=== PATIENT | female | born 1980 | race Two or more races ===

== ENCOUNTER → 2020-06-04 13:24 | Outpatient (BNVA) | payer SELFPAY | PROVIDERS: PCP Internal Medicine; Visit Provider Dietitian, Registered | DX: Z76.89 Persons encountering health services in other specified circumstances (principal) ==

== ENCOUNTER → 2020-07-21 13:30 | Outpatient (BNVA) | payer SELFPAY | PROVIDERS: PCP Orthopaedic Surgery; Referring Provider Orthopaedic Surgery; Visit Provider Physician Assistant | DX: Z76.89 Persons encountering health services in other specified circumstances (principal) ==

== ENCOUNTER 2020-09-10 11:26 | Outpatient (REF) | payer OTHER, SELFPAY ==
--- NOTE | 2020-09-10 12:00 | XR_ITS ---
EXAMINATION: XR LUMBOSACRAL SPINE CLINICAL INFORMATION: Low back pain. COMPARISON: None TECHNIQUE: Three views of the lumbosacral spine. FINDINGS: There is normal lumbar lordosis. The vertebral heights, alignment and disc heights are normal. There is no visible acute fracture, dislocation or lytic process seen. The paravertebral soft tissues are normal. The SI joints are symmetrical and normal. XR/XR lumbar spine 2-3V IMPRESSION: Unremarkable lumbar spine exam
[2020-09-10 12:06] LABS: MANUAL DIFF FLAG NO
[2020-09-10 12:12] LABS: Basophils Percent Auto 0.4 % (0-2); Eosinophils Absolute Auto 0.2 X10*3/uL (0.0-0.4); Eosinophils Percent Auto 2.1 % (0-4); Hemoglobin 9.4 g/dl (12.0-16.0); Imm Gran Abs Auto 0.04 X10*3/uL (0.00-0.03); Imm Gran Pct Auto 0.5 % (0.0-0.4); Lymphocytes Percent Auto 23.6 % (20-40); Mean Corpuscular HGB Conc 29.4 g/dl (31.0-35.0); Mean Corpuscular Hemoglobin 22.2 pg (27.0-33.0); Mean Corpuscular Volume 75.7 fL (80-98); Mean Platelet Volume 12.4 fL (9.4-12.3); Monocytes Absolute Auto 0.7 X10*3/uL (0.1-1.2); Monocytes Percent Auto 8.1 % (2-11); Neutrophils Absolute Auto 5.5 X10*3/uL (2.0-8.3); Neutrophils Percent Auto 65.3 % (45-73); Platelet Count 278 X10*3/uL (160-400); Red Blood Count 4.23 X10*6/uL (4.20-5.50); Red Cell Distribution Width 15.1 % (11.0-16.0); White Blood Count 8.5 X10*3/uL (4.8-10.8)
[2020-09-10 12:43] LABS: Alanine Aminotransferase 15 U/L (0-31); Alkaline Phosphatase 95 U/L (39-117); Anion Gap 14 (12-20); Aspartate Amino Transferase 16 U/L (5-31); Bilirubin Total 0.3 mg/dL (0.0-1.0); Blood Urea Nitrogen 13 mg/dL (9-16); Calcium 9.1 mg/dL (8.4-10.2); Carbon Dioxide 25 mmol/L (22-29); Chloride 106 mmol/L (96-108); Cholesterol 214 mg/dL; Estimated Glomerular Filt Rate > 60; Glucose Fasting 88 mg/dL (60-99); HDL Cholesterol 61 mg/dL; LDL Cholesterol Calculated 124 mg/dl; Potassium 4.7 mmol/l (3.3-5.1); Sodium 140 mmol/L (135-145); Total Protein 7.5 g/dL (6.5-8.0); Triglycerides 147 mg/dL
== END 2020-09-10 11:27 | disposition home or self-care (01) ==
LOC: HO.LAB 11:26
PROVIDERS: Visit Provider Internal Medicine
DX: Z00.00 Encounter for general adult medical examination without abnormal findings (principal); M54.9 Dorsalgia, unspecified; E11.9 Type 2 diabetes mellitus without complications; M54.5 Low back pain
CPT/HCPCS: 36415; 72100; 80053; 80061; 85025

== ENCOUNTER 2020-09-29 09:17 | Outpatient (REF) | payer OTHER, SELFPAY ==
[2020-09-29 11:38] LABS: Iron 24 mcg/dL (30-160); Percent Iron Saturation 5 % (15-50); Total Iron Binding Capacity 442 mcg/dL (228-428); Unsaturated Iron Binding 418 ug/dL
[2020-09-29 11:58] LABS: Ferritin 2 ng/mL (10-250)
== END 2020-09-29 09:18 | disposition home or self-care (01) ==
LOC: HO.LAB 09:17
PROVIDERS: Visit Provider Internal Medicine
DX: D64.9 Anemia, unspecified (principal)
CPT/HCPCS: 36415; 82728; 83540

== ENCOUNTER 2020-10-09 09:26 | Outpatient (REF) | payer OTHER, SELFPAY ==
[2020-10-10 08:23] LABS: BV Int Neg Control Negative (Negative); BV Int Pos Control Positive (Positive)
[2020-10-10 14:56] LABS: C. trachomatis RNA TMA NOT DETECTED (NOT DETECTED); N. gonorrhoeae RNA TMA NOT DETECTED (NOT DETECTED)
[2020-10-14 13:31] LABS: HPV mRNA E6/E7 rflx Not Detected (Not Detected)
== END 2020-10-09 09:27 | disposition home or self-care (01) ==
LOC: HO.LAB 09:26
PROVIDERS: PCP Internal Medicine; Visit Provider Advanced Practice Midwife
DX: Z01.411 Encounter for gynecological examination (general) (routine) with abnormal findings (principal); Z11.51 Encounter for screening for human papillomavirus (HPV); N76.0 Acute vaginitis; N63.0 Unspecified lump in unspecified breast; Z20.2 Contact with and (suspected) exposure to infections with a predominantly sexual mode of transmission
CPT/HCPCS: 36415; 87480; 87491; 87510; 87591; 87624; 87660; 88142

== ENCOUNTER 2020-10-24 11:46 | Outpatient (REF) | payer OTHER, SELFPAY ==
--- NOTE | ~2020-10-24 | MM_ITS ---
Routine EXAMINATION: MM DIAGNOSTIC DIGITAL BREAST TOMOSYNTHESIS, BILATERAL US DIAGNOSTIC ULTRASOUND BREAST, LEFT CLINICAL INFORMATION: 40-year-old with palpable finding posterior medial left breast at clinical exam. Family history breast cancer in cousin. No prior breast imaging. The lifetime risk of breast cancer based on the Tyrer-Cuzick Model is 12%. COMPARISON: None (current study represents initial baseline exam). TECHNIQUE: Digital breast tomosynthesis is performed in both the craniocaudal and mediolateral oblique views along with computer-aided detection (CAD). Synthesized 2D images are generated from the tomosynthesis. Ultrasound left breast is targeted to the areas of clinical concern medial left breast 7:00 through 11:00 position. Grayscale imaging and color Doppler are performed without and with harmonics. FINDINGS: There are scattered areas of fibroglandular density (ACR BI-RADS breast composition Category b). There are no significant masses, abnormal calcifications, or other abnormalities. There are scattered round and rim dermal calcifications at the bilateral posterior inferior medial breasts. The axilla and skin contours are unremarkable. Ultrasound left breast demonstrates no cystic or solid mass or architectural abnormality. No skin thickening or duct ectasia or edema tracking in soft tissue planes. Results are discussed with the patient at time of visit, using an business unit controller. MM/MM tomosynthesis diagnostic BI IMPRESSION: 1. No mammographic evidence of malignancy. 2. Unremarkable targeted left breast ultrasound. ASSESSMENT: BI-RADS 2: Benign RECOMMENDATION: 1. Patient should be managed based on the clinical impression. If clinically indicated, further evaluation may be considered with surgical consult. Decision to proceed with biopsy should be based on clinical grounds and degree of clinical concern. 2. Otherwise, routine annual screening mammography. This patient's information was entered into a reminder system with a target due date for their next mammogram.
== END 2020-10-24 11:47 | disposition home or self-care (01) ==
LOC: HO.MAMMO 11:46
PROVIDERS: Visit Provider Advanced Practice Midwife
DX: N63.20 Unspecified lump in the left breast, unspecified quadrant (principal)
CPT/HCPCS: 76642; 77062; 77066

== ENCOUNTER → 2020-10-27 15:51 | Outpatient (BNVA) | payer OTHER, SELFPAY | PROVIDERS: PCP Internal Medicine; Visit Provider Advanced Practice Midwife ==

== ENCOUNTER 2020-11-07 10:42 | Outpatient (REF) | payer OTHER, SELFPAY ==
[2020-11-07 12:13] LABS: Syphilis Screen Nonreactive (Nonreactive)
[2020-11-07 12:15] LABS: HIV AB/AG Nonreactive (Nonreactive); HIV Num 1 0.05 S/CO (0.00-0.99)
[2020-11-07 12:20] LABS: HBc Num1 0.07 S/CO (0.00-0.79); Hepatitis B Core Antibody Nonreactive (Nonreactive)
[2020-11-08 09:21] LABS: CT PCR NOT DETECTED (Not Detect.); NG PCR NOT DETECTED (Not Detect.)
[2020-11-10 04:10] LABS: ~HepC Num1 0.08 S/CO (0.00-0.79); ~Hepatitis C Antibody Nonreactive (Nonreactive)
== END 2020-11-07 10:43 | disposition home or self-care (01) ==
LOC: HO.LAB 10:42
PROVIDERS: Visit Provider Advanced Practice Midwife
DX: N76.0 Acute vaginitis (principal); Z20.2 Contact with and (suspected) exposure to infections with a predominantly sexual mode of transmission
CPT/HCPCS: 86704; 86780; 86803; 87389; 87491; 87591

== ENCOUNTER 2020-11-12 14:00 | Outpatient (RCR) | payer OTHER, SELFPAY ==
--- NOTE | 2020-12-16 12:07 | MHC.PT.DC ---
[facility] [place] Office [place] [facility] [place] [facility] [address] Gilma Cheek [address] [phone] F: [phone] F: [phone] F: [phone] F: [phone] Physical Therapy Discharge Report Diagnosis: DORSALGIA Date of Surgery: NA Date of Evaluation: 11/07/20 Date of Discharge: 12/02/20 Treatments to Date: 2 Cancellations to Date: 0 No Shows to Date: 3 Discharge Status: Patient Elected to Stop Visit Non-compliance Discharge Summary: Pt ATTENDED EVAL AND ONE VISIT, NO SHOWED FOR REMAINING VISITS AND D/Daryl DUE TO NON-COMPLIANCE Electronically signed by: ROSE RUBALCAVA PT, DPT Please sign and return to therapist. Thank you for your referral.
== END 2020-12-16 12:10 | disposition other institution (70) ==
LOC: HO.PT 14:00
PROVIDERS: PCP Internal Medicine; Visit Provider Internal Medicine
DX: M54.9 Dorsalgia, unspecified (principal)
CPT/HCPCS: 97110; 97162

== ENCOUNTER 2021-03-26 12:29 | Outpatient (REF) | payer OTHER, SELFPAY ==
[2021-03-26 13:08] LABS: Hemoglobin 8.8 g/dl (12.0-16.0); Red Cell Distribution Width 16.5 % (11.0-16.0)
[2021-03-26 13:10] LABS: Basophils Percent Auto 0.1 % (0-2); Eosinophils Absolute Auto 0.2 X10*3/uL (0.0-0.4); Eosinophils Percent Auto 2.2 % (0-4); Hematocrit 30.8 % (37-47); Imm Gran Abs Auto 0.04 X10*3/uL (0.00-0.03); Imm Gran Pct Auto 0.5 % (0.0-0.4); Lymphocytes Absolute Auto 2.4 X10*3/uL (1.2-4.9); Lymphocytes Percent Auto 29.6 % (20-40); Mean Corpuscular HGB Conc 28.6 g/dl (31.0-35.0); Mean Corpuscular Volume 70.2 fL (80-98); Monocytes Absolute Auto 0.8 X10*3/uL (0.1-1.2); Neutrophils Absolute Auto 4.6 X10*3/uL (2.0-8.3); Neutrophils Percent Auto 57.6 % (45-73); Platelet Count 235 X10*3/uL (160-400); Red Blood Count 4.39 X10*6/uL (4.20-5.50)
[2021-03-26 13:13] LABS: MANUAL DIFF FLAG NO
[2021-03-26 13:32] LABS: Iron 19 mcg/dL (30-160)
[2021-03-26 13:43] LABS: Percent Iron Saturation 4 % (15-50); Total Iron Binding Capacity 483 mcg/dL (228-428); Unsaturated Iron Binding 464 ug/dL
[2021-03-26 14:16] LABS: Ferritin 1 ng/mL (10-250)
== END 2021-03-26 12:30 | disposition home or self-care (01) ==
LOC: HO.LAB 12:29
PROVIDERS: PCP Internal Medicine; Visit Provider Internal Medicine
DX: Z00.00 Encounter for general adult medical examination without abnormal findings (principal); D64.9 Anemia, unspecified; E61.1 Iron deficiency
CPT/HCPCS: 36415; 82728; 83540; 85025

== ENCOUNTER 2021-03-27 11:53 | Outpatient (REF) | payer OTHER, SELFPAY ==
--- NOTE | ~2021-03-27 | XR_ITS ---
EXAMINATION: XR ANKLE, RIGHT CLINICAL INFORMATION: Pain. COMPARISON: None TECHNIQUE: 3 views of the right ankle. FINDINGS: The bones and soft tissues are normal. No fracture. Alignment is anatomic. Joint spaces are maintained. No joint effusion. There are small exostosis/spurring at the posterior calcaneus at the insertion of the Achilles tendon. XR/XR ankle RT 2V IMPRESSION: Normal right ankle.
--- NOTE | ~2021-03-27 | XR_ITS ---
EXAMINATION: XR HAND, LEFT CLINICAL INFORMATION: Pain in the hand. COMPARISON: None TECHNIQUE: PA, lateral, and oblique views of the left hand. FINDINGS: The bones and soft tissues are normal. No fracture. Alignment is anatomic. Joint spaces are maintained. No erosions or soft tissue calcifications. XR/XR hand LT 2V IMPRESSION: Normal left hand.
--- NOTE | ~2021-03-27 | XR_ITS ---
EXAMINATION: XR KNEE, RIGHT CLINICAL INFORMATION: Knee pain COMPARISON: None TECHNIQUE: Two views of the right knee. FINDINGS: There is mild joint narrowing medial femoral tibial joint. The patellofemoral joint is normal. No bone spur. No bone erosion. No soft tissue calcification. There is no joint effusion. XR/XR knee RT 2V IMPRESSION: Mild joint narrowing of the medial femoral tibial joint. Knee is otherwise normal.
== END 2021-03-27 11:54 | disposition home or self-care (01) ==
LOC: HO.XRAY 11:53
PROVIDERS: PCP Internal Medicine; Visit Provider Internal Medicine
DX: M79.642 Pain in left hand (principal); M25.561 Pain in right knee; M25.571 Pain in right ankle and joints of right foot
CPT/HCPCS: 73120; 73560; 73600

== ENCOUNTER → 2021-04-15 14:17 | Outpatient (BNV) | payer OTHER, SELFPAY | PROVIDERS: PCP Internal Medicine; Referring Provider Internal Medicine; Visit Provider Internal Medicine | DX: D50.9 Iron deficiency anemia, unspecified (principal) | CPT/HCPCS: 99204; 99213; 99214 ==

== ENCOUNTER 2021-05-07 07:13 | Outpatient (REF) | payer OTHER, SELFPAY | END 2021-05-07 07:14 | disposition home or self-care (01) | LOC: HO.MDS 07:13 | PROVIDERS: PCP Internal Medicine; Visit Provider Internal Medicine | DX: D50.9 Iron deficiency anemia, unspecified (principal) | CPT/HCPCS: 96365; 96366; J1200; J1750; Q0163 ==

== ENCOUNTER 2021-05-18 15:05 | Outpatient (REF) | payer OTHER, SELFPAY ==
--- NOTE | ~2021-05-18 | XR_ITS ---
EXAMINATION: XR FOOT, RIGHT CLINICAL INFORMATION: Pain right foot. COMPARISON: None TECHNIQUE: AP, lateral, and oblique views of the right foot. FINDINGS: There is no visible acute fracture, dislocation or subluxation. The ankle mortise and subtalar joints are normal. There is a small retrocalcaneal enthesophyte. The soft tissues are normal. XR/XR foot RT min 3V IMPRESSION: Small retrocalcaneal enthesophyte. No visible acute fracture or dislocation seen.
== END 2021-05-18 15:06 | disposition home or self-care (01) ==
LOC: HO.HMGCX 15:05
PROVIDERS: PCP Internal Medicine; Visit Provider Physician Assistant
DX: Z13.89 Encounter for screening for other disorder (principal)
CPT/HCPCS: 73630

== ENCOUNTER 2021-08-21 09:17 | Outpatient (REF) | payer OTHER, SELFPAY ==
[2021-08-21 09:31] LABS: MANUAL DIFF FLAG NO
[2021-08-21 09:55] LABS: Basophils Percent Auto 0.4 % (0-2); Eosinophils Absolute Auto 0.2 X10*3/uL (0.0-0.4); Eosinophils Percent Auto 2.7 % (0-4); Hematocrit 37.6 % (37.0-47.0); Hemoglobin 11.9 g/dl (12.0-16.0); Imm Gran Abs Auto 0.02 X10*3/uL (0.00-0.03); Imm Gran Pct Auto 0.4 % (0.0-0.4); Lymphocytes Absolute Auto 1.7 X10*3/uL (1.2-4.9); Lymphocytes Percent Auto 30.2 % (20-40); Mean Corpuscular HGB Conc 31.6 g/dl (31.0-35.0); Mean Corpuscular Hemoglobin 27.5 pg (27.0-33.0); Mean Corpuscular Volume 86.8 fL (80.0-98.0); Mean Platelet Volume 11.7 fL (9.4-12.3); Monocytes Absolute Auto 0.7 X10*3/uL (0.1-1.2); Monocytes Percent Auto 12.3 % (2-11); Platelet Count 213 X10*3/uL (160-400); Red Blood Count 4.33 X10*6/uL (4.20-5.50); Red Cell Distribution Width 14.2 % (11.0-16.0); White Blood Count 5.6 X10*3/uL (4.8-10.8)
[2021-08-21 10:30] LABS: Alanine Aminotransferase 19 U/L (0-31); Albumin Level 3.9 g/dL (3.5-5.0); Alkaline Phosphatase 84 U/L (39-117); Anion Gap 9 (12-20); Aspartate Amino Transferase 24 U/L (5-31); Bilirubin Total 0.5 mg/dL (0.0-1.0); Blood Urea Nitrogen 10 mg/dL (9-16); C Reactive Protein 2.27 mg/dL (< or = 0.50); Calcium 9.3 mg/dL (8.4-10.2); Carbon Dioxide 26 mmol/L (22-29); Chloride 107 mmol/L (96-108); Cholesterol 210 mg/dL; Estimated Glomerular Filt Rate > 60; Glucose Fasting 91 mg/dL (60-99); HDL Cholesterol 65 mg/dL; LDL Cholesterol Calculated 124 mg/dl; Potassium 4.3 mmol/L (3.3-5.1); Sodium 138 mmol/L (135-145); Total Protein 7.4 g/dL (6.5-8.0); Triglycerides 108 mg/dL
[2021-08-21 10:54] LABS: Erythrocyte Sedimentation Rate 32 MM/HR (0-20)
[2021-08-21 10:56] LABS: Rheumatoid Factor < 15.0 IU/mL (<15.0)
[2021-08-23 13:05] LABS: Anti Nuclear Antibody Screen NEGATIVE (NEGATIVE)
[2021-08-24 14:25] LABS: Cyclic Citrullinated Peptide 34 UNITS
[2021-08-24 21:52] LABS: Lyme Abs Screen <0.90 index
[2021-08-25 13:41] LABS: Anti DNA DS Antibody <1 IU/mL
[2021-08-25 16:41] LABS: Vitamin D 25-OH, D2 <4 ng/mL; Vitamin D 25-OH, D3 15 ng/mL; Vitamin D 25-OH, Total 15 ng/mL (30-100)
== END 2021-08-21 09:18 | disposition home or self-care (01) ==
LOC: HO.LAB 09:17
PROVIDERS: PCP Internal Medicine; Visit Provider Internal Medicine
DX: Z01.84 Encounter for antibody response examination (principal); E78.5 Hyperlipidemia, unspecified; E55.9 Vitamin D deficiency, unspecified; M25.50 Pain in unspecified joint; D64.9 Anemia, unspecified
CPT/HCPCS: 36415; 80053; 80061; 82306; 85025; 85652; 86038; 86039; 86140; 86200; 86225; 86431; 86617; 86618

== ENCOUNTER 2021-08-21 16:52 | Emergency (ER) | payer OTHER, SELFPAY ==
[2021-08-21 17:33] LABS: COVID-19 Test Negative (Negative)
[2021-08-21 17:35] VITALS: BP 152/84; PULSE 76; RESP 18; TEMP 36.8; O2SAT 99; BMI 33.2
--- NOTE | 2021-08-21 18:45 | ED.URI ---
HPI - URI/Sore Throat General Chief Complaint: Upper Respiratory Symptoms Stated Complaint: fever headache Time Seen by Provider: 08/21/21 18:45 Source: patient Mode of arrival: ambulatory Limitations: no limitations History of Present Illness HPI Narrative: 41-year-old female with a history of anxiety, HLD, obesity, anemia who presents to the ER with some chest congestion, headaches and body aches for the last 2 days. She is vaccinated against COVID-19. She has had known exposure to her granddaughter and daughter who have COVID. She denies any chest pain or shortness of breath. No fevers at home. MD elicited complaint: nasal congestion and other (Chest congestion and headache) Onset (ago): day(s) (2) Consistency: constant Severity: moderate Able to tolerate fluids by mouth: Yes Exacerbating factors: nothing Relieving factors: NSAID Context: sick contacts Associated symptoms: chills, diaphoresis, headache and nasal congestion Treatments prior to arrival: none Related Data Previous Rx's Medication Instructions Recorded hydrocortisone 1 % topical cream 1 appl TOPICAL TID PRN 30 Days 08/12/21 (Anti-Itch (hydrocortisone)) #28.4 g sumatriptan succinate 25 mg tablet 25 mg PO Q2-4H PRN 30 Days #9 tab 08/12/21 Allergies Allergy/AdvReac Type Severity Reaction Status Date / Time PLASTIC TAPE Allergy Intermediate BLISTERS Uncoded 08/21/21 17:34 Review of Systems Review of Systems: Constitutional: No Fever, No Chills ENT/Mouth: No sore throat, No Rhinorrhea, No Swallowing Difficulty Cardiovascular: No Chest Pain, No SOB Respiratory: No Cough, No Sputum Gastrointestinal: No Nausea, No Vomiting, No Diarrhea, No abdominal Pain Musculoskeletal: No joint pain, + Myalgias Skin: No Skin Lesions, No rash Neuro: No Weakness, No Dizziness, + Headache Heme/Lymph: No Bruising, No Lymphadenopathy PMFSH Past Medical History Medical History (Updated 08/21/21 @ 18:46 by AIDE Monahan) Anemia Dyslipidemia AMAN (generalized anxiety disorder) Migraine with aura New daily persistent headache Polyarthralgia Surgical History History of sleeve gastrectomy Hx of section Hx of tubal ligation Family History Family History Father Diabetes mellitus ESRD on hemodialysis Mother Acute depression Anxiety Asthma Hypertension Osteoporosis Hypercholesteremia Hyperlipemia Mental health disorder Son No problems noted. Daughter No problems noted. Brother No problems noted. Sister Cervical cancer Maternal Grandmother Lung cancer Maternal Grandfather Throat cancer Social History Social History Housing: House Alcohol intake: never Patient Tobacco Use Status: Never used Tobacco e-Cigarette/Vaping Use: Never Used Second Hand Smoke Exposure: No Advance Directives: No Advance Directives Information Provided: No service: No Current occupational status: employed Gender identity: Female Physical Exam Vital Signs: Vital Signs: Last Vital Signs Temp 98.3 F 08/21/21 17:35 Pulse 76 08/21/21 17:35 Resp 18 08/21/21 17:35 BP 152/84 H 08/21/21 17:35 Pulse Ox 99 08/21/21 17:35 BMI result Body Mass Index 33.2 Appearance: Alert. Oriented X3. No acute distress. HEENT: normal external inspection Neck: Normal inspection. Neck supple. CVS: Normal heart rate and rhythm. Pulses normal. Respiratory: No respiratory distress. Breath sounds normal. Skin: Skin warm and dry. Normal skin color. Normal skin turgor. No rashes. Extremities: No lower extremity edema. Normal ROM Neuro: Oriented X 3. Grossly normal, nonfocal. Course Course Course Narrative: 41-year-old female presenting with COVID symptoms after she has known exposure. She is vaccinated in her symptoms are mild. Her vital signs are normal. Her rapid antigen test here is negative. She is here with her 6-year-old granddaughter whose PCR test is positive. Patient has been counseled on our test is less reliable and most likely a false negative. She was counseled to self isolate at home an active though she does have COVID-19 a given her known exposures and symptoms. Patient expressed understanding is stable for discharge home for self-monitoring and supportive care. MDM - URI/Sore Throat Lab Data Labs: Lab Results 08/21/21 Range/Units 17:06 COVID-19 (DARIAN) Negative (Negative) COVID-19 Clin Com See Note Discharge Plan Discharge Clinical Impression: COVID-19 Patient Disposition: Home, Self-Care Instructions: Covid-19 Viral Syndrome and Novel Coronavirus (ED) Hey/Ath Additional Instructions: Your rapid COVID was negative today. HOWEVER this is thought to be a FALSE NEGATIVE Because of your symptoms and your close contact to your granddaughter who has COVID you should treat and isolate at home as though you are COVID POSITIVE. Do not go to work for 5 days, if your symptoms are resolved in 5 days you can go back to work with a mask. If your symptoms persist after 5 days, do not go back to work until of your symptoms are gone Take Motrin and Tylenol for headaches and body aches. Prescriptions: No Action sumatriptan succinate 25 mg tablet 25 mg PO Q2-4H PRN (Reason: migraine headache) 30 Days Qty: 9 RF: 2 hydrocortisone [Anti-Itch (HC)] 1 % cream 1 appl topical TID PRN (Reason: skin irritation) 30 Days Qty: 28.4 RF: 2 Stand Alone Forms: Work/School Release
== END 2021-08-21 19:20 | disposition home or self-care (01) ==
PROVIDERS: Emergency Provider Internal Medicine; PCP Internal Medicine
DX: U07.1 COVID-19 (principal); R51.9 Headache, unspecified
CPT/HCPCS: 36415; 87635; 99282; 99283

== ENCOUNTER 2021-11-30 13:14 | Outpatient (REF) | payer OTHER, SELFPAY ==
[2021-11-30 15:58] LABS: Hematocrit 37.1 % (37.0-47.0); Hemoglobin 11.2 g/dl (12.0-16.0); Mean Corpuscular HGB Conc 30.2 g/dl (31.0-35.0); Mean Corpuscular Hemoglobin 26.4 pg (27.0-33.0); Mean Corpuscular Volume 87.5 fL (80.0-98.0); Mean Platelet Volume 11.8 fL (9.4-12.3); Platelet Count 261 X10*3/uL (160-400); Red Blood Count 4.24 X10*6/uL (4.20-5.50); Red Cell Distribution Width 13.2 % (11.0-16.0); White Blood Count 10.3 X10*3/uL (4.8-10.8)
[2021-12-01 05:55] LABS: CT PCR NOT DETECTED (Not Detect.); NG PCR NOT DETECTED (Not Detect.)
[2021-12-01 15:42] LABS: BV Int Neg Control Negative (Negative); BV Int Pos Control Positive (Positive)
== END 2021-11-30 13:15 | disposition home or self-care (01) ==
LOC: HO.LAB 13:14
PROVIDERS: PCP Internal Medicine; Visit Provider Advanced Practice Midwife
DX: Z01.419 Encounter for gynecological examination (general) (routine) without abnormal findings (principal); N63.0 Unspecified lump in unspecified breast; N76.0 Acute vaginitis; L30.9 Dermatitis, unspecified; N92.1 Excessive and frequent menstruation with irregular cycle; N94.6 Dysmenorrhea, unspecified; Z20.2 Contact with and (suspected) exposure to infections with a predominantly sexual mode of transmission
CPT/HCPCS: 36415; 84443; 85027; 87480; 87491; 87510; 87591; 87660

== ENCOUNTER 2021-12-10 16:17 | Outpatient (REF) | payer OTHER, SELFPAY ==
--- NOTE | ~2021-12-10 | MM_ITS ---
EXAMINATION: MM SCREENING DIGITAL BREAST TOMOSYNTHESIS, BILATERAL CLINICAL INFORMATION: Screening. Asymptomatic. The lifetime risk of breast cancer based on the Tyrer-Cuzick Model is 14.1%. COMPARISON: Mammography: 10/24/2020 TECHNIQUE: Digital breast tomosynthesis is performed in both the craniocaudal and mediolateral oblique views along with computer-aided detection (CAD). Synthesized 2-D images are generated from the tomosynthesis. FINDINGS: The breasts are heterogeneously dense, which may obscure small masses (ACR BI-RADS breast composition Category c). There is a stable parenchymal pattern of the right breast without new abnormal dominant mass or suspicious grouping of microcalcifications. About the upper outer aspect of the left breast, there is a question of an irregularly marginated density approximately 9 cm from nipple, for which spot compression views are recommended. MM/MM tomosynthesis screening BI IMPRESSION: Left breast findings for further evaluation, as described. ASSESSMENT: BI-RADS 0: Incomplete - Need Additional Imaging Evaluation. RECOMMENDATION: 1. Additional views of the left breast. 2. Targeted ultrasound if warranted after review of the additional views. 3. Radiology department staff will contact the patient for additional imaging. This patient's information was entered into a reminder system with a target due date for their next mammogram.
== END 2021-12-10 16:18 | disposition home or self-care (01) ==
LOC: HO.MAMMO 16:17
PROVIDERS: Visit Provider Advanced Practice Midwife
DX: Z12.31 Encounter for screening mammogram for malignant neoplasm of breast (principal)
CPT/HCPCS: 77063; 77067

== ENCOUNTER 2021-12-21 15:01 | Outpatient (REF) | payer OTHER, SELFPAY ==
--- NOTE | ~2021-12-21 | MM_ITS ---
EXAMINATION: MM DIAGNOSTIC DIGITAL BREAST TOMOSYNTHESIS, LEFT CLINICAL INFORMATION: Recall from screening for question of asymmetric density upper outer breast. Age 41. TC score 14%. COMPARISON: Mammography: 12/10/2021, 10/24/2020 (baseline) TECHNIQUE: Digital breast tomosynthesis is performed. 2D images are generated from the tomosynthesis. The following views are obtained: Spot CC, spot ML. FINDINGS: There are scattered areas of fibroglandular density (ACR BI-RADS breast composition Category b). Additional views show no mass or architectural abnormality or persistent asymmetric density. There is no significant change from prior baseline exam. Results are discussed with the patient at time of visit. MM/MM tomosynthesis added views L IMPRESSION: Additional views shows no mass, architectural abnormality, or persistent asymmetric density. ASSESSMENT: BI-RADS 1: Negative RECOMMENDATION: Routine annual mammography screening. This patient's information was entered into a reminder system with a target due date for their next mammogram.
== END 2021-12-21 15:02 | disposition home or self-care (01) ==
LOC: HO.MAMMO 15:01
PROVIDERS: Visit Provider Advanced Practice Midwife
DX: R92.2 Inconclusive mammogram (principal)
CPT/HCPCS: 77061; 77065

== ENCOUNTER 2021-12-22 15:02 | Outpatient (REF) | payer OTHER, SELFPAY ==
--- NOTE | ~2021-12-22 | US_ITS ---
EXAMINATION: US PELVIS CLINICAL INFORMATION: Excessive and frequent menstruation with regular cycles COMPARISON: None TECHNIQUE: Ultrasound of the pelvis is performed using both transabdominal and transvaginal transducers along with Doppler. Transvaginal imaging is performed due to inadequate visualization transabdominally. FINDINGS: The uterus is anteverted and retroflexed and measures 12.3 x 4.8 x 5.4 cm in dimension. Endometrial thickness measures 1.3 cm. No focal uterine lesion is seen. There is fluid in the endocervical canal. There are nabothian cysts in the cervix. The ovaries are normal. The right ovary measures 2.4 x 1.4 x 1.7 cm and the left ovary measures 2.8 x 1.6 x 1.9 cm. There is no fluid in the pelvis. US/US pelvic and transvaginal IMPRESSION: Normal thickness endometrium measuring 1.3 cm.
== END 2021-12-22 15:03 | disposition home or self-care (01) ==
LOC: HO.US 15:02
PROVIDERS: Visit Provider Advanced Practice Midwife
DX: N92.0 Excessive and frequent menstruation with regular cycle (principal)
CPT/HCPCS: 76830; 76856

== ENCOUNTER 2022-01-08 10:16 | Outpatient (REF) | payer OTHER, SELFPAY | END 2022-01-08 10:17 | disposition home or self-care (01) | LOC: HO.LAB 10:16 | PROVIDERS: Visit Provider Advanced Practice Midwife | DX: N93.9 Abnormal uterine and vaginal bleeding, unspecified (principal); N92.0 Excessive and frequent menstruation with regular cycle | CPT/HCPCS: 58100; 88305 ==

== ENCOUNTER → 2022-01-22 14:15 | Outpatient (BNVA) | payer OTHER, SELFPAY | PROVIDERS: PCP Internal Medicine; Visit Provider Advanced Practice Midwife | DX: N92.0 Excessive and frequent menstruation with regular cycle (principal) | CPT/HCPCS: 99212 ==

== ENCOUNTER 2022-03-08 14:36 | Outpatient (REF) | payer OTHER, SELFPAY | END 2022-03-08 14:37 | disposition home or self-care (01) | LOC: HO.MDS 14:36 | PROVIDERS: Visit Provider Internal Medicine | DX: D50.9 Iron deficiency anemia, unspecified (principal) | CPT/HCPCS: 96365; J1756 ==

== ENCOUNTER 2022-03-13 07:30 | Outpatient (REF) | payer OTHER, SELFPAY ==
--- NOTE | ~2022-03-13 | XR_ITS ---
EXAMINATION: XR KNEE, LEFT CLINICAL INFORMATION: Pain COMPARISON: None TECHNIQUE: 2 views of the left knee. FINDINGS: Bones and soft tissues are normal. No fracture or joint effusion. Alignment is anatomic. Joint spaces are well maintained. No abnormal soft tissue calcification. XR/XR knee LT 2V IMPRESSION: Unremarkable left knee.
== END 2022-03-13 07:31 | disposition home or self-care (01) ==
LOC: HO.XRAY 07:30
PROVIDERS: PCP Internal Medicine; Visit Provider Internal Medicine
DX: M25.562 Pain in left knee (principal)
CPT/HCPCS: 73560

== ENCOUNTER 2022-03-15 16:15 | Outpatient (REF) | payer OTHER, SELFPAY | END 2022-03-15 16:16 | disposition home or self-care (01) | LOC: HO.MDS 16:15 | PROVIDERS: Visit Provider Internal Medicine | DX: D50.9 Iron deficiency anemia, unspecified (principal) | CPT/HCPCS: 96365; J1756 ==

== ENCOUNTER 2022-03-22 16:15 | Outpatient (REF) | payer OTHER, SELFPAY | END 2022-03-22 16:16 | disposition home or self-care (01) | LOC: HO.MDS 16:15 | PROVIDERS: Visit Provider Internal Medicine | DX: D50.9 Iron deficiency anemia, unspecified (principal) | CPT/HCPCS: 96365; J1756 ==

== ENCOUNTER 2022-03-29 16:27 | Outpatient (REF) | payer OTHER, SELFPAY | END 2022-03-29 16:28 | disposition home or self-care (01) | LOC: HO.MDS 16:27 | PROVIDERS: Visit Provider Internal Medicine | DX: D50.9 Iron deficiency anemia, unspecified (principal) | CPT/HCPCS: 96365; J1756 ==

== ENCOUNTER 2022-04-05 17:24 | Outpatient (REF) | payer OTHER, SELFPAY | END 2022-04-05 17:25 | disposition home or self-care (01) | LOC: HO.MDS 17:24 | PROVIDERS: Visit Provider Internal Medicine | DX: D50.9 Iron deficiency anemia, unspecified (principal); N90.89 Other specified noninflammatory disorders of vulva and perineum; Z30.430 Encounter for insertion of intrauterine contraceptive device | CPT/HCPCS: 58300; 96365; J1756 ==

== ENCOUNTER → 2022-04-07 13:10 | Outpatient (BNVA) | payer OTHER, SELFPAY | PROVIDERS: PCP Internal Medicine; Referring Provider Surgery; Visit Provider Physician Assistant Surgical | DX: E66.9 Obesity, unspecified (principal); Z68.34 Body mass index [BMI] 34.0-34.9, adult; Z98.84 Bariatric surgery status; Z90.3 Acquired absence of stomach [part of] | CPT/HCPCS: 99212 ==

== ENCOUNTER 2022-04-24 07:23 | Outpatient (REF) | payer OTHER, SELFPAY ==
[2022-04-24 08:08] LABS: MANUAL DIFF FLAG NO
[2022-04-24 08:45] LABS: Basophils Percent Auto 0.5 % (0-2); Eosinophils Absolute Auto 0.2 X10*3/uL (0.0-0.4); Hemoglobin 11.4 g/dl (12.0-16.0); Imm Gran Abs Auto 0.03 X10*3/uL (0.00-0.03); Imm Gran Pct Auto 0.5 % (0.0-0.4); Lymphocytes Absolute Auto 1.7 X10*3/uL (1.2-4.9); Lymphocytes Percent Auto 26.5 % (20-40); Mean Corpuscular HGB Conc 30.8 g/dl (31.0-35.0); Mean Corpuscular Hemoglobin 25.8 pg (27.0-33.0); Mean Corpuscular Volume 83.7 fL (80.0-98.0); Mean Platelet Volume 12.5 fL (9.4-12.3); Monocytes Absolute Auto 0.5 X10*3/uL (0.1-1.2); Monocytes Percent Auto 8.1 % (2-11); Neutrophils Percent Auto 61.4 % (45-73); Platelet Count 203 X10*3/uL (160-400); Red Blood Count 4.42 X10*6/uL (4.20-5.50); Red Cell Distribution Width 17.8 % (11.0-16.0); White Blood Count 6.6 X10*3/uL (4.8-10.8)
[2022-04-24 09:02] LABS: Estimated Average Glucose 91 mg/dL; Hemoglobin A1c % 4.8 %
[2022-04-24 09:10] LABS: Alanine Aminotransferase 14 U/L (0-31); Albumin Level 3.8 g/dL (3.5-5.0); Alkaline Phosphatase 69 U/L (39-117); Anion Gap 14 (12-20); Aspartate Amino Transferase 13 U/L (5-31); Bilirubin Total 0.6 mg/dL (0.0-1.0); Blood Urea Nitrogen 11 mg/dL (9-16); C Reactive Protein 0.65 mg/dL (< or = 0.50); Carbon Dioxide 23 mmol/L (22-29); Chloride 108 mmol/L (96-108); Cholesterol 187 mg/dL; Estimated Glomerular Filt Rate > 60; Glucose Random 86 mg/dL (60-115); HDL Cholesterol 59 mg/dL; Iron 59 mcg/dL (30-160); LDL Cholesterol Calculated 117 mg/dl; Percent Iron Saturation 18 % (15-50); Potassium 4.8 mmol/L (3.3-5.1); Sodium 140 mmol/L (135-145); Total Iron Binding Capacity 326 mcg/dL (228-428); Triglycerides 58 mg/dL; Unsaturated Iron Binding 267 ug/dL
[2022-04-24 09:32] LABS: Ferritin 71 ng/mL (10-250); Insulin 9 uU/mL (2-29); TSH reflex Free T4 1.21 uIU/mL (0.32-4.0); Vitamin D 25-OH Total 18.2 ng/mL (>30)
[2022-04-24 09:52] LABS: Folate > 20.0 ng/mL (> or = 4.0); Vitamin B12 785 pg/mL (200-900)
[2022-04-25 18:51] LABS: Calcium (PTHI) 9.2 mg/dL (8.6-10.2); PTHI 35 pg/mL (16-77)
[2022-04-28 05:47] LABS: Zinc 61 mcg/dL (60-130)
[2022-04-30 17:51] LABS: Vitamin A 35 mcg/dL (38-98)
[2022-05-01 11:37] LABS: Vitamin B1 13 nmol/L (8-30)
== END 2022-04-24 07:24 | disposition home or self-care (01) ==
LOC: HO.LAB 07:23
PROVIDERS: PCP Internal Medicine; Visit Provider Physician Assistant Surgical
DX: Z90.3 Acquired absence of stomach [part of] (principal)
CPT/HCPCS: 36415; 80053; 80061; 82306; 82607; 82728; 82746; 83036; 83525; 83540; 83970; 84425; 84443; 84590; 84630; 85025; 86140

== ENCOUNTER → 2022-06-14 15:41 | Outpatient (BNVA) | payer OTHER, SELFPAY | PROVIDERS: PCP Internal Medicine; Visit Provider Advanced Practice Midwife | DX: Z30.431 Encounter for routine checking of intrauterine contraceptive device (principal) | CPT/HCPCS: 99212 ==

== ENCOUNTER → 2022-07-12 16:29 | Outpatient (BNVA) | payer OTHER, SELFPAY | PROVIDERS: PCP Internal Medicine; Visit Provider Physician Assistant Surgical | DX: E66.9 Obesity, unspecified (principal); Z90.3 Acquired absence of stomach [part of] | CPT/HCPCS: 99212 ==

== ENCOUNTER 2022-08-03 17:39 | Emergency (ER) | payer OTHER, SELFPAY ==
--- NOTE | ~2022-08-03 | XR_ITS ---
EXAMINATION: XR CHEST CLINICAL INFORMATION: Chest pain, shortness of breath COMPARISON: 04/26/2019 TECHNIQUE: 2 views of the chest were obtained. FINDINGS: No focal consolidation, pulmonary edema, or pleural effusion. Stable cardiomediastinal silhouette. XR/XR chest 2V IMPRESSION: No acute cardiopulmonary findings. A 10 mm round density projecting over the left posterior 5th rib is most likely external to the patient, projecting anteriorly beneath the mid humerus on the lateral view. This could be confirmed with bilateral shallow oblique radiographs and/or repeat AP view after removal of overlying materials.
--- NOTE | 2022-08-03 17:53 | ECG_ITS ---
Test Reason : CP Blood Pressure : / mmHG Vent. Rate : 076 BPM Atrial Rate : 076 BPM P-R Int : 150 ms QRS Dur : 088 ms QT Int : 382 ms P-R-T Axes : 000 150 164 degrees QTc Int : 429 ms Normal sinus rhythm Left posterior fascicular block (not clear if leads reversed) Abnormal ECG When compared with ECG of 26-APR-2019 07:45, Left posterior fascicular block is now Present T wave inversion now evident in Lateral leads Referred By: Generic ED Physician Electronically Signed By:ALICE BARAHONA
[2022-08-03 18:58] VITALS: BP 137/95; PULSE 71; RESP 18; TEMP 36.7; O2SAT 100; BMI 33.5
--- NOTE | 2022-08-03 19:00 | ED.CHESTPAIN ---
HPI - Chest Pain General Chief Complaint: Chest Pain <AIED Schaeffer - Last Filed: 08/03/22 19:02> Stated Complaint: Chest pain/SOB <AIDE Schaeffer - Last Filed: 08/03/22 19:02> Time Seen by Provider: 08/03/22 21:43 <AIDE Schaeffer - Last Filed: 08/03/22 19:02> Source: patient <Tuan Walter MD - Last Filed: 08/03/22 22:24> Mode of arrival: ambulatory <Tuan Walter MD - Last Filed: 08/03/22 22:24> Limitations: no limitations <Tuan Walter MD - Last Filed: 08/03/22 22:24> History of Present Illness HPI narrative: Patient is 42 years old with history of borderline hypertension no known coronary artery disease include increased stress lately comes here for mid chest pain for last 2 days pain is localized on the right 2nd intercostal space increases on palpation and movements and taking deep breath no cough or shortness of breath patient has increased anxiety unable to sleep for last few nights patient had labs workup done prior to my evaluation which showed normal troponin normal cardiogram without any acute ST-T changes stable vitals <Tuan Walter MD - Last Filed: 08/03/22 22:24> Related Data Home Medications: Home Medications Medication Instructions Recorded Confirmed levonorgestrel 20 mcg/24 hours (8 intrauterine 06/14/22 07/12/22 yrs) 52 mg intrauterine device (Mirena) Previous Rx's Medication Instructions Recorded cholecalciferol (vitamin D3) 25 25 mcg PO DAILY 90 days #90 caps 03/10/22 mcg (1,000 unit) capsule vitamin A palmitate 10,000 unit 10,000 unit PO DAILY #90 caps 05/04/22 capsule pantoprazole 40 mg tablet,delayed 40 mg PO DAILY #90 tabs 07/12/22 release ibuprofen 600 mg tablet 600 mg PO Q6H PRN fever or pain 08/03/22 #30 tabs lorazepam 0.5 mg tablet (Ativan) 0.5 mg PO BEDTIME PRN anxiety #14 08/03/22 tabs <AIDE Schaeffer - Last Filed: 08/03/22 19:02> Allergies/Adverse Reactions: Allergies Allergy/AdvReac Type Severity Reaction Status Date / Time PLASTIC TAPE Allergy Intermediate BLISTERS Uncoded 06/14/22 15:49 <AIDE Schaeffer - Last Filed: 08/03/22 19:02> Review of Systems Review of Systems: Yes all other systems are reviewed and are negative <Tuan Walter MD - Last Filed: 08/03/22 22:24> [facility] Past Medical History Medical History: Medical History Anemia Dyslipidemia AMAN (generalized anxiety disorder) GERD (gastroesophageal reflux disease) Hypovitaminosis D Migraine with aura Migraines New daily persistent headache Physical exam Polyarthralgia <AIDE Schaeffer - Last Filed: 08/03/22 19:02> Surgical History: Surgical History History of sleeve gastrectomy Hx of section Hx of tubal ligation <AIDE Schaeffer - Last Filed: 08/03/22 19:02> Family History Family History: Family History Father Diabetes mellitus ESRD on hemodialysis Mother Acute depression Anxiety Asthma Hypertension Osteoporosis Hypercholesteremia Hyperlipemia Mental health disorder Son No problems noted. Daughter No problems noted. Brother No problems noted. Sister Cervical cancer Maternal Grandmother Lung cancer Maternal Grandfather Throat cancer <AIDE Schaeffer - Last Filed: 08/03/22 19:02> Social History Social History: Social History Household Members: Significant Other and Family Housing: House Alcohol intake: never Patient Tobacco Use Status: Never used Tobacco e-Cigarette/Vaping Use: Never Used Second Hand Smoke Exposure: No Advance Directives: No Advance Directives Information Provided: No service: No Current occupational status: employed Gender identity: Female Cognitive needs: No Hearing needs: No Vision needs: No <AIDE Schaeffer - Last Filed: 08/03/22 19:02> Physical Exam Vital Signs: Vital Signs: Last Vital Signs Temp 98.1 F 08/03/22 18:58 Pulse 71 08/03/22 18:58 Resp 18 08/03/22 18:58 BP 137/95 H 08/03/22 18:58 Pulse Ox 100 08/03/22 18:58 O2 Del Method 08/03/22 18:58 BMI result Body Mass Index 33.5 <AIDE Schaeffer - Last Filed: 08/03/22 19:02> Vital Signs: Last Vital Signs Temp 98.1 F 08/03/22 18:58 Pulse 71 08/03/22 18:58 Resp 18 08/03/22 18:58 BP 137/95 H 08/03/22 18:58 Pulse Ox 100 08/03/22 18:58 O2 Del Method 08/03/22 18:58 BMI result Body Mass Index 33.5 <Tuan Walter MD - Last Filed: 08/03/22 22:24> Appearance: Alert. Oriented X3. No acute distress. Eyes: PERRLA, No Nystagmus ENT: Pharynx normal. Oral Mucosa moist Neck: Normal inspection. Neck supple. CVS: Normal heart rate and rhythm. Pulses normal. Tenderness seconds ago so based on the right side Respiratory: No respiratory distress. Equal air entry bilateral, no wheezing/rales/rhonchi Abdomen: Soft and nontender. Bowel sounds are present, no mass palpable, no CVA tenderness Skin: Skin warm and dry. Normal skin color. Normal skin turgor. Extremities: No lower extremity edema. No calf tenderness Neuro: Oriented X 3. No motor deficit. No sensory deficit.No cerebellar signs , cranial nerves II-XII intact <Tuan Walter MD - Last Filed: 08/03/22 22:24> Course Course Course Narrative: 19pm - 42yoF c PMHx of HTN noncompliant with medications was presenting to the ER with complaints of 2 days of midsternal chest pain that wakes her up out of her sleep at 2 in the morning with associated shortness of breath. She denies any cough or any other symptoms complaints or concerns at this time. Plan: Labs, EKG, chest x-ray ordered at this time. Patient is stable she can be sent back to the waiting room for further evaluation treatment to the main ER. <AIDE Schaeffer - Last Filed: 08/03/22 19:02> Medical Decision Making Medical Decision Making MDM Narrative: Patient with clinically costochondritis EKG troponin negative discharge patient home on ibuprofen <Tuan Walter MD - Last Filed: 08/03/22 22:24> Lab Data MDM Lab Attestation statement: I reviewed the patient's lab results. <Tuan Walter MD - Last Filed: 08/03/22 22:24> Result Diagrams: : 08/03/22 19:14 08/03/22 19:14 <AIDE Schaeffer - Last Filed: 08/03/22 19:02> Labs: Lab Results 08/03/22 08/03/22 08/03/22 Range/Units 19:13 19:13 19:13 WBC (4.8-10.8) X10*3/uL RBC (4.20-5.50) X10*6/uL Hgb (12.0-16.0) g/dl Hct (37.0-47.0) % MCV (80.0-98.0) fL MCH (27.0-33.0) pg MCHC (31.0-35.0) g/dl RDW (11.0-16.0) % Plt Count (160-400) X10*3/uL MPV (9.4-12.3) fL Immature Gran % (Auto) (0.0-0.4) % Neut % (Auto) (45-73) % Lymph % (Auto) (20-40) % Bucks % (Auto) (2-11) % Eos % (Auto) (0-4) % Baso % (Auto) (0-2) % Lymph # (Auto) (1.2-4.9) X10*3/uL Bucks # (Auto) (0.1-1.2) X10*3/uL Eos # (Auto) (0.0-0.4) X10*3/uL Baso # (Auto) (0.0-0.2) X10*3/uL Abs Immat Gran (auto) (0.00-0.03) X10*3/uL Absolute Neuts (auto) (2.0-8.3) x10*3/uL Absolute Nucleated RBC (0.0-0.012) X10*3/uL Nucleated RBC % (auto) (0.0-0.2) /100WBC PT (10.0-13.1) SEC INR (0.9-1.1) Sodium (135-145) mmol/L Potassium (3.3-5.1) mmol/L Chloride (96-108) mmol/L Carbon Dioxide (22-29) mmol/L Anion Gap (12-20) BUN (9-16) mg/dL Creatinine (0.5-1.4) mg/dL Estim Creat Clear Calc Estimated GFR Random Glucose (60-115) mg/dL Calcium (8.4-10.2) mg/dL Magnesium (1.6-2.6) mg/dL Total Bilirubin (0.0-1.0) mg/dL AST (5-31) U/L ALT (0-31) U/L Alkaline Phosphatase (39-117) U/L Troponin I High Sens < 3.5 (<3.5-17.0) ng/L Total Protein (6.5-8.0) g/dL Albumin (3.5-5.0) g/dL COVID-19 (DARIAN) Negative (Negative) COVID-19 Clin Com See Note Influenza Type A (QING) Negative (Negative) Influenza Type B (QING) Negative (Negative) Influenza A & B Note See Note 08/03/22 08/03/22 08/03/22 Range/Units 19:14 19:14 19:14 WBC 10.5 (4.8-10.8) X10*3/uL RBC 4.49 (4.20-5.50) X10*6/uL Hgb 12.3 (12.0-16.0) g/dl Hct 38.8 (37.0-47.0) % MCV 86.4 (80.0-98.0) fL MCH 27.4 (27.0-33.0) pg MCHC 31.7 (31.0-35.0) g/dl RDW 12.9 (11.0-16.0) % Plt Count 255 D (160-400) X10*3/uL MPV 11.9 (9.4-12.3) fL Immature Gran % (Auto) 0.4 (0.0-0.4) % Neut % (Auto) 68.6 (45-73) % Lymph % (Auto) 21.9 (20-40) % Bucks % (Auto) 7.1 (2-11) % Eos % (Auto) 1.6 (0-4) % Baso % (Auto) 0.4 (0-2) % Lymph # (Auto) 2.3 (1.2-4.9) X10*3/uL Bucks # (Auto) 0.8 (0.1-1.2) X10*3/uL Eos # (Auto) 0.2 (0.0-0.4) X10*3/uL Baso # (Auto) 0.0 (0.0-0.2) X10*3/uL Abs Immat Gran (auto) 0.04 H (0.00-0.03) X10*3/uL Absolute Neuts (auto) 7.2 (2.0-8.3) x10*3/uL Absolute Nucleated RBC 0.000 (0.0-0.012) X10*3/uL Nucleated RBC % (auto) 0.0 (0.0-0.2) /100WBC PT 13.1 (10.0-13.1) SEC INR 1.1 (0.9-1.1) Sodium 139 (135-145) mmol/L Potassium 4.4 (3.3-5.1) mmol/L Chloride 106 (96-108) mmol/L Carbon Dioxide 26 (22-29) mmol/L Anion Gap 11 L (12-20) BUN 12 (9-16) mg/dL Creatinine 0.78 (0.5-1.4) mg/dL Estim Creat Clear Calc 112.4 Estimated GFR > 60 Random Glucose 83 (60-115) mg/dL Calcium 9.7 D (8.4-10.2) mg/dL Magnesium 1.8 (1.6-2.6) mg/dL Total Bilirubin 0.5 (0.0-1.0) mg/dL AST 15 (5-31) U/L ALT 16 (0-31) U/L Alkaline Phosphatase 89 (39-117) U/L Troponin I High Sens (<3.5-17.0) ng/L Total Protein 7.4 (6.5-8.0) g/dL Albumin 4.1 (3.5-5.0) g/dL COVID-19 (DARIAN) (Negative) COVID-19 Clin Com Influenza Type A (QING) (Negative) Influenza Type B (QING) (Negative) Influenza A & B Note <AIDE Schaeffer - Last Filed: 08/03/22 19:02> Lab Results 08/03/22 08/03/22 08/03/22 Range/Units 19:13 19:13 19:13 WBC (4.8-10.8) X10*3/uL RBC (4.20-5.50) X10*6/uL Hgb (12.0-16.0) g/dl Hct (37.0-47.0) % MCV (80.0-98.0) fL MCH (27.0-33.0) pg MCHC (31.0-35.0) g/dl RDW (11.0-16.0) % Plt Count (160-400) X10*3/uL MPV (9.4-12.3) fL Immature Gran % (Auto) (0.0-0.4) % Neut % (Auto) (45-73) % Lymph % (Auto) (20-40) % Bucks % (Auto) (2-11) % Eos % (Auto) (0-4) % Baso % (Auto) (0-2) % Lymph # (Auto) (1.2-4.9) X10*3/uL Bucks # (Auto) (0.1-1.2) X10*3/uL Eos # (Auto) (0.0-0.4) X10*3/uL Baso # (Auto) (0.0-0.2) X10*3/uL Abs Immat Gran (auto) (0.00-0.03) X10*3/uL Absolute Neuts (auto) (2.0-8.3) x10*3/uL Absolute Nucleated RBC (0.0-0.012) X10*3/uL Nucleated RBC % (auto) (0.0-0.2) /100WBC PT (10.0-13.1) SEC INR (0.9-1.1) Sodium (135-145) mmol/L Potassium (3.3-5.1) mmol/L Chloride (96-108) mmol/L Carbon Dioxide (22-29) mmol/L Anion Gap (12-20) BUN (9-16) mg/dL Creatinine (0.5-1.4) mg/dL Estim Creat Clear Calc Estimated GFR Random Glucose (60-115) mg/dL Calcium (8.4-10.2) mg/dL Magnesium (1.6-2.6) mg/dL Total Bilirubin (0.0-1.0) mg/dL AST (5-31) U/L ALT (0-31) U/L Alkaline Phosphatase (39-117) U/L Troponin I High Sens < 3.5 (<3.5-17.0) ng/L Total Protein (6.5-8.0) g/dL Albumin (3.5-5.0) g/dL COVID-19 (DARIAN) Negative (Negative) COVID-19 Clin Com See Note Influenza Type A (QING) Negative (Negative) Influenza Type B (QING) Negative (Negative) Influenza A & B Note See Note 08/03/22 08/03/22 08/03/22 Range/Units 19:14 19:14 19:14 WBC 10.5 (4.8-10.8) X10*3/uL RBC 4.49 (4.20-5.50) X10*6/uL Hgb 12.3 (12.0-16.0) g/dl Hct 38.8 (37.0-47.0) % MCV 86.4 (80.0-98.0) fL MCH 27.4 (27.0-33.0) pg MCHC 31.7 (31.0-35.0) g/dl RDW 12.9 (11.0-16.0) % Plt Count 255 D (160-400) X10*3/uL MPV 11.9 (9.4-12.3) fL Immature Gran % (Auto) 0.4 (0.0-0.4) % Neut % (Auto) 68.6 (45-73) % Lymph % (Auto) 21.9 (20-40) % Bucks % (Auto) 7.1 (2-11) % Eos % (Auto) 1.6 (0-4) % Baso % (Auto) 0.4 (0-2) % Lymph # (Auto) 2.3 (1.2-4.9) X10*3/uL Bucks # (Auto) 0.8 (0.1-1.2) X10*3/uL Eos # (Auto) 0.2 (0.0-0.4) X10*3/uL Baso # (Auto) 0.0 (0.0-0.2) X10*3/uL Abs Immat Gran (auto) 0.04 H (0.00-0.03) X10*3/uL Absolute Neuts (auto) 7.2 (2.0-8.3) x10*3/uL Absolute Nucleated RBC 0.000 (0.0-0.012) X10*3/uL Nucleated RBC % (auto) 0.0 (0.0-0.2) /100WBC PT 13.1 (10.0-13.1) SEC INR 1.1 (0.9-1.1) Sodium 139 (135-145) mmol/L Potassium 4.4 (3.3-5.1) mmol/L Chloride 106 (96-108) mmol/L Carbon Dioxide 26 (22-29) mmol/L Anion Gap 11 L (12-20) BUN 12 (9-16) mg/dL Creatinine 0.78 (0.5-1.4) mg/dL Estim Creat Clear Calc 112.4 Estimated GFR > 60 Random Glucose 83 (60-115) mg/dL Calcium 9.7 D (8.4-10.2) mg/dL Magnesium 1.8 (1.6-2.6) mg/dL Total Bilirubin 0.5 (0.0-1.0) mg/dL AST 15 (5-31) U/L ALT 16 (0-31) U/L Alkaline Phosphatase 89 (39-117) U/L Troponin I High Sens (<3.5-17.0) ng/L Total Protein 7.4 (6.5-8.0) g/dL Albumin 4.1 (3.5-5.0) g/dL COVID-19 (DARIAN) (Negative) COVID-19 Clin Com Influenza Type A (QING) (Negative) Influenza Type B (QING) (Negative) Influenza A & B Note <Tuan Walter MD - Last Filed: 08/03/22 22:24> Independent Interpretation I performed an independent interpretation of an: EKG <Tuan Walter MD - Last Filed: 08/03/22 22:24> Interpretation: Normal sinus rhythm heart rate 76 beats per minute nonspecific T inversions in lateral leads no acute ischemia <Tuan Walter MD - Last Filed: 08/03/22 22:24> Discharge Plan Discharge Clinical Impression: Acute costochondritis <AIDE Schaeffer - Last Filed: 08/03/22 19:02> Patient Disposition: Home, Self-Care <AIDE Schaeffer - Last Filed: 08/03/22 19:02> Instructions: Costochondritis (ED) <AIDE Schaeffer - Last Filed: 08/03/22 19:02> Additional Instructions: Ibuprofen for pain Ativan to relax and for sleep Followup with PCP <AIDE Schaeffer - Last Filed: 08/03/22 19:02> Prescriptions: New ibuprofen 600 mg tablet 600 mg PO Q6H PRN (Reason: fever or pain) Qty: 30 0RF lorazepam [Ativan] 0.5 mg tablet 0.5 mg PO BEDTIME PRN (Reason: anxiety) Qty: 14 0RF No Action vitamin A palmitate 10,000 unit capsule 10,000 unit PO DAILY Qty: 90 3RF cholecalciferol (vitamin D3) 25 mcg (1,000 unit) capsule 25 mcg PO DAILY 90 Days Qty: 90 1RF pantoprazole 40 mg tablet,delayed release (DR/EC) 40 mg PO DAILY Qty: 90 3RF Mirena 20 mcg/24 hours (8 yrs) 52 mg intrauterine device intrauterine <AIDE Schaeffer - Last Filed: 08/03/22 19:02>
[2022-08-03 19:18] LABS: MANUAL DIFF FLAG NO
[2022-08-03 19:20] LABS: Basophils Percent Auto 0.4 % (0-2); Eosinophils Absolute Auto 0.2 X10*3/uL (0.0-0.4); Eosinophils Percent Auto 1.6 % (0-4); Hematocrit 38.8 % (37.0-47.0); Hemoglobin 12.3 g/dl (12.0-16.0); Imm Gran Abs Auto 0.04 X10*3/uL (0.00-0.03); Imm Gran Pct Auto 0.4 % (0.0-0.4); Lymphocytes Absolute Auto 2.3 X10*3/uL (1.2-4.9); Lymphocytes Percent Auto 21.9 % (20-40); Mean Corpuscular HGB Conc 31.7 g/dl (31.0-35.0); Mean Corpuscular Hemoglobin 27.4 pg (27.0-33.0); Mean Corpuscular Volume 86.4 fL (80.0-98.0); Mean Platelet Volume 11.9 fL (9.4-12.3); Monocytes Absolute Auto 0.8 X10*3/uL (0.1-1.2); Monocytes Percent Auto 7.1 % (2-11); Neutrophils Absolute Auto 7.2 x10*3/uL (2.0-8.3); Neutrophils Percent Auto 68.6 % (45-73); Platelet Count 255 X10*3/uL (160-400); Red Blood Count 4.49 X10*6/uL (4.20-5.50); Red Cell Distribution Width 12.9 % (11.0-16.0); White Blood Count 10.5 X10*3/uL (4.8-10.8)
[2022-08-03 19:26] LABS: INTERNATIONAL NORM RATIO 1.1 (0.9-1.1); Prothrombin Time 13.1 SEC (10.0-13.1)
[2022-08-03 19:35] LABS: COVID-19 Test Negative (Negative); IDNOW Serial# 16C4AD1C
[2022-08-03 19:36] LABS: Alanine Aminotransferase 16 U/L (0-31); Albumin Level 4.1 g/dL (3.5-5.0); Alkaline Phosphatase 89 U/L (39-117); Anion Gap 11 (12-20); Aspartate Amino Transferase 15 U/L (5-31); Bilirubin Total 0.5 mg/dL (0.0-1.0); Blood Urea Nitrogen 12 mg/dL (9-16); Calcium 9.7 mg/dL (8.4-10.2); Carbon Dioxide 26 mmol/L (22-29); Chloride 106 mmol/L (96-108); Creatinine Clr Calc Pharmacy 112.4; Estimated Glomerular Filt Rate > 60; Glucose Random 83 mg/dL (60-115); Magnesium 1.8 mg/dL (1.6-2.6); Potassium 4.4 mmol/L (3.3-5.1); Sodium 139 mmol/L (135-145); Total Protein 7.4 g/dL (6.5-8.0)
[2022-08-03 19:42] LABS: Troponin-I High Sensitivity < 3.5 ng/L (<3.5-17.0)
[2022-08-03 20:03] LABS: IDNOW Serial# BCCEAD1C; Influenza A Negative (Negative); Influenza B2 Negative (Negative)
[2022-08-03] MEDS: Ibuprofen 600 MG TABLET PO (22:22)
--- NOTE | 2022-08-03 22:26 | PC.NURSE ---
Discharge instructions reviewed with pt. pt verbalizes understanding.
== END 2022-08-03 22:27 | disposition home or self-care (01) ==
PROVIDERS: Physician Assistant Medical; Emergency Provider Internal Medicine; PCP Internal Medicine
DX: M94.0 Chondrocostal junction syndrome [Tietze] (principal); R07.89 Other chest pain; R06.02 Shortness of breath; Z20.822 Contact with and (suspected) exposure to COVID-19; Z79.899 Other long term (current) drug therapy
CPT/HCPCS: 71046; 80053; 83735; 84484; 85025; 85610; 87502; 87635; 93005; 99283; 99285

== ENCOUNTER 2022-12-09 10:59 | Outpatient (REF) | payer OTHER, SELFPAY ==
[2022-12-09 15:12] LABS: CT PCR NOT DETECTED (Not Detect.); NG PCR NOT DETECTED (Not Detect.)
[2022-12-10 08:58] LABS: BV Int Neg Control Negative (Negative); BV Int Pos Control Positive (Positive)
== END 2022-12-09 11:00 | disposition home or self-care (01) ==
LOC: HO.LAB 10:59
PROVIDERS: PCP Internal Medicine; Visit Provider Advanced Practice Midwife
DX: Z01.419 Encounter for gynecological examination (general) (routine) without abnormal findings (principal); N92.1 Excessive and frequent menstruation with irregular cycle; L30.9 Dermatitis, unspecified; Z20.2 Contact with and (suspected) exposure to infections with a predominantly sexual mode of transmission; Z97.5 Presence of (intrauterine) contraceptive device
CPT/HCPCS: 0353U; 87480; 87510; 87660

== ENCOUNTER 2022-12-09 11:26 | Outpatient (REF) | payer OTHER, SELFPAY | END 2022-12-09 11:27 | disposition home or self-care (01) | LOC: HO.LNP 11:26 | PROVIDERS: Visit Provider Advanced Practice Midwife | DX: Z13.89 Encounter for screening for other disorder (principal) ==

== ENCOUNTER 2022-12-11 08:12 | Outpatient (REF) | payer OTHER, SELFPAY ==
[2022-12-13 04:04] LABS: Syphilis Screen Nonreactive (Nonreactive)
[2022-12-13 04:10] LABS: HBc Num1 0.13 S/CO (0.00-0.79); HIV Num 1 6.34 S/CO (0.00-0.99); Hepatitis B Core Antibody Nonreactive (Nonreactive); ~HepC Num1 0.15 S/CO (0.00-0.79); ~Hepatitis C Antibody Nonreactive (Nonreactive)
[2022-12-13 05:13] LABS: HIV AB/AG Nonreactive (Nonreactive); HIV Num 2 0.08 S/CO; HIV Num 3 0.07 S/CO
== END 2022-12-11 08:13 | disposition home or self-care (01) ==
LOC: HO.LAB 08:12
PROVIDERS: PCP Internal Medicine; Visit Provider Advanced Practice Midwife
DX: Z20.2 Contact with and (suspected) exposure to infections with a predominantly sexual mode of transmission (principal)
CPT/HCPCS: 36415; 86704; 86780; 86803; 87389

== ENCOUNTER 2022-12-23 15:49 | Outpatient (REF) | payer OTHER, SELFPAY ==
--- NOTE | ~2022-12-23 | US_ITS ---
EXAMINATION: US PELVIS CLINICAL INFORMATION: Excessive and frequent menstruation. COMPARISON: Ultrasound pelvis 12/22/2021. TECHNIQUE: Ultrasound of the pelvis is performed using both transabdominal and transvaginal transducers along with Doppler. Transvaginal imaging is performed due to inadequate visualization transabdominally. FINDINGS: UTERUS: The uterus is anteverted and measures 11.9 cm in length, 3.8 cm in AP and 4.5 cm transverse dimension. The double wall endometrial thickness is 1.2 cm. There is an IUD in correct position. The uterus is smooth in contour and has normal myometrial echogenicity. There is a hypoechoic lesion in the fundus measuring 1.6 x 1.7 x 1.9 cm. Small nabothian cysts are seen in the cervix. ADNEXA: Both ovaries are visualized. There is normal color flow to the adnexa. There is no ovarian torsion. There is no pelvic ascites or fluid collection. Right ovary is visualized transabdominally and measures 3.4 x 1.2 x 1.7 cm and appears unremarkable. Previously right ovary measured 2.4 x 1.4 x 1.7 cm. Left ovary is better visualized on transabdominal ultrasound and measures 3.4 x 1.5 x 2.1 cm. There is an exophytic versus paraovarian cyst measuring 2.3 x 0.9 x 1.4 cm. Previously left ovary measured 2.8 x 1.6 x 1.9 cm. There is no free fluid in the cul-de-sac. US/US pelvic and transvaginal IMPRESSION: Small fundal uterine fibroid. It is new. IUD is in correct position within the endometrial canal. Small exophytic left ovarian cyst versus paraovarian cyst. It is new.
== END 2022-12-23 15:50 | disposition home or self-care (01) ==
LOC: HO.US 15:49
PROVIDERS: PCP Internal Medicine; Visit Provider Advanced Practice Midwife
DX: N92.1 Excessive and frequent menstruation with irregular cycle (principal); Z97.5 Presence of (intrauterine) contraceptive device
CPT/HCPCS: 76830; 76856

== ENCOUNTER 2022-12-25 08:02 | Outpatient (REF) | payer OTHER, SELFPAY ==
[2022-12-25 08:22] LABS: MANUAL DIFF FLAG NO
[2022-12-25 08:41] LABS: Basophils Percent Auto 0.3 % (0-2); Eosinophils Absolute Auto 0.2 X10*3/uL (0.0-0.4); Eosinophils Percent Auto 2.3 % (0-4); Hematocrit 38.9 % (37.0-47.0); Imm Gran Abs Auto 0.07 X10*3/uL (0.00-0.03); Imm Gran Pct Auto 0.7 % (0.0-0.4); Lymphocytes Absolute Auto 2.2 X10*3/uL (1.2-4.9); Lymphocytes Percent Auto 22.8 % (20-40); Mean Corpuscular HGB Conc 30.8 g/dl (31.0-35.0); Mean Corpuscular Hemoglobin 26.1 pg (27.0-33.0); Mean Corpuscular Volume 84.6 fL (80.0-98.0); Mean Platelet Volume 12.2 fL (9.4-12.3); Monocytes Absolute Auto 0.7 X10*3/uL (0.1-1.2); Monocytes Percent Auto 7.1 % (2-11); Neutrophils Absolute Auto 6.5 x10*3/uL (2.0-8.3); Neutrophils Percent Auto 66.8 % (45-73); Platelet Count 251 X10*3/uL (160-400); White Blood Count 9.7 X10*3/uL (4.8-10.8)
[2022-12-25 09:19] LABS: Anion Gap 11 (12-20); Calcium 9.5 mg/dL (8.4-10.2); Carbon Dioxide 24 mmol/L (22-29); Chloride 109 mmol/L (96-108); Potassium 4.4 mmol/L (3.3-5.1); Sodium 140 mmol/L (135-145); Total Protein 7.3 g/dL (6.5-8.0)
[2022-12-25 09:37] LABS: Alanine Aminotransferase 22 U/L (0-31); Albumin Level 3.9 g/dL (3.5-5.0); Alkaline Phosphatase 78 U/L (39-117); Aspartate Amino Transferase 17 U/L (5-31); Bilirubin Total 0.5 mg/dL (0.0-1.0); Blood Urea Nitrogen 12 mg/dL (9-16); Cholesterol 171 mg/dL; Estimated Glomerular Filt Rate > 60; Glucose Fasting 94 mg/dL (60-99); HDL Cholesterol 56 mg/dL; LDL Cholesterol Calculated 99 mg/dl; Triglycerides 82 mg/dL
[2022-12-25 09:45] LABS: Folate 10.8 ng/mL (> or = 4.0); TSH reflex Free T4 1.57 uIU/mL (0.32-4.0); Vitamin B12 898 pg/mL (200-900); Vitamin D 25-OH Total 20.3 ng/mL (>30)
== END 2022-12-25 08:03 | disposition home or self-care (01) ==
LOC: HO.LAB 08:02
PROVIDERS: Visit Provider Nurse Practitioner Family
DX: Z00.00 Encounter for general adult medical examination without abnormal findings (principal); E55.9 Vitamin D deficiency, unspecified
CPT/HCPCS: 36415; 80053; 80061; 82306; 82607; 82746; 84443; 85025

== ENCOUNTER → 2023-01-21 14:14 | Outpatient (BNVA) | payer OTHER, SELFPAY | PROVIDERS: PCP Internal Medicine; Visit Provider Advanced Practice Midwife | DX: Z71.2 Person consulting for explanation of examination or test findings (principal); D25.9 Leiomyoma of uterus, unspecified | CPT/HCPCS: 99212 ==

== ENCOUNTER 2023-01-24 15:47 | Outpatient (REF) | payer OTHER, SELFPAY ==
--- NOTE | ~2023-01-24 | MM_ITS ---
EXAMINATION: MM SCREENING DIGITAL BREAST TOMOSYNTHESIS, BILATERAL CLINICAL INFORMATION: Screening. Asymptomatic. The lifetime risk of breast cancer based on the Tyrer-Cuzick Model is 13%. COMPARISON: Mammography: 12/21/2021, 12/10/2021, 10/24/2020 (baseline) TECHNIQUE: Digital breast tomosynthesis is performed in both the craniocaudal and mediolateral oblique views along with computer-aided detection (CAD). Synthesized 2D images are generated from the tomosynthesis. FINDINGS: There are scattered areas of fibroglandular density (ACR BI-RADS breast composition Category b). There are no significant masses, abnormal calcifications, or other abnormalities. No developing density or architectural abnormality. There are bilateral round, rim, predominantly dermal calcifications again noted similar to prior studies. The axilla and skin contours are unremarkable. No significant changes. MM/MM tomosynthesis screening BI IMPRESSION: No mammographic evidence of malignancy. ASSESSMENT: BI-RADS 2: Benign RECOMMENDATION: Routine annual mammography screening. This patient's information was entered into a reminder system with a target due date for their next mammogram.
== END 2023-01-24 15:48 | disposition home or self-care (01) ==
LOC: HO.MAMMO 15:47
PROVIDERS: PCP Internal Medicine; Visit Provider Advanced Practice Midwife
DX: Z12.31 Encounter for screening mammogram for malignant neoplasm of breast (principal)
CPT/HCPCS: 77063; 77067

== ENCOUNTER 2023-03-15 13:44 | Outpatient (AMB) | payer OTHER, SELFPAY ==
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
[2023-03-15 13:48] VITALS: BP 120/80; BMI 34.3
== END 2023-03-15 14:13 | disposition home or self-care (01) ==
PROVIDERS: PCP Internal Medicine; Visit Provider Internal Medicine
DX: M25.512 Pain in left shoulder (principal); M79.672 Pain in left foot; K21.9 Gastro-esophageal reflux disease without esophagitis; L30.9 Dermatitis, unspecified
CPT/HCPCS: 99214

== ENCOUNTER 2023-03-29 11:04 | Outpatient (REF) | payer OTHER, SELFPAY ==
[2023-03-29 17:39] LABS: CT PCR NOT DETECTED (Not Detect.); NG PCR NOT DETECTED (Not Detect.)
[2023-03-30 12:48] LABS: BV Int Neg Control Negative (Negative); BV Int Pos Control Positive (Positive)
== END 2023-03-29 11:05 | disposition home or self-care (01) ==
LOC: HO.LNP 11:04
PROVIDERS: PCP Internal Medicine; Visit Provider Advanced Practice Midwife
DX: B37.31 Acute candidiasis of vulva and vagina (principal); Z97.5 Presence of (intrauterine) contraceptive device; Z20.2 Contact with and (suspected) exposure to infections with a predominantly sexual mode of transmission; N76.0 Acute vaginitis
CPT/HCPCS: 0353U; 87480; 87510; 87660; 99212

== ENCOUNTER 2023-03-29 11:04 | Outpatient (AMB) | payer OTHER, SELFPAY ==
[2023-03-29 11:06] VITALS: BP 114/68; BMI 34.5
--- NOTE | 2023-03-29 11:06 | A.OFFVIS_ITS ---
Intake Vital Signs 03/29/23 11:06 Height 5 ft 7 in Weight 220 lb BMI 34.5 BP 114/68 Intake Visit Reasons: Vaginal Discharge Intake Note: having white clumpy discharge. Science Liaison Required: No Information Interpreted: non-clinical & clinical Outdoor Education Teacher: Outdoor Education Teacher Present (Feliz) Allergies PLASTIC TAPE Allergy (Intermediate, Uncoded 03/29/23 11:10) BLISTERS Medication List - Last Reconciled 03/29/23 by Tamia Mooney CNM albuterol sulfate 90 mcg/actuation (Ventolin HFA) 2 puffs inhalation Q4-6H PRN betamethasone dipropionate 0.05% 1 appl topical DAILY PRN furosemide 20 mg PO Q OTHER DAY PRN 10 days ibuprofen 600 mg PO Q6H PRN levonorgestrel (Mirena) intrauterine omeprazole 20 mg PO DAILY PRN 90 days valacyclovir (Valtrex) 2,000 mg (2 x 1 gram) PO BID 1 day Is last menstrual period known: Yes Last menstrual period: 03/09/23 Post menopausal: No HPI Vaginal Discharge HPI Details patient is here because she had vaginal itching and burning it only started a few days ago she went to the pharmacy and she bought vagiSIL 1st and then she also started Monistat 7. 2 days ago she is feeling some improvement. she is not particularly worried about STIs but open to testing while I am screening for yeast. she is very happy with the Mirena IUD and it has improved her bleeding pattern and her hemoglobin has increased to 11-12 from 7-8. PFSH Medical History Acute eczema Anemia Dyslipidemia MAAN (generalized anxiety disorder) GERD (gastroesophageal reflux disease) Hypovitaminosis D Migraine with aura Migraines New daily persistent headache Physical exam Polyarthralgia Uterine fibroid Surgical History History of sleeve gastrectomy Hx of section Hx of tubal ligation Family History Father Diabetes mellitus ESRD on hemodialysis Mother Acute depression Anxiety Asthma Hypertension Osteoporosis Hypercholesteremia Hyperlipemia Mental health disorder Son No problems noted. Daughter No problems noted. Brother No problems noted. Sister Cervical cancer Maternal Grandmother Lung cancer Maternal Grandfather Throat cancer Social History Household Members: Significant Other and Family Housing: House Alcohol intake: never Patient Tobacco Use Status: Never used Tobacco e-Cigarette/Vaping Use: Never Used Second Hand Smoke Exposure: No service: No Current occupational status: employed Current occupational exposures/hazards: No Gender identity: Female Cognitive needs: No Hearing needs: No Vision needs: No Female Reproductive History Menstrual Age of Menarche: 9 Duration of menses: 3-5 days Date of last menstrual period: 03/09/23 control method: progestin IUCD Total pregnancies: 4 Full term: 2 Number of Living Children: 2 Ab spontaneous: 2 Date of last pap smear: 10/10/20 (negative) Date of Mammogram: 01/24/23 Physical Exam Vital Signs: Last Vital Signs BP 114/68 03/29/23 11:06 BMI result Body Mass Index 34.5 Other: external vulva no irritation vagina is slightly dry but covered in white cream which is presumably Monistat cervix visible with Mirena strings large amount of white Monistat cream. Assessment & Plan Assessment & Plan (1) Yeast infection of the vagina: Comment: being well treated by Monistat, refill sent to pharmacy. Code(s): B37.31 - Acute candidiasis of vulva and vagina (2) Presence of 52 mg levonorgestrel-releasing intrauterine device (IUD): Code(s): Z97.5 - Presence of (intrauterine) contraceptive device Plan she is already wearing white cotton underwear. She is doing excellent self- care reviewed her happiness with the Mirena and the improvement on her bleeding profile. Reviewed that she is doing the right thing with the Monistat and I ordered her more so she will have prescriptions for the future I do not think she needs Diflucan infected it is almost better already Orders: Orders Bacterial Vaginosis Panel Today N76.0 - Acute vaginitis, Z20.2 - Contact with and (suspected) exposure to infections with a predominantly sexual mode of transmission CT NG by PCR Today N76.0 - Acute vaginitis, Z20.2 - Contact with and (suspected) exposure to infections with a predominantly sexual mode of transmission Medications: New miconazole nitrate 2% (Miconazole-7) Use p.r.n. for yeast infection 1 appful vaginal BEDTIME 7 days 45 grams 2RF Coding Level of Care Code Est Pt Level 3 (55102) Diagnoses Yeast infection of the vagina B37.31 Presence of 52 mg levonorgestrel-releasing intrauterine device (IUD) Z97.5
== END 2023-03-29 11:57 | disposition home or self-care (01) ==
LOC: HO.HWS 11:04
PROVIDERS: PCP Internal Medicine; Visit Provider Advanced Practice Midwife
DX: B37.31 Acute candidiasis of vulva and vagina (principal); Z97.5 Presence of (intrauterine) contraceptive device
CPT/HCPCS: 99213

== ENCOUNTER 2023-03-31 16:50 | Outpatient (AMB) | payer OTHER, SELFPAY ==
[2023-03-31 16:56] VITALS: BP 122/86; PULSE 82; O2SAT 98; BMI 34.8
--- NOTE | 2023-03-31 16:56 | MHC.PC.OV ---
Vital Signs 03/31/23 16:56 Height 5 ft 7 in Weight 222 lb 4 oz BMI 34.8 BP 122/86 Blood Pressure Location Lt brachial Position Sitting Pulse 82 Pulse Source Pulse Oximeter Pulse Oximetry (%) 98 Oxygen Delivery Method Room Air Intake Visit Reasons: Eveline álvarezquierdo Intake Note: Pt is here for B/L ear pain since last Tuesday. 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 Surveyor Technologist Required: No Accompanied by: Self / Same As Patient Allergies PLASTIC TAPE Allergy (Intermediate, Uncoded 03/31/23 17:02) BLISTERS Medication List - Last Reconciled 03/31/23 by Jillian Kaminski MD albuterol sulfate 90 mcg/actuation (Ventolin HFA) 2 puffs inhalation Q4-6H PRN betamethasone dipropionate 0.05% 1 appl topical DAILY PRN furosemide 20 mg PO Q OTHER DAY PRN 10 days ibuprofen 600 mg PO Q6H PRN levonorgestrel (Mirena) intrauterine metronidazole 500 mg PO BID 7 days miconazole nitrate 2% (Miconazole-7) 1 appful vaginal BEDTIME 7 days omeprazole 20 mg PO DAILY PRN 90 days valacyclovir (Valtrex) 2,000 mg (2 x 1 gram) PO BID 1 day Tobacco use date assessed: 12/21/22 Dental Screening Dental Screen Date: 03/31/23 Did you have a dental visit in the last 12 months?: No Did you have a dental problem in the last 6 months where you did not have access to dental care?: No Was dental information given to patient?: Patient has dentist HPI HPI Comments History of Present Illness Details This is a 43 year old female with GERD that complaints of right ear pain that started few days ago. No hearing loss. No fever. No nasal congestion. No cough. GERD has been stable with PPIs [facility] Medical History (Updated 04/01/23 @ 10:18 by Jillian Kaminski MD) Acute eczema Anemia Dyslipidemia AMAN (generalized anxiety disorder) GERD (gastroesophageal reflux disease) Hypovitaminosis D Migraine with aura Migraines New daily persistent headache Physical exam Polyarthralgia Uterine fibroid Surgical History History of sleeve gastrectomy Hx of section Hx of tubal ligation Family History Father Diabetes mellitus ESRD on hemodialysis Mother Acute depression Anxiety Asthma Hypertension Osteoporosis Hypercholesteremia Hyperlipemia Mental health disorder Son No problems noted. Daughter No problems noted. Brother No problems noted. Sister Cervical cancer Maternal Grandmother Lung cancer Maternal Grandfather Throat cancer Social History Household Members: Significant Other and Family Housing: House Alcohol intake: never Patient Tobacco Use Status: Never used Tobacco e-Cigarette/Vaping Use: Never Used Second Hand Smoke Exposure: No service: No Current occupational status: employed Current occupational exposures/hazards: No Gender identity: Female Cognitive needs: No Hearing needs: No Vision needs: No Female Reproductive History Menstrual Age of Menarche: 9 Questionnaire Thrive Questionnaire Date Thrive assessed: 12/21/22 AMAN-7 AMB Questionnaire AMAN-7 Date AMAN - 7 assessed: 12/21/22 Source: Developed by Drs. Yonis Bradshaw, Lily Willett, Fransisco Godoy and colleagues, with an educational dylon from [employer]. Review of Systems Const All systems reviewed & are unremarkable except as noted in HPI and below Eyes Reports no additional complaints, Denies change in vision and Denies other visual disturbances Card Denies chest pain at rest, Denies chest pain with activity, Denies edema, Denies irregular heart rhythm, Denies claudication, Denies dyspnea, Denies dyspnea on exertion, Denies orthopnea, Denies paroxysmal nocturnal dyspnea and Denies slow heart rate Resp Denies cough, Denies dyspnea and Denies dyspnea on exertion GI Denies abdominal pain, Denies change in bowel habits, Denies excessive flatus, Denies nausea and Denies vomiting Denies urinary incontinence, Denies urinary hesitancy and Denies urinary urgency Musc Denies abnormal gait, Denies atrophy, Denies deformity and Denies limited range of motion Skin/Breast Denies bleeding lesions, Denies changing lesions and Denies rash Neuro Denies abnormal gait and Denies lack of coordination Physical exam (Primary Care) Vital Signs: Last Vital Signs Pulse 82 03/31/23 16:56 BP 122/86 03/31/23 16:56 Pulse Ox 98 03/31/23 16:56 Oxygen Delivery Method Room Air 03/31/23 16:56 BMI result Body Mass Index 34.8 Tobacco/Smoking Status: Tobacco use Status Tobacco use date assessed 12/21/22 03/31/23 17:01 Patient Tobacco Use Status Never used Tobacco 03/31/23 17:01 e-Cigarette/Vaping Use Never Used 03/31/23 17:01 Thrive Assessment: Date of Thrive Assessment Date Thrive assessed 12/21/22 03/31/23 17:01 Eyes General: appearance normal, both eyes and all related structures Eyelids: Yes eyelids normal Conjunctivae: conjunctivae normal Neck Neck: Yes normal visual inspection and Yes supple Resp Effort & Inspection: normal respiratory effort Auscultation: clear to auscultation bilaterally Cardio Jugular venous distension: no JVD Rate: regular rate Rhythm: regular rhythm Heart sounds: S1 normal heart sound present and S2 normal heart sound present Extrem General: Yes full ROM Assessment and Plan Assessment & Plan (1) Otitis media: Code(s): H66.90 - Otitis media, unspecified, unspecified ear Plan: Start amoxicillin (2) GERD (gastroesophageal reflux disease): Code(s): K21.9 - Gastro-esophageal reflux disease without esophagitis Plan: Continue PPIs as needed Orders: Referrals Counseling Referral F32.A - Depression, unspecified Medications: New amoxicillin 500 mg PO BID 14 tabs 0RF 7 days Coding Level of Care Code Est Pt Level 3 (04839) Diagnoses Otitis media H66.90 GERD (gastroesophageal reflux disease) K21.9 Time Spent (min) 17
== END 2023-03-31 17:10 | disposition home or self-care (01) ==
PROVIDERS: PCP Internal Medicine; Visit Provider Internal Medicine
DX: H66.90 Otitis media, unspecified, unspecified ear (principal); K21.9 Gastro-esophageal reflux disease without esophagitis
CPT/HCPCS: 99213

== ENCOUNTER 2023-07-15 16:35 | Emergency (ER) | payer OTHER, SELFPAY ==
[2023-07-15 17:01] VITALS: BP 142/98; PULSE 75; RESP 20; TEMP 36.8; O2SAT 98; BMI 33.8
--- NOTE | 2023-07-15 17:02 | ED_ITS ---
HPI - General Adult General Chief complaint: Wound/Laceration Stated complaint: L hand laceration Related Data Home Medications Medication Instructions Recorded Confirmed levonorgestrel 21 mcg/24 hours (8 intrauterine 06/14/22 06/20/23 yrs) 52 mg intrauterine device (Mirena) Previous Rx's Medication Instructions Recorded ibuprofen 600 mg tablet 600 mg PO Q6H PRN fever or pain 08/03/22 #30 tabs valacyclovir 1 gram tablet 2,000 mg (2 x 1 gram) PO BID 1 day 12/09/22 (Valtrex) #4 tabs furosemide 20 mg tablet 20 mg PO Q OTHER DAY PRN edema 10 03/15/23 days #10 tabs miconazole nitrate 2 % vaginal 1 appful vaginal BEDTIME 7 days 03/29/23 cream (Miconazole-7) #45 grams metronidazole 500 mg tablet 500 mg PO BID 7 days #14 tabs 04/19/23 betamethasone dipropionate 0.05 % 1 appl topical DAILY PRN skin 04/20/23 topical cream irritation #45 grams albuterol sulfate 90 mcg/actuation 2 puff inhalation Q4-6H PRN for 05/31/23 aerosol inhaler (Ventolin HFA) wheezing #18 ea omeprazole 20 mg capsule,delayed 20 mg PO DAILY PRN heartburn 90 06/13/23 release days #90 caps Allergies Allergy/AdvReac Type Severity Reaction Status Date / Time PLASTIC TAPE Allergy Intermediate BLISTERS Uncoded 07/15/23 17:04 [facility] Past Medical History Medical History Acute eczema Anemia Dyslipidemia AMAN (generalized anxiety disorder) GERD (gastroesophageal reflux disease) Hypovitaminosis D Migraine with aura Migraines New daily persistent headache Physical exam Polyarthralgia Uterine fibroid Surgical History History of sleeve gastrectomy Hx of tubal ligation Hx of section Family History Family History Father Diabetes mellitus ESRD on hemodialysis Mother Acute depression Anxiety Asthma Hypertension Osteoporosis Hypercholesteremia Hyperlipemia Mental health disorder Son No problems noted. Daughter No problems noted. Brother No problems noted. Sister Cervical cancer Maternal Grandmother Lung cancer Maternal Grandfather Throat cancer Social History Household Members: Significant Other and Family Housing: House Alcohol intake: never Patient Tobacco Use Status: Never used Tobacco e-Cigarette/Vaping Use: Never Used Second Hand Smoke Exposure: No service: No Current occupational status: employed Current occupational exposures/hazards: No Gender identity: Female Cognitive needs: No Hearing needs: No Vision needs: No Physical Exam ED Vital Signs: Vital Signs - 24 hr 07/15/23 17:01 Temperature 98.2 F Pulse Rate 75 Respiratory Rate 20 Blood Pressure 142/98 H Pulse Oximetry 98 Oxygen Delivery Method Room Air BMI result Body Mass Index 33.8 Course Course Course Narrative: This is a rapid medical exam: Additional HPI, ROS, PE not included below will be deferred to primary provider. Patient is a 43-year-old [id number] Maltese-speaking female presenting to the emergency department with complaint of laceration to left hand. States that she was using a saw to cut the [place] tree when she accidentally cut herself. Tetanus is not up-to-date. Full range of motion to index finger. Approximately 3 cm laceration over 2nd mcp joint. Complains of some numbness to radial side left proximal index finger. Plan: tdap, will require repair Discharge Plan Discharge Clinical Impression: Laceration of hand, left Patient Disposition: Left W/O Completing Treatment Prescriptions: No Action metronidazole 500 mg tablet 500 mg PO BID 7 Days Qty: 14 0RF betamethasone dipropionate 0.05 % cream 1 appl topical DAILY PRN (Reason: skin irritation) Qty: 45 0RF albuterol sulfate [Ventolin HFA] 90 mcg/actuation HFA aerosol inhaler 2 puff inhalation Q4-6H PRN (Reason: for wheezing) Qty: 18 0RF omeprazole 20 mg capsule,delayed release(DR/EC) 20 mg PO DAILY PRN (Reason: heartburn) 90 Days Qty: 90 0RF ibuprofen 600 mg tablet 600 mg PO Q6H PRN (Reason: fever or pain) Qty: 30 0RF furosemide 20 mg tablet 20 mg PO Q OTHER DAY PRN (Reason: edema) 10 Days Qty: 10 0RF valacyclovir [Valtrex] 1 gram tablet 2,000 mg PO BID 1 Days Qty: 4 4RF Rx Instructions: take two tabs twice a day for one day only Mirena 20 mcg/24 hours (8 yrs) 52 mg intrauterine device intrauterine miconazole nitrate [Miconazole-7] 2 % cream 1 appful vaginal BEDTIME 7 Days Qty: 45 2RF Rx Instructions: Use p.r.n. for yeast infection
== END 2023-07-15 20:07 | disposition left against medical advice (07) ==
LOC: HO.ED 19:27
PROVIDERS: Emergency Provider Emergency Medicine Emergency Medical Services; PCP Internal Medicine
DX: S61.211A Laceration without foreign body of left index finger without damage to nail, initial encounter (principal); W27.0XXA Contact with workbench tool, initial encounter; Y93.89 Activity, other specified; Y92.89 Other specified places as the place of occurrence of the external cause; Y99.9 Unspecified external cause status; Z79.899 Other long term (current) drug therapy
CPT/HCPCS: 99281; 99283

== ENCOUNTER 2023-09-15 16:32 | Outpatient (AMB) | payer OTHER, SELFPAY ==
[2023-09-15 16:38] VITALS: BP 120/80; BMI 34.1
--- NOTE | 2023-09-15 16:38 | A.OFFPC_ITS ---
Vital Signs 09/15/23 16:38 Height 5 ft 7 in Weight 218 lb BMI 34.1 BP 120/80 Blood Pressure Location Lt brachial Position Sitting Intake Visit Reasons: 6mth f/u Intake Note: Patient here for a 6 month follow up, c/o left side back pain x 1 week, asthma, cough, chest pains Grant Specialist Required: No Accompanied by: Self / Same As Patient Allergies PLASTIC TAPE Allergy (Intermediate, Uncoded 09/15/23 17:06) BLISTERS Medication List - Last Reconciled 09/15/23 by Jillian Kaminski MD albuterol sulfate 90 mcg/actuation (Ventolin HFA) 2 puffs inhalation Q4-6H PRN betamethasone dipropionate 0.05% 1 appl topical DAILY PRN ibuprofen 600 mg PO Q6H PRN levonorgestrel (Mirena) intrauterine omeprazole 20 mg PO DAILY PRN 90 days Tobacco use date assessed: 09/15/23 Dental Screening Dental Screen Date: 09/15/23 Did you have a dental visit in the last 12 months?: Yes Did you have a dental problem in the last 6 months where you did not have access to dental care?: No Was dental information given to patient?: Patient has dentist HPI HPI Comments History of Present Illness Details This is a 43 year old female with asthma, gerd, and history of nephrolithiasis that comes today complaining of left costovertebral angle tenderness that started few days ago and dry cough with no fever or nasal congestion that also started few days ago. Has require rescue inhaler once a day for this past few days. GERD stable with PPIs as needed. She also complaints of easy bruising that she notice for the past month. FORMERLY [facility], [facility] Medical History (Updated 09/16/23 @ 13:23 by Jillian Kaminski MD) Uterine fibroid Acute eczema GERD (gastroesophageal reflux disease) Migraines Hypovitaminosis D Physical exam AMAN (generalized anxiety disorder) Polyarthralgia New daily persistent headache Dyslipidemia Migraine with aura Anemia Surgical History History of sleeve gastrectomy Hx of tubal ligation Hx of section Family History Father Diabetes mellitus ESRD on hemodialysis Mother Acute depression Anxiety Asthma Hypertension Osteoporosis Hypercholesteremia Hyperlipemia Mental health disorder Son No problems noted. Daughter No problems noted. Brother No problems noted. Sister Cervical cancer Maternal Grandmother Lung cancer Maternal Grandfather Throat cancer Social History Household Members: Significant Other and Family Housing: House Alcohol intake: never Patient Tobacco Use Status: Never used Tobacco e-Cigarette/Vaping Use: Never Used Second Hand Smoke Exposure: No service: No Current occupational status: employed Current occupational exposures/hazards: No Gender identity: Female Cognitive needs: No Hearing needs: No Vision needs: No Female Reproductive History Menstrual Age of Menarche: 9 Questionnaire PHQ-9 Over the last 2 weeks, how often have you been bothered by any of the following problems? 1. Little interest or pleasure in doing things: not at all 2. Feeling down, depressed, or hopeless: more than half the days 3. Trouble falling or staying asleep, or sleeping too much: several days 4. Feeling tired or having little energy: nearly every day 5. Poor appetite or overeating: several days 6. Feeling bad about yourself - or that you are a failure or have let yourself or your family down: not at all 7. Trouble concentrating on things, such as reading the newspaper or watching television: not at all 8. Moving or speaking so slowly that other people could have noticed. Or the opposite - being so fidgety or restless that you have been moving around a lot more than usual: not at all 9. Thoughts that you would be better off or of hurting yourself in some way: not at all Total score: 7 Depression Screening Interpretation: Positive Depression Screening Follow-up: Existing condition Depression Screening Done: Yes 68336 - PHQ-9 Billing: Yes Source: Developed by Drs. Yonis Bradshaw, Lily Willett, Fransisco Godoy and colleagues, with an educational dylon from [employer]. Thrive Questionnaire Date Thrive assessed: 09/15/23 I am a: Patient What is your living situation today?: I have a steady place to live Within the past 12 months, did the food you bought not last and you didn't have the money to get more?: Never true Within the past 12 months, did you worry whether your food would run out before you got money to buy more?: Never true Do you have trouble paying for medicines?: No Do you have trouble getting transportation to medical appointments?: No Do you have trouble paying your heating and electricity bill?: No Do you have trouble taking care of your child, family member or friend?: No Do you have trouble with day-to-day activities such as bathing, preparing meals, shopping, managing finances, etc.?: No Are you currently unemployed and looking for a job?: No Are you interested in more education?: No Please select the resources that you would like help with: None Currently or been in a relationship where the following occur: no concerns reported THRIVE Score: 0 AUDIT C Alcohol Use Questionnaire (AUDIT-C) 1. How often do you have a drink containing alcohol?: Never Total Score: 0 AMAN-7 AMB Questionnaire AMAN-7 Date AMAN - 7 assessed: 09/15/23 Feeling nervous, anxious, or on edge: 1 = Several days Not being able to stop or control worryin = Not at all Worrying too much about different things: 1 = Several days Trouble relaxin = Several days Being so restless that it is hard to sit still: 0 = Not at all Becoming easily annoyed or irritable: 1 = Several days Feeling afraid as if something awful might happen: 1 = Several days Total AMAN-7 score (0-4 normal; 5-9 mild; 10-14 moderate; 15-21 severe): 5 Source: Developed by Drs. Yonis Bradshaw, Lily Willett, Fransisco Godoy and colleagues, with an educational dylon from [employer]. AMAN-7 Assessment Billing AMAN-7 Assessment Tool: AMAN-7 Assessment 29014 Review of Systems Const All systems reviewed & are unremarkable except as noted in HPI and below Eyes Reports no additional complaints, Denies change in vision and Denies other visual disturbances Card Denies chest pain at rest, Denies chest pain with activity, Denies edema, Denies irregular heart rhythm, Denies claudication, Denies dyspnea, Denies dyspnea on exertion, Denies orthopnea, Denies paroxysmal nocturnal dyspnea and Denies slow heart rate Resp Denies cough, Denies dyspnea and Denies dyspnea on exertion GI Denies abdominal pain, Denies change in bowel habits, Denies excessive flatus, Denies nausea and Denies vomiting Denies urinary incontinence, Denies urinary hesitancy and Denies urinary urgency Musc Denies abnormal gait, Denies atrophy, Denies deformity and Denies limited range of motion Skin/Breast Denies bleeding lesions, Denies changing lesions and Denies rash Neuro Denies abnormal gait, Denies behavioral changes and Denies lack of coordination Psych Denies behavioral changes Physical exam (Primary Care) Vital Signs: Last Vital Signs BP 120/80 09/15/23 16:38 BMI result Body Mass Index 34.1 Tobacco/Smoking Status: Tobacco use Status Tobacco use date assessed 09/15/23 09/15/23 16:47 Patient Tobacco Use Status Never used Tobacco 09/15/23 16:47 e-Cigarette/Vaping Use Never Used 09/15/23 16:47 PHQ-9: PHQ-9 Score PHQ-9: Total score 7 09/15/23 17:10 Depression Screening Interpretation: Positive Depression Screening Follow-up: Existing condition Thrive Assessment: Date of Thrive Assessment Date Thrive assessed 09/15/23 09/15/23 16:47 Currently or been in a relationship where the following occur: no concerns reported Eyes General: appearance normal, both eyes and all related structures Eyelids: Yes eyelids normal Conjunctivae: conjunctivae normal Neck Neck: Yes normal visual inspection and Yes supple Resp Effort & Inspection: normal respiratory effort Auscultation: clear to auscultation bilaterally Cardio Jugular venous distension: no JVD Rate: regular rate Rhythm: regular rhythm Heart sounds: S1 normal heart sound present and S2 normal heart sound present Extrem General: Yes full ROM Assessment and Plan Assessment & Plan (1) GERD (gastroesophageal reflux disease): Code(s): K21.9 - Gastro-esophageal reflux disease without esophagitis Plan: Continue PPIs. (2) Asthma: Code(s): J45.909 - Unspecified asthma, uncomplicated Plan: Continue resue inhaler prn. (3) Easy bruising: Code(s): R23.3 - Spontaneous ecchymoses Plan: CBC ordered. (4) Nephrolithiasis: Code(s): N20.0 - Calculus of kidney Plan: XR KUB and US renal ordered. Orders: Orders XR KUB 09/15/23 N20.0 - Calculus of kidney US renal BI 09/15/23 N20.0 - Calculus of kidney Complete Blood Count Auto Diff 09/15/23 R23.3 - Spontaneous ecchymoses Medications: New guaifenesin ER (Mucinex) 600 mg PO BID 5 days 10 tabs 0RF Coding Level of Care Code Est Pt Level 4 (54438) Diagnoses GERD (gastroesophageal reflux disease) K21.9 Asthma J45.909 Easy bruising R23.3 Nephrolithiasis N20.0 Additional Codes AMAN-7 Assessment Billing - AMAN-7 Assessment Tool: AMAN-7 Assessment 47127 ([id number]) Time Spent (min) 23
== END 2023-09-15 17:16 | disposition home or self-care (01) ==
PROVIDERS: PCP Internal Medicine; Visit Provider Internal Medicine
DX: K21.9 Gastro-esophageal reflux disease without esophagitis (principal); J45.909 Unspecified asthma, uncomplicated; R23.3 Spontaneous ecchymoses; N20.0 Calculus of kidney
CPT/HCPCS: 99214

== ENCOUNTER 2023-09-24 09:40 | Outpatient (REF) | payer OTHER, SELFPAY ==
--- NOTE | ~2023-09-24 | XR_ITS ---
EXAMINATION: XR FOOT, LEFT CLINICAL INFORMATION: Pain in left foot COMPARISON: None available. TECHNIQUE: AP, lateral, and oblique views of the left foot. FINDINGS: Well-corticated ossific density adjacent to the head of the fifth proximal phalanx may reflect avulsion injury. Correlate with point tenderness. Insertional enthesopathy. Soft tissues are unremarkable. XR/XR foot LT 2V IMPRESSION: Well-corticated ossific density adjacent to the head of the fifth proximal phalanx may reflect avulsion injury. Correlate with point tenderness.
--- NOTE | ~2023-09-24 | XR_ITS ---
EXAMINATION: XR SHOULDER, LEFT CLINICAL INFORMATION: Pain COMPARISON: None available. TECHNIQUE: AP external rotation, Grashey, scapular Y, and axillary views of the left shoulder. FINDINGS: The bones and soft tissues are normal. No fracture. Glenohumeral and acromioclavicular alignment is anatomic with normal joint space. No abnormal soft tissue calcifications. XR/XR shoulder LT min 2V IMPRESSION: Normal left shoulder.
--- NOTE | ~2023-09-24 | XR_ITS ---
EXAMINATION: XR KUB CLINICAL INDICATION: Renal stones COMPARISON: None TECHNIQUE: AP view of the abdomen. XR/XR KUB FINDINGS/IMPRESSION: Lines or devices: Intrauterine device is noted. Left mid abdomen surgical clips No abnormal calcifications. Nonobstructive bowel gas pattern. Visualized portions of the lung bases appear clear.
[2023-09-24 09:51] LABS: MANUAL DIFF FLAG NO
[2023-09-24 10:13] LABS: Basophils Percent Auto 0.4 % (0-2); Eosinophils Absolute Auto 0.2 X10*3/uL (0.0-0.4); Eosinophils Percent Auto 2.8 % (0-4); Hematocrit 39.9 % (37.0-47.0); Hemoglobin 12.6 g/dl (12.0-16.0); Imm Gran Abs Auto 0.03 X10*3/uL (0.00-0.03); Imm Gran Pct Auto 0.4 % (0.0-0.4); Lymphocytes Absolute Auto 2.2 X10*3/uL (1.2-4.9); Lymphocytes Percent Auto 29.4 % (20-40); Mean Corpuscular HGB Conc 31.6 g/dl (31.0-35.0); Mean Corpuscular Hemoglobin 27.2 pg (27.0-33.0); Mean Corpuscular Volume 86.2 fL (80.0-98.0); Monocytes Absolute Auto 0.7 X10*3/uL (0.1-1.2); Monocytes Percent Auto 8.6 % (2-11); Neutrophils Absolute Auto 4.4 x10*3/uL (2.0-8.3); Neutrophils Percent Auto 58.4 % (45-73); Platelet Count 240 X10*3/uL (160-400); Red Blood Count 4.63 X10*6/uL (4.20-5.50); Red Cell Distribution Width 13.3 % (11.0-16.0); White Blood Count 7.6 X10*3/uL (4.8-10.8)
== END 2023-09-24 09:41 | disposition home or self-care (01) ==
LOC: HO.LAB 09:40
PROVIDERS: PCP Internal Medicine; Visit Provider Internal Medicine
DX: R23.3 Spontaneous ecchymoses (principal); N20.0 Calculus of kidney; M25.512 Pain in left shoulder; M79.672 Pain in left foot
CPT/HCPCS: 36415; 73030; 73620; 74018; 85025

== ENCOUNTER 2023-12-21 14:35 | Outpatient (AMB) | payer OTHER, SELFPAY ==
[2023-12-21 14:37] VITALS: BP 120/70; BMI 33.5
--- NOTE | 2023-12-21 14:37 | MHC.OFFVIS ---
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 Vocational Rehabilitation Consultant Required: Yes Vocational Rehabilitation Consultant Language: Faroese Information Interpreted: non-clinical & clinical Corporate Communications Specialist: Corporate Communications Specialist Present (Aidyn) Allergies PLASTIC TAPE Allergy (Intermediate, Uncoded 12/21/23 14:56) BLISTERS Medication List - Last Reconciled 12/21/23 by Tamia Mooney CNM albuterol sulfate 90 mcg/actuation (Ventolin HFA) 2 puffs inhalation Q4-6H PRN betamethasone dipropionate 0.05% 1 appl topical DAILY PRN ibuprofen 600 mg PO Q6H PRN levonorgestrel (Mirena) intrauterine omeprazole 20 mg PO DAILY PRN 90 days Is last menstrual period known: Yes Last menstrual period: 12/12/23 Post menopausal: No HPI HPI 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 The patient says her periods were better when she saw me last year but now they are getting more irregular in that 1 month she might bleed normally for 5 days and then be done with it except for little bit of discharge (ted) but for instance last month she bled for 2 weeks and then she is using pads too long and gets irritated. She says her hemoglobin was checked the last time in September and it was 12.2 she sees her primary care provider Dr. Jesus and will be probably talking getting other lab work then as well. [facility] Medical History Uterine fibroid Acute eczema GERD (gastroesophageal reflux disease) Migraines Hypovitaminosis D Physical exam AMAN (generalized anxiety disorder) Polyarthralgia New daily persistent headache Dyslipidemia Migraine with aura Anemia Surgical History History of sleeve gastrectomy Hx of tubal ligation Hx of section Family History Father Diabetes mellitus ESRD on hemodialysis Mother Acute depression Anxiety Asthma Hypertension Osteoporosis Hypercholesteremia Hyperlipemia Mental health disorder Son No problems noted. Daughter No problems noted. Brother No problems noted. Sister Cervical cancer Maternal Grandmother Lung cancer Maternal Grandfather Throat cancer Social History Household Members: Significant Other and Family Housing: House Alcohol intake: never Patient Tobacco Use Status: Never used Tobacco e-Cigarette/Vaping Use: Never Used Second Hand Smoke Exposure: No service: No Current occupational status: employed Current occupational exposures/hazards: No Gender identity: Female Cognitive needs: No Hearing needs: No Vision needs: No Female Reproductive History Menstrual Age of Menarche: 9 Duration of menses: other Date of last menstrual period: 12/12/23 control method: progestin IUCD Total pregnancies: 4 Full term: 2 Number of Living Children: 2 Ab spontaneous: 2 Date of last pap smear: 10/10/20 (negative) Physical Exam Vital Signs: BMI result Body Mass Index 33.5 Const General: healthy appearing, comfortable, no acute distress, well developed and alert Nutritional Appearance: average body habitus Orientation/consciousness: patient oriented x3 Limitations: no limitations HEENT Head: Yes normocephalic Neck Neck: Yes normal visual inspection Chest Chest palpation & inspection: normal inspection of the chest Breast/axilla inspection: normal inspection of the breasts and normal inspection of the axillae Breast/axilla palpation: normal palpation of the breasts and normal palpation of the axillae Resp Effort & Inspection: normal respiratory effort GI Inspection: Yes normal to inspection, No Abdominal wall edema and No distended Palpation (GI): Soft to palpation and nontender Other: Speculum exam within normal limits cervix multiparous pink smooth with normal healthy appearing mucus Mirena string visible in os cervix mobile nontender uterus small anteverted mobile nontender adnexa nontender good tone with Kegel General: Yes bladder normal to palpation External Female Exam: normal external appearance and normal appearance of the urethra Speculum Exam - Vagina: normal appearance of the vagina, normal palpation and normal vaginal discharge Speculum Exam - Cervix: normal appearance of the cervix, normal palpation and nontender Bimanual exam- vagina & uterus: normal bimanual exam, normal palpation, uterine size normal, bladder normal to palpation, consistency normal, normal palpation, uterine mobility normal, uterine shape normal, No Cervical tenderness present, non-tender and no cervical motion tenderness Bimanual Exam- Adnexa, other: normal adnexae, no masses, normal and No adnexal tenderness Neuro General: patient oriented x3 Results Reviewed Results Reviewed: meliza: Jenna Ortiz Age/Sex: 42/F Attending: Veronika South CNM : 1980 Submitted by: Veronika South CNM Copies to: MR #: [id number] Status: DEP REF Collected: 01/08/22 Location: .LAB Received: 01/08/22 Diagnosis Endometrium, biopsy: Superficial fragments of benign endometrium with extensive breakdown and blood; no atypia or hyperplasia identified. Clinical History Abnormal uterine bleeding Microscopic Description Microscopic sections reviewed. Material Received EMB Gross Description The specimen is received in formalin in a single part labeled with the patient's name, date of and additionally labeled EMB. It consists of an aggregate of hemorrhagic soft tissue measuring 3.0 x 2.1 x 0.9 cm. The entire specimen is submitted in 2 cassettes. This case was reviewed intradepartmentally. NOTE: Some or all of the immunohistochemical tests reported herein may have been developed and their performance characteristics determined by [facility]. They have not been cleared or approved by the U.S. Food and Drug Administration (FDA). However, the FDA has determined that such clearance or approval is not necessary. This laboratory is certified under the Clinical Laboratory Improvement Amendments of 1988 (CLIA) as qualified to perform high complexity clinical laboratory testing. Electronically Signed By: Pradeep Hickey MD 01/12/22 5512 Patient: Jenna Ortiz Age/Sex: 42/F MR#: [id number] Page 1 of 1 Name: Jenna Ortiz Age/Sex: 40/F Attending: Veronika South CNM : 1980 Submitted by: Veronika South CNM Copies to: Darion Mohan MD MR #: [id number] Status: DEP REF Collected: 10/09/20 Location: .LAB Received: 10/10/20 Interpretation Satisfactory for evaluation. Negative for intraepithelial lesion or malignancy. Coccobacilli consistent with shift in vaginal jordan. HPV mRNA E6/E7: NOT DETECTED This assay detects E6/E7 viral messenger RNA (mRNA) from 14 high-risk HPV types (16, 18, 31, 33, 35, 39, 45, 51, 52, 56, 58, 59, 66, 68) HPV testing performed by [facility], [place], [place]. See reference laboratory portion of the EMR for entire report. Clinical Information LMP: 10/01/20 Previous PAP test: Unknown Date, WNL Material Received ThinPrep Cervical Copies To Darion Mohan MD [address] [place] [address] Drive [address] [place] [address] Veronika South CNM [address] [place] [address] Dr. [address] [place] [address] Electronically Signed By: Jacqueline Wynne 10/18/20 1329 The Pap Test is a screening procedure with the inherent possibility of both false negative and false positive results. Results should be interpreted in the context of historic and current clinical findings. Reliability of the Pap Test is enhanced by performing the test on a regular repetitive basis. Patient: Larissa Page 1 of 1 Assessment & Plan Assessment & Plan (1) Anemia: Comment: follow up with hematology/oncology. (12/21/23, hx of anemia, improved w mirena use, bleeding increasing again.... Code(s): D64.9 - Anemia, unspecified Category: Medical (2) Well woman exam with routine gynecological exam: Code(s): Z01.419 - Encounter for gynecological examination (general) (routine) without abnormal findings Category: Medical (3) Potential exposure to STD: Code(s): Z20.2 - Contact with and (suspected) exposure to infections with a predominantly sexual mode of transmission Category: Medical (4) Presence of 52 mg levonorgestrel-releasing intrauterine device (IUD): Code(s): Z97.5 - Presence of (intrauterine) contraceptive device Category: Social Hx Plan -----Discussed in this visit the following: healthy balanced diet, regular and consistent exercise, getting recommended health screens, doing the best she can for her particular health concerns, kegel exercises, pap smear screening and followup recommendations, mammography screening and SBE, normal changes in cycles in her life stage--- . She is up-to-date on her mammogram she will be seeing primary care provider on Tuesday. I offered to check her hemoglobin and hematocrit to see if her anemia is returning in any way. Discussed that is in some ways there no promises with the Mirena that all periods will be high tension tester. However it is kind of up to her and if it becomes problematic that her periods are not as short as she would like or if she becomes anemic than that really would be problem time to speak to Dr. Doan about whether or not to consider any other intervention. Orders: Orders Complete Blood Count no Diff Today D64.9 - Anemia, unspecified, Z01.419 - Encounter for gynecological examination (general) (routine) without abnormal findings, Z20.2 - Contact with and (suspected) exposure to infections with a predominantly sexual mode of transmission, Z97.5 - Presence of (intrauterine) contraceptive device Coding Level of Care Code Est Pt Prev Care 40-64y(25690) Diagnoses Anemia D64.9 Well woman exam with routine gynecological exam Z01.419 Potential exposure to STD Z20.2 Presence of 52 mg levonorgestrel-releasing intrauterine device (IUD) Z97.5
== END 2023-12-21 15:59 | disposition home or self-care (01) ==
PROVIDERS: PCP Internal Medicine; Visit Provider Advanced Practice Midwife
DX: Z01.419 Encounter for gynecological examination (general) (routine) without abnormal findings (principal); D64.9 Anemia, unspecified; Z20.2 Contact with and (suspected) exposure to infections with a predominantly sexual mode of transmission; Z97.5 Presence of (intrauterine) contraceptive device
CPT/HCPCS: 99396

== ENCOUNTER 2023-12-21 14:35 | Outpatient (REF) | payer OTHER, SELFPAY ==
[2023-12-22 03:39] LABS: CT PCR NOT DETECTED (Not Detect.); NG PCR NOT DETECTED (Not Detect.)
[2023-12-22 13:16] LABS: BV Int Neg Control Negative (Negative); BV Int Pos Control Positive (Positive)
== END 2023-12-21 14:36 | disposition home or self-care (01) ==
LOC: HO.LNP 14:35
PROVIDERS: PCP Internal Medicine; Visit Provider Advanced Practice Midwife
DX: Z01.419 Encounter for gynecological examination (general) (routine) without abnormal findings (principal); Z20.2 Contact with and (suspected) exposure to infections with a predominantly sexual mode of transmission; Z97.5 Presence of (intrauterine) contraceptive device
CPT/HCPCS: 0353U; 87480; 87510; 87660; 99396

== ENCOUNTER 2023-12-26 16:38 | Outpatient (AMB) | payer OTHER, SELFPAY ==
--- NOTE | 2023-12-26 16:44 | A.OFFPC_ITS ---
Vital Signs 12/26/23 16:45 Height 5 ft 7 in Weight 213 lb BMI 33.4 BP 118/80 Blood Pressure Location Lt brachial Position Sitting Intake Visit Reasons: Annual Exam Intake Note: Patient here for an annual physical exam Administrative Support Coordinator Required: No Accompanied by: Self / Same As Patient Allergies PLASTIC TAPE Allergy (Intermediate, Uncoded 12/26/23 17:00) BLISTERS Medication List - Last Reconciled 12/26/23 by Jillian Kaminski MD albuterol sulfate 90 mcg/actuation (Ventolin HFA) 2 puffs inhalation Q4-6H PRN betamethasone dipropionate 0.05% 1 appl topical DAILY PRN levonorgestrel (Mirena) intrauterine omeprazole 20 mg PO DAILY PRN 90 days Tobacco use date assessed: 09/15/23 Dental Screening Dental Screen Date: 09/15/23 HPI HPI Comments History of Present Illness Details This is a 43-year-old female that comes for her physical exam. Last Pap smear was 2020, last mammogram January 2023. No chest pain or shortness of breath. [facility] Medical History Uterine fibroid Acute eczema GERD (gastroesophageal reflux disease) Migraines Hypovitaminosis D Physical exam AMAN (generalized anxiety disorder) Polyarthralgia New daily persistent headache Dyslipidemia Migraine with aura Anemia Surgical History History of sleeve gastrectomy Hx of tubal ligation Hx of section Family History Father Diabetes mellitus ESRD on hemodialysis Mother Acute depression Anxiety Asthma Hypertension Osteoporosis Hypercholesteremia Hyperlipemia Mental health disorder Son No problems noted. Daughter No problems noted. Brother No problems noted. Sister Cervical cancer Maternal Grandmother Lung cancer Maternal Grandfather Throat cancer Social History Household Members: Significant Other and Family Housing: House Alcohol intake: never Patient Tobacco Use Status: Never used Tobacco e-Cigarette/Vaping Use: Never Used Second Hand Smoke Exposure: No service: No Current occupational status: employed Current occupational exposures/hazards: No Gender identity: Female Cognitive needs: No Hearing needs: No Vision needs: No Female Reproductive History Menstrual Age of Menarche: 9 Questionnaire Thrive Questionnaire Date Thrive assessed: 09/15/23 AMAN-7 AMB Questionnaire AMAN-7 Date AMAN - 7 assessed: 09/15/23 Source: Developed by Drs. Yonis Bradshaw, Lily Willett, Fransisco Godoy and colleagues, with an educational dylon from [employer]. Review of Systems Const All systems reviewed & are unremarkable except as noted in HPI and below Eyes Reports no additional complaints, Denies change in vision and Denies other visual disturbances Card Denies chest pain at rest, Denies chest pain with activity, Denies edema, Denies irregular heart rhythm, Denies claudication, Denies dyspnea, Denies dyspnea on exertion, Denies orthopnea, Denies paroxysmal nocturnal dyspnea and Denies slow heart rate Resp Denies cough, Denies dyspnea and Denies dyspnea on exertion Physical exam (Primary Care) Vital Signs: Last Vital Signs BP 118/80 12/26/23 16:45 BMI result Body Mass Index 33.4 Tobacco/Smoking Status: Tobacco use Status Tobacco use date assessed 09/15/23 12/26/23 16:50 Patient Tobacco Use Status Never used Tobacco 12/26/23 16:50 e-Cigarette/Vaping Use Never Used 12/26/23 16:50 Thrive Assessment: Date of Thrive Assessment Date Thrive assessed 09/15/23 12/26/23 16:50 Const Orientation/consciousness: patient oriented x3 HENMT Head: Yes normal to inspection, Yes normocephalic and Yes atraumatic Ears: external ears normal Eyes General: appearance normal, both eyes and all related structures Eyelids: Yes eyelids normal Conjunctivae: conjunctivae normal Neck Neck: Yes normal visual inspection and Yes supple Resp Effort & Inspection: normal respiratory effort Auscultation: clear to auscultation bilaterally Cardio Jugular venous distension: no JVD Rate: regular rate Rhythm: regular rhythm Heart sounds: S1 normal heart sound present and S2 normal heart sound present GI Inspection: Yes normal to inspection Palpation (GI): Soft to palpation and nontender Auscultation: normal bowel sounds Skin General skin exam: no rashes or lesions noted Neuro General: patient oriented x3 and no focal motor deficits Extrem General: Yes full ROM Psych Appearance: grossly normal Results AMB Urinalysis, Automated UA Leukoctes 70 Travis/uL Last Edit by Evelyn Dumont, [facility] on 12/26/23 17:2 3 UA Nitrite Positive Last Edit by Evelyn Dumont, [facility] on 12/26/23 17:23 UA Urobilinogen 0.2 mg/dL Last Edit by Evelyn Dumont, [facility] on 12/26/23 17:23 UA Protein 0 mg/dL Last Edit by Evelyn Dumont, [facility] on 12/26/23 17:23 UA pH 6.0 Last Edit by Evelyn Dumont, [facility] on 12/26/23 17:23 UA Blood 0 Rufino/uL Last Edit by Evelyn Dumont, [facility] on 12/26/23 17:23 UA Specific Hopkins 1.030 Last Edit by Evelyn Dumont, [facility] on 12/26/23 17:23 UA Ketone Negative Last Edit by Evelyn Dumont, [facility] on 12/26/23 17:23 UA Bilirubin 0 mg/dL Last Edit by Evelyn Dumont, [facility] on 12/26/23 17:23 UA Glucose 0 mg/dL Last Edit by Evelyn Dumont, [facility] on 12/26/23 17:23 Results Reviewed Results Reviewed: Laboratory Last Values Urine pH (Auto) 6.0 12/26/23 17:22 Specific Hopkins (Auto) 1.030 12/26/23 17:22 Urine Protein (Auto) 0 mg/dL 12/26/23 17:22 Glucose (UA)(Auto) 0 mg/dL 12/26/23 17:22 Urine Ketones (Auto) Negative 12/26/23 17:22 Urine Blood (Auto) 0 Rufino/uL 12/26/23 17:22 Urine Nitrite (Auto) Positive 12/26/23 17:22 Urine Bilirubin (Auto) 0 mg/dL 12/26/23 17:22 Urine Urobilinogen (Auto) 0.2 mg/dL 12/26/23 17:22 Leukocyte Esterase (Auto) 70 Travis/uL 12/26/23 17:22 Assessment and Plan Assessment & Plan (1) Physical exam: Code(s): Z00.00 - Encounter for general adult medical examination without abnormal find ings Plan: Repeat in a year. Orders: Orders Lipid Panel Today Z00.00 - Encounter for general adult medical examination without abnormal findings US renal BI Today N20.0 - Calculus of kidney Comprehensive [place]. Panel Fast Today Z00.00 - Encounter for general adult medical examination without abnormal findings AMB Urinalysis Automated Today N39.0 - Urinary tract infection, site not specified Coding Level of Care Code Est Pt Prev Care 40-64y(20245) Diagnoses Physical exam Z00.00 Time Spent (min) 30
[2023-12-26 16:45] VITALS: BP 118/80; BMI 33.4
== END 2023-12-26 17:16 | disposition home or self-care (01) ==
PROVIDERS: PCP Internal Medicine; Visit Provider Internal Medicine
DX: Z00.00 Encounter for general adult medical examination without abnormal findings (principal); N39.0 Urinary tract infection, site not specified
CPT/HCPCS: 81003; 99396

== ENCOUNTER 2024-01-02 15:58 | Outpatient (REF) | payer OTHER, SELFPAY ==
--- NOTE | ~2024-01-02 | US_ITS ---
EXAMINATION: US RETROPERITONEAL LIMITED (RENAL ONLY) CLINICAL INFORMATION: Calculus of kidney. COMPARISON: X-ray KUB 09/24/2023. Ultrasound abdomen complete 04/26/2019. TECHNIQUE: Real-time imaging of the left kidney. FINDINGS: RIGHT KIDNEY: Absent (renal agenesis). LEFT KIDNEY: 14.4 x 7.6 x 6.6 cm (SAG x AP x TRV). The kidney is normal in size, contour, and echogenicity. Renal cortical thickness is normal. No hydronephrosis. Benign-appearing cysts measuring up to 2.6 cm. Nonobstructing upper pole 6 mm stone. US/US renal BI IMPRESSION: * Benign-appearing left renal cysts. * Nonobstructing left nephrolithiasis.
== END 2024-01-02 15:59 | disposition home or self-care (01) ==
LOC: HO.US 15:58
PROVIDERS: PCP Internal Medicine; Visit Provider Internal Medicine
DX: N20.0 Calculus of kidney (principal)
CPT/HCPCS: 76775

== ENCOUNTER 2024-01-17 12:34 | Outpatient (AMB) | payer OTHER, SELFPAY ==
[2024-01-17 13:29] VITALS: BP 110/80; PULSE 68; TEMP 36.4; O2SAT 98; BMI 33.5
--- NOTE | 2024-01-17 13:29 | MHC.OFFWIV ---
Intake Vital Signs 01/17/24 13:29 Height 5 ft 7 in Weight 214 lb BMI 33.5 BP 110/80 Blood Pressure Location Lt brachial Position Sitting Pulse 68 Pulse Source Pulse Oximeter Temp 97.6 F Temp Source Temporal Artery Scan Pulse Oximetry (%) 98 Oxygen Delivery Method Room Air Intake Visit Reasons: EP fell yesterday rt should/arm injury due to fall Intake Note: pt is here today for fell yesterday rt shoulder and arm injury Patient Tobacco Use Status: Never used Tobacco Allergies PLASTIC TAPE Allergy (Intermediate, Uncoded 01/17/24 14:07) BLISTERS Medication List - Last Reconciled 01/17/24 by TAYLOR Abraham acetaminophen 1,000 mg (2 x 500 mg) PO Q6H PRN 30 days albuterol sulfate 90 mcg/actuation (Ventolin HFA) 2 puffs inhalation Q4-6H PRN betamethasone dipropionate 0.05% 1 appl topical DAILY PRN levonorgestrel (Mirena) intrauterine omeprazole 20 mg PO DAILY PRN 90 days Do you need a note to return to daycare/school/sports/work: Yes HPI HPI Comments History of Present Illness Details Patient is a 44-year-old female in today for sick visit. Patient reports mechanical fall and landing on her right side. Patient is reporting pain on the right shoulder and right trapezius area. Also reporting some swelling. Patient has limited range of motion to flexion extension of right shoulder. Has full range of motion of neck. Patient denies any tingling or numbness. Denies chest pain or shortness of breath. Patient has utilized [id number] Tylenol and ibuprofen with mild effect. On physical exam patient has no obvious deformity. Does have limited range of motion to abduction and forward flexion. Patient has difficulty with over the head shoulder movements of the right arm. Patient has no limitations on the left side. Scant edema. Tenderness to palpation of right shoulder. Patient also has some tenderness to palpation of the right trapezius area. Does have full range of motion of her neck. Denies any tingling or numbness. No C-spine tenderness, no lumbar tenderness or thoracic tenderness. [facility] Medical History Uterine fibroid Acute eczema GERD (gastroesophageal reflux disease) Migraines Hypovitaminosis D Physical exam AMAN (generalized anxiety disorder) Polyarthralgia New daily persistent headache Dyslipidemia Migraine with aura Anemia Surgical History History of sleeve gastrectomy Hx of tubal ligation Hx of section Family History Father Diabetes mellitus ESRD on hemodialysis Mother Acute depression Anxiety Asthma Hypertension Osteoporosis Hypercholesteremia Hyperlipemia Mental health disorder Son No problems noted. Daughter No problems noted. Brother No problems noted. Sister Cervical cancer Maternal Grandmother Lung cancer Maternal Grandfather Throat cancer Social History Household Members: Significant Other and Family Housing: House Alcohol intake: never Patient Tobacco Use Status: Never used Tobacco e-Cigarette/Vaping Use: Never Used Second Hand Smoke Exposure: No service: No Current occupational status: employed Current occupational exposures/hazards: No Gender identity: Female Cognitive needs: No Hearing needs: No Vision needs: No Female Reproductive History Menstrual Age of Menarche: 9 Review of Systems Const All systems reviewed & are unremarkable except as noted in HPI and below Physical Exam Vital Signs: Last Vital Signs Temp 97.6 F 01/17/24 13:29 Pulse 68 01/17/24 13:29 BP 110/80 01/17/24 13:29 Pulse Ox 98 01/17/24 13:29 Oxygen Delivery Method Room Air 01/17/24 13:29 BMI result Body Mass Index 33.5 Vital signs reviewed stable. Const Other: Appearance: Alert.? Oriented X3.? No acute distress.? Head: Normocephalic. Eyes: Pupils equal, round and reactive to light.? Neck: Normal inspection.? Neck supple.?Full ROM CVS: Normal heart rate and rhythm.? Pulses normal.? Respiratory: No respiratory distress.? Breath sounds normal.? Abdomen: Soft and nontender.? Skin: Skin warm and dry.? Normal skin color.? Normal skin turgor.? Extremities:+ tenderness to right shoulder. Scant edema. Limited range of motion to abduction and forward flexion. Back: No midline tenderness, no C-spine tenderness, full range of motion, no CVA tenderness bilaterally, +right trapezius tenderness. Neuro: Oriented X 3.? No motor deficit.? No sensory deficit. CN 2-12 intact Assessment & Plan Assessment & Plan (1) Right shoulder pain: Comment: Will obtain right shoulder x-ray. Will also obtain cervical spine x-ray. Patient will be given meloxicam. Patient has been educated on signs of worsening symptoms and when to report back to the walk-in or when to present to the ED. Code(s): M25.511 - Pain in right shoulder Qualifiers: Chronicity: acute Qualified Code(s): M25.511 - Pain in right shoulder Plan: Will refer to physical therapy if indicated (2) Pneumothorax, right: Comment: Imaging revealed right pneumothorax. Patient has been sent to the emergency room via private vehicle. Expect called. Code(s): J93.9 - Pneumothorax, unspecified Plan: Patient sent to the ER. Orders: Orders XR cervical spine 3V Today W19.XXXA - Unspecified fall, initial encounter XR chest 2V Today R07.9 - Chest pain, unspecified XR shoulder RT min 2V Today M25.519 - Pain in unspecified shoulder Medications: New meloxicam 15 mg PO DAILY 10 tabs 0RF Coding Level of Care Code Est Pt Level 5 (65635) Diagnoses Acute pain of right shoulder M25.511 Chronicity: acute Pneumothorax, right J93.9 Time Spent (min) 50
== END 2024-01-17 14:59 | disposition home or self-care (01) ==
PROVIDERS: PCP Internal Medicine; Visit Provider Nurse Practitioner Primary Care
DX: M25.511 Pain in right shoulder (principal); J93.9 Pneumothorax, unspecified
CPT/HCPCS: 99215

== ENCOUNTER 2024-01-17 13:58 | Outpatient (REF) | payer OTHER, SELFPAY ==
--- NOTE | ~2024-01-17 | XR_ITS ---
EXAMINATION: XR SHOULDER, RIGHT CLINICAL INFORMATION: Right shoulder pain COMPARISON: 09/24/2023 TECHNIQUE: AP external rotation, Grashey, scapular Y, and axillary views of the right shoulder. FINDINGS: There is a small pneumothorax. The emergency room will be notified immediately. Subcutaneous air overlies the chest and axilla and neck. With regards to the right shoulder, no fracture, dislocation or destructive process. XR/XR shoulder RT min 2V IMPRESSION: Right pneumothorax with associated subcutaneous emphysema in the right neck, and overlying the right shoulder and axilla. ER to be notified. Recommendation is for a formal well centered PA and lateral view of the chest with inspiration and expiration.
--- NOTE | ~2024-01-17 | XR_ITS ---
EXAMINATION: XR CERVICAL SPINE CLINICAL INFORMATION: Pain after falling. Pneumothorax. COMPARISON: Shoulder radiograph same date TECHNIQUE: 3 views of the cervical spine were obtained. FINDINGS: Subcutaneous emphysema overlies the neck and upper chest likely due to a pneumothorax is noted on the accompanying shoulder radiograph. Recommend formal evaluation with inspiration expiration chest radiograph. Emergency room has been notified of this finding, from the previous shoulder radiograph. With regards to the C-spine, no fracture or destructive process or alignment abnormality. Lateral masses of C1 and odontoid intact. XR/XR cervical spine 3V IMPRESSION: Subcutaneous emphysema noted, consistent with the previously described pneumothorax on the right.
--- NOTE | ~2024-01-17 | XR_ITS ---
EXAMINATION: XR CHEST CLINICAL INFORMATION: Previously documented pneumothorax. COMPARISON: Right shoulder radiograph same date TECHNIQUE: 2 views of the chest were obtained. FINDINGS: Extensive subcutaneous emphysema overlies the chest and neck. The previously noted small right apical pneumothorax is again observed. No shift of midline structures at this time. No pleural effusion. No consolidation. Heart and pulmonary vessels normal. Surgical sutures are seen in the left upper quadrant. XR/XR chest 2V IMPRESSION: Small right apical pneumothorax again observed, with subcutaneous air. There is no significant shift of mediastinal structures at this time.
== END 2024-01-17 13:59 | disposition home or self-care (01) ==
LOC: HO.HMGCX 13:58
PROVIDERS: PCP Internal Medicine; Visit Provider Nurse Practitioner Primary Care
DX: R07.9 Chest pain, unspecified (principal); Z91.81 History of falling; M25.511 Pain in right shoulder
CPT/HCPCS: 71046; 72040; 73030

== ENCOUNTER 2024-01-17 15:16 | Emergency (ER) | payer OTHER, SELFPAY ==
--- NOTE | ~2024-01-17 | CT_ITS ---
EXAMINATION: CT CERVICAL SPINE WITHOUT CONTRAST CLINICAL INFORMATION: Fall, neck trauma COMPARISON: None available. TECHNIQUE: Noncontrast CT of the cervical spine was performed. Multiplanar reformations were generated and reviewed This CT examination was performed using dose optimization techniques as appropriate, variously including the following: *Automated exposure control *Adjustment of mA and/or kV according to patient size (this includes techniques or standardized protocols for targeted exams where dose is matched to indication/reason for exam; i.e. extremities or head) *Use of iterative reconstruction technique DLP: 965 mGy-cm FINDINGS: Normal vertebral body heights and alignment. Alignment at the craniocervical junction is maintained. No evidence of acute fracture in the cervical spine. No suspicious lytic or sclerotic osseous lesion. 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 Multilevel degenerative disc and facet disease. No prevertebral edema or soft tissue swelling. Comminuted fracture of the left anterolateral first rib. There are small biapical pneumothoraces. There is also a mildly comminuted fracture of the tip of the spinous process of T1. The visualized intracranial compartment is unremarkable There is extensive soft tissue emphysema throughout the neck and visualized superior mediastinum. CT/CT cervical spine wo IV con IMPRESSION: 1. No acute fracture or traumatic malalignment of the cervical spine. 2. Please refer to report from same-day CT of the chest for full description of findings in the thorax. There is a comminuted fracture of the left anterolateral first rib as well as small biapical pneumothoraces.
--- NOTE | ~2024-01-17 | CT_ITS ---
EXAMINATION: CT chest wo IV con. CLINICAL INFORMATION: Reason for Exam ? PNEUMOTHORAX CHEST WALL, RIB FX COMPARISON: No prior CT available for comparison. TECHNIQUE: Multidetector volumetric CT imaging of the chest was done. Axial MIP volume rendering provided. Sagittal and coronal reformatted images were obtained. This CT examination was performed using dose optimization techniques as appropriate, variously including the following: *Automated exposure control *Adjustment of mA and/or kV according to patient size (this includes techniques or standardized protocols for targeted exams where dose is matched to indication/reason for exam; i.e. extremities or head) *Use of iterative reconstruction technique CONTRAST: Noncontrasted study. DLP: 439 mGy-cm FINDINGS: TEASEL GIG OPERATOR: LINES/TUBES: Vocational Rehabilitation Consultant reviewed, no lines. LUNGS: Lung parenchyma: No evidence of significant interstitial disease. Lung nodules/masses: There are no significant lung nodules. AIRWAYS: Trachea and bronchi are normal. PLEURA: There are bilateral apical small pneumothoraces. MEDIASTINUM AND LAST: There is pneumomediastinum. There is a sliding hiatal hernia. VESSELS: HEART AND PERICARDIUM: Thoracic aorta is normal in size. Heart is normal in size. No pericardial effusion. No coronary calcifications. Pulmonary arteries are normal in size. LOWER NECK, AXILLA: There is subcutaneous emphysema dissecting in the anterior chest wall and the neck base both axilla and around the left back VISUALIZED ABDOMEN: Surgical suture line of gastric resection. CHEST WALL AND BONES: There is a fracture of the left anterior first rib. There is mildly displaced fracture of the posterior right fifth rib. Small adjacent right pleural effusion. CT/CT chest wo IV con IMPRESSION: 1. Bilateral small apical PNEUMOTHORACES. 2. Large PNEUMOMEDIASTINUM. 3. Extensive SUBCUTANEOUS EMPHYSEMA dissecting in the anterior chest wall, neck base and around the left back. 4. Mildly displaced RIB FRACTURES of the posterior right fifth rib and anterior left first rib.. 5. Small right pleural effusion. 6. No CT evidence of pulmonary contusion. 7. Sliding hiatal hernia. Evaluation for possible underlying vascular injury is limited due to lack of contrast, if this is high speed injury would recommend follow-up CT with contrast. CT angiogram. (Referring physician staff is being called, by physician staff assistance, to be alerted of the above critical findings and recommendations.) 01/17/2024 8:51 PM EM
[2024-01-17 15:22] VITALS: BP 116/70; PULSE 71; RESP 18; TEMP 36.3; O2SAT 100; BMI 33.4
--- NOTE | 2024-01-17 15:24 | ED_ITS ---
HPI - General Adult General Chief complaint: Fall Stated complaint: [facility] sent pt in for abnormal lung xray? Time Seen by Provider: 01/17/24 15:26 History of Present Illness HPI narrative: 44 y/o F patient; without significant PMH; presents from urgent care with report of a right sided pneumothorax. The patient states yesterday at noon she was standing near stairs when she pivoted and fell down approx 5 - 6 steps landing on her right sided. She needed assistance to get up at the time. She denies head trauma or LOC. She went to urgent care today due to the discomfort. She had last taken tylenol prior to noon today. She notes the pain is in her right upper back, right-sided anterior chest wall. It is worse with deep breaths. She denies: extremity pain, lower back pain, abdominal pain, nausea/vomiting, headache. She denies active nicotine use. Related Data Home Medications ?Medication ?Instructions ?Recorded ?Confirmed levonorgestrel 21 mcg/24 hours (8 intrauterine 06/14/22 01/17/24 yrs) 52 mg intrauterine device (Mirena) Previous Rx's ?Medication ?Instructions ?Recorded betamethasone dipropionate 0.05 % 1 appl topical DAILY PRN skin 04/20/23 topical cream irritation #45 grams albuterol sulfate 90 mcg/actuation 2 puff inhalation Q4-6H PRN for 09/16/23 aerosol inhaler (Ventolin HFA) wheezing #18 ea omeprazole 20 mg capsule,delayed 20 mg PO DAILY PRN heartburn 90 09/16/23 release days #90 caps acetaminophen 500 mg tablet 1,000 mg (2 x 500 mg) PO Q6H PRN 01/09/24 pain 30 days #180 tabs meloxicam 15 mg tablet 15 mg PO DAILY #10 tabs 01/17/24 Allergies Allergy/AdvReac Type Severity Reaction Status Date / Time No Known Allergies Allergy Verified 01/17/24 15:27 Review of Systems 2 Review of Systems: Yes all other systems are reviewed and are negative Neurologic: Denies Sensory deficit (Neuro) PMFSH Past Medical History Attestation statement: The following information was validated with the patient. Source: old records reviewed Medical History Uterine fibroid Acute eczema GERD (gastroesophageal reflux disease) Migraines Hypovitaminosis D Physical exam AMAN (generalized anxiety disorder) Polyarthralgia New daily persistent headache Dyslipidemia Migraine with aura Anemia Surgical History History of sleeve gastrectomy Hx of tubal ligation Hx of section Family History Family History Father Diabetes mellitus ESRD on hemodialysis Mother Acute depression Anxiety Asthma Hypertension Osteoporosis Hypercholesteremia Hyperlipemia Mental health disorder Son No problems noted. Daughter No problems noted. Brother No problems noted. Sister Cervical cancer Maternal Grandmother Lung cancer Maternal Grandfather Throat cancer Social History Social History Household Members: Significant Other and Family Housing: House Alcohol intake: never Patient Tobacco Use Status: Never used Tobacco Smoked in Last 30 Days: No e-Cigarette/Vaping Use: Never Used Second Hand Smoke Exposure: No Use of substances other than those prescribed or required for medical reasons: No Advance Directives: No Advance Directives Information Provided: Yes Do you have a plan to hurt others: No Plan service: No Current occupational status: employed Current occupational exposures/hazards: No Gender identity: Female Cognitive needs: No Hearing needs: No Vision needs: No Physical Exam ED Vital Signs: Vital Signs - 24 hr 01/17/24 15:22 01/17/24 15:45 01/17/24 16:50 Temperature 97.4 F 97.6 F Pulse Rate 71 83 69 Respiratory Rate 18 18 13 Blood Pressure 116/70 121/70 122/66 Pulse Oximetry 100 98 100 Oxygen Delivery Method Room Air Room Air Non-Rebreather Mask Oxygen Flow Rate 15 01/17/24 20:55 Temperature Pulse Rate 56 Respiratory Rate 15 Blood Pressure 113/64 Pulse Oximetry 100 Oxygen Delivery Method Non-Rebreather Mask Oxygen Flow Rate 15 BMI result Body Mass Index 33.4 Patient is afebrile and hemodynamically stable. Saturating 98 - 100% on RA. Const General: cooperative Orientation/consciousness: patient oriented x3 HENMT Head: Yes normal to inspection and Yes atraumatic Ears: TM's normal bilaterally Eyes General: appearance normal, both eyes and all related structures Pupils: Equal, round and reactive pupils present Neck Other: crepitus to right-sided anterior neck and right anterior upper chest wall Neck: Yes full ROM, Yes supple and No tender Chest Chest palpation & inspection: normal inspection of the chest Resp Effort & Inspection: normal respiratory effort, able to speak in complete sentences, no cough, no respiratory distress and no use of accessory muscles Auscultation: clear to auscultation bilaterally Cardio Rate: regular rate Rhythm: regular rhythm Peripheral pulses: Peripheral pulses 2+ throughout GI Inspection: Yes normal to inspection Palpation (GI): Soft to palpation, not firm, nontender, no guarding and not rigid Auscultation: normal bowel sounds General: Yes no CVA tenderness Back/Spine/Pelvis Other: No thoracic or lumbar tenderness or overlying skin changes Back: no CVA tenderness Neuro General: patient oriented x3, gait normal and moves all extremities Cranial nerves: Yes Equal, round and reactive pupils present Motor exam (neuro): 5/5 motor strength present throughout Sensory Exam: No Sensory deficit (Neuro) Course Course Course Narrative: RME performed by Dixie Bowling PA-C. Patient is a 44 year old assigned female at presenting to the emergency department with right sided pain after a fall down stairs. Patient was seen at the walk in clinic who informed her she has a right pneumothorax. Detailed physical exam and review of systems are deferred to the medical coordinator pesticide use. Labs ordered. dietary services director aware, patient taken to room 4. Reevaluation(s) Reevaluation #1: Patient is afebrile and hemodynamically stable. Able to review imaging from out-side urgent care - appear consistent with small right sided apical pneumothorax. Patient is 98- 100% on RA - placed on NRB for observation of pneumothorax and ordered for CT Thorax with CT Cervical Spine w/o Contrast. Provided Versed 2mg IV for analgesic prior to CT imaging. Provided pain control with tylenol and dilaudid. Zofran for nausea. Reevaluation #2: CT with bilateral small apical pneumothoraces, large pneumomediastinum, extensive subcutanous emphysema dissecting in the anterior chest wall, neck base, and around the left back, mildly displaced rib fractures of the posterior right 5th rib and anterior left 1st rib, small right pleural effusion. No CT evidence of pulmonary contusion. Discussed with thoracic surgery and agreeable for admission to this hospital. Discussed with hospitalist - declined admission. Requested trauma evaluation. Re-discussed with thoracic surgery - they are agreeable to transfer to trauma hospital if hospitalist is uncomfortable with admission. [facility]iscussed with [facility] - patient accepted for transfer. Plan: Transfer to [facility] Condition: Stable Medications Administered Discontinued Medications Generic Name Dose Route Start Last Admin Trade Name Leatha PRN Reason Stop Dose Admin Acetaminophen 975 mg 01/17/24 15:51 01/17/24 16:15 Acetaminophen 325 Mg Tablet PO 01/17/24 15:52 975 mg ONCE ONE Administration Hydromorphone HCl 0.5 mg 01/17/24 15:51 01/17/24 16:15 Hydromorphone Hcl 0.5 Mg/0.5 Ml Syringe IVPUSH 01/17/24 15:52 0.5 mg ONCE ONE Administration Protocol Midazolam HCl 2 mg 01/17/24 15:50 01/17/24 17:12 Midazolam Hcl/Pf 2 Mg/2 Ml Vial IVPUSH 01/17/24 15:51 1 mg ONCE ONE Increment Incremental Dosing Total Given: 1 mg Ondansetron HCl 4 mg 01/17/24 15:51 01/17/24 16:15 Ondansetron Hcl 4 Mg/2 Ml Vial IVPUSH 01/17/24 15:52 4 mg ONCE ONE Administration Medical Decision Making Lab Data 01/17/24 15:43 01/17/24 15:43 Labs: Lab Results 01/17/24 01/17/24 Range/Units 15:43 15:53 WBC 11.5 H (4.8-10.8) X10*3/uL RBC 4.39 (4.20-5.50) X10*6/uL Hgb 11.8 L (12.0-16.0) g/dl Hct 37.7 (37.0-47.0) % MCV 85.9 (80.0-98.0) fL MCH 26.9 L (27.0-33.0) pg MCHC 31.3 (31.0-35.0) g/dl RDW 13.9 (11.0-16.0) % Plt Count 224 (160-400) X10*3/uL MPV 12.1 (9.4-12.3) fL Immature Gran % (Auto) 0.5 H (0.0-0.4) % Neut % (Auto) 73.1 H (45-73) % Lymph % (Auto) 18.5 L (20-40) % Metcalfe % (Auto) 6.6 (2-11) % Eos % (Auto) 1.1 (0-4) % Baso % (Auto) 0.2 (0-2) % Lymph # (Auto) 2.1 (1.2-4.9) X10*3/uL Metcalfe # (Auto) 0.8 (0.1-1.2) X10*3/uL Eos # (Auto) 0.1 (0.0-0.4) X10*3/uL Baso # (Auto) 0.0 (0.0-0.2) X10*3/uL Abs Immat Gran (auto) 0.06 H (0.00-0.03) X10*3/uL Absolute Neuts (auto) 8.4 H (2.0-8.3) x10*3/uL Absolute Nucleated RBC 0.000 (0.0-0.012) X10*3/uL Nucleated RBC % (auto) 0.0 (0.0-0.2) /100WBC PT 14.2 H (11.1-13.3) SEC INR 1.2 H (0.9-1.1) APTT 30.0 (26.0-36.8) SEC Sodium 141 (135-145) mmol/L Potassium 4.4 (3.3-5.1) mmol/L Chloride 108 (96-108) mmol/L Carbon Dioxide 25 (22-29) mmol/L Anion Gap 12 (12-20) BUN 13 (9-16) mg/dL Creatinine 0.78 (0.5-1.4) mg/dL Estim Creat Clear Calc 109.8 Estimated GFR > 60 Random Glucose 88 (60-115) mg/dL Calcium 9.5 (8.4-10.2) mg/dL Magnesium 2.1 (1.6-2.6) mg/dL Total Bilirubin 0.8 (0.0-1.0) mg/dL AST 24 (5-31) U/L ALT 22 (0-31) U/L Alkaline Phosphatase 80 (39-117) U/L Troponin I High Sens < 2.7 (<3.5-17.0) ng/L Total Protein 7.7 (6.5-8.0) g/dL Albumin 3.9 (3.5-5.0) g/dL Lipase 18 (8-78) U/L Beta HCG, Quant < 2 mIU/mL Radiology Impression Discussion of test interpretation with radiology: I have reviewed the radiologist's reading. Radiologist Impression: EXAMINATION: CT chest wo IV con. CLINICAL INFORMATION: Reason for Exam ? PNEUMOTHORAX CHEST WALL, RIB FX COMPARISON: No prior CT available for comparison. TECHNIQUE: Multidetector volumetric CT imaging of the chest was done. Axial MIP volume rendering provided. Sagittal and coronal reformatted images were obtained. This CT examination was performed using dose optimization techniques as appropriate, variously including the following: *Automated exposure control *Adjustment of mA and/or kV according to patient size (this includes techniques or standardized protocols for targeted exams where dose is matched to indication/reason for exam; i.e. extremities or head) *Use of iterative reconstruction technique CONTRAST: Noncontrasted study. DLP: 439 mGy-cm FINDINGS: ROLL FORMER: LINES/TUBES: Pool Hall Inspector reviewed, no lines. LUNGS: Lung parenchyma: No evidence of significant interstitial disease. Lung nodules/masses: There are no significant lung nodules. AIRWAYS: Trachea and bronchi are normal. PLEURA: There are bilateral apical small pneumothoraces. MEDIASTINUM AND LAST: There is pneumomediastinum. There is a sliding hiatal hernia. VESSELS: HEART AND PERICARDIUM: Thoracic aorta is normal in size. Heart is normal in size. No pericardial effusion. No coronary calcifications. Pulmonary arteries are normal in size. LOWER NECK, AXILLA: There is subcutaneous emphysema dissecting in the anterior chest wall and the neck base both axilla and around the left back VISUALIZED ABDOMEN: Surgical suture line of gastric resection. CHEST WALL AND BONES: There is a fracture of the left anterior first rib. There is mildly displaced fracture of the posterior right fifth rib. Small adjacent right pleural effusion. CT/CT chest wo IV con IMPRESSION: 1. Bilateral small apical PNEUMOTHORACES. 2. Large PNEUMOMEDIASTINUM. 3. Extensive SUBCUTANEOUS EMPHYSEMA dissecting in the anterior chest wall, neck base and around the left back. 4. Mildly displaced RIB FRACTURES of the posterior right fifth rib and anterior left first rib.. 5. Small right pleural effusion. 6. No CT evidence of pulmonary contusion. 7. Sliding hiatal hernia. Evaluation for possible underlying vascular injury is limited due to lack of contrast, if this is high speed injury would recommend follow-up CT with contrast. CT angiogram. (Referring physician staff is being called, by physician staff assistance, to be alerted of the above critical findings and recommendations.) Discharge Plan Discharge Clinical Impression: Trauma, Subcutaneous emphysema, Pneumothorax, acute, Pneumomediastinum, Closed fracture of one rib of left side, Right rib fracture Patient Disposition: [facility] Transfer Details: [facility] Dr. Valdivia Prescriptions: No Action betamethasone dipropionate 0.05 % cream 1 appl topical DAILY PRN (Reason: skin irritation) Qty: 45 0RF omeprazole 20 mg capsule,delayed release(DR/EC) 20 mg PO DAILY PRN (Reason: heartburn) 90 Days Qty: 90 3RF albuterol sulfate [Ventolin HFA] 90 mcg/actuation HFA aerosol inhaler 2 puff inhalation Q4-6H PRN (Reason: for wheezing) Qty: 18 3RF acetaminophen 500 mg tablet 1,000 mg PO Q6H PRN (Reason: pain) 30 Days Qty: 180 0RF meloxicam 15 mg tablet 15 mg PO DAILY Qty: 10 0RF Mirena 20 mcg/24 hours (8 yrs) 52 mg intrauterine device intrauterine Print Language: Belarusian
[2024-01-17 15:45] VITALS: BP 121/70; PULSE 83; RESP 18; O2SAT 98
--- NOTE | 2024-01-17 15:45 | PC.NURSE ---
pt is alert and oriented, skin pwd, respirations even but shallow, ls diminished on the right lobes, pt does have palpable subcutaneous air on the right side of her neck and down to her right chest area, right breast is also larger in appearance then the left and pt states that is not her baseline that has occurred since her fall down the 5 stairs yesterday, did not hit her head and no loc, pt reports pain at 10/10
[2024-01-17 15:47] LABS: MANUAL DIFF FLAG NO
[2024-01-17 15:50] LABS: Basophils Percent Auto 0.2 % (0-2); Eosinophils Absolute Auto 0.1 X10*3/uL (0.0-0.4); Eosinophils Percent Auto 1.1 % (0-4); Hematocrit 37.7 % (37.0-47.0); Hemoglobin 11.8 g/dl (12.0-16.0); Imm Gran Abs Auto 0.06 X10*3/uL (0.00-0.03); Imm Gran Pct Auto 0.5 % (0.0-0.4); Lymphocytes Absolute Auto 2.1 X10*3/uL (1.2-4.9); Lymphocytes Percent Auto 18.5 % (20-40); Mean Corpuscular HGB Conc 31.3 g/dl (31.0-35.0); Mean Corpuscular Hemoglobin 26.9 pg (27.0-33.0); Mean Corpuscular Volume 85.9 fL (80.0-98.0); Mean Platelet Volume 12.1 fL (9.4-12.3); Monocytes Absolute Auto 0.8 X10*3/uL (0.1-1.2); Monocytes Percent Auto 6.6 % (2-11); Neutrophils Absolute Auto 8.4 x10*3/uL (2.0-8.3); Neutrophils Percent Auto 73.1 % (45-73); Platelet Count 224 X10*3/uL (160-400); Red Blood Count 4.39 X10*6/uL (4.20-5.50); Red Cell Distribution Width 13.9 % (11.0-16.0); White Blood Count 11.5 X10*3/uL (4.8-10.8)
[2024-01-17 16:00] LABS: INTERNATIONAL NORM RATIO 1.2 (0.9-1.1); Prothrombin Time 14.2 SEC (11.1-13.3)
[2024-01-17 16:06] LABS: Alanine Aminotransferase 22 U/L (0-31); Albumin Level 3.9 g/dL (3.5-5.0); Alkaline Phosphatase 80 U/L (39-117); Anion Gap 12 (12-20); Aspartate Amino Transferase 24 U/L (5-31); Bilirubin Total 0.8 mg/dL (0.0-1.0); Blood Urea Nitrogen 13 mg/dL (9-16); Calcium 9.5 mg/dL (8.4-10.2); Carbon Dioxide 25 mmol/L (22-29); Chloride 108 mmol/L (96-108); Creatinine Clr Calc Pharmacy 109.8; Estimated Glomerular Filt Rate > 60; Glucose Random 88 mg/dL (60-115); Magnesium 2.1 mg/dL (1.6-2.6); Potassium 4.4 mmol/L (3.3-5.1); Sodium 141 mmol/L (135-145); Total Protein 7.7 g/dL (6.5-8.0)
[2024-01-17] MEDS: HYDROmorphone HCl 0.5 MG/0.5 ML SYRINGE IVPUSH (16:15)
[2024-01-17] MEDS: Acetaminophen 325 MG TABLET 975 MG PO (16:15)
[2024-01-17] MEDS: ondansetron HCL 4 MG/2 ML VIAL IVPUSH (16:15)
[2024-01-17 16:21] LABS: Troponin-I High Sensitivity < 2.7 ng/L (<3.5-17.0)
[2024-01-17 16:28] LABS: Lipase 18 U/L (8-78)
[2024-01-17 16:37] LABS: HCG Quantitative < 2 mIU/mL
[2024-01-17 16:50] VITALS: BP 122/66; PULSE 69; RESP 13; TEMP 36.4; O2SAT 100
[2024-01-17] MEDS: Midazolam HCl/PF 2 MG/2 ML VIAL IVPUSH ×2 (17:12→22:15)
[2024-01-17 20:55] VITALS: BP 113/64; PULSE 56; RESP 15; O2SAT 100
[2024-01-17 22:15] VITALS: BP 118/62; PULSE 70; RESP 16; TEMP 36.7; O2SAT 97
[2024-01-17 22:31] VITALS: BP 118/62; PULSE 70; RESP 16; TEMP 36.7; O2SAT 97
== END 2024-01-17 22:32 | disposition short-term general hospital (02) ==
PROVIDERS: Physician Assistant Medical; Emergency Provider Emergency Medicine; PCP Internal Medicine
DX: T79.7XXA Traumatic subcutaneous emphysema, initial encounter (principal); S22.31XA Fracture of one rib, right side, initial encounter for closed fracture; W10.9XXA Fall (on) (from) unspecified stairs and steps, initial encounter; Y93.9 Activity, unspecified; Y92.9 Unspecified place or not applicable; Y99.9 Unspecified external cause status; J98.2 Interstitial emphysema; R07.89 Other chest pain
CPT/HCPCS: 36415; 71250; 72125; 80053; 83690; 83735; 84484; 84702; 85025; 85610; 85730; 96374; 96375; 96376; 99285; J1170; J2250; J2405

== ENCOUNTER 2024-02-16 07:53 | Outpatient (AMB) | payer OTHER, SELFPAY ==
--- NOTE | 2024-02-16 07:57 | MHC.OFFVIS ---
Vital Signs 02/16/24 08:02 Height 5 ft 7 in Weight 212 lb 6 oz BMI 33.3 BP 102/64 Blood Pressure Location Lt radial Position Sitting Intake Visit Reasons: Control consult/30min Allergies No Known Allergies Allergy (Verified 01/17/24 15:27) HPI Comments Details: Patient is here today to discuss her control she had currently has a Mirena IUD in place. She reports her last cycle was heavy 4 to 5/9 days. Last month hemoglobin was 11.8. TSH 12/25/2022 was 1.57. She had a recent fall down injury with shoulder impact in rib fracture. She did not treat for bacterial vaginosis diagnosed in December as she was not able to connect with the office as far as a follow up. Mirena IUD (inserted 04/10/2022), utilized for AUB purposes, history of tubal ligation. Last Pap 2020 was negative. [facility] Medical History Uterine fibroid Acute eczema GERD (gastroesophageal reflux disease) Migraines Hypovitaminosis D Physical exam AMAN (generalized anxiety disorder) Polyarthralgia New daily persistent headache Dyslipidemia Migraine with aura Anemia Surgical History History of sleeve gastrectomy Hx of tubal ligation Hx of section Family History Father Diabetes mellitus ESRD on hemodialysis Mother Acute depression Anxiety Asthma Hypertension Osteoporosis Hypercholesteremia Hyperlipemia Mental health disorder Son No problems noted. Daughter No problems noted. Brother No problems noted. Sister Cervical cancer Maternal Grandmother Lung cancer Maternal Grandfather Throat cancer Social History Household Members: Significant Other and Family Housing: House Alcohol intake: never Patient Tobacco Use Status: Never used Tobacco e-Cigarette/Vaping Use: Never Used Second Hand Smoke Exposure: No service: No Current occupational status: employed Current occupational exposures/hazards: No Gender identity: Female Cognitive needs: No Hearing needs: No Vision needs: No Female Reproductive History Menstrual Age of Menarche: 9 Review of Systems Const All systems reviewed & are unremarkable except as noted in HPI and below Physical Exam Vital Signs: Last Vital Signs BP 102/64 02/16/24 08:02 BMI result Body Mass Index 33.3 Const General: cooperative, healthy appearing and no acute distress Orientation/consciousness: patient oriented x3 GI Inspection: Yes normal to inspection Palpation (GI): Soft to palpation and Other GI palpation findings present (Nontender) Rectal Exam - Female: visual inspection normal General: Yes bladder normal to palpation External Female Exam: normal appearance of the urethra Speculum Exam - Vagina: normal appearance of the vagina, normal palpation and abnormal vaginal discharge (Thin milky and frothy) Speculum Exam - Cervix: normal appearance of the cervix, normal palpation and Other cervical findings present (IUD strings present) Bimanual exam- vagina & uterus: normal bimanual exam, normal palpation, uterine size normal, bladder normal to palpation, normal palpation, uterine shape normal and non-tender Bimanual Exam- Adnexa, other: normal adnexae Neuro General: patient oriented x3 Assessment & Plan Assessment & Plan (1) Heavy menstrual bleeding: Code(s): N92.0 - Excessive and frequent menstruation with regular cycle Qualifiers: Menorrhagia type: premenopausal Qualified Code(s): N92.4 - Excessive bleeding in the premenopausal period (2) IUD surveillance: Code(s): Z30.431 - Encounter for routine checking of intrauterine contraceptive device (3) Vaginal discharge: Code(s): N89.8 - Other specified noninflammatory disorders of vagina Plan Discussed: Workup to include Pap, cervical cultures, pelvic ultrasound. Return to the office to discuss plan of care after confirming IUD positioning. Advised to reach out to primary care so she can have a repeat vitamin-D level, she has not taking any supplementation was unaware her vitamin-D level was low. Reviewed warnings when to be seen for immediate care for heavy vaginal bleeding or abdominal pain. Symptoms today consistent with bacterial vaginosis plan treatment with Flagyl. Counseled: Advised to complete all medication. Possible GI upset-take medication with food. Avoid vinegar products-salad dressing, and pickles. Side effects: metallic taste-temporary, will resolve after treatment, may try a mint, lemon drops or gum. NO ALCOHOL use during treatment and including up to 48 hours after medication is completed. All of her questions and concerns were addressed to the best of my ability and shared decision making. She is agreeable to the plan of care. This note is constructed using voice recognition software. While every effort has been made to ensure accuracy, diet clerk errors may have been included. Orders: Orders US pelvic and transvaginal Today N93.9 - Abnormal uterine and vaginal bleeding, unspecified, Z30.431 - Encounter for routine checking of intrauterine contraceptive device Thyroid Stimulating Hormone Today N92.1 - Excessive and frequent menstruation with irregular cycle Medications: New metronidazole 500 mg PO Q12H 7 days 14 tabs 0RF Coding Level of Care Code Est Pt Level 4 (61517) Diagnoses Excessive bleeding in premenopausal period N92.4 Menorrhagia type: premenopausal IUD surveillance Z30.431 Vaginal discharge N89.8
[2024-02-16 08:02] VITALS: BP 102/64; BMI 33.3
== END 2024-02-16 08:39 | disposition home or self-care (01) ==
LOC: HO.HWSW 07:53
PROVIDERS: PCP Internal Medicine; Visit Provider Advanced Practice Midwife
DX: N92.4 Excessive bleeding in the premenopausal period (principal); Z30.431 Encounter for routine checking of intrauterine contraceptive device; N89.8 Other specified noninflammatory disorders of vagina
CPT/HCPCS: 99214

== ENCOUNTER 2024-02-16 07:53 | Outpatient (REF) | payer OTHER, SELFPAY ==
[2024-02-16 15:44] LABS: Bacterial Vaginosis PCR POSITIVE (Negative); Candida Group PCR NOT DETECTED (Not Detect); Candida glab krusei PCR NOT DETECTED (Not Detect); Trichomonas vaginalis PCR NOT DETECTED (Not Detect)
[2024-02-17 12:01] LABS: CT PCR NOT DETECTED (Not Detect.); NG PCR NOT DETECTED (Not Detect.)
[2024-02-20 18:09] LABS: HPV mRNA E6/E7 Not Detected (Not Detected)
== END 2024-02-16 07:54 | disposition home or self-care (01) ==
LOC: HO.LNP 07:53
PROVIDERS: PCP Internal Medicine; Visit Provider Advanced Practice Midwife
DX: Z01.419 Encounter for gynecological examination (general) (routine) without abnormal findings (principal); N92.0 Excessive and frequent menstruation with regular cycle; N92.4 Excessive bleeding in the premenopausal period; N89.8 Other specified noninflammatory disorders of vagina; Z97.5 Presence of (intrauterine) contraceptive device; Z98.51 Tubal ligation status
CPT/HCPCS: 0352U; 87491; 87591; 87624; 88175; 99212

== ENCOUNTER 2024-02-16 09:15 | Outpatient (REF) | payer OTHER, SELFPAY | END 2024-02-16 09:16 | disposition home or self-care (01) | LOC: HO.LAB 09:15 | PROVIDERS: Visit Provider Advanced Practice Midwife | DX: Z13.89 Encounter for screening for other disorder (principal) ==

== ENCOUNTER 2024-05-08 15:25 | Outpatient (AMB) | payer OTHER, SELFPAY ==
--- NOTE | 2024-05-08 15:25 | MHC.OFFVIS ---
Intake Visit Reasons: nephrolithiasis Intake Note: New Patient presents for initial visit for nephrolithiasis Urology Medications: none Blood Thinner: none Human Resource Professional Required: Yes Human Resource Professional Name: [id number] Accompanied by: Self / Same As Patient Allergies No Known Allergies Allergy (Verified 05/08/24 16:07) Medication List - Last Reconciled 05/08/24 by TAYLOR Farr- albuterol sulfate 90 mcg/actuation (Ventolin HFA) 2 puffs inhalation Q4-6H PRN betamethasone dipropionate 0.05% 1 appl topical DAILY PRN levonorgestrel (Mirena) intrauterine omeprazole 20 mg PO DAILY PRN 90 days HPI Comments Details: Jenna is a very pleasant 44-year-old /British-speaking female patient of Dr. Jesus. She has a past medical history of uterine fibroid, eczema, GERD, migraines, anxiety, polyarthralgia, dyslipidemia, and anemia. She presents to the office today as a new patient for her history of nephrolithiasis. In discussion with the patient today she reports having had nephrolithiasis since 1997. 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 She reports previous surgical intervention for nephrolithiasis to include ureteroscopy as well as ESWL. She reports having followed up with her PCP at which time a renal ultrasound was ordered and recommendations were made for urology referral for further assessment evaluation. These results reviewed with the patient today. 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 Left kidney with benign-appearing cysts measuring up to 2.6 cm. Nonobstructing upper pole 6 mm stone noted. We discussed at length further treatment options of nephrolithiasis. When asked she does report to be drinking plenty of water daily. She currently denies any bothersome urinary issues or concerns. However in office urinalysis results reviewed with the patient today 2+ leukocytes, positive nitrates, and microscopic hematuria noted. Will send for urine culture. When asked she denies urinary urgency, urinary frequency, incontinence, nocturia, hematuria, dysuria, foul smelling urine, changes to urinary stream, flank pain, fever, and or chills. She is happy with her current voiding parameters. She discusses her upcoming appointment with ultrasound today for pelvic ultrasound as she is undergoing further workup for?metrorrhagia despite IUD. She otherwise offers no other issues or concerns at this time. PFSH Medical History Uterine fibroid Acute eczema GERD (gastroesophageal reflux disease) Migraines Hypovitaminosis D Physical exam AMAN (generalized anxiety disorder) Polyarthralgia New daily persistent headache Dyslipidemia Migraine with aura Anemia Surgical History History of sleeve gastrectomy Hx of tubal ligation Hx of section Family History Father Diabetes mellitus ESRD on hemodialysis Mother Acute depression Anxiety Asthma Hypertension Osteoporosis Hypercholesteremia Hyperlipemia Mental health disorder Son No problems noted. Daughter No problems noted. Brother No problems noted. Sister Cervical cancer Maternal Grandmother Lung cancer Maternal Grandfather Throat cancer Social History Household Members: Significant Other and Family Housing: House Alcohol intake: never Patient Tobacco Use Status: Never used Tobacco e-Cigarette/Vaping Use: Never Used Second Hand Smoke Exposure: No service: No Current occupational status: employed Current occupational exposures/hazards: No Gender identity: Female Cognitive needs: No Hearing needs: No Vision needs: No Female Reproductive History Menstrual Age of Menarche: 9 Review of Systems Const All systems reviewed & are unremarkable except as noted in HPI and below Physical Exam Const General: cooperative, comfortable, no acute distress, well developed, alert and awake Orientation/consciousness: patient oriented x3 Limitations: no limitations HEENT Head: Yes normal to inspection, Yes normocephalic and Yes atraumatic Ears: hearing grossly normal bilaterally Eyes General: appearance normal, both eyes and all related structures Neck Neck: Yes normal visual inspection and Yes trachea midline Chest Chest palpation & inspection: normal inspection of the chest Resp Effort & Inspection: normal respiratory effort and able to speak in complete sentences Cardio Rate: regular rate GI Inspection: Yes normal to inspection General: Yes no CVA tenderness Back/Spine/Pelvis Back: no CVA tenderness Skin General skin exam: no rashes or lesions noted Neuro General: patient oriented x3 Extrem General: Yes normal to inspection Psych Appearance: grossly normal and well kempt Mental Status: mental status grossly normal Speech and movement: Normal speech and movement present and Clear speech present Affect: normal affect Attitude: cooperative Thought process: Normal thought process present Thought content: Normal thought content present Insight: Fair insight present (Psych) Judgement: Fair judgement present (Psych) Results AMB Urinalysis, Automated UA Leukoctes 125 Travis/uL Last Edit by Oppexjulianne Mckeon on 05/08/24 16:27 UA Nitrite Last Edit by Oppexjulianne Avisenazakiya on 05/08/24 16:27 UA Urobilinogen 0.2 mg/dL Last Edit by [employer]™ Audio[employer] on 05/08/24 16:27 UA Protein 15 mg/dL Last Edit by [employer] on 05/08/24 16:27 UA pH 6.0 Last Edit by [employer] on 05/08/24 16:27 UA Blood 25 Rufino/uL Last Edit by [employer] on 05/08/24 16:27 UA Specific [place] 1.025 Last Edit by [employer] on 05/08/24 16:27 UA Ketone Negative Last Edit by [employer] on 05/08/24 16:27 UA Bilirubin 0 mg/dL Last Edit by [employer] on 05/08/24 16:27 UA Glucose 0 mg/dL Last Edit by [employer] on 05/08/24 16:27 Results Reviewed Results Reviewed: Laboratory Last Values Urine pH (Auto) 6.0 05/08/24 15:52 Specific [place] (Auto) 1.025 05/08/24 15:52 Urine Protein (Auto) 15 mg/dL 05/08/24 15:52 Glucose (UA)(Auto) 0 mg/dL 05/08/24 15:52 Urine Ketones (Auto) Negative 05/08/24 15:52 Urine Blood (Auto) 25 Rufino/uL 05/08/24 15:52 Urine Bilirubin (Auto) 0 mg/dL 05/08/24 15:52 Urine Urobilinogen (Auto) 0.2 mg/dL 05/08/24 15:52 Leukocyte Esterase (Auto) 125 Travis/uL 05/08/24 15:52 Date of Service: 01/02/24 EXAMINATION: US RETROPERITONEAL LIMITED (RENAL ONLY) FINDINGS: RIGHT KIDNEY: Absent (renal agenesis). LEFT KIDNEY: 14.4 x 7.6 x 6.6 cm (SAG x AP x TRV). The kidney is normal in size, contour, and echogenicity. Renal cortical thickness is normal. No hydronephrosis. Benign-appearing cysts measuring up to 2.6 cm. Nonobstructing upper pole 6 mm stone. IMPRESSION: * Benign-appearing left renal cysts. * Nonobstructing left nephrolithiasis. 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 Discussed further workup of nephrolithiasis to include CT KUB. She currently denies any bothersome urinary issues or concerns. She reports be happy with current voiding parameters. Discussed further intervention for nephrolithiasis with ESWL given patient with solitary kidney. Discussed, educated, and stressed the importance of adequate hydration relation to nephrolithiasis as well as overall health and well-being. Will obtain KUB Follow-up in 1 month with imaging to be completed prior; or sooner with any issues, concerns, and or questions. Orders: Orders Urine Culture Today N39.0 - Urinary tract infection, site not specified AMB Urinalysis Automated Today Z13.9 - Encounter for screening, unspecified XR KUB Today N20.0 - Calculus of kidney Patient Instructions: The patient had an opportunity to ask questions regarding the treatment plan. All questions were answered. Physical exam, labs, and imaging were discussed and reviewed in detail. As well as risks, benefits, and discussion of treatment choices. No major barriers to understanding were identified. The patient expressed understanding and agreement with the above treatment plan. The patient was made aware they should contact our office by phone for worsening of their current condition, the appearance of new symptoms, or with any questions or concerns. Compliance is encouraged with any medications and follow up testing that is ordered. It is a privilege to be allowed the opportunity to participate in? your urological care.? Again, if you have any questions or concerns If you have any questions or concerns please do not hesitate to contact me. The office is [phone]. This note is constructed using voice recognition software. While every effort has been made to ensure accuracy high school professional errors may have been included. Yours sincerely, TAYLOR Farr-INDU Coding Level of Care Code New Pt Level 4 (40120) Diagnoses Nephrolithiasis N20.0 UTI (urinary tract infection) N39.0 Renal cyst N28.1 Renal agenesis Q60.2 Time Spent (min) 35
== END 2024-05-08 15:58 | disposition home or self-care (01) ==
PROVIDERS: PCP Internal Medicine; Visit Provider Nurse Practitioner Family
DX: N20.0 Calculus of kidney (principal); N39.0 Urinary tract infection, site not specified; N28.1 Cyst of kidney, acquired; Q60.2 Renal agenesis, unspecified; Z13.9 Encounter for screening, unspecified
CPT/HCPCS: 99204

== ENCOUNTER 2024-05-08 15:52 | Outpatient (REF) | payer OTHER, SELFPAY | END 2024-05-08 15:53 | disposition home or self-care (01) | LOC: HO.LNP 15:52 | PROVIDERS: Visit Provider Nurse Practitioner Family | DX: N39.0 Urinary tract infection, site not specified (principal); N20.0 Calculus of kidney | CPT/HCPCS: 87086; 87088; 87186 ==

== ENCOUNTER 2024-05-08 16:02 | Outpatient (REF) | payer OTHER, SELFPAY ==
--- NOTE | ~2024-05-08 | US_ITS ---
EXAMINATION: US PELVIS. TRANSABDOMINAL AND TRANSVAGINAL CLINICAL INFORMATION: Abnormal uterine and vaginal bleeding. COMPARISON: None available. TECHNIQUE: Ultrasound of the pelvis is performed using both transabdominal and transvaginal transducers along with Doppler. Transvaginal imaging is performed due to inadequate visualization transabdominally. FINDINGS: UTERUS: The uterus is anteverted and measures 10.0 x 4.5 x 4.5 cm. The double wall endometrial thickness could not be evaluated as an IUD is present in good position. The uterus is smooth in contour and has normal myometrial echogenicity. A fundal fibroid is unchanged measuring 1.6 x 1.6 x 2.0 cm. Nabothian cysts are present in the cervix along with a small amount of fluid in the endocervical canal. ADNEXA: Both ovaries are visualized. There is normal color flow to the adnexa. There is no ovarian torsion. There is no pelvic ascites or fluid collection. Right ovary measures 2.1 x 2.0 x 1.8 cm for a volume of 4.0 mL. Left ovary measures 2.4 x 1.4 x 1.7 cm for a volume of 3.0 mL. US/US pelvic and transvaginal IMPRESSION: 1. IUD is present in good position. 2. Unchanged fundal fibroid. Electronically signed by: Pradeep Abbasi MD 05/09/2024 05:03 PM EDT
== END 2024-05-08 16:03 | disposition home or self-care (01) ==
LOC: HO.US 16:02
PROVIDERS: PCP Internal Medicine; Visit Provider Advanced Practice Midwife
DX: Z30.431 Encounter for routine checking of intrauterine contraceptive device (principal); N93.9 Abnormal uterine and vaginal bleeding, unspecified
CPT/HCPCS: 76830; 76856; 81003; 99202

== ENCOUNTER 2024-05-22 15:20 | Outpatient (REF) | payer OTHER, SELFPAY ==
--- NOTE | ~2024-05-22 | MM_ITS ---
EXAMINATION: MM SCREENING DIGITAL BREAST TOMOSYNTHESIS, BILATERAL CLINICAL INFORMATION: Screening. Asymptomatic. COMPARISON: Mammography: Comparison is made with available priors TECHNIQUE: Digital breast mammography with tomosynthesis is performed in both the craniocaudal and mediolateral oblique views along with computer-aided detection (CAD). FINDINGS: The breasts are heterogeneously dense, which may obscure small masses (ACR BI-RADS breast composition Category c). There are no significant masses, abnormal calcifications, or other abnormalities. MM/MM tomosynthesis screening BI IMPRESSION: No mammographic evidence of malignancy. ASSESSMENT: BI-RADS BI-RADS 1 - Negative RECOMMENDATION: Routine annual mammography screening. 1 year F/U This examination should not preclude the clinical evaluation of a suspicious palpable abnormality. This patient's information was entered into a reminder system with a target due date for their next mammogram. Electronically signed by: Angy Merritt DO 06/01/2024 09:04 AM JAJA
== END 2024-05-22 15:21 | disposition home or self-care (01) ==
LOC: HO.MAMMO 15:20
PROVIDERS: PCP Internal Medicine; Visit Provider Internal Medicine
DX: Z12.31 Encounter for screening mammogram for malignant neoplasm of breast (principal)
CPT/HCPCS: 77063; 77067

== ENCOUNTER → 2024-05-22 15:45 | Outpatient (BNV) | payer OTHER, SELFPAY | PROVIDERS: PCP Internal Medicine; Visit Provider Internal Medicine | DX: Z12.31 Encounter for screening mammogram for malignant neoplasm of breast (principal) | CPT/HCPCS: 77063; 77067 ==

== ENCOUNTER 2024-06-11 13:12 | Outpatient (AMB) | payer OTHER, SELFPAY ==
[2024-06-11 13:14] VITALS: BP 120/80; BMI 32.4
--- NOTE | 2024-06-11 13:14 | A.OFFPC_ITS ---
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 Required: No Accompanied by: Self / Same As Patient Allergies No Known Allergies Allergy (Verified 06/11/24 13:26) Medication List - Last Reconciled 06/11/24 by Jillian Kaminski MD albuterol sulfate 90 mcg/actuation (Ventolin HFA) 2 puffs inhalation Q4-6H PRN betamethasone dipropionate 0.05% 1 appl topical DAILY PRN levonorgestrel (Mirena) intrauterine omeprazole 20 mg PO DAILY PRN 90 days Tobacco use date assessed: 09/15/23 Dental Screening Dental Screen Date: 06/11/24 Did you have a dental visit in the last 12 months?: No Did you have a dental problem in the last 6 months where you did not have access to dental care?: No Was dental information given to patient?: Patient has dentist HPI HPI Comments History of Present Illness Details This is a 44-year-old female with asthma that comes today complaining of heartburn despite using omeprazole every day. I will change it to pantoprazole and order an upper GI series. She also complains of left hip pain when putting pressure in the hip but has full active range of motion. Also complains of bilateral hand pain more prominent in the fingers. No swelling or deformity noted. [facility] Medical History (Updated 06/11/24 @ 13:41 by Jillian Kaminski MD) Uterine fibroid Acute eczema GERD (gastroesophageal reflux disease) Migraines Hypovitaminosis D Physical exam AMAN (generalized anxiety disorder) Polyarthralgia New daily persistent headache Dyslipidemia Migraine with aura Anemia Surgical History History of sleeve gastrectomy Hx of tubal ligation Hx of section Family History Father Diabetes mellitus ESRD on hemodialysis Mother Acute depression Anxiety Asthma Hypertension Osteoporosis Hypercholesteremia Hyperlipemia Mental health disorder Son No problems noted. Daughter No problems noted. Brother No problems noted. Sister Cervical cancer Maternal Grandmother Lung cancer Maternal Grandfather Throat cancer Social History Household Members: Significant Other and Family Housing: House Alcohol intake: never Patient Tobacco Use Status: Never used Tobacco e-Cigarette/Vaping Use: Never Used Second Hand Smoke Exposure: No service: No Current occupational status: employed Current occupational exposures/hazards: No Gender identity: Female Cognitive needs: No Hearing needs: No Vision needs: No Female Reproductive History Menstrual Age of Menarche: 9 Questionnaire Thrive Questionnaire Date Thrive assessed: 09/15/23 AMAN-7 AMB Questionnaire AMAN-7 Date AMAN - 7 assessed: 09/15/23 Source: Developed by Drs. Yonis Bradshaw, Lily Willett, Fransisco Godoy and colleagues, with an educational dylon from [employer]. Review of Systems Const All systems reviewed & are unremarkable except as noted in HPI and below Card Denies chest pain at rest, Denies chest pain with activity, Denies edema, Denies irregular heart rhythm, Denies claudication, Denies dyspnea, Denies dyspnea on exertion, Denies orthopnea, Denies paroxysmal nocturnal dyspnea and Denies slow heart rate Resp Denies cough, Denies dyspnea and Denies dyspnea on exertion GI Denies abdominal pain, Denies change in bowel habits, Denies excessive flatus, Denies nausea and Denies vomiting Denies urinary incontinence, Denies urinary hesitancy and Denies urinary urgency Musc Denies atrophy, Denies deformity and Denies limited range of motion Physical exam (Primary Care) Vital Signs: Last Vital Signs BP 120/80 06/11/24 13:14 BMI result Body Mass Index 32.4 BMI Assessment/Plan discussion: High BMI High, discussed plan: lifestyle, weight reduction, dietary and physical activity Tobacco/Smoking Status: Tobacco use Status Tobacco use date assessed 09/15/23 06/11/24 13:20 Patient Tobacco Use Status Never used Tobacco 06/11/24 13:20 e-Cigarette/Vaping Use Never Used 06/11/24 13:20 Thrive Assessment: Date of Thrive Assessment Date Thrive assessed 09/15/23 06/11/24 13:20 Resp Effort & Inspection: normal respiratory effort Auscultation: clear to auscultation bilaterally Cardio Jugular venous distension: no JVD Rate: regular rate Rhythm: regular rhythm Heart sounds: S1 normal heart sound present and S2 normal heart sound present Extrem General: Yes full ROM Office Procedures Flu Questionnaire Does the patient have a severe egg allergy?: No Immunizations Fluarix Triv [id number] (PF) 45 mcg (15 mcg x 3)/0.5 mL IM syringe Performing Provider: Jillian Kaminski MD [facility] [place] [facility] Documented (not given) by: JACLYN Munoz on 06/11/24 13:22 Reason Not Given: Patient Refused Coding Level of Care Code Est Pt Level 4 (41492) Complex EM visit Add On G2211 Diagnoses Left hip pain M25.552 Right hand pain M79.641 Left hand pain M79.642 Gastroesophageal reflux disease, unspecified whether esophagitis present K21.9 Esophagitis presence: esophagitis presence not specified Mild persistent asthma without complication J45.30 Asthma severity: mild Asthma persistence: persistent Asthma complication type: uncomplicated Time Spent (min) 20 Assessment & Plan Assessment & Plan (1) Left hip pain: Code(s): M25.552 - Pain in left hip Category: Medical Plan: X-ray of hip ordered. (2) Right hand pain: Code(s): M79.641 - Pain in right hand Category: Medical Plan: X-ray ordered. (3) Left hand pain: Code(s): M79.642 - Pain in left hand Category: Medical Plan: X-ray ordered (4) GERD (gastroesophageal reflux disease): Code(s): K21.9 - Gastro-esophageal reflux disease without esophagitis Category: Medical Qualifiers: Esophagitis presence: esophagitis presence not specified Qualified Code(s): K21.9 - Gastro-esophageal reflux disease without esophagitis Plan: Discontinue omeprazole. Start pantoprazole. (5) Asthma: Code(s): J45.909 - Unspecified asthma, uncomplicated Category: Medical Qualifiers: Asthma severity: mild Asthma persistence: persistent Asthma complication type: uncomplicated Qualified Code(s): J45.30 - Mild persistent asthma, uncomplicated Plan: Use rescue inhaler as needed. Orders: Orders Influenza [id number] Immunization Today Z23 - Encounter for immunization [place] upper GI series Today K21.9 - Gastro-esophageal reflux disease without esophagitis XR hip LT min 2V Today M25.552 - Pain in left hip XR hand RT 2V Today M79.641 - Pain in right hand Complete Blood Count Auto Diff Today D64.9 - Anemia, unspecified, M25.552 - Pain in left hip Comprehensive [place]. Panel Fast Today M25.552 - Pain in left hip Cyclic Citrullinated Peptide Today M25.552 - Pain in left hip Vitamin D 25-OH Total Today E55.9 - Vitamin D deficiency, unspecified XR hand LT 2V Today M79.642 - Pain in left hand JILLIAN Reflex Titer and Pattern Today M25.552 - Pain in left hip Erythrocyte Sedimentation Rate Today M25.552 - Pain in left hip Rheumatoid Factor Today M25.552 - Pain in left hip Anti DNA DS Antibody Today M25.552 - Pain in left hip Lipid Panel Today E78.5 - Hyperlipidemia, unspecified, Z00.00 - Encounter for general adult medical examination without abnormal findings Medications: New pantoprazole 40 mg PO DAILY 90 days 90 tabs 1RF Discontinued omeprazole Discontinued Reason: Patient Completed Course 20 mg PO DAILY 90 days PRN 90 caps 3RF heartburn
== END 2024-06-11 13:36 | disposition home or self-care (01) ==
PROVIDERS: PCP Internal Medicine; Visit Provider Internal Medicine
DX: M25.552 Pain in left hip (principal); M79.641 Pain in right hand; M79.642 Pain in left hand; K21.9 Gastro-esophageal reflux disease without esophagitis; J45.30 Mild persistent asthma, uncomplicated; Z23 Encounter for immunization

== ENCOUNTER → 2024-06-11 13:12 | Outpatient (BNVA) | payer OTHER, SELFPAY | PROVIDERS: PCP Internal Medicine; Visit Provider Internal Medicine | DX: M25.552 Pain in left hip (principal); M79.641 Pain in right hand; M79.642 Pain in left hand; K21.9 Gastro-esophageal reflux disease without esophagitis; J45.30 Mild persistent asthma, uncomplicated; Z28.21 Immunization not carried out because of patient refusal | CPT/HCPCS: 90471; 99212 ==

== ENCOUNTER 2024-06-14 13:03 | Outpatient (REF) | payer OTHER, SELFPAY ==
--- NOTE | ~2024-06-14 | XR_ITS ---
EXAMINATION: XR HAND LEFT 4 VIEWS CLINICAL INFORMATION: Pain in left hand M79.642. Pain in left side. COMPARISON: March 27, 2021 TECHNIQUE: PA, lateral, and oblique views of the left hand. FINDINGS: The bones and soft tissues appear unremarkable. No fracture identified. Alignment is anatomic. Joint spaces are maintained. No erosions or soft tissue calcifications. XR/XR hand LT 2V IMPRESSION: Normal plain film examination of the left hand. Electronically signed by: David Castro MD 08/01/2024 01:39 PM EST
--- NOTE | ~2024-06-14 | XR_ITS ---
EXAMINATION: XR HAND RIGHT 4 VIEWS CLINICAL INFORMATION: Pain in right hand M79.641. Pain in left side. COMPARISON: None TECHNIQUE: PA, lateral, and oblique views of the right hand. FINDINGS: The bones and soft tissues are normal. No fracture. Alignment is anatomic. Joint spaces are maintained. No erosions or soft tissue calcifications. XR/XR hand RT 2V IMPRESSION: Normal right hand. Electronically signed by: Yonis Espino MD 08/01/2024 09:02 AM [facility]
--- NOTE | ~2024-06-14 | XR_ITS ---
EXAMINATION: XR HIP LEFT 2 VIEWS CLINICAL INFORMATION: Pain in left hip M25.552. Px in left side. COMPARISON: XR Lumbar spine 09/10/2020 TECHNIQUE: Two views of the left hip. FINDINGS: No fracture. Alignment is anatomic. Hip joint space is maintained. Soft tissues are unremarkable. XR/XR hip LT min 2V IMPRESSION: Normal left hip. Electronically signed by: Yonis Espino MD 08/01/2024 09:01 AM [facility]
--- NOTE | ~2024-06-14 | XR_ITS ---
EXAMINATION: XR ABDOMEN KUB CLINICAL INDICATION: Calculus. COMPARISON: Dated September 24, 2023 TECHNIQUE: AP view of the abdomen. FINDINGS: No calcifications overlapping the kidney shadows. The shaped contraceptive device overlaps the sacrum. No intestinal obstruction pattern. Liver shadow projects below the rib cage. Vascular clips in the gastroesophageal junction left upper quadrant of the abdomen. XR/XR KUB IMPRESSION: No nephrolithiasis based upon x-ray. Probable hepatomegaly versus hepatic Ptosis. Electronically signed by: Reji Morgan MD 06/28/2024 01:50 PM [facility]
== END 2024-06-14 13:04 | disposition home or self-care (01) ==
LOC: HO.XRAY 13:03
PROVIDERS: PCP Student in an Organized Health Care Education/Training Program; Visit Provider Internal Medicine
DX: M25.552 Pain in left hip (principal); M79.641 Pain in right hand; M79.642 Pain in left hand; N20.0 Calculus of kidney; N93.9 Abnormal uterine and vaginal bleeding, unspecified; N92.1 Excessive and frequent menstruation with irregular cycle
CPT/HCPCS: 58100; 73120; 73502; 74018; 81025

== ENCOUNTER 2024-06-14 13:10 | Outpatient (AMB) | payer OTHER, SELFPAY ==
--- NOTE | 2024-06-14 13:40 | MHC.OFFVIS ---
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 She denies any exposures to COVID, or any other medical changes or medication additionally. [facility] Medical History Uterine fibroid Acute eczema GERD (gastroesophageal reflux disease) Migraines Hypovitaminosis D Physical exam AMAN (generalized anxiety disorder) Polyarthralgia New daily persistent headache Dyslipidemia Migraine with aura Anemia Surgical History History of sleeve gastrectomy Hx of tubal ligation Hx of section Family History Father Diabetes mellitus ESRD on hemodialysis Mother Acute depression Anxiety Asthma Hypertension Osteoporosis Hypercholesteremia Hyperlipemia Mental health disorder Son No problems noted. Daughter No problems noted. Brother No problems noted. Sister Cervical cancer Maternal Grandmother Lung cancer Maternal Grandfather Throat cancer Social History Household Members: Significant Other and Family Housing: House Alcohol intake: never Patient Tobacco Use Status: Never used Tobacco e-Cigarette/Vaping Use: Never Used Second Hand Smoke Exposure: No service: No Current occupational status: employed Current occupational exposures/hazards: No Gender identity: Female Cognitive needs: No Hearing needs: No Vision needs: No Female Reproductive History Menstrual Age of Menarche: 9 Review of Systems Const All systems reviewed & are unremarkable except as noted in HPI and below Physical Exam Const General: cooperative, healthy appearing and no acute distress Orientation/consciousness: patient oriented x3 GI Inspection: Yes normal to inspection Palpation (GI): Soft to palpation and Other GI palpation findings present (Nontender) Rectal Exam - Female: visual inspection normal General: Yes bladder normal to palpation External Female Exam: normal appearance of the urethra Speculum Exam - Vagina: normal appearance of the vagina, normal palpation, normal vaginal discharge and vaginal bleeding Speculum Exam - Cervix: normal appearance of the cervix, normal palpation and Other cervical findings present (IUD strings at the os) Bimanual exam- vagina & uterus: normal bimanual exam, normal palpation, uterine size normal, bladder normal to palpation, normal palpation, uterine shape normal and non-tender Bimanual Exam- Adnexa, other: normal adnexae OB/external & speculum: vaginal bleeding Neuro General: patient oriented x3 Office Procedures Endometrial Biopsy Details: The patient is here today for an endometrial biopsy due to AUB to rule out any pathology including atypical, hyperplasia or cancer cells of the uterus. She was counseled regarding anticipatory guidance for the procedure including the risks for pain, infection, bleeding, perforation, potential injury to the tissues may include the cervix, uterus, tubes, bladder and bowels. These injuries may include further treatment and evaluation including surgery, blood transfusions, antibiotics, hospitalizations and anesthesia. Permanent injury and scarring can occur. She was consented for the procedure, and the consent forms were signed. She is agreeable to have the procedure today. All questions were answered. Endometrial Biopsy Procedure: The patient was placed in the dorsal lithotomy position and a sterile speculum inserted. Using aseptic technique for the procedure. The cervix was cleansed with Betadine x 3 swabs. A single toothed tenaculum was placed on the cervix for stabilization and the uterus was sounded to 9 cm with a 4mm pipelle, and tissue sample obtained. Minimal bleeding was observed. The tissue sample was placed in formalin in a patient labeled container by staff assisting and sent to the pathology department for processing and interpretation. The patient tolerate the procedure well and was in good condition when leaving the department. Endometrial Biopsy Post Procedure Care: Nothing in the vagina including: tampons, douching or intimacy until all the bleeding has subsided. There may be some post procedure bleeding for several days, this bleeding is usually light and may turn to a light brown or pink color. Mild cramps may occurs. Nothing in the vaginal including: tampons, douching, or intimacy until all the bleeding has subsided. You may take an over the counter mild analgesic such as Tylenol or Advil (if no allergies) per the manufactures recommendation on dosing, frequency, and follow the directions completely. Call the office if any: fever (over 100.4), flu like symptoms, abdominal pain (worse than cramping), foul smelling, infected appearing vaginal discharge, or heavy bleeding. If indicated: Use condoms to prevent and STI's, and only after the bleeding has stopped completely. Return to the office in 2 weeks for results and plan of care. This note is constructed using voice recognition software. While every effort has been made to ensure accuracy, slab lifting engineer errors may have been included. [id number] Biopsy Results AMB Test Urine AMB Test Urine Negative Last Edit by JACLYN Abernathy on 06/14/24 14:32 Results Reviewed Results Reviewed: Laboratory Last Values [facility] Clinic Negative 06/14/24 14:31 [place] [id number] Ultrasound Report Signed Patient: Jenna Ortiz MR#: [id number] : 1980 Acct:[id number] Age/Sex: 44 / F ADM Date: 05/08/24 Loc: .[place] Attending Dr: Veronika South CNM Ordering Physician: Veronika South CNM Date of Service: 05/08/24 Procedure(s): US pelvic and transvaginal Accession Number(s): [id number] cc: Veronika South CNM; Jillian Lira MD~ EXAMINATION: US PELVIS. TRANSABDOMINAL AND TRANSVAGINAL CLINICAL INFORMATION: Abnormal uterine and vaginal bleeding. COMPARISON: None available. TECHNIQUE: Ultrasound of the pelvis is performed using both transabdominal and transvaginal transducers along with Doppler. Transvaginal imaging is performed due to inadequate visualization transabdominally. FINDINGS: UTERUS: The uterus is anteverted and measures 10.0 x 4.5 x 4.5 cm. The double wall endometrial thickness could not be evaluated as an IUD is present in good position. The uterus is smooth in contour and has normal myometrial echogenicity. A fundal fibroid is unchanged measuring 1.6 x 1.6 x 2.0 cm. Nabothian cysts are present in the cervix along with a small amount of fluid in the endocervical canal. ADNEXA: Both ovaries are visualized. There is normal color flow to the adnexa. There is no ovarian torsion. There is no pelvic ascites or fluid collection. Right ovary measures 2.1 x 2.0 x 1.8 cm for a volume of 4.0 mL. Left ovary measures 2.4 x 1.4 x 1.7 cm for a volume of 3.0 mL. US/US pelvic and transvaginal IMPRESSION: 1. IUD is present in good position. 2. Unchanged fundal fibroid. Electronically signed by: Pradeep Abbasi MD 05/09/2024 05:03 PM EDT RP Dictated By: Pradeep Abbasi MD Signed By: <Electronically signed by Pradeep Abbasi MD in OV> 05/09/24 1703 DD/ 1610 TD/TT: 05/08/24 1619 Elastic Attacher Zigzag: DOMINIQUE Assessment & Plan Assessment & Plan (1) Abnormal uterine bleeding (AUB): Code(s): N93.9 - Abnormal uterine and vaginal bleeding, unspecified Category: Medical Plan: see procedure notes. (2) Encounter to discuss test results: Code(s): Z71.2 - Person consulting for explanation of examination or test findings Plan Discussed: Ultrasound findings. IUD in proper position and fundal fibroid stable size. Counseled re: Leiomyoma: common pelvic neoplasm. Differential diagnosis-may include but not limited to- leiomyosarcoma which is a rare uterine sarcoma 3-7/100,000, difficult to distinguish from fibroids on ultrasound from uterine sarcoma's. Unlikely any single test will have a highly positive predictive value. Hysterectomy is not recommended for sole purpose of excluding malignant neoplasm. Consult for surgical exploration, medical treatment, other treatments, verses expectant management, pros and cons, risks and benefits. Expectant management follow up. Report any AUB-increase in bleeding or frequency. Pelvic pressure, bloating, or pain. Referral to MD if indicated for level of care if indicated. See procedure notes. Orders: Orders Bacterial Vaginosis Panel Today N93.9 - Abnormal uterine and vaginal bleeding, unspecified AMB HCG Urine Test Today N93.9 - Abnormal uterine and vaginal bleeding, unspecified PAP + HPV E6/E7 rfx 18/45 Today N93.9 - Abnormal uterine and vaginal bleeding, unspecified CT NG by PCR Today N93.9 - Abnormal uterine and vaginal bleeding, unspecified Surgical Today N93.9 - Abnormal uterine and vaginal bleeding, unspecified Thyroid Stimulating Hormone Today N92.1 - Excessive and frequent menstruation with irregular cycle, N93.9 - Abnormal uterine and vaginal bleeding, unspecified Complete Blood Count no Diff Today N93.9 - Abnormal uterine and vaginal bleeding, unspecified Coding Level of Care Code Procedure Only Diagnoses Abnormal uterine bleeding (AUB) N93.9 Encounter to discuss test results Z71.2 CPT Codes Endometrial Biopsy - CPT: 32792-[id number] Biopsy ([id number])
== END 2024-06-14 15:01 | disposition home or self-care (01) ==
PROVIDERS: PCP Internal Medicine; Visit Provider Advanced Practice Midwife
DX: N93.9 Abnormal uterine and vaginal bleeding, unspecified (principal); Z71.2 Person consulting for explanation of examination or test findings
CPT/HCPCS: 58100

== ENCOUNTER 2024-06-14 14:31 | Outpatient (REF) | payer OTHER, SELFPAY ==
[2024-06-14 16:35] LABS: Hematocrit 38.7 % (37.0-47.0); Hemoglobin 12.1 g/dl (12.0-16.0); Mean Corpuscular HGB Conc 31.3 g/dl (31.0-35.0); Mean Corpuscular Hemoglobin 26.6 pg (27.0-33.0); Mean Corpuscular Volume 85.1 fL (80.0-98.0); Mean Platelet Volume 12.7 fL (9.4-12.3); Platelet Count 249 X10*3/uL (160-400); Red Blood Count 4.55 X10*6/uL (4.20-5.50); Red Cell Distribution Width 13.5 % (11.0-16.0); White Blood Count 9.6 X10*3/uL (4.8-10.8)
[2024-06-14 17:20] LABS: Thyroid Stimulating Hormone 1.39 uIU/mL (0.32-4.0)
[2024-06-15 11:14] LABS: Bacterial Vaginosis PCR POSITIVE (Negative); Candida Group PCR NOT DETECTED (Not Detect); Candida glab krusei PCR NOT DETECTED (Not Detect); Trichomonas vaginalis PCR NOT DETECTED (Not Detect)
[2024-06-15 11:37] LABS: CT PCR NOT DETECTED (Not Detect.); NG PCR NOT DETECTED (Not Detect.)
[2024-06-19 13:09] LABS: HPV mRNA E6/E7 Not Detected (Not Detected)
== END 2024-06-14 14:32 | disposition home or self-care (01) ==
LOC: HO.LAB 14:31
PROVIDERS: PCP Internal Medicine; Visit Provider Advanced Practice Midwife
DX: N93.9 Abnormal uterine and vaginal bleeding, unspecified (principal); N92.1 Excessive and frequent menstruation with irregular cycle
CPT/HCPCS: 0352U; 36415; 84443; 85027; 87491; 87591; 87624; 88175; 88305

== ENCOUNTER 2024-06-14 14:31 | Outpatient (REF) | payer OTHER, SELFPAY | END 2024-06-14 14:32 | disposition home or self-care (01) | LOC: HO.LNP 14:31 | PROVIDERS: Visit Provider Advanced Practice Midwife | DX: Z13.89 Encounter for screening for other disorder (principal) ==

== ENCOUNTER → 2024-06-14 15:27 | Outpatient (BNV) | payer OTHER, SELFPAY | PROVIDERS: PCP Student in an Organized Health Care Education/Training Program; Visit Provider Radiology Diagnostic Radiology | DX: N20.0 Calculus of kidney (principal) | CPT/HCPCS: 74018 ==

== ENCOUNTER 2024-06-21 14:56 | Outpatient (AMB) | payer OTHER, SELFPAY ==
--- NOTE | 2024-06-21 15:05 | A.OFFVIS_ITS ---
Intake Visit Reasons: 1m/KUB Intake Note: Patient presents today for follow up on:nephrolithiasis and x-ray results Imaging Completed: 06/14/24 Urology Medications: none Blood Thinner: none Yeast Pumper Required: No Accompanied by: Self / Same As Patient Allergies No Known Allergies Allergy (Verified 06/21/24 15:28) Medication List - Last Reconciled 06/21/24 by BONITA Farr albuterol sulfate 90 mcg/actuation (Ventolin HFA) 2 puffs inhalation Q4-6H PRN betamethasone dipropionate 0.05% 1 appl topical DAILY PRN levonorgestrel (Mirena) intrauterine pantoprazole 40 mg PO DAILY 90 days HPI Comments Details: Jenna is a very pleasant 44-year-old /Tunisian-speaking female patient of Dr. Jesus. She has a past medical history of uterine fibroid, eczema, GERD, migraines, anxiety, polyarthralgia, dyslipidemia, and anemia. She presents to the office today for follow-up. Of note, patient was seen approximately 6 weeks ago as a new patient for her history of nephrolithiasis at which time a KUB was ordered for further assessment evaluation. These results were reviewed with the patient today. No nephrolithiasis based upon imaging. In office urinalysis results reviewed with the patient today. 1+ leukocytes positive nitrates. When asked she denies any UTI like symptoms. However, upon urine dipstick for urinalysis it does appear patient with foul-smelling urine. She has a previous history of nephrolithiasis to include ureteroscopy as well as ESWL. She reports a longstanding history of nephrolithiasis since 1997. She reports being bored with solitary kidney. She reports to be drinking plenty of water daily and adding 1 oz of lemon juice to water daily. When asked she denies urinary urgency, urinary frequency, incontinence, nocturia, hematuria, dysuria, changes to urinary stream, flank pain, fever, and or chills. She is happy with her current voiding parameters. She discusses following up with table filler for menorrhagia. She otherwise offers no other issues or concerns at this time. [facility] Medical History (Updated 06/26/24 @ 15:51 by Veronika South CNM) Uterine fibroid Acute eczema GERD (gastroesophageal reflux disease) Migraines Hypovitaminosis D Physical exam AMAN (generalized anxiety disorder) Polyarthralgia New daily persistent headache Dyslipidemia Migraine with aura Anemia Surgical History History of sleeve gastrectomy Hx of tubal ligation Hx of section Family History Father Diabetes mellitus ESRD on hemodialysis Mother Acute depression Anxiety Asthma Hypertension Osteoporosis Hypercholesteremia Hyperlipemia Mental health disorder Son No problems noted. Daughter No problems noted. Brother No problems noted. Sister Cervical cancer Maternal Grandmother Lung cancer Maternal Grandfather Throat cancer Social History Household Members: Significant Other and Family Housing: House Alcohol intake: never Patient Tobacco Use Status: Never used Tobacco e-Cigarette/Vaping Use: Never Used Second Hand Smoke Exposure: No service: No Current occupational status: employed Current occupational exposures/hazards: No Gender identity: Female Cognitive needs: No Hearing needs: No Vision needs: No Female Reproductive History Menstrual Age of Menarche: 9 Review of Systems Const All systems reviewed & are unremarkable except as noted in HPI and below Physical Exam Const General: cooperative, comfortable, no acute distress, well developed, alert and awake Orientation/consciousness: patient oriented x3 Limitations: no limitations HEENT Head: Yes normal to inspection, Yes normocephalic and Yes atraumatic Ears: hearing grossly normal bilaterally Eyes General: appearance normal, both eyes and all related structures Neck Neck: Yes normal visual inspection and Yes trachea midline Chest Chest palpation & inspection: normal inspection of the chest Resp Effort & Inspection: normal respiratory effort and able to speak in complete sentences Cardio Rate: regular rate GI Inspection: Yes normal to inspection General: Yes no CVA tenderness Back/Spine/Pelvis Back: no CVA tenderness Skin General skin exam: no rashes or lesions noted Neuro General: patient oriented x3 Extrem General: Yes normal to inspection Psych Appearance: grossly normal and well kempt Mental Status: mental status grossly normal Speech and movement: Normal speech and movement present and Clear speech present Affect: normal affect Attitude: cooperative Thought process: Normal thought process present Thought content: Normal thought content present Insight: Fair insight present (Psych) Judgement: Fair judgement present (Psych) Office Procedures Post Void Residual Post Residual Void Post Void Residual (PVR): 0 88849-Mgxq Void Residual by ultrasound Results AMB Urinalysis, Automated UA Leukoctes 125 Travis/uL Last Edit by Lucia Mckeon on 06/21/24 15:42 UA Nitrite Positive Last Edit by Lucia Mckeon on 06/21/24 15:42 UA Urobilinogen 0.2 mg/dL Last Edit by Lucia Mckeon on 06/21/24 15:42 UA Protein 0 mg/dL Last Edit by [employer] Mckeon on 06/21/24 15:42 UA pH 6.0 Last Edit by Cellrox[employer] Mckeon on 06/21/24 15:42 UA Blood 200 Rufino/uL Last Edit by [employer] on 06/21/24 15:42 UA Specific [place] 1.025 Last Edit by Cellroxal[employer] Mckeon on 06/21/24 15:42 UA Ketone Negative Last Edit by Cellroxal[employer] Mckeon on 06/21/24 15:42 UA Bilirubin 0 mg/dL Last Edit by Cellroxal[employer] Mckeon on 06/21/24 15:42 UA Glucose 0 mg/dL Last Edit by [employer]roxal[employer] Mckeon on 06/21/24 15:42 Results Reviewed Results Reviewed: Laboratory Last Values Urine pH (Auto) 6.0 06/21/24 15:23 Specific [place] (Auto) 1.025 06/21/24 15:23 Urine Protein (Auto) 0 mg/dL 06/21/24 15:23 Glucose (UA)(Auto) 0 mg/dL 06/21/24 15:23 Urine Ketones (Auto) Negative 06/21/24 15:23 Urine Blood (Auto) 200 Rufino/uL 06/21/24 15:23 Urine Nitrite (Auto) Positive 06/21/24 15:23 Urine Bilirubin (Auto) 0 mg/dL 06/21/24 15:23 Urine Urobilinogen (Auto) 0.2 mg/dL 06/21/24 15:23 Leukocyte Esterase (Auto) 125 Travis/uL 06/21/24 15:23 Date of Service: 06/14/24 FINDINGS: No calcifications overlapping the kidney shadows. The shaped contraceptive device overlaps the sacrum. No intestinal obstruction pattern. Liver shadow projects below the rib cage. Vascular clips in the gastroesophageal junction left upper quadrant of the abdomen. IMPRESSION: No nephrolithiasis based upon x-ray. Probable hepatomegaly versus hepatic Ptosis. Assessment & Plan Assessment & Plan (1) Nephrolithiasis: Code(s): N20.0 - Calculus of kidney Category: Medical (2) Foul smelling urine: Code(s): R82.90 - Unspecified abnormal findings in urine Category: Medical (3) UTI (urinary tract infection): Code(s): N39.0 - Urinary tract infection, site not specified Category: Medical (4) Solitary kidney, congenital: Code(s): Q60.0 - Renal agenesis, unilateral Category: Medical Plan In office urinalysis results reviewed with patient today; as noted above; will send for urine culture. Start Bactrim as discussed and prescribed. Recent KUB results reviewed with the patient today; as noted above. We discussed at length importance of adequate hydration relation to recurrent nephrolithiasis as well as urinary tract infections. Continue adding 1 oz of lemon juice to water daily. She currently denies any bothersome urinary issues. She reports be happy with current voiding parameters. Follow-up in 3 months with imaging to be completed prior; or sooner with any issues, concerns, and or questions. Orders: Orders US retroperitoneal comp 3 Months N20.0 - Calculus of kidney AMB Urinalysis Automated 06/21/24 Z13.9 - Encounter for screening, unspecified AMB Post Void Residual by ultrasound 06/21/24 N39.0 - Urinary tract infection, site not specified Urine Culture 06/21/24 N39.0 - Urinary tract infection, site not specified Patient Instructions: The patient had an opportunity to ask questions regarding the treatment plan. All questions were answered. Physical exam, labs, and imaging were discussed and reviewed in detail. As well as risks, benefits, and discussion of treatment choices. No major barriers to understanding were identified. The patient expressed understanding and agreement with the above treatment plan. The patient was made aware they should contact our office by phone for worsening of their current condition, the appearance of new symptoms, or with any questions or concerns. Compliance is encouraged with any medications and follow up testing that is ordered. It is a privilege to be allowed the opportunity to participate in? your urological care.? Again, if you have any questions or concerns If you have any questions or concerns please do not hesitate to contact me. The office is [phone]. This note is constructed using voice recognition software. While every effort has been made to ensure accuracy fiberglass boat parts finisher errors may have been included. Yours sincerely, TAYLOR Farr-INDU Coding Level of Care Code Est Pt Level 4 (13679) Diagnoses Nephrolithiasis N20.0 Foul smelling urine R82.90 UTI (urinary tract infection) N39.0 Solitary kidney, congenital Q60.0 CPT Codes Post Residual Void - PVR CPT Code: 52331-Ajge Void Residual by ultrasound ([id number])
== END 2024-06-21 15:28 | disposition home or self-care (01) ==
LOC: HO.HUSH 14:57
PROVIDERS: PCP Internal Medicine; Visit Provider Nurse Practitioner Family
DX: N20.0 Calculus of kidney (principal); R82.90 Unspecified abnormal findings in urine; N39.0 Urinary tract infection, site not specified; Q60.0 Renal agenesis, unilateral
CPT/HCPCS: 99214

== ENCOUNTER 2024-06-21 14:56 | Outpatient (REF) | payer OTHER, SELFPAY | END 2024-06-21 14:57 | disposition home or self-care (01) | LOC: HO.LNP 14:56 | PROVIDERS: PCP Internal Medicine; Visit Provider Nurse Practitioner Family | DX: N39.0 Urinary tract infection, site not specified (principal); B96.20 Unspecified Escherichia coli [E. coli] as the cause of diseases classified elsewhere; N20.0 Calculus of kidney; R82.90 Unspecified abnormal findings in urine; Q60.0 Renal agenesis, unilateral | CPT/HCPCS: 51798; 81003; 87086; 87088; 87186; 99212 ==

== ENCOUNTER 2024-06-26 14:27 | Outpatient (AMB) | payer OTHER, SELFPAY ==
--- NOTE | 2024-06-26 14:26 | A.OFFVIS_ITS ---
Intake Visit Reasons: TV EMB Result/30 mins Intake Note: cell #[phone] Shop Supervisor: Shop Supervisor Present Allergies No Known Allergies Allergy (Verified 06/21/24 15:28) Is last menstrual period known: Yes HPI Comments Details: [facility] visit 2:50-3:04. I spent 14 minutes speaking with the patient on the phone plus an additional 5 minutes reviewing the chart and 5 minutes updating the medical record for a total of 24 minutes. Patient presents via phone to discuss: ultrasound and EMB results. History of Mirena IUD user placed 03/2022 for AUB. Recent H and H is 12.1/38.7, TSH -1.29. History of a 2 cm fundal fibroid. Cycles were monthly lasting 3-4 days up until April where she began to have heavy menstrual bleeding which was intermittently on and off, and then restarted bleeding heavy last Tuesday. [facility] Medical History (Updated 06/26/24 @ 15:51 by Veronika South CNM) Uterine fibroid Acute eczema GERD (gastroesophageal reflux disease) Migraines Hypovitaminosis D Physical exam AMAN (generalized anxiety disorder) Polyarthralgia New daily persistent headache Dyslipidemia Migraine with aura Anemia Surgical History History of sleeve gastrectomy Hx of tubal ligation Hx of section Family History Father Diabetes mellitus ESRD on hemodialysis Mother Acute depression Anxiety Asthma Hypertension Osteoporosis Hypercholesteremia Hyperlipemia Mental health disorder Son No problems noted. Daughter No problems noted. Brother No problems noted. Sister Cervical cancer Maternal Grandmother Lung cancer Maternal Grandfather Throat cancer Social History Household Members: Significant Other and Family Housing: House Alcohol intake: never Patient Tobacco Use Status: Never used Tobacco e-Cigarette/Vaping Use: Never Used Second Hand Smoke Exposure: No service: No Current occupational status: employed Current occupational exposures/hazards: No Gender identity: Female Cognitive needs: No Hearing needs: No Vision needs: No Female Reproductive History Menstrual Age of Menarche: 9 Review of Systems Const All systems reviewed & are unremarkable except as noted in HPI and below Endo Reports no additional complaints Physical Exam Const General: cooperative, healthy appearing and no acute distress Psych Appearance: well kempt Attitude: cooperative Thought process: Normal thought process present Telehealth Telehealth Telehealth Platform: [employer] Location of provider rendering services: practice address Location of patient: address on file Telehealth method: video Patient verbally consented to treatment: Yes Patient verbally consented to billing insurance company: Yes Patient informed of any privacy concerns related to visit: Yes Results Reviewed Results Reviewed: [address] [address] Ultrasound Report Signed Patient: Jenna Ortiz MR#: [id number] : 1980 Acct:[id number] Age/Sex: 44 / F ADM Date: 05/08/24 Loc: .[place] Attending Dr: Veronika South CNM Ordering Physician: Veronika South CNM Date of Service: 05/08/24 Procedure(s): US pelvic and transvaginal Accession Number(s): [id number] cc: Veronika South CNM; Jillian Lira MD~ EXAMINATION: US PELVIS. TRANSABDOMINAL AND TRANSVAGINAL CLINICAL INFORMATION: Abnormal uterine and vaginal bleeding. COMPARISON: None available. TECHNIQUE: Ultrasound of the pelvis is performed using both transabdominal and transvaginal transducers along with Doppler. Transvaginal imaging is performed due to inadequate visualization transabdominally. FINDINGS: UTERUS: The uterus is anteverted and measures 10.0 x 4.5 x 4.5 cm. The double wall endometrial thickness could not be evaluated as an IUD is present in good position. The uterus is smooth in contour and has normal myometrial echogenicity. A fundal fibroid is unchanged measuring 1.6 x 1.6 x 2.0 cm. Nabothian cysts are present in the cervix along with a small amount of fluid in the endocervical canal. ADNEXA: Both ovaries are visualized. There is normal color flow to the adnexa. There is no ovarian torsion. There is no pelvic ascites or fluid collection. Right ovary measures 2.1 x 2.0 x 1.8 cm for a volume of 4.0 mL. Left ovary measures 2.4 x 1.4 x 1.7 cm for a volume of 3.0 mL. US/US pelvic and transvaginal IMPRESSION: 1. IUD is present in good position. 2. Unchanged fundal fibroid. Electronically signed by: Pradeep Abbasi MD 05/09/2024 05:03 PM EDT Dictated By: Pradeep Abbasi MD Signed By: <Electronically signed by Pradeep Abbasi MD in OV> 05/09/24 1703 DD/ 1610 TD/TT: 05/08/24 1619 Retail Seasonal Specialist: DOMINIQUE Name: Jenna Ortiz Age/Sex: 44/F Attending: Veronika South CNM : 1980 Submitted by: Veronika South CNM Copies to: Jillian Lira MD MR #: [id number] Status: DEP REF Collected: 06/14/24 Location: .LAB Received: 06/15/24 Diagnosis Endometrium, biopsy: - Fragments of inactive endometrium with extensive breakdown, pseudodecidual change and organizing clot. - Few strips of endocervical epithelium within normal limits. - No atypia seen. Clinical History AUB Microscopic Description Microscopic sections reviewed. Material Received EMB Gross Description Received in formalin labeled ?EMB? is a 2.0 x 1.5 x 0.5 cm aggregate of multiple irregular and tubular cast fragments of congested and hemorrhagic red-maroon tissue, mucus and blood, submitted in toto in a cassette labeled A. CEDS Copies To Veronika South CNM [facility] [address] [place] [address] Jillian Lira MD [facility] [address] [place] [address] NOTE: Unless otherwise stated, all tissue is formalin-fixed and paraffin- embedded. Some or all of the immunohistochemical tests Patient: Jenna Ortiz Age/Sex: 44/F [id number] MR#: [id number] Page 1 of 2 Assessment & Plan Assessment & Plan (1) Encounter to discuss test results: Code(s): Z71.2 - Person consulting for explanation of examination or test findings (2) Abnormal uterine bleeding (AUB): Code(s): N93.9 - Abnormal uterine and vaginal bleeding, unspecified Category: Medical (3) Uterine fibroid: Code(s): D25.9 - Leiomyoma of uterus, unspecified Category: Medical Qualifiers: Uterine leiomyoma location: unspecified location Qualified Code(s): D25.9 - Leiomyoma of uterus, unspecified Plan Discussed: Ultrasound finding: IMPRESSION: 1. IUD is present in good position. 2. Unchanged fundal fibroid. Endometrial biopsy: Diagnosis Endometrium, biopsy: - Fragments of inactive endometrium with extensive breakdown, pseudodecidual change and organizing clot. - Few strips of endocervical epithelium within normal limits. - No atypia seen. Reviewed labs. Discussed possibly taking NSAIDs for a week to improve bleeding. Patient request to consider having surgery and wants everything removed. Advised surgical treatment is not the usual 1st option, medical management, procedure such as uterine ablation would be considered 1st. Consult w/Dr. Doan for uterine ablation appointment to be made. Advised to call sooner if there is any heavier bleeding. She would like to consider taking NSAIDs for a week and see if that will help Rx to be sent in for a 7 day, advised to take with food, she reports she has tolerated it in the past well. All of her questions and concerns were addressed to the best of my ability and shared decision making. She is agreeable to the plan of care. This note is constructed using voice recognition software. While every effort has been made to ensure accuracy, adjunct physics instructor errors may have been included. Medications: New ibuprofen Take with food as directed for one week 600 mg PO Q6H 28 tabs 0RF pain 7 days Coding Level of Care Code Tele Est Pt Level 3 (21936) Diagnoses Encounter to discuss test results Z71.2 Abnormal uterine bleeding (AUB) N93.9 Uterine leiomyoma, unspecified location D25.9 Uterine leiomyoma location: unspecified location
== END 2024-06-26 15:55 | disposition home or self-care (01) ==
LOC: HO.HWS 14:27
PROVIDERS: PCP Internal Medicine; Visit Provider Advanced Practice Midwife
DX: Z71.2 Person consulting for explanation of examination or test findings (principal); N93.9 Abnormal uterine and vaginal bleeding, unspecified; D25.9 Leiomyoma of uterus, unspecified
CPT/HCPCS: 99213

== ENCOUNTER → 2024-06-26 14:27 | Outpatient (BNVA) | payer OTHER, SELFPAY | PROVIDERS: PCP Internal Medicine; Visit Provider Advanced Practice Midwife ==

== ENCOUNTER 2024-09-10 15:59 | Outpatient (REF) | payer OTHER, SELFPAY ==
--- NOTE | ~2024-09-10 | US_ITS ---
EXAMINATION: US RETROPERITONEUM LIMITED HISTORY: N20.0 - Calculus of kidney TECHNIQUE: Real-time grayscale ultrasound imaging of the kidneys was performed and images were reviewed. COMPARISON: Comparison is made with the prior examination dated 01/02/2024. FINDINGS: Right kidney: The right kidney is congenitally absent . Left Kidney: The left kidney measures 14.7 x 7.3 x 6.6 cm. Renal parenchymal echotexture and thickness are normal. There are multiple parapelvic cysts measuring up to 2.7 x 3.5 x 2.6 cm. No solid mass is identified. There is no hydronephrosis or renal calculi. US/US retroperitoneal limited IMPRESSION: Solitary left kidney demonstrating multiple parapelvic cysts. No calculi are identified. Electronically signed by: Yonis Heath MD 09/11/2024 07:07 AM OVI RP
== END 2024-09-10 16:00 | disposition home or self-care (01) ==
LOC: HO.US 15:59
PROVIDERS: PCP Internal Medicine; Visit Provider Nurse Practitioner Family
DX: N20.0 Calculus of kidney (principal)
CPT/HCPCS: 76775

== ENCOUNTER 2024-09-19 15:07 | Outpatient (REF) | payer OTHER, SELFPAY ==
--- NOTE | ~2024-09-19 | US_ITS ---
EXAMINATION: US BLADDER HISTORY: nephrolithiasis COMPARISON: There are no prior studies for comparison. FINDINGS: Sonographic examination of the urinary bladder was performed before and after voiding. Before voiding, the urinary bladder measured 12.6 x 10.0 x 12.3, for an estimated volume of809 mL. After voiding, the urinary bladder measured5.4 x 5.3 x 7.8, for an estimated volume of 117 mL. No intrinsic bladder abnormality is identified. A left ureteral jet is identified. US/US bladder IMPRESSION: Post void bladder residual of 117 mL. No intrinsic bladder abnormality is identified. Electronically signed by: Yonis Heath MD 09/20/2024 07:40 AM [facility]
--- NOTE | ~2024-09-19 | XR_ITS ---
CLINICAL HISTORY: Z01.818 - Encounter for other preprocedural examination 2 view chest x-ray Comparison: None Findings: The lungs are clear. Normal size heart. No acute fracture. IMPRESSION: 1. No acute findings. This document has been electronically signed by: Dana Hull MD on 09/20/2024 15:28:11
--- OUTSIDE RECORDS SUMMARY | 2024-09-19 17:10 | XMS_ITS | Continuity of Care Document ---
Author Organization [facility] vices Address [address] [place] [address] Phone Care Team Providers Care Delphi Programmer Name Role Phone Unavailable Unavailable Unavailable Procedures Procedure Date EXPANDED OUT/PT EXPANDED OUT/PT Advance Directives Directive Yes / No Effective Date File Name No Information Encounters Encounter Description Practice Location Reason(s) For Visit Diagnoses Date Provider Providers Copied on Encounter [facility], [address] [place] [address], [id number], tel:[phone] Conversion No Information 2 No Information [facility], [address] [place] [address], tel:[phone] Conversion ENCOUNTERS FOR UNSPECIFIED ADMINISTRATIVE PURPOSE 7 No Information EXPANDED OUT/PT [facility], [address] [place] [address], [address], [place] tel:[phone] [facility] Adult Medicine No Information No Information [facility], [address] [place] [address], [address], tel:[phone] Conversion ROUTINE GYNECOLOGICAL EXAMINATION No Information EXPANDED OUT/PT [facility], [address] [place] [address], [place] tel:[phone] [facility] Womens Health No Information 7 [...]
--- OUTSIDE RECORDS SUMMARY | 2024-09-19 17:10 | XMS_ITS | Clinical Summary ---
Author Organization [facility] ity Address [address] [place] [address] Care Team Providers Care Lending Manager Name Role Phone Darion Mohan MD Primary Care Provider [phone] Social History Tobacco Use Types Packs/Day Years Used Date Smoking Tobacco: Never Assessed Sex and Gender Information Value Date Recorded Sex Assigned at Not on file Gender Identity Not on file Sexual Orientation Not on file Plan of Treatment Health Maintenance Due Date Last Done Comments Breast Cancer Screening 1980 DTaP,Tdap,and Td Vaccines (1 - Tdap) 12/31/1998 Hepatitis B Vaccines (1 of 3 - 19+ 3-dose series) 12/31/1998 Cervical Cancer Screening: P ap Smear 12/31/2000 COVID-19 Vaccine (2023-2 5 season) 2024 Influenza Vaccine (#1) 2024 HIB Vaccines Aged Out No longer eligi ble based on patient's age to complete this topic HPV Vaccines Aged Out No longer eligi ble based on patient's age to complete this topic Hepatitis A Vaccines Aged Out No long er eligible based on patient's age to complete this topic IPV Vaccines Aged Out No longer eligi ble based on patient's age to complete this topic MMR Vaccines Aged Out No longer eligi ble based on patient's age to complete this topic Meningococcal ACWY Vaccine Aged Out N o longer eligible based on patient's age to complete this topic Pneumococcal Vaccine: Pediat rics (0 to 5 Years) and At-Risk Patients (6 to 64 Years) Aged Out No longer eligible b ased on patient's age to complete this topic RSV Immunization Patients Un graciela 20 months Aged Out No longer eligible b ased on patient's age to complete this topic Varicella Vaccines Aged Out No longer eligible based on patient's age to complete this topic Care Teams Lending Manager Relationship Specialty Start Date End Date Darion Mohan MD [address] [place] [address] PCP - General Internal Medicine 06/12/21
--- OUTSIDE RECORDS SUMMARY | 2024-09-19 17:10 | XMS_ITS | Clinical Summary ---
Author Organization [facility] Address [address] [place] [address] Care Team Providers Care Airport Tower Controller Name Role Phone Shelly Cadet MAKE UP OPERATOR Primary Care Provider [phone] Source Comments PLEASE NOTE, if this patient is a minor, it may be UNLAWFUL to discuss sensitive information that is contained in these records (such as FAMILY PLANNING, MENTAL HEALTH or SUBSTANCE ABUSE) with the minor patient's parent or other person without the patient's specific authorization.[facility] Allergies No known active allergies Medications compression stockingIndicati ons:Peripheral edema Dx: R60.9 Compression level 20-30 mmHg. Pt wt:225 lb, Ht 5'6 . indefinite need 2 Each 2 6 Active diclofenac (VOLTAREN) 1 % gelIndications:B ack strain, initial encounter Apply topically 2 (two) times daily Apply to most painful area. 100 g 7 Active raNITIdine HCl (ZANTAC) 300 mg capsuleIndicatio ns:Gastroesophag eal reflux disease without esophagitis Take 1 Cap by mouth every evening 30 Cap 3 9 Active butalbital-aceta minophen-caff (FIORICET, ESGIC) 50-325-40 mg per tabletIndication s:Chronic migraine without aura without status migrainosus, not intractable Take 1 Tab by mouth every 4 (four) hours as needed for headaches for pain 30 Tab 1 9 Active hydrOXYzine HCl (ATARAX) 25 mg tabletIndication s:Anxiety Take 1 Tab by mouth 3 (three) times daily as needed for anxiety 60 Tab 9 Active Active Problems Problem Noted Date Diagnosed Date Sleeping difficulties 06/24/2016 Dyshidrotic eczema 03/01/2016 Migraine 09/04/2015 Mild intermittent asthma without complication Solitary kidney, congenital 05/10/2015 Overview (05/10/2015): L side Left nephrolithiasis 05/10/2015 Overview (05/10/2015): S/p ESWL in 06/2010 Immunizations Name Administration Dates Next Due Flu, Preservative Free 07/27/2017 Hep B, Adult/Adol (ENERGIX/RECOMBIVAX) 0,01/16/2010,12/18/2009 INFLUENZA, SEASONAL, INJECTABLE 06/24/2016 MMR (MMR II/Priorix) 10/23/2015,05/22/2015 PNEUMOCOCCAL CONJUGATE PCV 13 07/27/2017 PNEUMOCOCCAL POLYSACCHARIDE PPV23 10/11/2018 PPD 05/10/2015 TDAP 05/22/2015 Family History Medical History Relation Name Comments Diabetes Father Cancer Maternal Grandfather throat cancer Asthma Mother Hypertension Mother Breast cancer Other cousin Diabetes Paternal Grandfather Cancer Sister uterine cancer Relation Name Status Comments Father Maternal Grandfather Mother Alive Other cousin Alive Paternal Grandfather Sister Alive Social History Tobacco Use Types Packs/Day Years Used Date Smoking Tobacco: Never Smokeless Tobacco: Never Alcohol Use Standard Drinks/Week Comments No 0 (1 standard drink = 0.6 oz pur e alcohol) Social Connections Answer Date Recorded Connectedness 0 04/28/2024 Financial Resource Strain Answer Date R ecorded Financial Resource Strain 0 2018 Stress Answer Date Recorded Stress 0 04/15/2019 Physical Activity Answer Date Recorded Physical Activity 0 04/15/2019 Food Insecurity Answer Date Recorded Food 0 05/17/2024 Transportation Needs Answer Date Record ed Transportation 0 04/15/2019 Housing Stability Answer Date Recorded Housing 0 04/15/2019 Safety and Environment Answer Date Lloyd rded Safety 0 10/11/2018 Utilities Answer Date Recorded Utilities 0 04/15/2019 Employment Answer Date Recorded Employment 0 04/15/2019 Comments No Sex and Gender Information Value Date Recorded Sex Assigned at Female 07/11/2017 5:35 AM PST Legal Sex Female 11:24 AM PDT Gender Identity Female 07/11/2017 5:35 AM PST Sexual Orientation Straight 07/11/2017 5: 35 AM PST 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 Not on 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 Not on file Not on file Last Filed Vital Signs Vital Sign Reading Time Taken Comments Blood Pressure 122/84 01/08/2019 1:15 PM EDT Pulse 70 01/08/2019 1:15 PM EDT Temperature 37 ??C (98.6 ??F) 01/08/2019 1:15 PM EDT Respiratory Rate 17 01/08/2019 1:15 PM EDT Oxygen Saturation 99% 09/21/2018 3:55 PM EST Inhaled Oxygen Concentration - - Weight 107.5 kg (237 lb) 01/08/2019 1:15 PM EDT Height 172.7 cm (5' 8 ) 10/24/2018 4:25 PM EST Body Mass Index 36.04 10/24/2018 4:25 PM EST Plan of Treatment Health Maintenance Due Date Last Done Comments HPV Screening 1980 Hepatitis C Screening 1980 Tobacco Screening 07/27/2018 07/27/2017 Relationship Safety Screening/Counseling 10/11/2019 10/11/2018, 07/27/2017, 07/27/2017 Breast Cancer Screening (Mammogram) 2020 Hypertension Screening (#1) 01/08/2020 Annual Preventive Care Visit 01/09/2020, 10/11/2018, 07/27/2017, Additional history exists Diabetes Screening 10/11/2021 10/11/2018, 1 09/27/2016, 05/12/2015, Additional history exists Cervical Cancer Screening 01/08/2022 Pap + HPV 01/08/2022 Pap Smear 01/08/2022 01/08/2019, 03/01/2016 Lipid Screening 10/11/2023 10/11/2018, 01/2017, 07/11/2015 [id number] ( season) 2024 022, 01/29/2021 Alcohol and Drug Screen 08/22/2024 10/11/19 19, 07/27/2017, 07/27/2017, Additional history exists Depression Annual Screen 08/22/2024 019, 06/24/2016, 05/22/2015 Imm-DTaP/Tdap/Td (2 - Td or Tdap) 05/22/2025 015 Imm-Pneumococcal (3 of 3 - P CV20 or PCV21) 12/31/2029 10/11/2018, 07/27/2017 Imm-Hepatitis B Completed 05/27/2015, 01/2015, 06/24/2010, Additional history exists HIV Screening Completed 07/27/2017 Imm-Influenza Discontinued 10/31/2019, 01/2017, 06/24/2016, Additional history exists Cervical Ablation/Cold-Knife Conization Discontinued Cervical Cryotherapy Discontinued Colposcopy Discontinued Endometrial Biopsy Discontinued Excision/Leep Discontinued HPV Genotyping Discontinued Vaginal Pap Discontinued Vulvoscopy Discontinued Procedures Procedure Name Priority Date/Time Associated Diagnosis Comments PAP, LIQUID BASED Routine 01/08/2019 1:1 8 PM EDT Visit for gynecologic examination COMPREHENSIVE METABOLIC PANEL Routine 10/11/2018 4:05 PM EST Routine general medical examination at a health care facility LIPID PANEL Routine 10/11/2018 4:05 PM EST Routine general medical examination at a health care facility ANTIBODY HIV-1&HIV-2 SINGLE RESULT Routine 07/27/2017 4:25 PM EST Encounter for screening for HIV from Last 3 Months or Most Recently Relevant to Health Maintenance Results * PAP, LIQUID BASED (01/08/2019 1:18 PM EDT) Specimen from uterine cervix (specimen) Cervix uteri structure / Unknown 01/08/2019 1:18 PM EDT Impressions [facility] - 01/08/2019 1:18 PM EDT Thinprep pap: Negative for squamous intraepithelial lesion and malignancy HPV: negative us [facility] - NO BLOOD DRAW Final Result [facility] [address] [place] [address], [place] [phone] * (ABNORMAL) LIPID PANEL (10/11/2018 4:05 PM EST) CHOLESTEROL 182 0 - 200 mg/dL [facility] TRIGLYCERIDES 149 0 - 150 mg/dL [facility] HDL CHOLESTEROL 48 >40 mg/dL [facility] LDL CALCULATED 105(H) 0 - 100 mg/dL [facility] TC-HDLC RATIO 3.8 0 - 4.4 mg/dL [facility] Blood specimen (specimen) Blood / Unknown 10/11/2018 4:05 PM EST 10/11/2018 4:15 PM EST Narrative [facility] - 10/11/2018 8:14 PM EST [facility], [place] [address] Radio Sales Account Executive - Tory Acosta MD PT ID [id number] ORD# [id number] [facility] - BLOOD DRAW Edited Result - Final Performing Organization Address City/State/[facility] [place] [address], * COMPRE METAB PANEL (10/11/2018 4:05 PM EST) GLUCOSE 83 70 - 100 mg/dL [facility] Comment:Reference range appl icable to fasting specimens only BUN 13 5 - 25 mg/dL [facility] CREAT 0.78 0.5 - 1.1 mg/dL [facility] GLOMERULAR FILTRATION RATE > 60 [facility] Comment: If patient is -Lebanese, multiply result by 1.21 Chronic Kidney Disease: < 60 ml/min/1.73 square meters Kidney Failure: < 15 ml/min/1.73 square meters SODIUM 140 133 - 145 mmol/L [facility] POTASSIUM 3.8 3.5 - 5.5 mmol/L [facility] CHLORIDE 106 96 - 110 mmol/L [facility] CO2 27 21 - 32 mmol/L [facility] ANION GAP 7 3 - 11 [facility] CALCIUM 9.0 8.5 - 10.5 mg/dL [facility] ALBUMIN 3.5 3.2 - 5.0 G/dL [facility] SGPT 41 10 - 60 U/L [facility] TOTAL PROTEIN 7.3 6.0 - 8.0 G/dL [facility] BILI, TOTAL 0.3 0.0 - 1.4 mg/dL [facility] SGOT 26 10 - 42 U/L [facility] ALK PHOS 87 42 - 121 U/L [facility] Blood specimen (specimen) Blood / Unknown 10/11/2018 4:05 PM EST 10/11/2018 4:15 PM EST [facility] - 10/11/2018 8:14 PM EST [facility] [employer], [place] [address] Radio Sales Account Executive - Tory Acosta MD PT ID [id number] ORD# [id number] [facility] - BLOOD DRAW Edited Result - Final [address] [address], * HIV-1 & HIV-2 ANTIBODIES (07/27/2017 4:25 PM EST) [facility] HIV 1 AND 2 ANTIBODY SCREEN NEGATIVE NEGATIVE [facility] Comment: This assay is a 4th generation assay allowing for earlier detection of HIV infection by detecting the presence of the HIV-1 p24 antigen as well as the traditional antibodies to HIV type 1 (including group O) and type 2. ??Use of a 4th generation assay is the current CDC recommendation for HIV screening. Blood specimen (specimen) Blood / Unknown 07/27/2017 4:25 PM EST 07/27/2017 6:21 PM EST Jennifer [facility] - 07/27/2017 7:58 PM EST [facility] [employer] [address] [place] [address] PT ID [id number] ORD# [id number] [facility] - BLOOD DRAW Final Result [facility] [address] [place] [address], from Last 3 Months or Most Recently Relevant to Health Maintenance Insurance [facility] [employer] Member Subscriber Plan / Payer (Ef fective 2021-Present) Name:Jenna Ortiz Relation to Subscriber:Self Name:Jenna Ortiz Payer ID:[id number] Group ID:[id number] Type:Medicaid Address: [facility] [address] [place] [address] Care Teams Airport Tower Controller Relationship Specialty Start Date End Date Shelly Cadet FNP [facility] [place] [address] PCP - General 03/05/19
--- OUTSIDE RECORDS SUMMARY | 2024-09-19 17:10 | XMS_ITS | Continuity of Care Document ---
Author Organization [facility] vices Address [address] [place] [address] Phone Care Team Providers Care Enterprise Systems Architect Name Role Phone Jhonathan Barraza DPM Unavailable Unavailable Medications Medication Instructions Dosage Effective [...] Diagnoses Date Provider Providers Copied on Encounter [facility], [address] [place] [address], [facility], tel:[phone] [facility] Podiatry No Information [address] [place] [address], [id number] [address] [place] [address], [id number], [place]. tel:[phone] [facility], [address] [place] [address], [address], tel:[phone] Conversion No Information 2 No Information [facility], [address] [place] [address], [address], tel:[phone] Conversion TENDONITIS ACHILLESPAIN IN LIMB [address] [place] [address], [id number] [address] [place] [address], [id number], [place]. tel:[phone] [facility], [address] [place] [address], [address], tel:[phone] Conversion No Information 2 No Information [facility], [address] [place] [address], [address], tel:[phone] Conversion UNSPECIFIED DISORDERS OF MENSTRUATION AND OTHER ABNORMAL BLEEDING FROM FEMALE GENITAL TRACTBV 2 No Information [facility], [address] [place], [address], [place] tel:[phone] Conversion DYSURIA 1 No Information [facility], [address] [place], [address], [place] tel:[phone] Conversion No Information 1 No Information [facility], [address] [place] [address], [address], [place] tel:[phone] Conversion PELVIC PAINNEPHROLIT HIASIS 1 No Information [facility], [address] [place] [address], [address], [place] tel:[phone] Conversion No Information 1 No Information [facility], [address] [place] [address], [address], [place] tel:[phone] Conversion HEMATURIA, UNSPECIFIEDPR EGNANCY TEST - NEGATIVE RESULT 1 No Information [facility], [address] [place] [address], [address], [place] tel:[phone] Historic Immunization Location No Information 0 No Information [facility], [address] [place] [address], [address], [place] tel:[phone] Conversion OTHER GENERAL COUNSELING AND ADVICE ON CONTRACEPTIVE 0 No Information FOCUSED OUT/PT [facility], [address] [place] [address], [address], [place] tel:[phone] [facility] Womens Health No Information 0 No Information [facility], [address] [place] [address], [address], [place] tel:[phone] Conversion HEPATIITIS A- VACCINE NEEDED 0 No Information [facility], [address] [place] [address], [address], [place] tel:[phone] Conversion NEED FOR PROPHYLACTIC VACCINATION AND INOCULATION AGAINST UNSPECIFIED SINGLE BACTERIAL DISEASE 0 No Information MINIMAL OUT/PT [facility], [address] [place] [address], [address], [place] tel:[phone] [facility] No Information Nov-2 9-201 0 No Information OFFICE/OUTPATI ENT VISIT, EST [facility], [address] [place] [address], [address], [place] tel:[phone] [facility] Adult Medicine No Information Nov-1 4-201 0 No Information [facility], [address] [place] [address], [address], [place] tel:[phone] Conversion CONTACT DERMATITIS Nov-1 4-201 0 No Information [facility], [address] [place] [address], [address], [place] tel:[phone] Conversion SCREENING EXAMINATION FOR VENEREAL DISEASEANEMIA Nov-0 8-201 0 No Information [facility], [address] [place] [address], [address], [place] tel:[phone] Conversion ANEMIA, IRON DEFICIENCYHEA DACHE, UNSPECIFIED Mar-3 0-200 9 No Information EXPANDED OUT/PT [facility], [address] [place] [address], [address], [place] tel:[phone] [facility] Adult Medicine No Information Mar-3 0-200 9 No Information DETAILED OUT/PT [facility], [address] [place] [address], [address], [place] tel:[phone] [facility] Adult Medicine No Information Mar-1 6-200 9 No Information [facility], [address] [place] [address], [address], [place] tel:[phone] Conversion ACUTE UPPER RESPIRATORY INFECTIONS OF UNSPECIFIED SITEOTHER SPECIFIED COUNSELING Oct-1 6-200 9 No Information [facility], [address] [place] [address], [address], [place] tel:[phone] Conversion ROUTINE GYNECOLOGICAL EXAMINATION May-0 9-200 8 No Information EXPANDED OUT/PT [facility], [address] [place] [address], [address], [place] tel:[phone] [facility] No Information Oct-0 9-200 8 No Information [facility], [address] [place] [address], [address], [place] tel:[phone] Conversion ACUTE FRONTAL SINUSITIS Elliott-2 6-200 8 No Information [facility]PANDED OUT/PT [facility], [address] [place], [address], [place] tel:[phone] [facility] Adult Medicine No Information 8 No Information EXPANDED OUT/PT [facility], [address] [place], [address], [place] tel:[phone] [facility] Adult Medicine No Information 8 No Information [facility], [address] [place] [address], [address], [place] tel:[phone] Conversion ENCOUNTERS FOR UNSPECIFIED ADMINISTRATIV E PURPOSE 8 No Information [facility], [address] [place] [address], [address], [place] tel:[phone] Conversion FATIGUE/MALAI SEROUTINE GENERAL MEDICAL EXAMINATION 7 No Information COMPREHENSIVE OUT/PT [facility], [address] [place] [address], [address], [place] tel:[phone] [facility] Adult Medicine No Information 7 No Information EXPANDED OUT/PT [facility], [address] [place] [address], [address], [place] tel:[phone] [facility] Adult [facility] No Information 7 No Information [facility], [address] [place] [address], [address], [place] tel:[phone] Conversion CYSTITIS, ACUTE 7 No Information EXPANDED OUT/PT [facility], [address] [place] [address], [address], [place] tel:[phone] [facility] Adult Medicine No Information 7 No Information [facility], [address] [place] [address], [address], [place] tel:[phone] Conversion LUMBAGOURINAR Y TRACT INFECTION SITE NOT SPECIFIED 7 No Information NEW EXPANDED CONSULT [facility], [address] [place], [address], [place] tel:[phone] [facility] Adult Medicine No Information 7 No Information [facility], [address] [place] [address], [address], [place] tel:[phone] Conversion BACK PAIN W/ RADIATION, UNSPECIFIED 0 1-200 7 No Information Family History Family Member [...]
== END 2024-09-19 15:08 | disposition home or self-care (01) ==
LOC: HO.US 15:07
PROVIDERS: PCP Internal Medicine; Visit Provider Nurse Practitioner Family
DX: Z01.818 Encounter for other preprocedural examination (principal); N20.0 Calculus of kidney
CPT/HCPCS: 71046; 76857; 96127; 99212

== ENCOUNTER → 2024-09-19 15:25 | Outpatient (BNV) | payer OTHER, SELFPAY | PROVIDERS: PCP Internal Medicine; Visit Provider Radiology Diagnostic Radiology | DX: N20.0 Calculus of kidney (principal) | CPT/HCPCS: 71046; 76857 ==

== ENCOUNTER 2024-09-19 15:54 | Outpatient (AMB) | payer OTHER, SELFPAY ==
--- NOTE | 2024-09-19 16:16 | MHC.PC.OV ---
Vital Signs 09/19/24 16:17 Height 5 ft 7 in Weight 217 lb 4 oz BMI 34.0 BP 130/82 Blood Pressure Location Lt brachial Position Sitting Pulse 98 Pulse Source Pulse Oximeter Temp 97.1 F Temp Source Temporal Artery Scan Pulse Oximetry (%) 100 Oxygen Delivery Method Room Air Intake Visit Reasons: Pre Op Surgery Sep 2024 Intake Note: Patient is here for a pre-op evaluation for a tummy tuck, BBL, and breast lift scheduled with Dr. Joe Sagastume on 09/29/24 in [place], [place]. . The patient will need a chest X-ray (PA & lateral). Environmental Restoration Planner Required: Yes Environmental Restoration Planner Language: Salesperson Women'S Dresses Name: Jillian Kaminski MD Information Interpreted: non-clinical & clinical Accompanied by: Self / Same As Patient Allergies No Known Allergies Allergy (Verified 09/19/24 16:25) Medication List - Last Reconciled 09/19/24 by Jillian Kaminski MD albuterol sulfate 90 mcg/actuation (Ventolin HFA) 2 puffs inhalation Q4-6H PRN betamethasone dipropionate 0.05% 1 appl topical DAILY PRN cholecalciferol (vitamin D3) 25 mcg PO DAILY 90 days ibuprofen 600 mg PO Q6H 7 days levonorgestrel (Mirena) intrauterine pantoprazole 40 mg PO DAILY 90 days sulfamethoxazole-trimethoprim 800-160 mg (Bactrim DS) 1 tab PO BID 7 days Tobacco use date assessed: 09/19/24 Dental Screening Dental Screen Date: 09/19/24 Did you have a dental visit in the last 12 months?: Yes Did you have a dental problem in the last 6 months where you did not have access to dental care?: No Was dental information given to patient?: Patient has dentist HPI HPI Comments History of Present Illness Details The patient is a 44-year-old female presenting for a pre-operative clearance assessment for surgeries scheduled on September 29, including a tummy tuck, Fijian butt lift (BBL), and breast lift. The patient has a past medical history significant for a gastrectomy in 2019 and has undergone tubal ligation and two previous sections. Current concerns include slightly low hemoglobin levels, for which the patient is taking iron, folic acid, and vitamin C supplements to maintain adequate hemoglobin levels. The patient has undergone recent laboratory testing and is scheduled to complete additional pre-operative tests, including a chest X-ray and electrocardiogram, to ensure fitness for surgery. The patient's blood pressure is reportedly well-managed, and there is no history of medication allergies. [facility] Medical History (Updated 09/19/24 @ 16:32 by Jillian Kaminski MD) Uterine fibroid Acute eczema GERD (gastroesophageal reflux disease) Migraines Hypovitaminosis D Physical exam AMAN (generalized anxiety disorder) Polyarthralgia New daily persistent headache Dyslipidemia Migraine with aura Anemia Surgical History History of sleeve gastrectomy Hx of tubal ligation Hx of section Family History Father Diabetes mellitus ESRD on hemodialysis Mother Acute depression Anxiety Asthma Hypertension Osteoporosis Hypercholesteremia Hyperlipemia Mental health disorder Son No problems noted. Daughter No problems noted. Brother No problems noted. Sister Cervical cancer Maternal Grandmother Lung cancer Maternal Grandfather Throat cancer Social History Household Members: Significant Other and Family Housing: House Alcohol intake: never Patient Tobacco Use Status: Never used Tobacco e-Cigarette/Vaping Use: Never Used Second Hand Smoke Exposure: No service: No Current occupational status: employed Current occupational exposures/hazards: No Gender identity: Female Cognitive needs: No Hearing needs: No Vision needs: No Female Reproductive History Menstrual Age of Menarche: 9 Questionnaire PHQ-9 Over the last 2 weeks, how often have you been bothered by any of the following problems? 1. Little interest or pleasure in doing things: not at all 2. Feeling down, depressed, or hopeless: not at all 3. Trouble falling or staying asleep, or sleeping too much: not at all 4. Feeling tired or having little energy: not at all 5. Poor appetite or overeating: not at all 6. Feeling bad about yourself - or that you are a failure or have let yourself or your family down: not at all 7. Trouble concentrating on things, such as reading the newspaper or watching television: not at all 8. Moving or speaking so slowly that other people could have noticed. Or the opposite - being so fidgety or restless that you have been moving around a lot more than usual: not at all 9. Thoughts that you would be better off or of hurting yourself in some way: not at all Total score: 0 Depression Screening Interpretation: Negative Depression Screening Done: Yes 14880 - PHQ-9 Billing: Yes Source: Developed by Drs. Yonis Bradshaw, Lily Willett, Fransisco Godoy and colleagues, with an educational dylon from [employer]. Thrive Questionnaire Date Thrive assessed: 09/19/24 I am a: Patient What is your living situation today?: I have a steady place to live Within the past 12 months, did the food you bought not last and you didn't have the money to get more?: Never true Within the past 12 months, did you worry whether your food would run out before you got money to buy more?: Never true Do you have trouble paying for medicines?: No Do you have trouble getting transportation to medical appointments?: No Do you have trouble paying your heating and electricity bill?: No Do you have trouble taking care of your child, family member or friend?: No Do you have trouble with day-to-day activities such as bathing, preparing meals, shopping, managing finances, etc.?: No Are you currently unemployed and looking for a job?: No Are you interested in more education?: No Please select the resources that you would like help with: None Currently or been in a relationship where the following occur: No concerns reported THRIVE Score: 0 AUDIT C Alcohol Use Questionnaire (AUDIT-C) 1. How often do you have a drink containing alcohol?: Never 3. How often do you have six or more drinks on one occasion?: Never Total Score: 0 AMAN-7 AMB Questionnaire AMAN-7 Date AMAN - 7 assessed: 09/19/24 Feeling nervous, anxious, or on edge: 0 = Not at all Not being able to stop or control worryin = Not at all Worrying too much about different things: 0 = Not at all Trouble relaxin = Not at all Being so restless that it is hard to sit still: 0 = Not at all Becoming easily annoyed or irritable: 0 = Not at all Feeling afraid as if something awful might happen: 0 = Not at all Total AMAN-7 score (0-4 normal; 5-9 mild; 10-14 moderate; 15-21 severe): 0 Source: Developed by Drs. Yonis Bradshaw, Lily Willett, Fransisco Godoy and colleagues, with an educational dylon from [employer]. AMAN-7 Assessment Billing AMAN-7 Assessment Tool: AMAN-7 Assessment 14415 Review of Systems Const All systems reviewed & are unremarkable except as noted in HPI and below Card Denies chest pain at rest, Denies chest pain with activity, Denies edema, Denies irregular heart rhythm, Denies claudication, Denies dyspnea, Denies dyspnea on exertion, Denies orthopnea, Denies paroxysmal nocturnal dyspnea and Denies slow heart rate Resp Denies cough, Denies dyspnea and Denies dyspnea on exertion Physical exam (Primary Care) Vital Signs: Last Vital Signs Temp 97.1 F 09/19/24 16:17 Pulse 98 09/19/24 16:17 BP 130/82 09/19/24 16:17 Pulse Ox 100 09/19/24 16:17 Oxygen Delivery Method Room Air 09/19/24 16:17 BMI result Body Mass Index 34.0 BMI Assessment/Plan discussion: High BMI High, discussed plan: lifestyle, weight reduction, dietary and physical activity Tobacco/Smoking Status: Tobacco use Status Tobacco use date assessed 09/19/24 09/19/24 16:23 Patient Tobacco Use Status Never used Tobacco 09/19/24 16:18 e-Cigarette/Vaping Use Never Used 09/19/24 16:18 PHQ-9: PHQ-9 Score PHQ-9: Total score 0 09/19/24 16:26 Depression Screening Interpretation: Negative Thrive Assessment: Date of Thrive Assessment Date Thrive assessed 09/19/24 09/19/24 16:26 Currently or been in a relationship where the following occur: No concerns reported Resp Effort & Inspection: normal respiratory effort Auscultation: clear to auscultation bilaterally Cardio Jugular venous distension: no JVD Rate: regular rate Rhythm: regular rhythm Heart sounds: S1 normal heart sound present and S2 normal heart sound present Extrem General: Yes full ROM Coding Level of Care Code Est Pt Level 3 (84127) Complex EM visit Add On G2211 Diagnoses Pre-op evaluation Z01.818 Additional Codes AMAN-7 Assessment Billing - AMAN-7 Assessment Tool: AMAN-7 Assessment 84402 ([id number]) PHQ-9 - 10690 - PHQ-9 Billing: Yes ([id number]) Time Spent (min) 22 Assessment & Plan Assessment & Plan (1) Pre-op evaluation: Code(s): Z01.818 - Encounter for other preprocedural examination Category: Medical Plan - Ensure completion of pending chest X-ray and electrocardiogram. - Continue current supplementation with iron, folic acid, and vitamin C to address low hemoglobin levels. - Collect and review all pending laboratory results for pre-operative clearance. - Proceed with planned surgeries as scheduled upon satisfactory evaluation of pre-operative tests. Patient was informed and verbally consented to the use of an ambient scribe for clinic note documentation during this visit. I discussed with the patient the importance of completing the remaining pre-operative tests, including the chest X-ray and electrocardiogram, to ensure safe surgical outcomes. The patient is currently taking iron supplements and other vitamins to boost hemoglobin levels before surgery, aiming for a target hemoglobin level of 12.3 g/dL. I advised the patient to follow up with the facility where the laboratory results were sent to ensure all required information is available for review. We also clarified that the surgical team requires a full set of labs, including those already completed, for comprehensive pre-operative clearance. Orders: Orders ECG 12 lead EKG Today Z01.818 - Encounter for other preprocedural examination XR chest 2V Today Z01.818 - Encounter for other preprocedural examination Patient Instructions: - Complete the chest X-ray and electrocardiogram as scheduled. - Continue taking iron, folic acid, and vitamin C supplements as instructed. - Follow up with the clinic to confirm the receipt of all laboratory results. - Report any new symptoms, such as chest pain or difficulty breathing, immediately. - Confirm the pre-operative appointment and bring any requested documentation. - Await clearance confirmation before proceeding with scheduled surgeries.
[2024-09-19 16:17] VITALS: BP 130/82; PULSE 98; TEMP 36.2; O2SAT 100; BMI 34.0
--- OUTSIDE RECORDS SUMMARY | 2024-09-19 17:39 | XMS_ITS | Clinical Summary ---
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 Not on file Not [...] 03/01/2016 Lipid Screening 10/11/2023 10/11/2018, 01/2017, 07/11/2015 [id number] ( season) 2024 022, 01/29/2021 Alcohol and [...] / Unknown 01/08/2019 1:18 PM EDT Impressions [facility] - 01/08/2019 1:18 PM EDT Thinprep pap: Negative for squamous intraepithelial lesion and malignancy HPV: negative us [facility] - NO BLOOD DRAW Final Result [facility] [address] [place] [address], [place] [phone] * (ABNORMAL) LIPID PANEL (10/11/2018 4:05 PM EST) CHOLESTEROL 182 0 - 200 mg/dL [facility] TRIGLYCERIDES 149 0 - 150 mg/dL [facility] HDL CHOLESTEROL 48 >40 mg/dL [facility] LDL CALCULATED 105(H) 0 - 100 mg/dL [facility] TC-HDLC RATIO 3.8 0 - 4.4 mg/dL [facility] Blood specimen (specimen) Blood / Unknown 10/11/2018 4:05 PM EST 10/11/2018 4:15 PM EST Narrative [facility] - 10/11/2018 8:14 PM EST [facility], [place] [address] Pulpwood Contractor - Tory Acosta MD PT ID [id number] ORD# [id number] [facility] - BLOOD DRAW Edited Result - Final Performing Organization Address City/State/[facility] [place] [address], * COMPRE METAB PANEL (10/11/2018 4:05 PM EST) GLUCOSE 83 70 - 100 mg/dL [facility] Comment:Reference range appl icable to fasting specimens only BUN 13 5 - 25 mg/dL [facility] CREAT 0.78 0.5 - 1.1 mg/dL [facility] GLOMERULAR FILTRATION RATE > [address] [facility] Comment: If patient is -Nauruan, multiply result by 1.21 Chronic Kidney Disease: < 60 ml/min/1.73 square meters Kidney Failure: < 15 ml/min/1.73 square meters SODIUM 140 133 - 145 mmol/L [facility] POTASSIUM 3.8 3.5 - 5.5 mmol/L [facility] CHLORIDE 106 96 - 110 mmol/L [facility] CO2 27 21 - 32 mmol/L [facility] ANION GAP 7 3 - [address] [facility] CALCIUM 9.0 8.5 - 10.5 mg/dL [facility] ALBUMIN 3.5 3.2 - 5.0 G/dL [facility] SGPT 41 10 - 60 U/L [facility] TOTAL PROTEIN 7.3 6.0 - 8.0 G/dL [facility] BILI, TOTAL 0.3 0.0 - 1.4 mg/dL [facility] SGOT 26 10 - 42 U/L [facility] ALK PHOS 87 42 - 121 U/L [facility] Blood specimen (specimen) Blood / Unknown 10/11/2018 4:05 PM EST 10/11/2018 4:15 PM EST [facility] - 10/11/2018 8:14 PM EST [facility] [employer], [place] [address] [employer] Contractor - Tory Acosta MD PT ID [id number] ORD# [id number] [facility] - BLOOD DRAW Edited Result - Final [address] [address], * HIV-1 & HIV-2 ANTIBODIES (07/27/2017 4:25 PM EST) [facility] HIV 1 AND 2 ANTIBODY SCREEN NEGATIVE NEGATIVE [facility] Comment: This assay is a 4th generation [...] PM EST 07/27/2017 6:21 PM EST Jennifer [facility] - 07/27/2017 7:58 PM EST [facility] [employer] [address] [place] [address] PT ID [id number] ORD# [id number] [facility] - BLOOD DRAW Final Result [facility] [address] [place] [address], from Last 3 Months or Most Recently Relevant to Health Maintenance Insurance [facility] Member Subscriber Plan / Payer (Ef fective 2021-Present) Name:Jenna Ortiz Relation to Subscriber:Self Name:Jenna Ortiz Payer ID:[id number] Group ID:[id number] Type:Medicaid Address: [facility] [address] [place] [address] Care Teams Janitorial Maintenance Worker Relationship Specialty Start Date End Date Shelly Cadet FNP [facility] [place] [address] PCP - General 03/05/19
--- OUTSIDE RECORDS SUMMARY | 2024-09-19 17:39 | XMS_ITS | Clinical Summary ---
Author Organization [facility] ity Address [address] [place] [address] Care Team Providers Care Supervisor Pipe Finishing Name Role Phone Darion Mohan MD Primary Care Provider [phone] Social History Tobacco Use Types Packs/Day Years [...] age to complete this topic Care Teams Supervisor Pipe Finishing Relationship Specialty Start Date End Date Darion Mohan MD [address] [place] [address] PCP - General Internal Medicine 06/12/21
--- OUTSIDE RECORDS SUMMARY | 2024-09-19 17:39 | XMS_ITS | Continuity of Care Document ---
Author Organization [facility] vices Address [address] [place] [address] Phone Care Team Providers Care Marking Machine Operator Name Role Phone Unavailable Unavailable Unavailable Procedures Procedure Date EXPANDED OUT/PT EXPANDED OUT/PT Advance Directives Directive Yes / No Effective Date File Name No Information Encounters Encounter Description Practice Location Reason(s) For Visit Diagnoses Date Provider Providers Copied on Encounter [facility], [address] [place] [address], [id number], tel:[phone] Conversion No Information 2 No Information [facility], [address] [place] [address], tel:[phone] Conversion ENCOUNTERS FOR UNSPECIFIED ADMINISTRATIVE PURPOSE 7 No Information EXPANDED OUT/PT [facility], [address] [place] [address], [address], [place] tel:[phone] [facility] Adult Medicine No Information No Information [facility], [address] [place] [address], [address], tel:[phone] Conversion ROUTINE GYNECOLOGICAL EXAMINATION No Information EXPANDED OUT/PT [facility], [address] [place] [address], [place] tel:[phone] [facility] Womens Health No Information 7 [...]
--- OUTSIDE RECORDS SUMMARY | 2024-09-19 17:39 | XMS_ITS | Continuity of Care Document ---
Author Organization [facility] I[facility] vices Address [address] [place] [address] Phone Care Team Providers Care Cold Roll Catcher Name Role Phone Jhonathan Barraza DPM Unavailable [...] Date Provider Providers Copied on Encounter [facility], [address] [place] [address], [facility], tel:[phone] [facility] Podiatry No Information [address] [place] [address], [id number] [place] [address], [id number], [place]. tel:[phone] [facility], [address] [place] [address], [address], tel:[phone] Conversion No Information 2 No Information [facility], [address] [place] [address], [address], tel:[phone] Conversion TENDONITIS ACHILLESPAIN IN LIMB [address] [place] [address], [id number] [address] [place] [address], [id number], [place]. tel:[phone] [facility], [address] [place] [address], [address], tel:[phone] Conversion No Information 2 No Information [facility], [address] [place] [address], [address], tel:[phone] Conversion UNSPECIFIED DISORDERS OF MENSTRUATION AND OTHER ABNORMAL BLEEDING FROM FEMALE GENITAL TRACTBV 2 No Information [facility], [address] [place], [address], [place] tel:[phone] Conversion DYSURIA 1 No Information [facility], [address] [place], [address], [place] tel:[phone] Conversion No Information 1 No Information [facility], [address] [place] [address], [address], [place] tel:[phone] Conversion PELVIC PAINNEPHROLIT HIASIS 1 No Information [facility], [address] [place] [address], [address], [place] tel:[phone] Conversion No Information 1 No Information [facility], [address] [place] [address], [address], [place] tel:[phone] Conversion HEMATURIA, UNSPECIFIEDPR EGNANCY TEST - NEGATIVE RESULT 1 No Information [facility], [address] [place] [address], [address], [place] tel:[phone] Historic Immunization Location No Information 0 No Information [facility], [address] [place] [address], [address], [place] tel:[phone] Conversion OTHER GENERAL COUNSELING AND ADVICE ON CONTRACEPTIVE 0 No Information FOCUSED OUT/PT [facility], [address] [place] [address], [address], [place] tel:[phone] [facility] Womens Health No Information 0 No Information [facility], [address] [place] [address], [address], [place] tel:[phone] Conversion HEPATIITIS A- VACCINE NEEDED 0 No Information [facility], [address] [place] [address], [address], [place] tel:[phone] Conversion NEED FOR PROPHYLACTIC VACCINATION AND INOCULATION AGAINST UNSPECIFIED SINGLE BACTERIAL DISEASE 0 No Information MINIMAL OUT/PT [facility], [address] [place] [address], [address], [place] tel:[phone] [facility] No Information Nov-2 9-201 0 No Information OFFICE/OUTPATI ENT VISIT, EST [facility], [address] [place] [address], [address], [place] tel:[phone] [facility] Adult Medicine No Information Nov-1 4-201 0 No Information [facility], [address] [place] [address], [address], [place] tel:[phone] Conversion CONTACT DERMATITIS Nov-1 4-201 0 No Information [facility], [address] [place] [address], [address], [place] tel:[phone] Conversion SCREENING EXAMINATION FOR VENEREAL DISEASEANEMIA Nov-0 8-201 0 No Information [facility], [address] [place] [address], [address], [place] tel:[phone] Conversion ANEMIA, IRON DEFICIENCYHEA DACHE, UNSPECIFIED Mar-3 0-200 9 No Information EXPANDED OUT/PT [facility], [address] [place] [address], [address], [place] tel:[phone] [facility] Adult Medicine No Information Mar-3 0-200 9 No Information DETAILED OUT/PT [facility], [address] [place] [address], [address], [place] tel:[phone] [facility] Adult Medicine No Information Mar-1 6-200 9 No Information [facility], [address] [place] [address], [address], [place] tel:[phone] Conversion ACUTE UPPER RESPIRATORY INFECTIONS OF UNSPECIFIED SITEOTHER SPECIFIED COUNSELING Oct-1 6-200 9 No Information [facility], [address] [place] [address], [address], [place] tel:[phone] Conversion ROUTINE GYNECOLOGICAL EXAMINATION May-0 9-200 8 No Information EXPANDED OUT/PT [facility], [address] [place] [address], [address], [place] tel:[phone] [facility] No Information Oct-0 9-200 8 No Information [facility], [address] [place] [address], [address], [place] tel:[phone] Conversion ACUTE FRONTAL SINUSITIS Elliott-2 6-200 8 No Information EXPANDED OUT/PT [facility], [address] [place], [address], [place] tel:[phone] [facility] Adult Medicine No Information 8 No Information EXPANDED OUT/PT [facility], [address] [place], [address], [place] tel:[phone] [facility] Adult Medicine No Information 8 No Information [facility], [address] [place] [address], [address], [place] tel:[phone] Conversion ENCOUNTERS FOR UNSPECIFIED ADMINISTRATIV E PURPOSE 8 No Information [facility], [address] [place] [address], [address], [place] tel:[phone] Conversion FATIGUE/MALAI SEROUTINE GENERAL MEDICAL EXAMINATION 7 No Information COMPREHENSIVE OUT/PT [facility], [address] [place] [address], [address], [place] tel:[phone] [facility] Adult Medicine No Information 7 No Information EXPANDED OUT/PT [facility], [address] [place] [address], [address], [place] tel:[phone] [facility] Adult Medicine No Information 7 No Information [facility], [address] [place] [address], [address], [place] tel:[phone] Conversion CYSTITIS, ACUTE 7 No Information EXPANDED OUT/PT [facility], [address] [place] [address], [address], [place] tel:[phone] [facility] Adult [facility] No Information 7 No Information [facility], [address] [place] [address], [address], [place] tel:[phone] Conversion LUMBAGOURINAR Y TRACT INFECTION SITE NOT SPECIFIED 7 No Information NEW EXPANDED CONSULT [facility], [address] [place], [address], [place] tel:[phone] [facility] Adult Medicine No Information 7 No Information [facility], [address] [place] [address], [address], [place] tel:[phone] Conversion BACK PAIN W/ RADIATION, UNSPECIFIED 0 [...]
== END 2024-09-19 16:36 | disposition home or self-care (01) ==
PROVIDERS: PCP Internal Medicine; Visit Provider Internal Medicine
DX: Z01.818 Encounter for other preprocedural examination (principal)

== ENCOUNTER 2024-09-20 15:28 | Outpatient (AMB) | payer OTHER, SELFPAY ==
--- NOTE | 2024-09-20 15:35 | A.OFFVIS_ITS ---
Intake Visit Reasons: 3M US follow up Intake Note: Patient presents today for follow up on:nephrolithiasis, uti, and ultrasound results Imaging Completed: 09/10/24 and 09/19/24 Urology Medications: none Blood Thinner: none PVR: 0ml's Wool Handler Required: No Accompanied by: Self / Same As Patient Allergies No Known Allergies Allergy (Verified 09/20/24 16:08) Medication List - Last Reconciled 09/20/24 by BONITA Farr albuterol sulfate 90 mcg/actuation (Ventolin HFA) 2 puffs inhalation Q4-6H PRN betamethasone dipropionate 0.05% 1 appl topical DAILY PRN cholecalciferol (vitamin D3) 25 mcg PO DAILY 90 days ibuprofen 600 mg PO Q6H 7 days levonorgestrel (Mirena) intrauterine pantoprazole 40 mg PO DAILY 90 days HPI Comments Details: Jenna is a very pleasant 44-year-old /Czech-speaking female patient of Dr. Jesus. She has a past medical history of uterine fibroid, eczema, GERD, migraines, anxiety, polyarthralgia, dyslipidemia, and anemia. She presents to the office today for follow-up of her solitary kidney, nephrolithiasis, renal cysts, and lower urinary tract symptoms. In discussion with the patient today she reports to be doing and feeling well. Of note, patient was seen approximately 3 months ago at which time in office urinalysis noted positive nitrates and patient had been reporting foul-smelling urine. Urine culture 06/14 noted ecoli susceptible to Bactrim. She reports having completed antibiotic therapy as prescribed however continues with foul-smelling urine. In office urinalysis results reviewed with the patient today positive nitrates again noted. We discussed obtaining microgen for further assessment evaluation. Recent retroperitoneal ultrasound results reviewed with the patient today. Right kidney is congenitally absent. Left kidney with multiple peripelvic cysts measuring 3.5 cm. No solid masses are identified. There is no hydronephrosis or renal calculi noted. Pre void bladder volume is approximately 100 mL. Postvoid bladder volume is approximately 115 mL. She has a previous history of nephrolithiasis to include ureteroscopy as well as ESWL. She reports a longstanding history of nephrolithiasis since 1997. 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 She reports to be drinking plenty of water daily and adding 1 oz of lemon juice to water daily. When asked she denies urinary urgency, urinary frequency, incontinence, nocturia, hematuria, dysuria, changes to urinary stream, flank pain, fever, and or chills. She is happy with her current voiding parameters. She discusses her upcoming trip to [facility] for reconstructive breast surgery as well as [facility]. She otherwise offers no other issues or concerns at this time. [facility] Medical History Uterine fibroid Acute eczema GERD (gastroesophageal reflux disease) Migraines Hypovitaminosis D Physical exam AMAN (generalized anxiety disorder) Polyarthralgia New daily persistent headache Dyslipidemia Migraine with aura Anemia Surgical History History of sleeve gastrectomy Hx of tubal ligation Hx of section Family History Father Diabetes mellitus ESRD on hemodialysis Mother Acute depression Anxiety Asthma Hypertension Osteoporosis Hypercholesteremia Hyperlipemia Mental health disorder Son No problems noted. Daughter No problems noted. Brother No problems noted. Sister Cervical cancer Maternal Grandmother Lung cancer Maternal Grandfather Throat cancer Social History Household Members: Significant Other and Family Housing: House Alcohol intake: never Patient Tobacco Use Status: Never used Tobacco e-Cigarette/Vaping Use: Never Used Second Hand Smoke Exposure: No service: No Current occupational status: employed Current occupational exposures/hazards: No Gender identity: Female Cognitive needs: No Hearing needs: No Vision needs: No Female Reproductive History Menstrual Age of Menarche: 9 Review of Systems Const All systems reviewed & are unremarkable except as noted in HPI and below Physical Exam Const General: cooperative, healthy appearing, comfortable, no acute distress, well developed, alert and awake Orientation/consciousness: patient oriented x3 Limitations: no limitations HEENT Head: Yes normal to inspection, Yes normocephalic and Yes atraumatic Ears: hearing grossly normal bilaterally Eyes General: appearance normal, both eyes and all related structures Neck Neck: Yes normal visual inspection and Yes trachea midline Chest Chest palpation & inspection: normal inspection of the chest Resp Effort & Inspection: normal respiratory effort and able to speak in complete sentences Cardio Rate: regular rate GI Inspection: Yes normal to inspection General: Yes no CVA tenderness Back/Spine/Pelvis Back: no CVA tenderness Skin General skin exam: no rashes or lesions noted Neuro General: patient oriented x3 Extrem General: Yes normal to inspection Psych Appearance: grossly normal and well kempt Mental Status: mental status grossly normal Speech and movement: Normal speech and movement present and Clear speech present Affect: normal affect Attitude: cooperative Thought process: Normal thought process present Thought content: Normal thought content present Insight: Fair insight present (Psych) Judgement: Fair judgement present (Psych) Office Procedures Post Void Residual Post Residual Void Post Void Residual (PVR): 0 99312-Eqyl Void Residual by ultrasound Results AMB Urinalysis, Automated UA Leukoctes 15 Travis/uL Last Edit by [facility] on 09/20/24 16:46 UA Nitrite Positive Last Edit by [facility] on 09/20/24 16:46 UA Urobilinogen 0.2 mg/dL Last Edit by [facility] on 09/20/24 16:46 UA Protein 15 mg/dL Last Edit by [facility] on 09/20/24 16:46 UA pH 6.0 Last Edit by [facility] on 09/20/24 16:46 UA Blood 25 Rufino/uL Last Edit by [facility] on 09/20/24 16:46 UA Specific [place] 1.030 Last Edit by [facility] on 09/20/24 16:46 UA Ketone Negative Last Edit by [facility] on 09/20/24 16:46 UA Bilirubin 0 mg/dL Last Edit by [facility] on 09/20/24 16:46 UA Glucose 0 mg/dL Last Edit by [facility] on 09/20/24 16:46 Results Reviewed Results Reviewed: Laboratory Last Values Urine pH (Auto) 6.0 09/20/24 16:45 Specific [place] (Auto) 1.030 09/20/24 16:45 Urine Protein (Auto) 15 mg/dL 09/20/24 16:45 Glucose (UA)(Auto) 0 mg/dL 09/20/24 16:45 Urine Ketones (Auto) Negative 09/20/24 16:45 Urine Blood (Auto) 25 Rufino/uL 09/20/24 16:45 Urine Nitrite (Auto) Positive 09/20/24 16:45 Urine Bilirubin (Auto) 0 mg/dL 09/20/24 16:45 Urine Urobilinogen (Auto) 0.2 mg/dL 09/20/24 16:45 Leukocyte Esterase (Auto) 15 Travis/uL 09/20/24 16:45 Date of Service: 09/10/24 Procedure(s): US retroperitoneal limited FINDINGS: Right kidney: The right kidney is congenitally absent . Left Kidney: The left kidney measures 14.7 x 7.3 x 6.6 cm. Renal parenchymal echotexture and thickness are normal. There are multiple parapelvic cysts measuring up to 2.7 x 3.5 x 2.6 cm. No solid mass is identified. There is no hydronephrosis or renal calculi. IMPRESSION: Solitary left kidney demonstrating multiple parapelvic cysts. No calculi are identified. Date of Service: 09/19/24 Procedure(s): US bladder FINDINGS: Sonographic examination of the urinary bladder was performed before and after voiding. Before voiding, the urinary bladder measured 12.6 x 10.0 x 12.3, for an estimated volume of809 mL. After voiding, the urinary bladder measured5.4 x 5.3 x 7.8, for an estimated volume of 117 mL. No intrinsic bladder abnormality is identified. A left ureteral jet is identified. IMPRESSION: Post void bladder residual of 117 mL. No intrinsic bladder abnormality is identified. Assessment & Plan Assessment & Plan (1) Solitary kidney, congenital: Code(s): Q60.0 - Renal agenesis, unilateral Category: Medical (2) Foul smelling urine: Code(s): R82.90 - Unspecified abnormal findings in urine Category: Medical (3) Renal cyst: Code(s): N28.1 - Cyst of kidney, acquired Category: Medical (4) Nephrolithiasis: Code(s): N20.0 - Calculus of kidney Category: Medical Plan In office urinalysis results reviewed with the patient today; as noted above; will send for microgen; will await results for potential treatment. Recent retroperitoneal ultrasound results reviewed with the patient today; as noted above. We discussed at length importance of adequate hydration relation to nephrolithiasis, recurrent urinary tract infections, and overall health and well-being. She reports be happy with current voiding parameters. Discussed UTI prevention with D mannose supplement, vitamin-C, increasing fluid intake, behavioral therapy with timed voiding, perineal hygiene and postcoital voiding, and management of constipation with stool softeners and increased fiber intake. Follow-up in 3 months with PVR; or sooner with any issues, concerns, and or questions. Orders: Orders AMB Post Void Residual by ultrasound Today N39.0 - Urinary tract infection, site not specified AMB Urinalysis Automated Today Z13.9 - Encounter for screening, unspecified Medications: Discontinued sulfamethoxazole-trimethoprim 800-160 mg (Bactrim DS) Discontinued Reason: Patient Completed Course 1 tab PO BID 7 days 14 tabs 0RF N39.0 - Urinary tract infection, site not specified Patient Instructions: The patient had an opportunity to ask questions regarding the treatment plan. All questions were answered. Physical exam, labs, and imaging were discussed and reviewed in detail. As well as risks, benefits, and discussion of treatment choices. No major barriers to understanding were identified. The patient expressed understanding and agreement with the above treatment plan. The patient was made aware they should contact our office by phone for worsening of their current condition, the appearance of new symptoms, or with any questions or concerns. Compliance is encouraged with any medications and follow up testing that is ordered. It is a privilege to be allowed the opportunity to participate in? your urological care.? Again, if you have any questions or concerns If you have any questions or concerns please do not hesitate to contact me. The office is [phone]. This note is constructed using voice recognition software. While every effort has been made to ensure accuracy assistant warehouse manager errors may have been included. Yours sincerely, TAYLOR Farr-BC Coding Level of Care Code Est Pt Level 4 (20060) Complex EM visit Add On G2211 Diagnoses Solitary kidney, congenital Q60.0 Foul smelling urine R82.90 Renal cyst N28.1 Nephrolithiasis N20.0 CPT Codes Post Residual Void - PVR CPT Code: 52770-Beci Void Residual by ultrasound ([id number])
--- OUTSIDE RECORDS SUMMARY | 2024-09-20 19:14 | XMS_ITS | Continuity of Care Document ---
Author Organization [facility] vices Address [address] [place] [address] Phone Care Team Providers Care Mix House Tender Name Role Phone Jhonathan Barraza DPM Unavailable [...] Diagnoses Date Provider Providers Copied on Encounter [facility], [address] [place] [address], [facility], tel:[phone] [facility] Podiatry No Information [address] [place] [address], [id number] [address] [place] [address], [id number], [place]. tel:[phone] [facility], [address] [place] [address], [address], tel:[phone] Conversion No Information 2 No Information [facility], [address] [place] [address], [address], tel:[phone] Conversion TENDONITIS ACHILLESPAIN IN LIMB [address] [place] [address], [id number] [address] [place] [address], [id number], [place]. tel:[phone] [facility], [address] [place] [address], [address], tel:[phone] Conversion No Information 2 No Information [facility], [address] [place] [address], [address], tel:[phone] Conversion UNSPECIFIED DISORDERS OF MENSTRUATION AND OTHER ABNORMAL BLEEDING FROM FEMALE GENITAL TRACTBV 2 No Information [facility], [address] [place], [address], [place] tel:[phone] Conversion DYSURIA 1 No Information [facility], [address] [place], [address], [place] tel:[phone] Conversion No Information 1 No Information [facility], [address] [place] [address], [address], [place] tel:[phone] Conversion PELVIC PAINNEPHROLIT HIASIS 1 No Information [facility], [address] [place] [address], [address], [place] tel:[phone] Conversion No Information 1 No Information [facility], [address] [place] [address], [address], [place] tel:[phone] Conversion HEMATURIA, UNSPECIFIEDPR EGNANCY TEST - NEGATIVE RESULT 1 No Information [facility], [address] [place] [address], [address], [place] tel:[phone] Historic Immunization Location No Information 0 No Information [facility], [address] [place] [address], [address], [place] tel:[phone] Conversion OTHER GENERAL COUNSELING AND ADVICE ON CONTRACEPTIVE 0 No Information FOCUSED OUT/PT [facility], [address] [place] [address], [address], [place] tel:[phone] [facility] Womens Health No Information 0 No Information [facility], [address] [place] [address], [address], [place] tel:[phone] Conversion HEPATIITIS A- VACCINE NEEDED 0 No Information [facility], [address] [place] [address], [address], [place] tel:[phone] Conversion NEED FOR PROPHYLACTIC VACCINATION AND INOCULATION AGAINST UNSPECIFIED SINGLE BACTERIAL DISEASE 0 No Information MINIMAL OUT/PT [facility], [address] [place] [address], [address], [place] tel:[phone] [facility] Health No Information Nov-2 9-201 0 No Information OFFICE/OUTPATI ENT VISIT, EST [facility], [address] [place] [address], [address], [place] tel:[phone] [facility] Adult Medicine No Information Nov-1 4-201 0 No Information [facility], [address] [place] [address], [address], [place] tel:[phone] Conversion CONTACT DERMATITIS Nov-1 4-201 0 No Information [facility], [address] [place] [address], [address], [place] tel:[phone] Conversion SCREENING EXAMINATION FOR VENEREAL DISEASEANEMIA Nov-0 8-201 0 No Information [facility], [address] [place] [address], [address], [place] tel:[phone] Conversion ANEMIA, IRON DEFICIENCYHEA DACHE, UNSPECIFIED Mar-3 0-200 9 No Information EXPANDED OUT/PT [facility], [address] [place] [address], [address], [place] tel:[phone] [facility] Adult Medicine No Information Mar-3 0-200 9 No Information DETAILED OUT/PT [facility], [address] [place] [address], [address], [place] tel:[phone] [facility] Adult Medicine No Information Mar-1 6-200 9 No Information [facility], [address] [place] [address], [address], [place] tel:[phone] Conversion ACUTE UPPER RESPIRATORY INFECTIONS OF UNSPECIFIED SITEOTHER SPECIFIED COUNSELING Oct-1 6-200 9 No Information [facility], [address] [place] [address], [address], [place] tel:[phone] Conversion ROUTINE GYNECOLOGICAL EXAMINATION May-0 9-200 8 No Information EXPANDED OUT/PT [facility], [address] [place] [address], [address], [place] tel:[phone] [facility] No Information Oct-0 9-200 8 No Information [facility], [address] [place] [address], [address], [place] tel:[phone] Conversion ACUTE FRONTAL SINUSITIS Elliott-2 6-200 8 No Information [facility], [address] [place], [address], [place] tel:[phone] [facility] Adult Medicine No Information 8 No Information EXPANDED OUT/PT [facility], [address] [place], [address], [place] tel:[phone] [facility] Adult Medicine No Information 8 No Information [facility], [address] [place] [address], [address], [place] tel:[phone] Conversion ENCOUNTERS FOR UNSPECIFIED ADMINISTRATIV E PURPOSE 8 No Information [facility], [address] [place] [address], [address], [place] tel:[phone] Conversion FATIGUE/MALAI SEROUTINE GENERAL MEDICAL EXAMINATION 7 No Information COMPREHENSIVE OUT/PT [facility], [address] [place] [address], [address], [place] tel:[phone] [facility] Adult Medicine No Information 7 No Information EXPANDED OUT/PT [facility], [address] [place] [address], [address], [place] tel:[phone] [facility] Adult Medicine No Information 7 No Information [facility], [address] [place] [address], [address], [place] tel:[phone] Conversion CYSTITIS, ACUTE 7 No Information EXPANDED OUT/PT [facility], [address] [place] [address], [address], [place] tel:[phone] [facility] Adult Medicine No Information 7 No Information [facility], [address] [place] [address], [address], [place] tel:[phone] Conversion LUMBAGOURINAR Y TRACT INFECTION SITE NOT SPECIFIED 7 No Information NEW EXPANDED CONSULT [facility], [address] [place], [address], [place] tel:[phone] [facility] Adult Medicine No Information 7 No Information [facility], [address] [place] [address], [address], [place] tel:[phone] Conversion BACK PAIN W/ RADIATION, UNSPECIFIED 0 [...]
--- OUTSIDE RECORDS SUMMARY | 2024-09-20 19:14 | XMS_ITS | Clinical Summary ---
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 Not on file Not [...] 03/01/2016 Lipid Screening 10/11/2023 10/11/2018, 01/2017, 07/11/2015 [id number] ( season) 2024 022, 01/29/2021 Alcohol and [...] / Unknown 01/08/2019 1:18 PM EDT Impressions [facility] - 01/08/2019 1:18 PM EDT Thinprep pap: Negative for squamous intraepithelial lesion and malignancy HPV: negative us [facility] - NO BLOOD DRAW Final Result [facility] [address] [place] [address], [place] [phone] * (ABNORMAL) LIPID PANEL (10/11/2018 4:05 PM EST) CHOLESTEROL 182 0 - 200 mg/dL [facility] TRIGLYCERIDES 149 0 - 150 mg/dL [facility] HDL CHOLESTEROL 48 >40 mg/dL [facility] LDL CALCULATED 105(H) 0 - 100 mg/dL [facility] TC-HDLC RATIO 3.8 0 - 4.4 mg/dL [facility] Blood specimen (specimen) Blood / Unknown 10/11/2018 4:05 PM EST 10/11/2018 4:15 PM EST Narrative [facility] - 10/11/2018 8:14 PM EST [facility], [place] [address] Picking Tech - Tory Acosta MD PT ID [id number] ORD# [id number] [facility] - BLOOD DRAW Edited Result - Final Performing Organization Address City/State/[facility] [place] [address], * COMPRE METAB PANEL (10/11/2018 4:05 PM EST) GLUCOSE 83 70 - 100 mg/dL [facility] Comment:Reference range appl icable to fasting specimens only BUN 13 5 - 25 mg/dL [facility] CREAT 0.78 0.5 - 1.1 mg/dL [facility] GLOMERULAR FILTRATION RATE > 60 [facility] Comment: If patient is -[place], multiply result by 1.21 Chronic Kidney Disease: < 60 ml/min/1.73 square meters Kidney Failure: < 15 ml/min/1.73 square meters SODIUM 140 133 - 145 mmol/L [facility] POTASSIUM 3.8 3.5 - 5.5 mmol/L [facility] CHLORIDE 106 96 - 110 mmol/L [facility] CO2 27 21 - 32 mmol/L [facility] ANION GAP 7 3 - 11 [facility] CALCIUM 9.0 8.5 - 10.5 mg/dL [facility] ALBUMIN 3.5 3.2 - 5.0 G/dL [facility] SGPT 41 10 - 60 U/L [facility] TOTAL PROTEIN 7.3 6.0 - 8.0 G/dL [facility] BILI, TOTAL 0.3 0.0 - 1.4 mg/dL [facility] SGOT 26 10 - 42 U/L [facility] ALK PHOS 87 42 - 121 U/L [facility] Blood specimen (specimen) Blood / Unknown 10/11/2018 4:05 PM EST 10/11/2018 4:15 PM EST [facility] - 10/11/2018 8:14 PM EST [facility], [place] [address] Picking Tech - Tory Acosta MD PT ID [id number] ORD# [id number] [facility] - BLOOD DRAW Edited Result - Final [address] [address], * HIV-1 & HIV-2 ANTIBODIES (07/27/2017 4:25 PM EST) [facility] HIV 1 AND 2 ANTIBODY SCREEN NEGATIVE NEGATIVE [facility] Comment: This assay is [...] PM EST 07/27/2017 6:21 PM EST Jennifer [facility] - 07/27/2017 7:58 PM EST [facility] [address] [place] [address] PT ID [id number] ORD# [id number] [facility] - BLOOD DRAW Final Result [facility] [address] [place] [address], from Last 3 Months or Most Recently Relevant to Health Maintenance Insurance [facility] [employer] Member Subscriber Plan / Payer (Ef fective 2021-Present) Name:Jenna Ortiz Relation to Subscriber:Self Name:Jenna Ortiz Payer ID:[id number] Group ID:[id number] Type:Medicaid Address: [facility] [address] [place] [address] Care Teams Farm Boss Relationship Specialty Start Date End Date Shelly Cadet FNP [facility] [place] [address] PCP - General 03/05/19
--- OUTSIDE RECORDS SUMMARY | 2024-09-20 19:14 | XMS_ITS | Continuity of Care Document ---
Author Organization [facility] vices Address [address] [place] [address] Phone Care Team Providers Care Salesperson [employer] Name Role Phone Unavailable Unavailable Unavailable Procedures Procedure Date EXPANDED OUT/PT EXPANDED OUT/PT Advance Directives Directive Yes / No Effective Date File Name No Information Encounters Encounter Description Practice Location Reason(s) For Visit Diagnoses Date Provider Providers Copied on Encounter [facility], [address] [place] [address], [address], tel:[phone] Conversion No Information 2 No Information [facility], [address] [place] [address], tel:[phone] Conversion ENCOUNTERS FOR UNSPECIFIED ADMINISTRATIVE PURPOSE 7 No Information EXPANDED OUT/PT [facility], [address] [place] [address], [address], [place] tel:[phone] [facility] Adult Medicine No Information No Information [facility], [address] [place] [address], [address], tel:[phone] Conversion ROUTINE GYNECOLOGICAL EXAMINATION No Information EXPANDED OUT/PT [facility], [address] [place] [address], [place] tel:[phone] [facility] Womens Health No Information 7 [...]
--- OUTSIDE RECORDS SUMMARY | 2024-09-20 19:14 | XMS_ITS | Clinical Summary ---
Author Organization [facility] ity Address [address] [place] [address] Care Team Providers Care Lining Ironer Name Role Phone Darion Mohan MD Primary Care Provider [phone] Social History Tobacco Use Types Packs/Day Years [...] age to complete this topic Care Teams Lining Ironer Relationship Specialty Start Date End Date Darion Mohan MD [address] [facility] [address] [place] [address] PCP - General Internal Medicine 06/12/21
== END 2024-09-20 15:59 | disposition home or self-care (01) ==
PROVIDERS: PCP Internal Medicine; Visit Provider Nurse Practitioner Family
DX: Q60.0 Renal agenesis, unilateral (principal); R82.90 Unspecified abnormal findings in urine; N28.1 Cyst of kidney, acquired; N20.0 Calculus of kidney; Z13.9 Encounter for screening, unspecified
CPT/HCPCS: 99214; G2211

== ENCOUNTER → 2024-09-20 15:28 | Outpatient (BNVA) | payer OTHER, SELFPAY | PROVIDERS: PCP Internal Medicine; Visit Provider Nurse Practitioner Family | DX: R82.90 Unspecified abnormal findings in urine (principal); Q60.0 Renal agenesis, unilateral; N28.1 Cyst of kidney, acquired; N20.0 Calculus of kidney; N39.0 Urinary tract infection, site not specified | CPT/HCPCS: 51798; 81003; 99212 ==

== ENCOUNTER → 2024-09-26 10:59 | Outpatient (BNVA) | payer OTHER, SELFPAY | PROVIDERS: PCP Internal Medicine; Visit Provider Obstetrics & Gynecology | DX: D25.9 Leiomyoma of uterus, unspecified (principal); N93.9 Abnormal uterine and vaginal bleeding, unspecified | CPT/HCPCS: 99212 ==

== ENCOUNTER 2024-10-18 12:38 | Outpatient (AMB) | payer OTHER, SELFPAY ==
[2024-10-18 12:52] VITALS: BP 124/82; PULSE 104; TEMP 36.3; O2SAT 98; BMI 33.4
--- NOTE | 2024-10-18 12:52 | MHC.PC.OV ---
Vital Signs 10/18/24 12:52 Height 5 ft 7 in Weight 213 lb BMI 33.4 BP 124/82 Blood Pressure Location Lt brachial Position Sitting Pulse 104 H Pulse Source Pulse Oximeter Temp 97.3 F Temp Source Temporal Artery Scan Pulse Oximetry (%) 98 Oxygen Delivery Method Room Air Intake Visit Reasons: Surgery follow up Intake Note: Patient is here to follow up on Surgery. Helpdesk Administrator Required: No Accompanied by: Self / Same As Patient Allergies No Known Allergies Allergy (Verified 10/18/24 13:13) Medication List - Last Reconciled 10/18/24 by Jillian Kaminski MD albuterol sulfate 90 mcg/actuation (Ventolin HFA) 2 puffs inhalation Q4-6H PRN betamethasone dipropionate 0.05% 1 appl topical DAILY PRN cholecalciferol (vitamin D3) 25 mcg PO DAILY 90 days ibuprofen 600 mg PO Q6H 7 days levonorgestrel (Mirena) intrauterine metronidazole (Flagyl) 375 mg PO BID 5 days pantoprazole 40 mg PO DAILY 90 days sulfamethoxazole-trimethoprim 800-160 mg (Bactrim DS) 1 tab PO BID 14 days Tobacco use date assessed: 10/18/24 Dental Screening Dental Screen Date: 09/19/24 HPI HPI Comments History of Present Illness Details The patient is a 44-year-old female presenting with concerns related to post-surgical depression, anxiety, insomnia, and fluid retention causing leg edema. Following cosmetic surgery on Sep 29 that included a breast lift, butt lift and tummy tuck, the patient reports experiencing increased anxiety and panic attacks, consistent with a pre-existing condition. This has been accompanied by notable sleep disturbances, characterized by an inability to sleep well or remain asleep through the night, despite attempts to self-manage these symptoms with chamomile tea. The onset of sleep difficulties aligns with the post-surgical period. The patient also describes recurrent fluid retention and edema in her lower extremities, associated with travel to warm climates like [place] and [place]. These episodes typically resolve after returning to a cooler environment. However, the edema, which resolved briefly after her recent return from [place] post-surgery, has re-emerged and persisted since then. [facility] Medical History (Updated 10/18/24 @ 13:31 by Jillian Kaminski MD) Uterine fibroid Acute eczema GERD (gastroesophageal reflux disease) Migraines Hypovitaminosis D Physical exam AMAN (generalized anxiety disorder) Polyarthralgia New daily persistent headache Dyslipidemia Migraine with aura Anemia Surgical History (Updated 10/18/24 @ 13:18 by Jillian Kaminski MD) H/O cosmetic surgery History of sleeve gastrectomy Hx of tubal ligation Hx of section Family History Father Diabetes mellitus ESRD on hemodialysis Mother Acute depression Anxiety Asthma Hypertension Osteoporosis Hypercholesteremia Hyperlipemia Mental health disorder Son No problems noted. Daughter No problems noted. Brother No problems noted. Sister Cervical cancer Maternal Grandmother Lung cancer Maternal Grandfather Throat cancer Social History Household Members: Significant Other and Family Housing: House Alcohol intake: never Patient Tobacco Use Status: Never used Tobacco e-Cigarette/Vaping Use: Never Used Second Hand Smoke Exposure: No service: No Current occupational status: employed Current occupational exposures/hazards: No Gender identity: Female Cognitive needs: No Hearing needs: No Vision needs: No Female Reproductive History Menstrual Age of Menarche: 9 Questionnaire PHQ-9 Over the last 2 weeks, how often have you been bothered by any of the following problems? 1. Little interest or pleasure in doing things: several days 2. Feeling down, depressed, or hopeless: not at all 3. Trouble falling or staying asleep, or sleeping too much: nearly every day 4. Feeling tired or having little energy: nearly every day 5. Poor appetite or overeating: several days 6. Feeling bad about yourself - or that you are a failure or have let yourself or your family down: not at all 7. Trouble concentrating on things, such as reading the newspaper or watching television: more than half the days 8. Moving or speaking so slowly that other people could have noticed. Or the opposite - being so fidgety or restless that you have been moving around a lot more than usual: more than half the days 9. Thoughts that you would be better off or of hurting yourself in some way: not at all Total score: 12 Depression Screening Interpretation: Positive Depression Screening Follow-up: Existing condition, New Medication prescribed and Follow-up Visit Requested Depression Screening Done: Yes 97466 - PHQ-9 Billing: Yes Source: Developed by Drs. Yonis Bradshaw, Lily Willett, Fransisco Godoy and colleagues, with an educational dylon from [employer] Thrive Questionnaire Date Thrive assessed: 09/19/24 AMAN-7 AMB Questionnaire AMAN-7 Date AMAN - 7 assessed: 09/19/24 Source: Developed by Drs. Yonis Bradshaw, Lily Willett, Fransisco Godoy and colleagues, with an educational dylon from [employer] Review of Systems Const All systems reviewed & are unremarkable except as noted in HPI and below Card Denies chest pain at rest, Denies chest pain with activity, Denies edema, Denies irregular heart rhythm, Denies claudication, Denies dyspnea, Denies dyspnea on exertion, Denies orthopnea, Denies paroxysmal nocturnal dyspnea and Denies slow heart rate Resp Denies cough, Denies dyspnea and Denies dyspnea on exertion GI Denies abdominal pain, Denies change in bowel habits, Denies excessive flatus, Denies nausea and Denies vomiting Physical exam (Primary Care) Vital Signs: Last Vital Signs Temp 97.3 F 10/18/24 12:52 Pulse 104 H 10/18/24 12:52 BP 124/82 10/18/24 12:52 Pulse Ox 98 10/18/24 12:52 Oxygen Delivery Method Room Air 10/18/24 12:52 BMI result Body Mass Index 33.4 BMI Assessment/Plan discussion: High BMI High, discussed plan: lifestyle, weight reduction, dietary and physical activity Tobacco/Smoking Status: Tobacco use Status Tobacco use date assessed 10/18/24 10/18/24 12:53 Patient Tobacco Use Status Never used Tobacco 10/18/24 12:53 e-Cigarette/Vaping Use Never Used 10/18/24 12:53 PHQ-9: PHQ-9 Score PHQ-9: Total score 12 10/18/24 13:35 Depression Screening Interpretation: Positive Depression Screening Follow-up: Existing condition, New Medication prescribed and Follow-up Visit Requested Thrive Assessment: Date of Thrive Assessment Date Thrive assessed 09/19/24 10/18/24 12:53 Resp Effort & Inspection: normal respiratory effort Auscultation: clear to auscultation bilaterally Cardio Jugular venous distension: no JVD Rate: regular rate Rhythm: regular rhythm Heart sounds: S1 normal heart sound present and S2 normal heart sound present Neuro General: no focal motor deficits Extrem General: Yes full ROM Right lower extremity: lower leg Details: pitting edema Left lower extremity: lower leg Details: pitting edema Coding Level of Care Code Est Pt Level 4 (92420) Complex EM visit Add On G2211 Diagnoses Leg edema R60.0 Mild major depression F32.0 Anxiety F41.9 Insomnia G47.00 Additional Codes PHQ-9 - 59025 - PHQ-9 Billing: Yes ([id number]) Time Spent (min) 23 Assessment & Plan Assessment & Plan (1) Leg edema: Code(s): R60.0 - Localized edema Category: Medical (2) Mild major depression: Code(s): F32.0 - Major depressive disorder, single episode, mild Category: Medical (3) Anxiety: Code(s): F41.9 - Anxiety disorder, unspecified Category: Medical (4) Insomnia: Code(s): G47.00 - Insomnia, unspecified Category: Medical Plan Management of the patient's post-surgical anxiety and panic attacks includes a prescription for short-term anxiolytics to help with sleep disturbances. Fluid retention and edema in the lower extremities will be treated with a diuretic for seven days, with a plan to reassess if symptoms persist. Laboratory evaluation may be considered if fluid retention recurs. The patient is advised to monitor her weight regularly to assess fluid retention severity. Patient was informed and verbally consented to the use of an ambient scribe for clinic note documentation during this visit. During the consultation, I discussed the patient's symptoms of anxiety, insomnia, and fluid retention, which have been exacerbated or initiated post-surgery. We reviewed the potential benefits and risks of using a short-term prescription medication to help manage her anxiety and sleep difficulties. In terms of fluid retention, we agreed on initiating a diuretic for a trial period of seven days, fully understanding the need to revisit the treatment strategy should symptoms persist. I encouraged regular self-monitoring of weight as an indicator of fluid retention levels and highlighted the importance of staying alert for signs that might necessitate further evaluation. Medications: New trazodone 50 mg PO BEDTIME PRN 90 tabs 0RF sleep 90 days furosemide 20 mg PO DAILY 7 tabs 0RF 7 days Patient Instructions: - Take prescribed medication for anxiety and sleep as directed. - Use diuretic as prescribed for the next seven days. - Monitor weight daily and report any significant changes or increases. - Seek medical attention if symptoms of swelling worsen or do not improve after the current treatment course. - Continue non-pharmacologic approaches like relaxation techniques for anxiety management and sleep hygiene practices. - Return for follow-up as scheduled or sooner if symptoms worsen or new symptoms develop.
--- OUTSIDE RECORDS SUMMARY | 2024-10-18 15:00 | XMS_ITS | Continuity of Care Document ---
Author Organization [facility] vices Address [address] [place] [address] Phone Care Team Providers Care Smash Fixer Name Role Phone Jhonathan Barraza DPM Unavailable [...] Providers Copied on Encounter [facility], [address] [place] [address], [facility], tel:[phone] [facility] Podiatry No Information [address] [place] [address], [id number] [address] [place] [address], [id number], [place]. tel:[phone] [facility], [address] [place] [address], [address], tel:[phone] Conversion No Information [address] [facility], [address] [place] [address], [address], tel:[phone] Conversion TENDONITIS ACHILLESPAIN IN LIMB 2 [address] [place] [address], [id number] [address] [place] [address], [id number], [place]. tel:[phone] [facility], [address] [place] [address], [address], tel:[phone] Conversion No Information [address] [facility], [address] [place] [address], [address], tel:[phone] Conversion UNSPECIFIED DISORDERS OF MENSTRUATION AND OTHER ABNORMAL BLEEDING FROM FEMALE GENITAL TRACTBV 2 No Information [facility], [address] [place], [address], [place] tel:[phone] Conversion DYSURIA 1 No Information [facility], [address] [place], [address], [place] tel:[phone] Conversion No Information 1 No Information [facility], [address] [place] [address], [address], [place] tel:[phone] Conversion PELVIC PAINNEPHROLIT HIASIS 1 No Information [facility], [address] [place] [address], [address], [place] tel:[phone] Conversion No Information 1 No Information [facility], [address] [place] [address], [address], [place] tel:[phone] Conversion HEMATURIA, UNSPECIFIEDPR EGNANCY TEST - NEGATIVE RESULT 1 No Information [facility], [address] [place] [address], [address], [place] tel:[phone] Historic Immunization Location No Information 0 No Information [facility], [address] [place] [address], [address], [place] tel:[phone] Conversion OTHER GENERAL COUNSELING AND ADVICE ON CONTRACEPTIVE 0 No Information FOCUSED OUT/PT [facility], [address] [place] [address], [address], [place] tel:[phone] [facility] Womens Health No Information 0 No Information [facility], [address] [place] [address], [address], [place] tel:[phone] Conversion HEPATIITIS A- VACCINE NEEDED 0 No Information [facility], [address] [place] [address], [address], [place] tel:[phone] Conversion NEED FOR PROPHYLACTIC VACCINATION AND INOCULATION AGAINST UNSPECIFIED SINGLE BACTERIAL DISEASE 0 No Information MINIMAL OUT/PT [facility], [address] [place] [address], [address], [place] tel:[phone] [facility] No Information Nov-2 9-201 0 No Information OFFICE/OUTPATI ENT VISIT, EST [facility], [address] [place] [address], [address], [place] tel:[phone] [facility] Adult Medicine No Information Nov-1 4-201 0 No Information [facility], [address] [place] [address], [address], [place] tel:[phone] Conversion CONTACT DERMATITIS Nov-1 4-201 0 No Information [facility], [address] [place] [address], [address], [place] tel:[phone] Conversion SCREENING EXAMINATION FOR VENEREAL DISEASEANEMIA Nov-0 8-201 0 No Information [facility], [address] [place] [address], [address], [place] tel:[phone] Conversion ANEMIA, IRON DEFICIENCYHEA DACHE, UNSPECIFIED Mar-3 0-200 9 No Information EXPANDED OUT/PT [facility], [address] [place] [address], [address], [place] tel:[phone] [facility] Adult Medicine No Information Mar-3 0-200 9 No Information DETAILED OUT/PT [facility], [address] [place] [address], [address], [place] tel:[phone] [facility] Adult Medicine No Information Mar-1 6-200 9 No Information [facility], [address] [place] [address], [address], [place] tel:[phone] Conversion ACUTE UPPER RESPIRATORY INFECTIONS OF UNSPECIFIED SITEOTHER SPECIFIED COUNSELING Oct-1 6-200 9 No Information [facility], [address] [place] [address], [address], [place] tel:[phone] Conversion ROUTINE GYNECOLOGICAL EXAMINATION May-0 9-200 8 No Information EXPANDED OUT/PT [facility], [address] [place] [address], [address], [place] tel:[phone] [facility] No Information Oct-0 9-200 8 No Information [facility], [address] [place] [address], [address], [place] tel:[phone] Conversion ACUTE FRONTAL SINUSITIS Elliott-2 6-200 8 No Information EXPANDED OUT/PT [facility], [address] [place], [address], [place] tel:[phone] [facility] Adult Medicine No Information 8 No Information EXPANDED OUT/PT [facility], [address] [place], [address], [place] tel:[phone] [facility] Adult Medicine No Information 8 No Information [facility], [address] [place] [address], [address], [place] tel:[phone] Conversion ENCOUNTERS FOR UNSPECIFIED ADMINISTRATIV E PURPOSE 8 No Information [facility], [address] [place] [address], [address], [place] tel:[phone] Conversion FATIGUE/MALAI SEROUTINE GENERAL MEDICAL EXAMINATION 7 No Information COMPREHENSIVE OUT/PT [facility], [address] [place] [address], [address], [place] tel:[phone] [facility] Adult Medicine No Information 7 No Information EXPANDED OUT/PT [facility], [address] [place] [address], [address], [place] tel:[phone] [facility] Adult Medicine No Information 7 No Information [facility], [address] [place] [address], [address], [place] tel:[phone] Conversion CYSTITIS, ACUTE 7 No Information EXPANDED OUT/PT [facility], [address] [place] [address], [address], [place] tel:[phone] [facility] Adult Medicine No Information 7 No Information [facility], [address] [place] [address], [address], [place] tel:[phone] Conversion LUMBAGOURINAR Y TRACT INFECTION SITE NOT SPECIFIED 7 No Information NEW EXPANDED CONSULT [facility], [address] [place], [address], [place] tel:[phone] [facility] Adult Medicine No Information 7 No Information [facility], [address] [place] [address], [address], [place] tel:[phone] Conversion BACK PAIN W/ RADIATION, UNSPECIFIED 0 [...]
--- OUTSIDE RECORDS SUMMARY | 2024-10-18 15:00 | XMS_ITS | Clinical Summary ---
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 file Not [...] 03/01/2016 Lipid Screening 10/11/2023 10/11/2018, 01/2017, 07/11/2015 [id number] ( season) 2024 022, 01/29/2021 Alcohol and Drug Screen 08/22/2024 10/11/19 19, 07/27/2017, 07/27/2017, Additional history exists Depression Annual Screen 08/22/2024 06/24/2016, 08/2014 Imm-DTaP/Tdap/Td (2 - Td or Tdap) 05/22/2025 [...] / Unknown 01/08/2019 1:18 PM EDT Impressions [facility] - 01/08/2019 1:18 PM EDT Thinprep pap: Negative for squamous intraepithelial lesion and malignancy HPV: negative us [facility] - NO BLOOD DRAW Final Result [facility] [address] [place] [address], * (ABNORMAL) LIPID PANEL (10/11/2018 4:05 PM EST) CHOLESTEROL 182 0 - 200 mg/dL [facility] TRIGLYCERIDES 149 0 - 150 mg/dL [facility] HDL CHOLESTEROL 48 >40 mg/dL [facility] LDL CALCULATED 105(H) 0 - 100 mg/dL [facility] TC-HDLC RATIO 3.8 0 - 4.4 mg/dL [facility] Blood specimen (specimen) Blood / Unknown 10/11/2018 4:05 PM EST 10/11/2018 4:[address] [facility] - 10/11/2018 8:14 PM EST [facility], [place] [address] Spud Sorter - Tory Acosta MD [place] ID [id number] ORD# [id number] [facility] - BLOOD DRAW Edited Result - Final Performing Organization Address City/State/[facility] [place] [address], * COMPRE METAB PANEL (10/11/2018 4:05 PM EST) GLUCOSE 83 70 - 100 mg/dL [facility] Comment:Reference range appl icable to fasting specimens only BUN 13 5 - 25 mg/dL [facility] CREAT 0.78 0.5 - 1.1 mg/dL [facility] GLOMERULAR FILTRATION RATE > 60 [facility] Comment: If patient is -Citizen Of [place], multiply result by 1.21 Chronic Kidney Disease: < 60 ml/min/1.73 square meters Kidney Failure: < 15 ml/min/1.73 square meters SODIUM 140 133 - 145 mmol/L [facility] POTASSIUM 3.8 3.5 - 5.5 mmol/L [facility] CHLORIDE 106 96 - 110 mmol/L [facility] CO2 27 21 - 32 mmol/L [facility] ANION GAP 7 3 - 11 [facility] CALCIUM 9.0 8.5 - 10.5 mg/dL [facility] ALBUMIN 3.5 3.2 - 5.0 G/dL [facility] SGPT 41 10 - 60 U/L [facility] TOTAL PROTEIN 7.3 6.0 - 8.0 G/dL [facility] BILI, TOTAL 0.3 0.0 - 1.4 mg/dL [facility] SGOT 26 10 - 42 U/L [facility] ALK PHOS 87 42 - 121 U/L [facility] Blood specimen (specimen) Blood / Unknown 10/11/2018 4:05 PM EST 10/11/2018 4:[address] [facility] - 10/11/2018 8:14 PM EST [facility] [employer], [place] [address] Spud Sorter - Tory Acosta MD PT ID [id number] ORD# [id number] [facility] - BLOOD DRAW Edited Result - Final [address] [address], * HIV-1 & HIV-2 ANTIBODIES (07/27/2017 4:25 PM EST) [facility] HIV 1 AND 2 ANTIBODY SCREEN NEGATIVE [...] PM EST 07/27/2017 6:[address] [facility] - 07/27/2017 7:58 PM EST [facility] [employer] [address] [place] [address] PT ID [id number] ORD# [id number] us [facility] - BLOOD DRAW Final Result [facility] [address] [place] [address], from Last 3 Months or Most Recently Relevant to Health Maintenance Insurance [facility] [facility] Member Subscriber Plan / Payer (Ef fective 2021-Present) Name:Jenna Ortiz Relation to Subscriber:Self Name:Jenna Ortiz Payer ID:[id number] Group ID:[id number] Type:Medicaid Address: [facility] [address] [place] [address] Care Teams Rn Procedure Relationship Specialty Start Date End Date Shelly Cadet FNP [address] [place] [address] PCP - General 03/05/19
--- OUTSIDE RECORDS SUMMARY | 2024-10-18 15:00 | XMS_ITS | Clinical Summary ---
Author Organization [facility] ity Address [address] [place] [address] Care Team Providers Care Electronic Organ Mechanic Name Role Phone Darion Mohan MD Primary Care Provider [phone] Social History Tobacco Use Types Packs/Day Years Used Date Smoking Tobacco: Never Assessed Comments Unknown Sex and Gender Information Value Date Recorded Sex Assigned at Not on file Legal Sex Female 9:52 AM EST Gender Identity Not on file Sexual Orientation [...] patient's age to complete this topic Meningococcal B Vacine Aged Out No lo nger eligible based on patient's age to complete [...] age to complete this topic Care Teams Electronic Organ Mechanic Relationship Specialty Start Date End Date Darion Mohan MD [address] [place] [address] Drive [address] [place] [address] PCP - General Internal Medicine 06/12/21
--- OUTSIDE RECORDS SUMMARY | 2024-10-18 15:00 | XMS_ITS | Continuity of Care Document ---
Author Organization [facility] vices Address [address] [place] [address] Phone Care Team Providers Care Auto Service Mechanic Name Role Phone Unavailable Unavailable Unavailable Procedures Procedure Date EXPANDED OUT/PT EXPANDED OUT/PT Advance Directives Directive Yes / No Effective Date File Name No Information Encounters Encounter Description Practice Location Reason(s) For Visit Diagnoses Date Provider Providers Copied on Encounter [facility], [address] [place] [address], [address], tel:[phone] Conversion No Information 2 No Information [facility], [address] [place] [address], tel:[phone] Conversion ENCOUNTERS FOR UNSPECIFIED ADMINISTRATIVE PURPOSE 7 No Information EXPANDED OUT/PT [facility], [address] [place] [address], [address], [place] tel:[phone] [facility] Adult Medicine No Information No Information [facility], [address] [place] [address], [address], tel:[phone] Conversion ROUTINE GYNECOLOGICAL EXAMINATION No Information EXPANDED OUT/PT [facility], [address] [place] [address], [place] tel:[phone] [facility] Womens Health No Information 7 No [...]
== END 2024-10-18 13:23 | disposition home or self-care (01) ==
PROVIDERS: PCP Internal Medicine; Visit Provider Internal Medicine
DX: R60.0 Localized edema (principal); F32.0 Major depressive disorder, single episode, mild; F41.9 Anxiety disorder, unspecified; G47.00 Insomnia, unspecified

== ENCOUNTER → 2024-10-18 12:38 | Outpatient (BNVA) | payer OTHER, SELFPAY | PROVIDERS: PCP Internal Medicine; Visit Provider Internal Medicine | DX: R60.0 Localized edema (principal); F32.0 Major depressive disorder, single episode, mild; F41.9 Anxiety disorder, unspecified; G47.00 Insomnia, unspecified | CPT/HCPCS: 96127; 99212 ==

== ENCOUNTER 2024-11-26 15:29 | Outpatient (REF) | payer OTHER, SELFPAY ==
--- NOTE | ~2024-11-26 | US_ITS ---
EXAMINATION: US PELVIS TRANSABDOMINAL AND TRANSVAGINAL HISTORY: D25.9 - Leiomyoma of uterus, unspecified COMPARISON: Comparison is made with a prior examination dated 05/08/2024. TECHNIQUE: Transabdominal and endovaginal real-time 2D machado-scale ultrasound was performed. FINDINGS: Uterus: The uterus is normal in size, measuring 11.4 x 4.2 x 5.7 cm. Myometrium has a normal echotexture. Again seen is a fundal fibroid measuring 1.8 x 1.7 x 1.7 cm (previously 1.6 x 1.6 x 2.0 cm). Endometrium: The endometrial stripe measures 3 mm in thickness. An IUD is seen in the appropriate position in the endometrial cavity. There are nabothian cysts in the cervix. Right ovary: The right ovary measures 1.9 x 1.1 x 1.4 cm. The right ovary is normal in size and echotexture. Left ovary: The left ovary measures 1.9 x 1.8 x 1.6 cm. The left ovary is normal in size and echotexture. Pelvic fluid: none. US/US pelvic and transvaginal IMPRESSION: 1. Stable 1.8 x 1.7 x 1.7 cm fundal fibroid. 2. IUD in the expected position in the endometrial cavity. Electronically signed by: Yonis Heath MD 11/27/2024 07:02 AM EDT
--- OUTSIDE RECORDS SUMMARY | 2024-11-26 18:14 | XMS_ITS | Continuity of Care Document ---
Author Organization [facility] vices Address [address] [place] [address] Phone Care Team Providers Care Loop Sewer Name Role Phone Unavailable Unavailable Unavailable Procedures Procedure Date EXPANDED OUT/PT EXPANDED OUT/PT Advance Directives Directive Yes / No Effective Date File Name No Information Encounters Encounter Description Practice Location Reason(s) For Visit Diagnoses Date Provider Providers Copied on Encounter [facility], [address] [place] [address], [address], tel:[phone] Conversion No Information No Information [facility], [address] [place] [address], tel:[phone] Conversion ENCOUNTERS FOR UNSPECIFIED ADMINISTRATIVE PURPOSE 7 No Information EXPANDED OUT/PT [facility], [address] [place] [address], [address], [place] tel:[phone] [facility] Adult Medicine No Information No Information [facility], [address] [place] [address], [address], tel:[phone] Conversion ROUTINE GYNECOLOGICAL EXAMINATION No Information EXPANDED OUT/PT [facility], [address] [place] [address], [place] tel:[phone] [facility] Womens Health No Information 7 No Information [...]
--- OUTSIDE RECORDS SUMMARY | 2024-11-26 18:14 | XMS_ITS | Clinical Summary ---
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 Not on file Not [...] Health Maintenance Due Date Last Done Comments Anxiety Screening 1980 HPV Screening 1980 Hepatitis C Screening 1980 [...] 03/01/2016 Lipid Screening 10/11/2023 10/11/2018, 01/2017, 07/11/2015 [id number] ( season) 2024 022, 01/29/2021 Alcohol and Drug Screen 08/22/2024 10/11/19 19, 07/27/2017, 07/27/2017, Additional history exists Depression Annual Screen 08/22/2024 06/24/2016, 08/2014 Imm-DTaP/Tdap/Td (2 - Td or Tdap) 05/22/2025 015 Imm-Hepatitis B Completed 05/27/2015, 01/2015, 06/24/2010, Additional [...] EST Routine [facility] ANTIBODY HIV-1&HIV-2 SINGLE RESULT Routine 07/27/2017 4:25 PM EST Encounter for screening for HIV from Last 3 Months or Most Recently Relevant to Health Maintenance Results * PAP, LIQUID BASED (01/08/2019 1:18 PM EDT) Specimen from uterine cervix (specimen) Cervix uteri structure / Unknown 01/08/2019 1:18 PM EDT Impressions [facility] - 01/08/2019 1:18 PM EDT Thinprep pap: Negative for squamous intraepithelial lesion and malignancy HPV: negative us [facility] - NO BLOOD DRAW Final Result [facility] [address] [place] [address], * (ABNORMAL) LIPID PANEL (10/11/2018 4:05 PM [...] PM EST 10/11/2018 4:15 PM EST Narrative [facility] - 10/11/2018 8:14 PM EST [facility], [place] [address] Network Architect Manager - Tory Acosta MD PT ID [id number] ORD# [id number] [facility] - BLOOD DRAW [place] [address], * COMPRE METAB PANEL (10/11/2018 4:05 PM EST) GLUCOSE 83 70 - 100 mg/dL [facility] Comment:Reference range appl icable to fasting specimens only BUN 13 5 - 25 mg/dL [facility] CREAT 0.78 0.5 - 1.1 mg/dL [facility] GLOMERULAR FILTRATION RATE > 60 [facility] Comment: If patient is -[place], multiply result by 1.21 Chronic Kidney Disease: < 60 ml/min/1.73 square meters Kidney Failure: < 15 ml/min/1.73 square meters SODIUM 140 133 - 145 mmol/L [facility] POTASSIUM 3.8 3.5 - 5.5 mmol/L [facility] CHLORIDE 106 96 - 110 mmol/L [facility] CO2 27 21 - 32 mmol/L [facility] ANION GAP 7 3 - 11 [facility] CALCIUM 9.0 8.5 - 10.5 mg/dL [facility] ALBUMIN 3.5 3.2 - 5.0 G/dL [facility] SGPT 41 10 - 60 U/L [facility] TOTAL PROTEIN 7.3 6.0 - 8.0 G/dL [facility] BILI, TOTAL 0.3 0.0 - 1.4 mg/dL [facility] SGOT 26 10 - 42 U/L [facility] ALK PHOS 87 42 - 121 U/L [facility] Blood specimen (specimen) Blood / Unknown 10/11/2018 4:05 PM EST 10/11/2018 4:15 PM EST Jennifer [facility] - 10/11/2018 8:14 PM EST [employer], [place] [address] Network Architect Manager - Tory Acosta MD PT ID [id number] ORD# [id number] [facility] - BLOOD DRAW Edited Result - Final Performing Organization Address [facility] de Phone Number [address] [address], * HIV-1 & HIV-2 ANTIBODIES (07/27/2017 4:25 PM EST) [facility] HIV 1 AND 2 ANTIBODY SCREEN NEGATIVE NEGATIVE [facility] Comment: This assay is a 4th [...] PM EST 07/27/2017 6:21 PM EST Jennifer [facility] - 07/27/2017 7:58 PM EST [facility] [employer] [address] [place] [address] PT ID [id number] ORD# [id number] [facility] - BLOOD DRAW Final Result Performing Organization Address [facility] de Phone Number [facility] [address] [place] [address], from Last 3 Months or Most Recently Relevant to Health Maintenance Insurance [facility] [employer] [facility] Member Subscriber Plan / Payer (Ef fective 2021-Present) Name:Jenna Ortiz Relation to Subscriber:Self Name:Jenna Ortiz Payer ID:[id number] Group ID:[id number] Type:Medicaid Address: [facility] [address] [place] [address] Care Teams Barista Relationship Specialty Start Date End Date Shelly Cadet FNP [address] [place] [address] PCP - General 03/05/19
--- OUTSIDE RECORDS SUMMARY | 2024-11-26 18:14 | XMS_ITS | Continuity of Care Document ---
Author Organization [facility] [facility] vices Address [address] [place] [address] Phone Care Team Providers Care Hospice Music Therapist Name Role Phone Unavailable Unavailable Unavailable Medications [...] Diagnoses Date Provider Providers Copied on Encounter [facility], [address] [place] [address], [facility], tel:[phone] [facility] Podiatry No Information 2 No Information [facility], [address] [place] [address], [facility], tel:[phone] Conversion No Information 2 No Information [facility], [address] [place] [address], [facility], tel:[phone] Conversion TENDONITIS ACHILLESPAIN IN LIMB 2 No Information [facility], [address] [place] [address], [facility], tel:[phone] Conversion No Information 2 No Information [facility], [address] [place] [address], [facility], [place] tel:[phone] Conversion UNSPECIFIED DISORDERS OF MENSTRUATION AND OTHER ABNORMAL BLEEDING FROM FEMALE GENITAL TRACTBV 2 No Information [facility], [address] [place] [address], [facility], tel:[phone] Conversion DYSURIA 1 No Information [facility], [address] [place] [address], [facility], [place] tel:[phone] Conversion No Information 1 No Information [facility], [address] [place] [address], [address], [place] tel:[phone] Conversion PELVIC PAINNEPHROLIT HIASIS 1 No Information [facility], [address] [place] [address], [address], [place] tel:[phone] Conversion No Information 1 No Information [facility], [address] [place] [address], [address], [place] tel:[phone] Conversion HEMATURIA, UNSPECIFIEDPR EGNANCY TEST - NEGATIVE RESULT 1 No Information [facility], [address] [place] [address], [address], [place] tel:[phone] Historic Immunization Location No Information 0 No Information [facility], [address] [place] [address], [address], [place] tel:[phone] Conversion OTHER GENERAL COUNSELING AND ADVICE ON CONTRACEPTIVE 0 No Information FOCUSED OUT/PT [facility], [address] [place] [address], [address], [place] tel:[phone] [facility] No Information 0 No Information [facility], [address] [place] [address], [address], [place] tel:[phone] Conversion HEPATIITIS A- VACCINE NEEDED 0 No Information [facility], [address] [place] [address], [address], [place] tel:[phone] Conversion NEED FOR PROPHYLACTIC VACCINATION AND INOCULATION AGAINST UNSPECIFIED SINGLE BACTERIAL DISEASE 0 No Information MINIMAL OUT/PT [facility], [address] [place] [address], [address], [place] tel:[phone] [facility] No Information 0 No Information OFFICE/OUTPATI ENT VISIT, EST [facility], [address] [place] [address], [address], [place] tel:[phone] [facility] Adult Medicine No Information 0 No Information [facility], [address] [place] [address], [address], [place] tel:[phone] Conversion CONTACT DERMATITIS Apr-1 4-201 0 No Information [facility], [address] [place] [address], [address], [place] tel:[phone] Conversion SCREENING EXAMINATION FOR VENEREAL DISEASEANEMIA Apr-0 8-201 0 No Information [facility], [address] [place] [address], [address], [place] tel:[phone] Conversion ANEMIA, IRON DEFICIENCYHEA DACHE, UNSPECIFIED Mar-3 0-200 9 No Information EXPANDED OUT/PT [facility], [address] [place] [address], [address], [place] tel:[phone] [facility] Adult Medicine No Information Oct-3 0-200 9 No Information DETAILED OUT/PT [facility], [address] [place] [address], [address], [place] tel:[phone] [facility] Adult Medicine No Information Oct-1 6-200 9 No Information [facility], [address] [place] [address], [address], [place] tel:[phone] Conversion ACUTE UPPER RESPIRATORY INFECTIONS OF UNSPECIFIED SITEOTHER SPECIFIED COUNSELING Oct-1 6-200 9 No Information [facility], [address] [place] [address], [address], [place] tel:[phone] Conversion ROUTINE GYNECOLOGICAL EXAMINATION Oct-0 9-200 8 No Information EXPANDED OUT/PT [facility], [address] [place] [address], [address], [place] tel:[phone] [facility] No Information May-0 9-200 8 No Information [facility], [address] [place] [address], [address], [place] tel:[phone] Conversion ACUTE FRONTAL SINUSITIS Elliott-2 6-200 8 No Information EXPANDED OUT/PT [facility], [address] [place] [address], [address], [place] tel:[phone] [facility] Adult Medicine No Information Elliott-2 6-200 8 No Information EXPANDED OUT/PT [facility], [address] [place] [address], [address], [place] tel:[phone] [facility] Adult Medicine No Information Oct-1 2-200 8 No Information [facility], [facility] [place], [address], [place] tel:[phone] Conversion ENCOUNTERS FOR UNSPECIFIED ADMINISTRATIV E PURPOSE 8 No Information [facility], [address] [place], [address], [place] tel:[phone] Conversion FATIGUE/MALAI SEROUTINE GENERAL MEDICAL EXAMINATION 7 No Information COMPREHENSIVE OUT/PT [facility], [address] [place], [address], [place] tel:[phone] [facility] Adult Medicine No Information 7 No Information EXPANDED OUT/PT [facility], [address] [place], [address], [place] tel:[phone] [facility] Adult Medicine No Information 7 No Information [facility], [address] [place] [address], [address], [place] tel:[phone] Conversion CYSTITIS, ACUTE 7 No Information EXPANDED OUT/PT [facility], [address] [place] [address], [address], [place] tel:[phone] [facility] Adult Medicine No Information 7 No Information [facility], [address] [place] [address], [address], [place] tel:[phone] Conversion LUMBAGOURINAR Y TRACT INFECTION SITE NOT SPECIFIED 7 No Information NEW EXPANDED CONSULT [facility], [address] [place] [address], [address], [place] tel:[phone] [facility] Adult Medicine No Information 7 No Information [facility], [address] [place] [address], [address], [place] tel:[phone] Conversion BACK PAIN W/ RADIATION, UNSPECIFIED 7 [...]
--- OUTSIDE RECORDS SUMMARY | 2024-11-26 18:14 | XMS_ITS | Clinical Summary ---
Author Organization [facility] ity Address [address] [place] [address] Care Team Providers Care Name Plate Stamping Machine Operator Name Role Phone Darion Mohan MD Primary Care Provider [phone] Social History Tobacco Use Types Packs/Day Years [...] age to complete this topic Meningococcal B Vaccine Aged Out No l onger eligible based on patient's age to complete [...] age to complete this topic Care Teams Name Plate Stamping Machine Operator Relationship Specialty Start Date End Date Darion Mohan MD [address] [place] [address] PCP - General Internal Medicine 06/12/21
== END 2024-11-26 15:30 | disposition home or self-care (01) ==
LOC: HO.US 15:29
PROVIDERS: PCP Internal Medicine; Visit Provider Obstetrics & Gynecology
DX: D25.9 Leiomyoma of uterus, unspecified (principal)
CPT/HCPCS: 76830; 76856

== ENCOUNTER → 2024-11-26 15:35 | Outpatient (BNV) | payer OTHER, SELFPAY | PROVIDERS: PCP Internal Medicine; Visit Provider Radiology Diagnostic Radiology | DX: D25.9 Leiomyoma of uterus, unspecified (principal) | CPT/HCPCS: 76830; 76856 ==

== ENCOUNTER 2024-12-12 15:25 | Outpatient (AMB) | payer OTHER, SELFPAY ==
--- NOTE | 2024-12-12 15:28 | A.OFFVIS_ITS ---
Vital Signs 12/12/24 15:31 Height 5 ft 7 in Weight 213 lb BMI 33.4 Intake Visit Reasons: Ultrasound follow up Allergies No Known Allergies Allergy (Verified 10/18/24 13:13) HPI Comments Details: Presenting for ultrasound follow-up regarding uterine myoma. The patient is doing well with no complaints, no pelvic cramping, pain or abnormal uterine bleeding. Pelvic ultrasound showed the following: Uterus: The uterus is normal in size, measuring 11.4 x 4.2 x 5.7 cm. Myometrium has a normal echotexture. Again seen is a fundal fibroid measuring 1.8 x 1.7 x 1.7 cm (previously 1.6 x 1.6 x 2.0 cm). Endometrium: The endometrial stripe measures 3 mm in thickness. An IUD is seen in the appropriate position in the endometrial cavity. There are nabothian cysts in the cervix. Right ovary: The right ovary measures 1.9 x 1.1 x 1.4 cm. The right ovary is normal in size and echotexture. Left ovary: The left ovary measures 1.9 x 1.8 x 1.6 cm. The left ovary is normal in size and echotexture. Pelvic fluid: none. US/US pelvic and transvaginal IMPRESSION: 1. Stable 1.8 x 1.7 x 1.7 cm fundal fibroid. 2. IUD in the expected position in the endometrial cavity. [facility] Medical History Uterine fibroid Acute eczema GERD (gastroesophageal reflux disease) Migraines Hypovitaminosis D Physical exam AMAN (generalized anxiety disorder) Polyarthralgia New daily persistent headache Dyslipidemia Migraine with aura Anemia Surgical History H/O cosmetic surgery History of sleeve gastrectomy Hx of tubal ligation Hx of section Family History Father Diabetes mellitus ESRD on hemodialysis Mother Acute depression Anxiety Asthma Hypertension Osteoporosis Hypercholesteremia Hyperlipemia Mental health disorder Son No problems noted. Daughter No problems noted. Brother No problems noted. Sister Cervical cancer Maternal Grandmother Lung cancer Maternal Grandfather Throat cancer Social History Household Members: Significant Other and Family Housing: House Alcohol intake: never Patient Tobacco Use Status: Never used Tobacco e-Cigarette/Vaping Use: Never Used Second Hand Smoke Exposure: No service: No Current occupational status: employed Current occupational exposures/hazards: No Gender identity: Female Cognitive needs: No Hearing needs: No Vision needs: No Female Reproductive History Menstrual Age of Menarche: 9 Review of Systems Const All systems reviewed & are unremarkable except as noted in HPI and below Reports as per HPI and Reports no additional complaints GI Reports no additional complaints Reports no additional complaints Assessment & Plan Assessment & Plan (1) Uterine fibroid: Code(s): D25.9 - Leiomyoma of uterus, unspecified Category: Medical Qualifiers: Uterine leiomyoma location: unspecified location Qualified Code(s): D25.9 - Leiomyoma of uterus, unspecified Plan: Discussed with the patient the findings on pelvic ultrasound & the risk of myosarcoma; in addition reviewed with the patient that malignancy and pre malignancy cannot be ruled out without hysterectomy for pathological evaluation ; furthermore, explained to the patient the limitation of pelvic ultrasound and endometrial biopsy in the setting. Discussed with the patient the options of treatment including expectant management versus hysterectomy; the pros and cons, risks benefits of each approach were discussed with the patient including the fact that in cases of myosarcoma, surgical treatment can lead to early diagnosis and positively affe cts the prognosis; after further discussion, the patient decided to proceed with expectant management. Will repeat pelvic ultrasound periodically. Instructions given to patient to call in case any of the following occurs: pressure symptoms, abnormal uterine bleeding, pelvic pain; and to schedule a 12th months pelvic ultrasound (order placed) and a follow-up appointment . All questions answered, the patient verbalized understanding and agreed with the plan . Orders: Orders US pelvic and transvaginal 12 Months D25.9 - Leiomyoma of uterus, unspecified Coding Level of Care Code Est Pt Level 3 (47973) Diagnoses Uterine leiomyoma, unspecified location D25.9 Uterine leiomyoma location: unspecified location
[2024-12-12 15:31] VITALS: BMI 33.4
--- OUTSIDE RECORDS SUMMARY | 2024-12-12 18:06 | XMS_ITS | Clinical Summary ---
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 Not on file Not [...] 03/01/2016 Lipid Screening 10/11/2023 10/11/2018, 01/2017, 07/11/2015 [id number] ( season) 2024 022, 01/29/2021 Alcohol and [...] EST Routine general medical examination at a [facility] ANTIBODY HIV-1&HIV-2 SINGLE RESULT Routine 07/27/2017 4:25 PM EST Encounter for screening for HIV from Last 3 Months or Most Recently Relevant to Health Maintenance Results * PAP, LIQUID BASED (01/08/2019 1:18 PM EDT) Specimen from uterine cervix (specimen) Cervix uteri structure / Unknown 01/08/2019 1:18 PM EDT Impressions [facility] - 01/08/2019 1:18 PM EDT Thinprep pap: Negative for squamous intraepithelial lesion and malignancy HPV: negative us [facility] - NO BLOOD DRAW Final Result [facility] [address] [place] [address], * (ABNORMAL) LIPID PANEL (10/11/2018 4:05 PM EST) CHOLESTEROL 182 0 - 200 mg/dL [facility] TRIGLYCERIDES 149 0 - 150 mg/dL [facility] HDL CHOLESTEROL 48 >40 mg/dL [facility] LDL CALCULATED 105(H) 0 - 100 mg/dL [facility] TC-HDLC RATIO 3.8 0 - 4.4 mg/dL [facility] Blood specimen (specimen) Blood / Unknown 10/11/2018 4:05 PM EST 10/11/2018 4:15 PM EST Narrative [facility] - 10/11/2018 8:14 PM EST [facility], [place] [address] Staff Submarine Warfare Officer - Tory Acosta MD PT ID [id number] ORD# [id number] [facility] - BLOOD DRAW [place] [address], * COMPRE METAB PANEL (10/11/2018 4:05 PM EST) GLUCOSE 83 70 - 100 mg/dL [facility] Comment:Reference range appl icable to fasting specimens only BUN 13 5 - 25 mg/dL [facility] CREAT 0.78 0.5 - 1.1 mg/dL [facility] GLOMERULAR FILTRATION RATE > 60 [facility] Comment: If patient is -Armenian, multiply result by 1.21 Chronic Kidney Disease: < 60 ml/min/1.73 square meters Kidney Failure: < 15 ml/min/1.73 square meters SODIUM 140 133 - 145 mmol/L [facility] POTASSIUM 3.8 3.5 - 5.5 mmol/L [facility] CHLORIDE 106 96 - 110 mmol/L [facility] CO2 27 21 - 32 mmol/L [facility] ANION GAP 7 3 - 11 [facility] CALCIUM 9.0 8.5 - 10.5 mg/dL [facility] ALBUMIN 3.5 3.2 - 5.0 G/dL [facility] SGPT 41 10 - 60 U/L [facility] TOTAL PROTEIN 7.3 6.0 - 8.0 G/dL [facility] BILI, TOTAL 0.3 0.0 - 1.4 mg/dL [facility] SGOT 26 10 - 42 U/L [facility] ALK PHOS 87 42 - 121 U/L [facility] Blood specimen (specimen) Blood / Unknown 10/11/2018 4:05 PM EST 10/11/2018 4:15 PM EST Jennifer [facility] - 10/11/2018 8:14 PM EST [employer], [place] [address] Staff Submarine Warfare Officer - Tory Acosta MD PT ID [id number] ORD# [id number] [facility] - BLOOD DRAW Edited Result - Final Performing Organization Address [facility] de Phone Number [address] [address], * HIV-1 & HIV-2 ANTIBODIES (07/27/2017 4:25 PM EST) [facility] HIV 1 AND 2 ANTIBODY SCREEN NEGATIVE NEGATIVE [facility] Comment: This assay is a 4th generation [...] PM EST 07/27/2017 6:21 PM EST Jennifer [facility] - 07/27/2017 7:58 PM EST [facility] Prior Knowledge [address] [place] [address] PT ID [id number] ORD# [id number] [facility] - BLOOD DRAW Final Result Performing Organization Address [facility] de Phone Number [facility] [address] [place] [address], from Last 3 Months or Most Recently Relevant to Health Maintenance Insurance [facility] Member Subscriber Plan / Payer (Ef fective 2021-Present) Name:Jenna Ortiz Relation to Subscriber:Self Name:Jenna Ortiz Payer ID:[id number] Group ID:[id number] Type:Medicaid Address: [address] [address] [place] [address] Care Teams Project Control Manager Relationship Specialty Start Date End Date Shelly Cadet FNP [address] [place] [address] PCP - General 03/05/19
--- OUTSIDE RECORDS SUMMARY | 2024-12-12 18:06 | XMS_ITS | Continuity of Care Document ---
Author Organization [facility] vices Address [address] [place] [address] Phone Care Team Providers Care Automobile Drivers Name Role Phone Unavailable Unavailable Unavailable Medications [...] Diagnoses Date Provider Providers Copied on Encounter [facility], [address] [place] [address], [facility], tel:[phone] [facility] Podiatry No Information 2 No Information [facility], [address] [place] [address], [facility], tel:[phone] Conversion No Information 2 No Information [facility], [address] [place] [address], [facility], tel:[phone] Conversion TENDONITIS ACHILLESPAIN IN LIMB 2 No Information [facility], [address] [place] [address], [facility], tel:[phone] Conversion No Information 2 No Information [facility], [address] [place] [address], [facility], [place] tel:[phone] Conversion UNSPECIFIED DISORDERS OF MENSTRUATION AND OTHER ABNORMAL BLEEDING FROM FEMALE GENITAL TRACTBV 2 No Information [facility], [address] [place] [address], [facility], tel:[phone] Conversion DYSURIA 1 No Information [facility], [address] [place] [address], [facility], [place] tel:[phone] Conversion No Information 1 No Information [facility], [address] [place] [address], [address], [place] tel:[phone] Conversion PELVIC PAINNEPHROLIT HIASIS 1 No Information [facility], [address] [place] [address], [address], [place] tel:[phone] Conversion No Information 1 No Information [facility], [address] [place] [address], [address], [place] tel:[phone] Conversion HEMATURIA, UNSPECIFIEDPR EGNANCY TEST - NEGATIVE RESULT 1 No Information [facility], [address] [place] [address], [address], [place] tel:[phone] Historic Immunization Location No Information 0 No Information [facility], [address] [place] [address], [address], [place] tel:[phone] Conversion OTHER GENERAL COUNSELING AND ADVICE ON CONTRACEPTIVE 0 No Information FOCUSED OUT/PT [facility], [address] [place] [address], [address], [place] tel:[phone] [facility] No Information [facility], [address] [place] [address], [address], [place] tel:[phone] Conversion HEPATIITIS A- VACCINE NEEDED 0 No Information [facility], [address] [place] [address], [address], [place] tel:[phone] Conversion NEED FOR PROPHYLACTIC VACCINATION AND INOCULATION AGAINST UNSPECIFIED SINGLE BACTERIAL DISEASE 0 No Information MINIMAL OUT/PT [facility], [address] [place] [address], [address], [place] tel:[phone] [facility] No Information 0 No Information OFFICE/OUTPATI ENT VISIT, EST [facility], [address] [place] [address], [address], [place] tel:[phone] [facility] Adult Medicine No Information 0 No Information [facility], [address] [place] [address], [address], [place] tel:[phone] Conversion CONTACT DERMATITIS Apr-1 4-201 0 No Information [facility], [address] [place] [address], [address], [place] tel:[phone] Conversion SCREENING EXAMINATION FOR VENEREAL DISEASEANEMIA Apr-0 8-201 0 No Information [facility], [address] [place] [address], [address], [place] tel:[phone] Conversion ANEMIA, IRON DEFICIENCYHEA DACHE, UNSPECIFIED Mar-3 0-200 9 No Information EXPANDED OUT/PT [facility], [address] [place] [address], [address], [place] tel:[phone] [facility] Adult Medicine No Information Oct-3 0-200 9 No Information DETAILED OUT/PT [facility], [address] [place] [address], [address], [place] tel:[phone] [facility] Adult Medicine No Information Oct-1 6-200 9 No Information [facility], [address] [place] [address], [address], [place] tel:[phone] Conversion ACUTE UPPER RESPIRATORY INFECTIONS OF UNSPECIFIED SITEOTHER SPECIFIED COUNSELING Oct-1 6-200 9 No Information [facility], [address] [place] [address], [address], [place] tel:[phone] Conversion ROUTINE GYNECOLOGICAL EXAMINATION Oct-0 9-200 8 No Information EXPANDED OUT/PT [facility], [address] [place] [address], [address], [place] tel:[phone] [facility] No Information May-0 9-200 8 No Information [facility], [address] [place] [address], [address], [place] tel:[phone] Conversion ACUTE FRONTAL SINUSITIS Elliott-2 6-200 8 No Information EXPANDED OUT/PT [facility], [address] [place] [address], [address], [place] tel:[phone] [facility] Adult Medicine No Information Elliott-2 6-200 8 No Information EXPANDED OUT/PT [facility], [address] [place] [address], [address], [place] tel:[phone] [facility] Adult Medicine No Information Oct-1 2-200 8 No Information [facility], [facility] [place], [address], [place] tel:[phone] Conversion ENCOUNTERS FOR UNSPECIFIED ADMINISTRATIV E PURPOSE 8 No Information [facility], [address] [place], [address], [place] tel:[phone] Conversion FATIGUE/MALAI SEROUTINE GENERAL MEDICAL EXAMINATION 7 No Information COMPREHENSIVE OUT/PT [facility], [address] [place], [address], [place] tel:[phone] [facility] Adult Medicine No Information 7 No Information EXPANDED OUT/PT [facility], [address] [place], [address], [place] tel:[phone] [facility] Adult Medicine No Information 7 No Information [facility], [address] [place] [address], [address], [place] tel:[phone] Conversion CYSTITIS, ACUTE 7 No Information EXPANDED OUT/PT [facility], [address] [place] [address], [address], [place] tel:[phone] [facility] Adult Medicine No Information 7 No Information [facility], [address] [place] [address], [address], [place] tel:[phone] Conversion LUMBAGOURINAR Y TRACT INFECTION SITE NOT SPECIFIED 7 No Information NEW EXPANDED CONSULT [facility], [address] [place] [address], [address], [place] tel:[phone] [facility] Adult Medicine No Information 7 No Information [facility], [address] [place] [address], [address], [place] tel:[phone] Conversion BACK PAIN W/ RADIATION, UNSPECIFIED 7 [...]
--- OUTSIDE RECORDS SUMMARY | 2024-12-12 18:06 | XMS_ITS | Continuity of Care Document ---
Author Organization [facility] vices Address [address] [place] [address] Phone Care Team Providers Care Linen Worker Name Role Phone Unavailable Unavailable Unavailable Procedures Procedure Date EXPANDED OUT/PT EXPANDED OUT/PT Advance Directives Directive Yes / No Effective Date File Name No Information Encounters Encounter Description Practice Location Reason(s) For Visit Diagnoses Date Provider Providers Copied on Encounter [facility], [address] [place] [address], [address], tel:[phone] Conversion No Information 2 No Information [facility], [address] [place] [address], tel:[phone] Conversion ENCOUNTERS FOR UNSPECIFIED ADMINISTRATIVE PURPOSE 7 No Information EXPANDED OUT/PT [facility], [address] [place] [address], [address], [place] tel:[phone] [facility] Adult Medicine No Information No Information [facility], [address] [place] [address], [address], tel:[phone] Conversion ROUTINE GYNECOLOGICAL EXAMINATION No Information EXPANDED OUT/PT [facility], [address] [place] [address], [place] tel:[phone] [facility] No Information 7 No [...]
--- OUTSIDE RECORDS SUMMARY | 2024-12-12 18:06 | XMS_ITS | Clinical Summary ---
Author Organization [facility] ity Address [address] [place] [address] Care Team Providers Care Accessories Repairer Name Role Phone Darion Mohan MD Primary Care Provider [phone] Social History Tobacco Use Types Packs/Day Years [...] Vaccine (2023-2 5 season) 2024 Influenza Vaccine (Season Ended) 2025 HIB Vaccines Aged Out No longer eligi [...] age to complete this topic Care Teams Accessories Repairer Relationship Specialty Start Date End Date Darion Mohan MD [address] [place] [address] PCP - General Internal Medicine 06/12/21
== END 2024-12-12 15:38 | disposition home or self-care (01) ==
LOC: HO.HWS 15:25
PROVIDERS: PCP Internal Medicine; Visit Provider Obstetrics & Gynecology
DX: D25.9 Leiomyoma of uterus, unspecified (principal)
CPT/HCPCS: 99213

== ENCOUNTER → 2024-12-12 15:25 | Outpatient (BNVA) | payer OTHER, SELFPAY | PROVIDERS: PCP Internal Medicine; Visit Provider Obstetrics & Gynecology | DX: D25.9 Leiomyoma of uterus, unspecified (principal) | CPT/HCPCS: 99212 ==

== ENCOUNTER 2024-12-20 14:58 | Outpatient (AMB) | payer OTHER, SELFPAY ==
--- NOTE | 2024-12-20 15:00 | A.OFFVIS_ITS ---
Intake Visit Reasons: 3 month follow up Intake Note: Patient presents today for a 3 month follow up Urology Medications: none Blood Thinner: none Quality Assurance Coach Required: No Accompanied by: Self / Same As Patient Allergies No Known Allergies Allergy (Verified 12/20/24 15:51) Medication List - Last Reconciled 12/20/24 by BONITA Farr albuterol sulfate 90 mcg/actuation (Ventolin HFA) 2 puffs inhalation Q4-6H PRN betamethasone dipropionate 0.05% 1 appl topical DAILY PRN cholecalciferol (vitamin D3) 25 mcg PO DAILY 90 days levonorgestrel (Mirena) intrauterine omeprazole 20 mg PO DAILY pantoprazole 40 mg PO DAILY 90 days trazodone 50 mg PO BEDTIME PRN 90 days HPI Comments Details: Jenna is a very pleasant 44-year-old /Hungarian-speaking female patient of Dr. Jesus. She has a past medical history of uterine fibroid, eczema, GERD, migraines, anxiety, polyarthralgia, dyslipidemia, and anemia. She presents to the office today for follow-up of her solitary kidney, nephrolithiasis, renal cysts, and lower urinary tract symptoms. Of note, during last office visit approximately 3 months ago patients urine was sent for microgen testing. Microgen results were reviewed with the patient today. 10/16 E coli, Enterobacter asburiae, Enterobacter hormaechei, prevotella bivia, sneathia vaginalis, mobiluncus curtisii, and gardnerella vaginalis. She has since completed Bactrim and Flagyl as prescribed. She discusses significant improvement in foul- smelling urine she had been experiencing. In office urinalysis results reviewed with the patient today negative leukocytes and negative nitrates. Patient with previous retroperitoneal ultrasound 09/15 noting right kidney is congenitally absent. Left kidney with multiple peripelvic cysts measuring 3.5 cm. No solid masses are identified. There is no hydronephrosis or renal calculi noted. Pre void bladder volume is approximately 100 mL. Postvoid bladder volume is approximately 115 mL. She has a previous history of nephrolithiasis to include ureteroscopy as well as ESWL. She reports a longstanding history of nephrolithiasis since 1997. 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 She reports to be drinking plenty of water daily and adding 1 oz of lemon juice to water daily. When asked she denies urinary urgency, urinary frequency, incontinence, nocturia, hematuria, dysuria, changes to urinary stream, flank pain, fever, and or chills. She is happy with her current voiding parameters. She otherwise offers no other issues or concerns at this time. [facility] Medical History Uterine fibroid Acute eczema GERD (gastroesophageal reflux disease) Migraines Hypovitaminosis D Physical exam AMAN (generalized anxiety disorder) Polyarthralgia New daily persistent headache Dyslipidemia Migraine with aura Anemia Surgical History H/O cosmetic surgery History of sleeve gastrectomy Hx of tubal ligation Hx of section Family History Father Diabetes mellitus ESRD on hemodialysis Mother Acute depression Anxiety Asthma Hypertension Osteoporosis Hypercholesteremia Hyperlipemia Mental health disorder Son No problems noted. Daughter No problems noted. Brother No problems noted. Sister Cervical cancer Maternal Grandmother Lung cancer Maternal Grandfather Throat cancer Social History Household Members: Significant Other and Family Housing: House Alcohol intake: never Patient Tobacco Use Status: Never used Tobacco e-Cigarette/Vaping Use: Never Used Second Hand Smoke Exposure: No service: No Current occupational status: employed Current occupational exposures/hazards: No Gender identity: Female Cognitive needs: No Hearing needs: No Vision needs: No Female Reproductive History Menstrual Age of Menarche: 9 Review of Systems Const All systems reviewed & are unremarkable except as noted in HPI and below Physical Exam Const General: cooperative, healthy appearing, comfortable, no acute distress, well developed, alert and awake Orientation/consciousness: patient oriented x3 Limitations: no limitations HEENT Head: Yes normal to inspection, Yes normocephalic and Yes atraumatic Ears: hearing grossly normal bilaterally Eyes General: appearance normal, both eyes and all related structures Neck Neck: Yes normal visual inspection and Yes trachea midline Chest Chest palpation & inspection: normal inspection of the chest Resp Effort & Inspection: normal respiratory effort and able to speak in complete sentences Cardio Rate: regular rate GI Inspection: Yes normal to inspection General: Yes no CVA tenderness Back/Spine/Pelvis Back: no CVA tenderness Skin General skin exam: no rashes or lesions noted Neuro General: patient oriented x3 Extrem General: Yes normal to inspection Psych Appearance: grossly normal and well kempt Mental Status: mental status grossly normal Speech and movement: Normal speech and movement present and Clear speech present Affect: normal affect Attitude: cooperative Thought process: Normal thought process present Thought content: Normal thought content present Insight: Fair insight present (Psych) Judgement: Fair judgement present (Psych) Assessment & Plan Assessment & Plan (1) Solitary kidney, congenital: Code(s): Q60.0 - Renal agenesis, unilateral Category: Medical (2) Foul smelling urine: Code(s): R82.90 - Unspecified abnormal findings in urine Category: Medical (3) Renal cyst: Code(s): N28.1 - Cyst of kidney, acquired Category: Medical (4) Nephrolithiasis: Code(s): N20.0 - Calculus of kidney Category: Medical Plan In office urinalysis results with the patient today; as noted above. She currently denies any bothersome urinary issues or concerns. She reports be happy with current voiding parameters. Will continue with surveillance monitoring Will obtain renal ultrasound in 6 months. We discussed importance of adequate hydration in relation to recurrent urinary tract infections as well as nephrolithiasis. Continue adding 1 oz of lemon juice to water daily. Follow-up in 6 months with imaging and PVR; or sooner with any issues, concerns, and or questions. Orders: Orders AMB Urinalysis Automated 12/20/24 Z13.9 - Encounter for screening, unspecified US renal BI 6 Months N20.0 - Calculus of kidney Patient Instructions: The patient had an opportunity to ask questions regarding the treatment plan. All questions were answered. Physical exam, labs, and imaging were discussed and reviewed in detail. As well as risks, benefits, and discussion of treatment choices. No major barriers to understanding were identified. The patient expressed understanding and agreement with the above treatment plan. The patient was made aware they should contact our office by phone for worsening of their current condition, the appearance of new symptoms, or with any question s or concerns. Compliance is encouraged with any medications and follow up testing that is ordered. It is a privilege to be allowed the opportunity to participate in? your urological care.? Again, if you have any questions or concerns If you have any questions or concerns please do not hesitate to contact me. The office is [phone]. This note is constructed using voice recognition software. While every effort has been made to ensure accuracy spray gun operator errors may have been included. Yours sincerely, BONITA Farr Coding Level of Care Code Est Pt Level 3 (27335) Diagnoses Solitary kidney, congenital Q60.0 Foul smelling urine R82.90 Renal cyst N28.1 Nephrolithiasis N20.0
--- OUTSIDE RECORDS SUMMARY | 2024-12-20 16:55 | XMS_ITS | Continuity of Care Document ---
Author Organization [facility] vices Address [address] [place] [address] Phone Care Team Providers Care Aix Architect Name Role Phone Unavailable Unavailable Unavailable Procedures Procedure Date EXPANDED OUT/PT EXPANDED OUT/PT Advance Directives Directive Yes / No Effective Date File Name No Information Encounters Encounter Description Practice Location Reason(s) For Visit Diagnoses Date Provider Providers Copied on Encounter [facility], [address] [place] [address], [address], tel:[phone] Conversion No Information 2 No Information [facility], [address] [place] [address], tel:[phone] Conversion ENCOUNTERS FOR UNSPECIFIED ADMINISTRATIVE PURPOSE 7 No Information EXPANDED OUT/PT [facility], [address] [place] [address], [address], [place] tel:[phone] [facility] Adult Medicine No Information No Information [facility], [address] [place] [address], [address], tel:[phone] Conversion ROUTINE GYNECOLOGICAL EXAMINATION No Information EXPANDED OUT/PT [facility], [address] [place] [address], [place] tel:[phone] [facility] No Information 7 No Information Family History Family Member Type Diagnosis Age At Onset No Information Payers Payer name Insurance type Covered green [...]
--- OUTSIDE RECORDS SUMMARY | 2024-12-20 16:55 | XMS_ITS | Continuity of Care Document ---
Author Organization [email or web address] vices Address [address] [place] [address] Phone Care Team Providers Care Navigation Teacher Name Role Phone Unavailable Unavailable Unavailable Medications [...] Diagnoses Date Provider Providers Copied on Encounter [facility], [address] [place] [address], [facility], tel:[phone] [facility] Podiatry No Information 2 No Information [facility], [address] [place] [address], [facility], tel:[phone] Conversion No Information 2 No Information [facility], [address] [place] [address], [facility], tel:[phone] Conversion TENDONITIS ACHILLESPAIN IN LIMB 2 No Information [facility], [address] [place] [address], [facility], tel:[phone] Conversion No Information 2 No Information [facility], [address] [place] [address], [facility], [place] tel:[phone] Conversion UNSPECIFIED DISORDERS OF MENSTRUATION AND OTHER ABNORMAL BLEEDING FROM FEMALE GENITAL TRACTBV 2 No Information [facility], [address] [place] [address], [facility], tel:[phone] Conversion DYSURIA 1 No Information [facility], [address] [place] [address], [facility], [place] tel:[phone] Conversion No Information 1 No Information [facility], [address] [place] [address], [address], [place] tel:[phone] Conversion PELVIC PAINNEPHROLIT HIASIS 1 No Information [facility], [address] [place] [address], [address], [place] tel:[phone] Conversion No Information 1 No Information [facility], [address] [place] [address], [address], [place] tel:[phone] Conversion HEMATURIA, UNSPECIFIEDPR EGNANCY TEST - NEGATIVE RESULT 1 No Information [facility], [address] [place] [address], [address], [place] tel:[phone] Historic Immunization Location No Information 0 No Information [facility], [address] [place] [address], [address], [place] tel:[phone] Conversion OTHER GENERAL COUNSELING AND ADVICE ON CONTRACEPTIVE 0 No Information FOCUSED OUT/PT [facility], [address] [place] [address], [address], [place] tel:[phone] [facility] No Information 0 No Information [facility], [address] [place] [address], [address], [place] tel:[phone] Conversion HEPATIITIS A- VACCINE NEEDED 0 No Information [facility], [address] [place] [address], [address], [place] tel:[phone] Conversion NEED FOR PROPHYLACTIC VACCINATION AND INOCULATION AGAINST UNSPECIFIED SINGLE BACTERIAL DISEASE 0 No Information MINIMAL OUT/PT [facility], [address] [place] [address], [address], [place] tel:[phone] [facility] Womens Health No Information 0 No Information OFFICE/OUTPATI ENT VISIT, EST [facility], [address] [place] [address], [address], [place] tel:[phone] [facility] Adult Medicine No Information 0 No Information [facility], [address] [place] [address], [address], [place] tel:[phone] Conversion CONTACT DERMATITIS Apr-1 4-201 0 No Information [facility], [address] [place] [address], [address], [place] tel:[phone] Conversion SCREENING EXAMINATION FOR VENEREAL DISEASEANEMIA Apr-0 8-201 0 No Information [facility], [address] [place] [address], [address], [place] tel:[phone] Conversion ANEMIA, IRON DEFICIENCYHEA DACHE, UNSPECIFIED Mar-3 0-200 9 No Information EXPANDED OUT/PT [facility], [address] [place] [address], [address], [place] tel:[phone] [facility] Adult Medicine No Information Oct-3 0-200 9 No Information DETAILED OUT/PT [facility], [address] [place] [address], [address], [place] tel:[phone] [facility] Adult Medicine No Information Oct-1 6-200 9 No Information [facility], [address] [place] [address], [address], [place] tel:[phone] Conversion ACUTE UPPER RESPIRATORY INFECTIONS OF UNSPECIFIED SITEOTHER SPECIFIED COUNSELING Oct-1 6-200 9 No Information [facility], [address] [place] [address], [address], [place] tel:[phone] Conversion ROUTINE GYNECOLOGICAL EXAMINATION Oct-0 9-200 8 No Information EXPANDED OUT/PT [facility], [address] [place] [address], [address], [place] tel:[phone] [facility] Womens [facility] No Information May-0 9-200 8 No Information [facility], [address] [place] [address], [address], [place] tel:[phone] Conversion ACUTE FRONTAL SINUSITIS Elliott-2 6-200 8 No Information EXPANDED OUT/PT [facility], [address] [place] [address], [address], [place] tel:[phone] [facility] Adult Medicine No Information Elliott-2 6-200 8 No Information EXPANDED OUT/PT [facility], [address] [place] [address], [address], [place] tel:[phone] [facility] Adult Medicine No Information Oct-1 2-200 8 No Information [facility], [facility] [place], [address], [place] tel:[phone] Conversion ENCOUNTERS FOR UNSPECIFIED ADMINISTRATIV E PURPOSE 8 No Information [facility], [address] [place], [address], [place] tel:[phone] Conversion FATIGUE/MALAI SEROUTINE GENERAL MEDICAL EXAMINATION 7 No Information COMPREHENSIVE OUT/PT [facility], [address] [place], [address], [place] tel:[phone] [facility] Adult Medicine No Information 7 No Information EXPANDED OUT/PT [facility], [address] [place], [address], [place] tel:[phone] [facility] Adult Medicine No Information 7 No Information [facility], [address] [place] [address], [address], [place] tel:[phone] Conversion CYSTITIS, ACUTE 7 No Information EXPANDED OUT/PT [facility], [address] [place] [address], [address], [place] tel:[phone] [facility] Adult Medicine No Information 7 No Information [facility], [address] [place] [address], [address], [place] tel:[phone] Conversion LUMBAGOURINAR Y TRACT INFECTION SITE NOT SPECIFIED 7 No Information NEW EXPANDED CONSULT [facility], [address] [place] [address], [address], [place] tel:[phone] [facility] Adult Medicine No Information 7 No Information [facility], [address] [place] [address], [address], [place] tel:[phone] Conversion BACK PAIN W/ RADIATION, UNSPECIFIED 7 [...]
--- OUTSIDE RECORDS SUMMARY | 2024-12-20 16:55 | XMS_ITS | Clinical Summary ---
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 Not on file Not [...] 03/01/2016 Lipid Screening 10/11/2023 10/11/2018, 01/2017, 07/11/2015 Fyh-QPHGM-10 ( season) 2024 022, 01/29/2021 Alcohol and [...] EST Routine general medical examination at a [facility] care facility ANTIBODY HIV-1&HIV-2 SINGLE RESULT Routine 07/27/2017 4:25 PM EST Encounter for screening for HIV from Last 3 Months or Most Recently Relevant to Health Maintenance Results * PAP, LIQUID BASED (01/08/2019 1:18 PM EDT) Specimen from uterine cervix (specimen) Cervix uteri structure / Unknown 01/08/2019 1:18 PM EDT Impressions [facility] - 01/08/2019 1:18 PM EDT Thinprep pap: Negative for squamous intraepithelial lesion and malignancy HPV: negative us [facility] - NO BLOOD DRAW Final Result [facility] [address] [place] [address], * (ABNORMAL) LIPID PANEL (10/11/2018 4:05 PM EST) CHOLESTEROL 182 0 - 200 mg/dL [facility] TRIGLYCERIDES 149 0 - 150 mg/dL [facility] HDL CHOLESTEROL 48 >40 mg/dL [facility] LDL CALCULATED 105(H) 0 - 100 mg/dL [facility] TC-HDLC RATIO 3.8 0 - 4.4 mg/dL [facility] Blood specimen (specimen) Blood / Unknown 10/11/2018 4:05 PM EST 10/11/2018 4:15 PM EST Narrative [facility] - 10/11/2018 8:14 PM EST [facility], [place] [address] Dot Compliance Specialist - Tory Acosta MD PT ID [id number] ORD# [id number] [facility] - BLOOD DRAW Edited Result - Final Performing Organization Address City/State/[facility] [place] [address], * COMPRE METAB PANEL (10/11/2018 4:05 PM EST) GLUCOSE 83 70 - 100 mg/dL [facility] Comment:Reference range appl icable to fasting specimens only BUN 13 5 - 25 mg/dL [facility] CREAT 0.78 0.5 - 1.1 mg/dL [facility] GLOMERULAR FILTRATION RATE > 60 [facility] Comment: If patient is -Egyptian, multiply result by 1.21 Chronic Kidney Disease: < 60 ml/min/1.73 square meters Kidney Failure: < 15 ml/min/1.73 square meters SODIUM 140 133 - 145 mmol/L [facility] POTASSIUM 3.8 3.5 - 5.5 mmol/L [facility] CHLORIDE 106 96 - 110 mmol/L [facility] CO2 27 21 - 32 mmol/L [facility] ANION GAP 7 3 - 11 [facility] CALCIUM 9.0 8.5 - 10.5 mg/dL [facility] ALBUMIN 3.5 3.2 - 5.0 G/dL [facility] SGPT 41 10 - 60 U/L [facility] TOTAL PROTEIN 7.3 6.0 - 8.0 G/dL [facility] BILI, TOTAL 0.3 0.0 - 1.4 mg/dL [facility] SGOT 26 10 - 42 U/L [facility] ALK PHOS 87 42 - 121 U/L [facility] Blood specimen (specimen) Blood / Unknown 10/11/2018 4:05 PM EST 10/11/2018 4:15 PM EST [facility] - 10/11/2018 8:14 PM EST [facility], [place] [address] Dot Compliance Specialist - Tory Acosta MD PT ID [id number] ORD# [id number] [facility] - BLOOD DRAW Edited Result - Final Performing Organization Address City/[facility] [place] [address], * HIV-1 & HIV-2 ANTIBODIES (07/27/2017 4:25 PM EST) [facility] HIV 1 AND 2 ANTIBODY SCREEN NEGATIVE NEGATIVE [facility] Comment: This assay is [...] PM EST 07/27/2017 6:21 PM EST Jennifer [facility] - 07/27/2017 7:58 PM EST [facility] [address] [place] [address] PT ID [id number] ORD# [id number] [facility] - BLOOD DRAW Final Result [facility] [address] [place] [address], from Last 3 Months or Most Recently Relevant to Health Maintenance Insurance [facility] [employer] [facility] Member Subscriber Plan / Payer (Ef fective 2021-Present) Name:Jenna Ortiz Relation to Subscriber:Self Name:Jenna Ortiz Payer ID:[id number] Group ID:[id number] Type:Medicaid Address: [facility] [address] [place] [address] Care Teams Buckle Assembler Relationship Specialty Start Date End Date Shelly Cadet FNP [address] [place] [address] PCP - General 03/05/19
--- OUTSIDE RECORDS SUMMARY | 2024-12-20 16:55 | XMS_ITS | Clinical Summary ---
Author Organization [facility] ity Address [address] [place] [address] Care Team Providers Care Pbx Repairer Name Role Phone Darion Mohan MD Primary Care Provider [phone] Social History Tobacco Use Types Packs/Day Years [...] age to complete this topic Care Teams Pbx Repairer Relationship Specialty Start Date End Date Darion Mohan MD [address] [place] [address] PCP - General Internal Medicine 06/12/21
== END 2024-12-20 15:48 | disposition home or self-care (01) ==
LOC: HO.HUSH 14:59
PROVIDERS: PCP Internal Medicine; Visit Provider Nurse Practitioner Family
DX: Q60.0 Renal agenesis, unilateral (principal); R82.90 Unspecified abnormal findings in urine; N28.1 Cyst of kidney, acquired; N20.0 Calculus of kidney
CPT/HCPCS: 99213

== ENCOUNTER → 2024-12-20 14:58 | Outpatient (BNVA) | payer OTHER, SELFPAY | PROVIDERS: PCP Internal Medicine; Visit Provider Nurse Practitioner Family | DX: Q60.0 Renal agenesis, unilateral (principal); R82.90 Unspecified abnormal findings in urine; N28.1 Cyst of kidney, acquired; N20.0 Calculus of kidney | CPT/HCPCS: 99212 ==

== ENCOUNTER 2025-03-08 07:59 | Outpatient (AMB) | payer OTHER, SELFPAY ==
--- OUTSIDE RECORDS SUMMARY | 2012-07-07 20:00 | XMS_ITS | Continuity of Care Document ---
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 Role Phone Unavailable Unavailable Unavailable Medications [...] Diagnoses Date Provider Providers Copied on Encounter [facility], [address] [place] [address], [facility], tel:[phone] [facility] Podiatry No Information 2 No Information [facility], [address] [place] [address], [facility], tel:[phone] Conversion No Information 2 No Information [facility], [address] [place] [address], [facility], tel:[phone] Conversion TENDONITIS ACHILLESPAIN IN LIMB 2 No Information [facility], [address] [place] [address], [facility], tel:[phone] Conversion No Information 2 No Information [facility], [address] [place] [address], [facility], [place] tel:[phone] Conversion UNSPECIFIED DISORDERS OF MENSTRUATION AND OTHER ABNORMAL BLEEDING FROM FEMALE GENITAL TRACTBV 2 No Information [facility], [address] [place] [address], [facility], tel:[phone] Conversion DYSURIA 1 No Information [facility], [address] [place] [address], [facility], [place] tel:[phone] Conversion No Information 1 No Information [facility], [address] [place] [address], [address], [place] tel:[phone] Conversion PELVIC PAINNEPHROLIT HIASIS 1 No Information [facility], [address] [place] [address], [address], [place] tel:[phone] Conversion No Information 1 No Information [facility], [address] [place] [address], [address], [place] tel:[phone] Conversion HEMATURIA, UNSPECIFIEDPR EGNANCY TEST - NEGATIVE RESULT 1 No Information [facility], [address] [place] [address], [address], [place] tel:[phone] Historic Immunization Location No Information 0 No Information [facility], [address] [place] [address], [address], [place] tel:[phone] Conversion OTHER GENERAL COUNSELING AND ADVICE ON CONTRACEPTIVE 0 No Information FOCUSED OUT/PT [facility], [address] [place] [address], [address], [place] tel:[phone] [facility] No Information 0 No Information [facility], [address] [place] [address], [address], [place] tel:[phone] Conversion HEPATIITIS A- VACCINE NEEDED 0 No Information [facility], [address] [place] [address], [address], [place] tel:[phone] Conversion NEED FOR PROPHYLACTIC VACCINATION AND INOCULATION AGAINST UNSPECIFIED SINGLE BACTERIAL DISEASE 0 No Information MINIMAL OUT/PT [facility], [address] [place] [address], [address], [place] tel:[phone] [facility] W[facility]ens Health No Information 0 No Information OFFICE/OUTPATI ENT VISIT, EST [facility], [address] [place] [address], [address], [place] tel:[phone] [facility] Adult Medicine No Information 0 No Information [facility], [address] [place] [address], [address], [place] tel:[phone] Conversion CONTACT DERMATITIS Apr-1 4-201 0 No Information [facility], [address] [place] [address], [address], [place] tel:[phone] Conversion SCREENING EXAMINATION FOR VENEREAL DISEASEANEMIA Apr-0 8-201 0 No Information [facility], [address] [place] [address], [address], [place] tel:[phone] Conversion ANEMIA, IRON DEFICIENCYHEA DACHE, UNSPECIFIED Mar-3 0-200 9 No Information EXPANDED OUT/PT [facility], [address] [place] [address], [address], [place] tel:[phone] [facility] Adult Medicine No Information Oct-3 0-200 9 No Information DETAILED OUT/PT [facility], [address] [place] [address], [address], [place] tel:[phone] [facility] Adult Medicine No Information Oct-1 6-200 9 No Information [facility], [address] [place] [address], [address], [place] tel:[phone] Conversion ACUTE UPPER RESPIRATORY INFECTIONS OF UNSPECIFIED SITEOTHER SPECIFIED COUNSELING Oct-1 6-200 9 No Information [facility], [address] [place] [address], [address], [place] tel:[phone] Conversion ROUTINE GYNECOLOGICAL EXAMINATION Oct-0 9-200 8 No Information EXPANDED OUT/PT [facility], [address] [place] [address], [address], [place] tel:[phone] [facility] No Information May-0 9-200 8 No Information [facility], [address] [place] [address], [address], [place] tel:[phone] Conversion ACUTE FRONTAL SINUSITIS Elliott-2 6-200 8 No Information EXPANDED OUT/PT [facility], [address] [place] [address], [address], [place] tel:[phone] [facility] Adult Medicine No Information Elliott-2 6-200 8 No Information EXPANDED OUT/PT [facility], [address] [place] [address], [address], [place] tel:[phone] [facility] Adult Medicine No Information Oct-1 2-200 8 No Information [facility], [facility] [place], [address], [place] tel:[phone] Conversion ENCOUNTERS FOR UNSPECIFIED ADMINISTRATIV E PURPOSE 8 No Information [facility], [address] [place], [address], [place] tel:[phone] Conversion FATIGUE/MALAI SEROUTINE GENERAL MEDICAL EXAMINATION 7 No Information COMPREHENSIVE OUT/PT [facility], [address] [place], [address], [place] tel:[phone] [facility] Adult Medicine No Information 7 No Information EXPANDED OUT/PT [facility], [address] [place], [address], [place] tel:[phone] [facility] Adult Medicine No Information 7 No Information [facility], [address] [place] [address], [address], [place] tel:[phone] Conversion CYSTITIS, ACUTE 7 No Information EXPANDED OUT/PT [facility], [address] [place] [address], [address], [place] tel:[phone] [facility] Adult Medicine No Information 7 No Information [facility], [address] [place] [address], [address], [place] tel:[phone] Conversion LUMBAGOURINAR Y TRACT INFECTION SITE NOT SPECIFIED 7 No Information NEW EXPANDED CONSULT [facility], [address] [place] [address], [address], [place] tel:[phone] [facility] Adult Medicine No Information 7 No Information [facility], [address] [place] [address], [address], [place] tel:[phone] Conversion BACK PAIN W/ RADIATION, UNSPECIFIED 7 [...] Record Payers Payer name Insurance type Covered libertarian ID Authoriza tion(s) No Information Social History [...]
--- OUTSIDE RECORDS SUMMARY | 2025-03-08 08:01 | XMS_ITS | Patient Health Record ---
Author Organization [facility] Address [address] [place] [address] Support Name Relationship Address Phone Jenna Dias Guarantor Unknown [phone] Reason For Referral No Information Medications Medication SIG (Take, Route, Frequency, Duration) Notes Start Date End Date Status ProAir HFA 108 (90 Base) MCG/ACT INHALE 2 PUFF BY INHALATION ROUTE EVERY 4 - 6 HOURS NEEDED Inhalation (Yosef-) 05/07/2013 Active Loratadine 10 MG take 1 tablet by ora l route every day Oral (Yosef-) 04/05/2013 Active Fioricet 50-300-40 MG take 1 - 2 capsule by oral route every 4 hours as needed not to exceed 6 capsules per 24hrs Oral (Yosef-) 12/13/2013 Active Imitrex 100 MG TAKE 1 TABLET AT ONSET OF HEADACHE. MAY REPEAT 1 DOSE IN 2 HOURS IF NO RELIEF Oral (Yosef-) 12/13/2013 Active traMADol HCl 50 MG take 1 tablet by ora l route every 6 hours as needed Oral (Yosef-) 03/06/2014 Active Pantoprazole Sodium 40 MG TAKE 1 TABLET BY MOUTH EVERY DAY Oral (Yosef-) 03/11/2014 Active Ketoconazole 2 % apply by topical route every day to the affected area(s), lather, leave in place for 5 minutes, and then rinse off with water External (Yosef-) 12/12/2012 Active Triamcinolone Acetonide 0.1 % APPLY THIN LAYER TO AFFECTED AREA(S) TWICE A DAY External (Yosef-) 05/29/2013 Active hydroCHLOROthiazide 25 MG TAKE 1 TABLET BY ORAL ROUTE EVERY DAY Oral (Yosef-) 01/09/2014 Active Vitamin D (Ergocalciferol) 02871 UNIT take 1 capsule by oral route every week Oral (Yosef-) 07/18/2013 Active Zofran ODT 8 MG take 1 tab PO q [address] on top of the tongue, let dissolve, then swallow. 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
--- OUTSIDE RECORDS SUMMARY | 2025-03-08 08:01 | XMS_ITS | Clinical Summary ---
Author Organization [facility] Address [address] [place] [address] Care Team Providers Care Returns Supervisor Name Role Phone Shelly Cadet THUMB SEWER Primary Care Provider [phone] Source Comments PLEASE NOTE, if this patient [...] daily as needed for anxiety 60 Tab 05/20/201 9 Active Active Problems Problem Noted Date Diagnosed Date Sleeping difficulties 06/24/2016 Dyshidrotic eczema 03/01/2016 Migraine 09/04/2015 Mild intermittent asthma without complication (H HS-HCC) 05/10/2015 Solitary kidney, congenital 05/10/2015 Overview (05/10/2015): L side Left nephrolithiasis 05/10/2015 Overview (05/10/2015): S/p ESWL in 06/2010 Immunizations Immunization Administration Dates Next Due Flu, Preservative Free 07/27/2017 Hep B, Adult/Adol (QGICLFS-V-OKSAQ/RECOMBIVAX-ADULT) 06/24/2010,01/16/2010,12/18/2009 INFLUENZA, SEASONAL, INJECTABLE 06/24/2016 MMR (MMR II/Priorix) [...] 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 file Not on file Last Filed Vital Signs Vital Sign Reading Time Taken Comments Blood Pressure 122/84 01/08/2019 1:15 PM EDT Pulse 70 01/08/2019 1:15 PM EDT Temperature 37 C (98.6 F) 01/08/2019 1:15 PM EDT Respiratory Rate 17 [...] (Mammogram) 2020 Hypertension Screening (#1) 01/08/2020 Annual Wellness (Adult): Indicated (All Coverage) 01/09/2020 01/08/2019, 10/11/2018, 07/27/2017, Additional history exists Diabetes Screening 10/11/2021 10/11/2018, 1 09/27/2016, 05/12/2015, Additional history exists Cervical Cancer Screening 01/08/2022 Pap + HPV 01/08/2022 Pap Smear 01/08/2022 01/08/2019, 03/01/2016 Lipid Screening 10/11/2023 10/11/2018, 01/2017, 07/11/2015 Sex-TDDXY-49 ( season) 2024 022, 01/29/2021 Alcohol and Drug Screen 08/22/2024 10/11/19 19, 07/27/2017, 07/27/2017, Additional history exists Depression Annual Screen 08/22/2024 06/24/2016, 08/2014 CT Colonography 12/31/2024 Colonoscopy 12/31/2024 Colorectal Cancer Screening 12/31/2024 FIT/gFOBT 12/31/2024 Fecal DNA 12/31/2024 Flexible Sigmoidoscopy 12/31/2024 Imm-DTaP/Tdap/Td (2 - Td or Tdap) 05/22/2025 [...] / Unknown 01/08/2019 1:18 PM EDT Impressions [facility] - 01/08/2019 1:18 PM EDT Thinprep pap: Negative for squamous intraepithelial lesion and malignancy HPV: negative us [facility] - PATHOLOGY AND CYTOLOGY AMB ULATORY Final Result [facility] [address] [place] [address], [place] [phone] * (ABNORMAL) LIPID PANEL (10/11/2018 4:05 PM EST) CHOLESTEROL 182 0 - 200 mg/dL [facility] TRIGLYCERIDES 149 0 - 150 mg/dL [facility] HDL CHOLESTEROL 48 >40 mg/dL [facility] LDL CALCULATED 105(H) 0 - 100 mg/dL [facility] TC-HDLC RATIO 3.8 0 - 4.4 mg/dL [facility] Blood specimen (specimen) Blood / Unknown 10/11/2018 4:05 PM EST 10/11/2018 4:15 PM EST Narrative [facility] - 10/11/2018 8:14 PM EST [facility], [place] [address] River Rafting Guide - Tory Acosta MD PT ID [id number] ORD# [id number] [facility] - BLOOD DRAW Edited Result - Final [address] [address], * COMPRE METAB PANEL (CMP) (10/11/2018 4:05 PM EST) GLUCOSE 83 70 - 100 mg/dL [facility] Comment:Reference range appl icable to fasting specimens only BUN 13 5 - 25 mg/dL [facility] CREAT 0.78 0.5 - 1.1 mg/dL [facility] GLOMERULAR FILTRATION RATE > 60 [facility] Comment: If patient is -Haitian, multiply result by 1.21 Chronic Kidney Disease: < 60 ml/min/1.73 square meters Kidney Failure: < 15 ml/min/1.73 square meters SODIUM 140 133 - 145 mmol/L [facility] POTASSIUM 3.8 3.5 - 5.5 mmol/L [facility] CHLORIDE 106 96 - 110 mmol/L [facility] CO2 27 21 - 32 mmol/L [facility] ANION GAP 7 3 - 11 [facility] CALCIUM 9.0 8.5 - 10.5 mg/dL [facility] ALBUMIN 3.5 3.2 - 5.0 G/dL [facility] SGPT 41 10 - 60 U/L [facility] TOTAL PROTEIN 7.3 6.0 - 8.0 G/dL [facility] BILI, TOTAL 0.3 0.0 - 1.4 mg/dL [facility] SGOT 26 10 - 42 U/L [facility] ALK PHOS 87 42 - 121 U/L [facility] Blood specimen (specimen) Blood / Unknown 10/11/2018 4:05 PM EST 10/11/2018 4:15 PM EST Narrative [facility] - 10/11/2018 8:14 PM EST [facility], [place] [address] River Rafting Guide - Troy Acosta MD PT ID [id number] ORD# [id number] [facility] - BLOOD DRAW Edited Result - Final Performing Organization Address City/State/[facility] [place] [address], * HIV-1 & HIV-2 ANTIBODIES (07/27/2017 4:25 PM EST) [facility] HIV 1 AND 2 ANTIBODY SCREEN NEGATIVE NEGATIVE [facility] Comment: This assay is a 4th generation assay allowing for earlier detection of HIV infection by detecting the presence of the HIV-1 p24 antigen as well as the traditional antibodies to HIV type 1 (including group O) and type 2. Use of a 4th generation assay is the current CDC recommendation for HIV screening. Blood specimen (specimen) Blood / Unknown 07/27/2017 4:25 PM EST 07/27/2017 6:21 PM EST Narrative [facility] - 07/27/2017 7:58 PM EST [facility] [address] [place] [address] PT ID [id number] ORD# [id number] us [facility] - BLOOD DRAW Final Result [facility] [address] [place] [address], from Last 3 Months or Most Recently Relevant to Health Maintenance Insurance [facility] Member Subscriber Plan / Payer (Ef fective 2021-Present) Name:Jenna Ortiz Relation to Subscriber:Self Name:Jenna Ortiz Payer ID:[id number] Group ID:[id number] Type:Medicaid Address: [facility] [address] [place] [address] Care Teams Returns Supervisor Relationship Specialty Start Date End Date Shelly Cadet FNP [address] [place] [address] PCP - General 03/05/19
--- OUTSIDE RECORDS SUMMARY | 2025-03-08 08:01 | XMS_ITS | Clinical Summary ---
Author Organization [facility] ity Address [address] [place] [address] Care Team Providers Care Hat Steamer Name Role Phone Darion Mohan MD Primary Care Provider [phone] Social History Tobacco Use Types Packs/Day Years [...] (2023-2 5 season) 2024 Influenza Vaccine (#1) 2025 HIB Vaccines Aged Out No longer [...] 5 Years) and At-Risk Patients (6 to 49 Years) Aged Out No longer eligible b ased on patient's age to complete this topic RSV Immunization Patients Un graciela 20 months Aged Out No longer eligible b ased on patient's age to complete this topic Varicella Vaccines Aged Out No longer eligible based on patient's age to complete this topic Care Teams Hat Steamer Relationship Specialty Start Date End Date Darion Mohan MD [address] [place] [address] PCP - General Internal Medicine 06/12/21
[2025-03-08 08:08] VITALS: BP 122/74; BMI 32.7
--- NOTE | 2025-03-08 08:08 | A.OFFVIS_ITS ---
Vital Signs 03/08/25 08:08 Height 5 ft 7 in Weight 209 lb BMI 32.7 BP 122/74 Intake Visit Reasons: Breast lump and discharge from nipple Fourdrinier Wire Weaver Required: Yes Fourdrinier Wire Weaver Language: Competitive Shopper Services: Fourdrinier Wire Weaver Present (in person) Fourdrinier Wire Weaver Name: Susie ANAYA Information Interpreted: non-clinical & clinical Industrial Cleaner: Industrial Cleaner Present (Susie ANAYA) Accompanied by: Self / Same As Patient Allergies No Known Allergies Allergy (Verified 03/08/25 08:14) Is last menstrual period known: No (mirena) HPI Comments Details: Presenting complaining of right breast lesion that drained bloody discharge causing right breast pain, since then the lesion has started the resolving in addition the patient is complaining of irregular menstrual cycles over the last 3 months on Mirena IUD Last mammogram was in 06/14 BI-RADS 1 Last pelvic ultrasound in 12/14 showed the following: Uterus: The uterus is normal in size, measuring 11.4 x 4.2 x 5.7 cm. Myometrium has a normal echotexture. Again seen is a fundal fibroid measuring 1.8 x 1.7 x 1.7 cm (previously 1.6 x 1.6 x 2.0 cm). Endometrium: The endometrial stripe measures 3 mm in thickness. An IUD is seen in the appropriate position in the endometrial cavity. There are nabothian cysts in the cervix. Right ovary: The right ovary measures 1.9 x 1.1 x 1.4 cm. The right ovary is normal in size and echotexture. Left ovary: The left ovary measures 1.9 x 1.8 x 1.6 cm. The left ovary is normal in size and echotexture. Pelvic fluid: none. [facility] Medical History Uterine fibroid Acute eczema GERD (gastroesophageal reflux disease) Migraines Hypovitaminosis D Physical exam AMAN (generalized anxiety disorder) Polyarthralgia New daily persistent headache Dyslipidemia Migraine with aura Anemia Surgical History H/O cosmetic surgery History of sleeve gastrectomy Hx of tubal ligation Hx of section Family History Father Diabetes mellitus ESRD on hemodialysis Mother Acute depression Anxiety Asthma Hypertension Osteoporosis Hypercholesteremia Hyperlipemia Mental health disorder Son No problems noted. Daughter No problems noted. Brother No problems noted. Sister Cervical cancer Maternal Grandmother Lung cancer Maternal Grandfather Throat cancer Social History Household Members: Significant Other and Family Housing: House Alcohol intake: never Patient Tobacco Use Status: Never used Tobacco e-Cigarette/Vaping Use: Never Used Second Hand Smoke Exposure: No service: No Current occupational status: employed Current occupational exposures/hazards: No Gender identity: Female Cognitive needs: No Hearing needs: No Vision needs: No Female Reproductive History Menstrual Age of Menarche: 9 Review of Systems Const All systems reviewed & are unremarkable except as noted in HPI and below Physical Exam Vital Signs: Last Vital Signs BP 122/74 03/08/25 08:08 BMI result Body Mass Index 32.7 Chest Breast/axilla inspection: inspection of breasts abnormal (Right skin inf lammation 2 cm from the nipple@ 12 no abcess/cellulitis) General: Yes no CVA tenderness External Female Exam: normal external appearance and normal appearance of the urethra Speculum Exam - Vagina: normal appearance of the vagina, normal palpation, no lesions and no masses Speculum Exam - Cervix: normal appearance of the cervix, normal palpation, no lesions, no masses, nontender and Other cervical findings present (IUD string not seen) Bimanual exam- vagina & uterus: normal bimanual exam, normal palpation, uterine size normal, normal palpation, uterine shape normal, No Cervical tenderness present and non-tender Bimanual Exam- Adnexa, other: normal adnexae Back/Spine/Pelvis Back: no CVA tenderness Assessment & Plan Assessment & Plan (1) Breast inflammation: Comment: 2 cm from nipple at 12 resolving Code(s): N61.0 - Mastitis without abscess Category: Medical Plan: Discussed with the patient the finding on breast exam showing resolving inflammation but will rule out right breast pathology a ordering right breast mammogram and a right breast ultrasound and refer to general surgery. Instructed with the patient to call the office in case of abnormal ultrasound or mammogram for IUD removal sherri. All questions answered, the patient verbalized understanding (2) Abnormal uterine bleeding (AUB): Comment: On Mirena IUD Code(s): N93.9 - Abnormal uterine and vaginal bleeding, unspecified Category: Medical Plan: GC and chlamydia taken CBC, TSH, HCG, and pelvic ultrasound ordered. Discussed with the patient the different causes of abnormal bleeding including thyroid disorders, uterine and ovarian pathology, endometrial hyperplasia, carcinoma and other potential causes. Discussed with the patient the work up including CBC (to r/o anemia), TSH, pelvic Ultrasound, endometrial biopsy to r/o endometrial pathology. All questions answered and the patient verbalized understanding. Instructed the patient to schedule an appointment for an endometrial biopsy in 2 weeks. (3) IUD strings lost: Code(s): T83.32XA - Displacement of intrauterine contraceptive device, initial encounter Category: Medical Plan: IUD string not seen, pelvic ultrasound ordered to confirm appropriate IUD position in utero. Orders: Orders TSH reflex Free T4 Today N93.9 - Abnormal uterine and vaginal bleeding, unspecified US breast RT limited Today N61.0 - Mastitis without abscess Complete Blood Count no Diff Today N93.9 - Abnormal uterine and vaginal bleeding, unspecified HCG Quantitative Today N93.9 - Abnormal uterine and vaginal bleeding, unspecified US pelvic and transvaginal Today N93.9 - Abnormal uterine and vaginal bleeding, unspecified MM tomosynthesis diagnostic RT Today N61.0 - Mastitis without abscess Referrals General Surgery Referral N61.0 - Mastitis without abscess Coding Level of Care Code Est Pt Level 3 (12957) Diagnoses Breast inflammation N61.0 Abnormal uterine bleeding (AUB) N93.9 IUD strings lost T83.32XA
== END 2025-03-08 08:44 | disposition home or self-care (01) ==
LOC: HO.HWS 07:59
PROVIDERS: PCP Internal Medicine; Visit Provider Obstetrics & Gynecology
DX: N61.0 Mastitis without abscess (principal); N93.9 Abnormal uterine and vaginal bleeding, unspecified; T83.32XA Displacement of intrauterine contraceptive device, initial encounter
CPT/HCPCS: 99213

== ENCOUNTER 2025-03-08 07:59 | Outpatient (REF) | payer OTHER, SELFPAY ==
[2025-03-08 13:20] LABS: CT PCR NOT DETECTED (Not Detect.); NG PCR NOT DETECTED (Not Detect.)
== END 2025-03-08 08:00 | disposition home or self-care (01) ==
LOC: HO.LNP 07:59
PROVIDERS: PCP Internal Medicine; Visit Provider Obstetrics & Gynecology
DX: N93.9 Abnormal uterine and vaginal bleeding, unspecified (principal)
CPT/HCPCS: 87491; 87591; 99212

== ENCOUNTER 2025-04-02 14:48 | Outpatient (REF) | payer OTHER, SELFPAY ==
--- NOTE | ~2025-04-02 | MM_ITS ---
EXAMINATION: 1. MM DIAGNOSTIC DIGITAL BREAST TOMOSYNTHESIS, BILATERAL 2. Targeted ultrasound of the right breast CLINICAL INFORMATION: According to the requisition: -2 cm from the nipple at 12:00; Reason for Exam-N61.0 - Mastitis without abscess According to the patient: Patient had bilateral breast lift surgery 6 months ago. An approximately 1.5 months ago, she had superficial skin abscess in the left breast at about 12 o'clock position 2 cm from the nipple, which has burst since then, but local pain persists. COMPARISON: Comparison made to multiple prior, most recent May 22, 2024, and most remote October 24, 2020. TECHNIQUE: Digital breast tomosynthesis is performed in both the craniocaudal and mediolateral oblique views along with computer-aided detection (CAD). Synthesized 2D images are generated from the tomosynthesis. FINDINGS: BREAST COMPOSITION: The breasts are heterogeneously dense, which may obscure small masses (ACR BI-RADS breast composition Category c). RIGHT BREAST: History of previous mastopexy. No significant masses, suspicious calcifications or other abnormalities are seen. Targeted ultrasound was performed at the location of the clinically resolved prior superficial abscess. The survey centered at approximately 11-12 o'clock position 2 cm from the nipple shows a vague hypoechoic area within the skin layer, extending for 2.6 x 0.3 x 0.5 cm, which likely represents an area of healing tissue, containing linear traces of fluid. No abnormal local vascularity with color Doppler evaluation. LEFT BREAST: History of previous mastopexy. No significant masses, suspicious calcifications or other abnormalities are seen. MM/MM tomosynthesis diagnostic BI IMPRESSION: RIGHT BREAST: Sonographic appearance of the area of resolved abscess at 11-12 o'clock position at 2 cm from the nipple most likely represents an area of healing tissue with minimal trace fluid, and without abnormal vascularity. Benign, no evidence of malignancy. Clinical follow-up is recommended. Otherwise, normal interval follow-up mammogram is recommended in 12 months. LEFT BREAST: Benign, no mammographic evidence of malignancy. Normal interval follow-up is recommended in 12 months. ASSESSMENT: BI-RADS 2 - Benign Findings RECOMMENDATION: 1. Patient should be managed based on the clinical impression. 2. Otherwise, routine annual screening mammography. Results were provided to the patient at time of visit by the technologist. This patient's information was entered into a reminder system with a target due date for their next mammogram. Electronically signed by: Lucia White MD 04/02/2025 04:43 PM EDT
--- OUTSIDE RECORDS SUMMARY | 2025-04-02 15:40 | XMS_ITS | Clinical Summary ---
Author Organization [facility] ity Address [address] [place] [address] Care Team Providers Care Access Spec Name Role Phone Darion Mohan MD Primary Care Provider [phone] Social History Tobacco Use Types Packs/Day Years [...] 12/31/2000 COVID-19 Vaccine (2023-2 5 season) 2024 Depression Screening 08/22/2024 Influenza Vaccine (#1) 2025 HIB Vaccines Aged [...] age to complete this topic Care Teams Access Spec Relationship Specialty Start Date End Date Darion Mohan MD [address] [place] [address] Drive [address] [place] [address] PCP - General Internal Medicine 06/12/21
--- OUTSIDE RECORDS SUMMARY | 2025-04-02 15:40 | XMS_ITS | Patient Health Record ---
Author Organization [facility] enter Address [address] [place] [address] Support Name Relationship Address Phone Jenna Dias Guarantor Unknown [phone] Reason For Referral No Information Medications Medication [...] Oral (Yosef-) 01/09/2014 Active Vitamin D (Ergocalciferol) 82472 UNIT take 1 capsule by oral route every week Oral (Yosef-) 07/18/2013 Active Zofran ODT 8 MG take 1 tab PO q 8 h [address] on top of the tongue, let dissolve, then swallow. 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
== END 2025-04-02 14:49 | disposition home or self-care (01) ==
LOC: HO.MAMMO 14:48
PROVIDERS: PCP Internal Medicine; Visit Provider Obstetrics & Gynecology
DX: N61.0 Mastitis without abscess (principal); Z12.31 Encounter for screening mammogram for malignant neoplasm of breast
CPT/HCPCS: 76642; 77062; 77066

== ENCOUNTER → 2025-04-02 15:00 | Outpatient (BNV) | payer OTHER, SELFPAY | PROVIDERS: PCP Internal Medicine; Visit Provider Radiology Body Imaging | DX: N61.0 Mastitis without abscess (principal) | CPT/HCPCS: 76642; 77062; 77066 ==

== ENCOUNTER 2025-04-16 | Outpatient (REF) | payer OTHER, SELFPAY ==
--- OUTSIDE RECORDS SUMMARY | 2012-07-07 20:00 | XMS_ITS | Continuity of Care Document ---
Author Organization [facility] [employer] [facility] vices Address [address] [place] [address] Phone Care Team Providers Care Sociology Adjunct Instructor Name Role Phone Unavailable Unavailable Unavailable Medications [...] Diagnoses Date Provider Providers Copied on Encounter [facility], [address] [place] [address], [facility], tel:[phone] [facility] Podiatry No Information 2 No Information [facility], [address] [place] [address], [facility], tel:[phone] Conversion No Information 2 No Information [facility], [address] [place] [address], [facility], tel:[phone] Conversion TENDONITIS ACHILLESPAIN IN LIMB 2 No Information [facility], [address] [place] [address], [facility], tel:[phone] Conversion UNSPECIFIED DISORDERS OF MENSTRUATION AND OTHER ABNORMAL BLEEDING FROM FEMALE GENITAL TRACTBV 2 No Information [facility], [address] [place] [address], [facility], [place] tel:[phone] Conversion No Information 2 No Information [facility], [address] [place] [address], [facility], tel:[phone] Conversion No Information 1 No Information [facility], [address] [place] [address], [facility], [place] tel:[phone] Conversion DYSURIA 1 No Information [facility], [address] [place], [address], [place] tel:[phone] Conversion PELVIC PAINNEPHROLIT HIASIS 1 No Information [facility], [address] [place], [address], [place] tel:[phone] Conversion HEMATURIA, UNSPECIFIEDPR EGNANCY TEST - NEGATIVE RESULT 1 No Information [facility], [address] [place] [address], [address], [place] tel:[phone] Conversion No Information 1 No Information [facility], [address] [place] [address], [address], [place] tel:[phone] Historic Immunization Location No Information 0 No Information [facility], [address] [place] [address], [address], [place] tel:[phone] Conversion OTHER GENERAL COUNSELING AND ADVICE ON CONTRACEPTIVE 0 No Information FOCUSED OUT/PT [facility], [address] [place] [address], [address], [place] tel:[phone] [facility] No Information 0 No Information [facility], [address] [place] [address], [address], [place] tel:[phone] Conversion HEPATIITIS A- VACCINE NEEDED 0 No Information [facility], [address] [place] [address], [address], [place] tel:[phone] Conversion NEED FOR PROPHYLACTIC VACCINATION AND INOCULATION AGAINST UNSPECIFIED SINGLE BACTERIAL DISEASE 0 No Information MINIMAL OUT/PT [facility], [address] [place] [address], [address], [place] tel:[phone] [facility] Womens Health No Information 0 No Information OFFICE/OUTPATI ENT VISIT, EST [facility], [address] [place] [address], [address], [place] tel:[phone] [facility] Adult Medicine No Information 0 No Information [facility], [address] [place] [address], [address], [place] tel:[phone] Conversion CONTACT DERMATITIS Nov-1 4-201 0 No Information [facility], [address] [place] [address], [address], [place] tel:[phone] Conversion SCREENING EXAMINATION FOR VENEREAL DISEASEANEMIA Apr-0 8-201 0 No Information [facility], [address] [place] [address], [address], [place] tel:[phone] Conversion ANEMIA, IRON DEFICIENCYHEA DACHE, UNSPECIFIED Mar-3 0-200 9 No Information EXPANDED OUT/PT [facility], [address] [place] [address], [address], [place] tel:[phone] [facility] Adult Medicine No Information Oct-3 0-200 9 No Information [facility], [address] [place] [address], [address], [place] tel:[phone] Conversion ACUTE UPPER RESPIRATORY INFECTIONS OF UNSPECIFIED SITEOTHER SPECIFIED COUNSELING Oct-1 6200 9 No Information DETAILED OUT/PT [facility], [address] [place] [address], [address], [place] tel:[phone] [facility] Adult Medicine No Information Oct- 6200 9 No Information [facility], [address] [place] [address], [address], [place] tel:[phone] Conversion ROUTINE GYNECOLOGICAL EXAMINATION May-0 9200 8 No Information EXPANDED OUT/PT [facility], [address] [place] [address], [address], [place] tel:[phone] [facility]ens [facility] No Information May-0 9200 8 No Information [facility], [address] [place] [address], [address], [place] tel:[phone] Conversion ACUTE FRONTAL SINUSITIS Jan-2 6200 8 No Information EXPANDED OUT/PT [facility], [address] [place] [address], [address], [place] tel:[phone] [facility] Adult Medicine No Information 2 6200 8 No Information [facility], [address] [place] [address], [address], [place] tel:[phone] Conversion ENCOUNTERS FOR UNSPECIFIED ADMINISTRATIV E PURPOSE Oct- 2-200 8 No Information EXPANDED OUT/PT [facility], [address] [place], [address], [place] tel:[phone] [facility] Adult Medicine No Information 8 No Information [facility], [address] [place], [address], [place] tel:[phone] Conversion FATIGUE/MALAI SEROUTINE GENERAL MEDICAL EXAMINATION 7 No Information COMPREHENSIVE OUT/PT [facility], [address] [place], [address], [place] tel:[phone] [facility] Adult Medicine No Information 7 No Information EXPANDED OUT/PT [facility], [address] [place], [address], [place] tel:[phone] [facility] Adult Medicine No Information 7 No Information [facility], [address] [place] [address], [address], [place] tel:[phone] Conversion CYSTITIS, ACUTE 7 No Information EXPANDED OUT/PT [facility], [address] [place] [address], [address], [place] tel:[phone] [facility] Adult Medicine No Information 7 No Information [facility], [address] [place] [address], [address], [place] tel:[phone] Conversion LUMBAGOURINAR Y TRACT INFECTION SITE NOT SPECIFIED 7 No Information NEW EXPANDED CONSULT [facility], [address] [place] [address], [address], [place] tel:[phone] [facility] Adult Medicine No Information 7 No Information [facility], [address] [place] [address], [address], [place] tel:[phone] Conversion BACK PAIN W/ RADIATION, UNSPECIFIED 7 [...] Comments Sex Female Smoking Status No Information Sexual Orientation Don't Know Vital Signs Date / Time: Height Weight [...]
--- OUTSIDE RECORDS SUMMARY | 2012-08-06 20:00 | XMS_ITS | Continuity of Care Document ---
Author Organization [facility] vices Address [address] [place] [address] Phone Care Team Providers Care Ship Pilot Name Role Phone Unavailable Unavailable Unavailable Procedures Procedure Date EXPANDED OUT/PT EXPANDED OUT/PT Advance Directives Directive Yes / No Effective Date File Name No Information Encounters Encounter Description Practice Location Reason(s) For Visit Diagnoses Date Provider Providers Copied on Encounter [facility], [address] [place] [address], [address], tel:[phone] Conversion No Information No Information [facility], [address] [place] [address], tel:[phone] Conversion ENCOUNTERS FOR UNSPECIFIED ADMINISTRATIVE PURPOSE No Information EXPANDED OUT/PT [facility], [address] [place] [address], [address], [place] tel:[phone] [facility] Adult Medicine No Information No Information [facility], [address] [place] [address], [address], tel:[phone] Conversion ROUTINE GYNECOLOGICAL EXAMINATION No Information EXPANDED OUT/PT [facility], [address] [place] [address], [place] tel:[phone] [facility] No Information No Information Family History Family Member Type Diagnosis Age At Onset No Information Payers Payer name Insurance type Covered alliance party ID Authoriza tion(s) No Information Social History Type Description Quantity Date Captured Comments Sex Female Smoking Status No Information Sexual Orientation Don't Know Chief Complaint And Reason For Visit No [...]
--- OUTSIDE RECORDS SUMMARY | 2025-04-29 11:53 | XMS_ITS | Patient Health Record ---
Author Organization [facility] enter Address [address] [place] [address] Support Name Relationship Address Phone Jenna Dias Guarantor Unknown [phone] Reason For Referral No Information Medications Medication [...] Oral (Yosef-) 01/09/2014 Active Vitamin D (Ergocalciferol) 49287 UNIT take 1 capsule by oral route every week Oral (Yosef-) 07/18/2013 Active Zofran ODT 8 MG take 1 tab PO q 8 h [address] on top of the tongue, let dissolve, then swallow. 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
--- OUTSIDE RECORDS SUMMARY | 2025-04-29 11:53 | XMS_ITS | Clinical Summary ---
Author Organization [facility] ity Address [address] [place] [address] Care Team Providers Care Manager Generation Name Role Phone Darion Mohan MD Primary Care Provider [phone] Social History Tobacco Use Types Packs/Day Years [...] Cervical Cancer Screening: P ap Smear 12/31/2000 Depression Screening 08/22/2024 COVID-19 Vaccine ( - 2023-2 5 season) 2025 Influenza Vaccine (#1) 2025 HIB Vaccines Aged [...] age to complete this topic Care Teams Manager Generation Relationship Specialty Start Date End Date Darion Mohan MD [address] [place] [address] Drive [address] [place] [address] PCP - General Internal Medicine 06/12/21
== END 2025-04-16 00:01 | disposition home or self-care (01) ==
LOC: CF
PROVIDERS: PCP Internal Medicine; Visit Provider Surgery
DX: N61.0 Mastitis without abscess (principal); N63.12 Unspecified lump in the right breast, upper inner quadrant
CPT/HCPCS: 99202

== ENCOUNTER 2025-04-16 12:49 | Outpatient (AMB) | payer OTHER, SELFPAY ==
--- NOTE | 2025-04-16 12:50 | MHC.OFFVIS ---
Vital Signs 04/16/25 13:03 Height 5 ft 7 in Weight 212 lb 1.355 oz BMI 33.2 BP 120/80 Blood Pressure Location Lt brachial Position Sitting Intake Visit Reasons: Mastitis without abscess Intake Note: Patient is seen in office for evaluation of mastitis. Pt c/o: develop a lump in the right breast, about a month, rupture and discharge for a couple of days, lump is no longer visible, but has stabbing pain, warm to the touch, had breast lift in 09/29/24 in [place] with no complications, denies fm hx of breast cancer, first child at age of 17 yrs old, yes to breast feeding with no complications us/mm:04/02/25 Termite Exterminator Required: Yes Termite Exterminator Language: Residential Substance Abuse Counselor Services: Termite Exterminator Present Termite Exterminator Name: Brandee ANAYA Information Interpreted: non-clinical & clinical Production Controller: Production Controller Present Accompanied by: Self / Same As Patient Allergies No Known Allergies Allergy (Verified 04/16/25 13:00) HPI Comments Details: 45-year-old female patient presenting for evaluation of a recent infection located in the 12 o'clock position of the right breast. She reports a history of a bilateral breast lift performed in [place], [place] on 09/29/2024. She denies any complications following the procedure however she did note a thickened scar around the nipple and flattened nipples following the procedure. About a month ago she developed a painful lump in the 12 o'clock position which subsequently ruptured and discharged purulent fluid for approximately 3-4 days after which the lump decreased in size and pain. She was now unable to feel a lump but does have some tenderness occasional shooting pain at the same site. She denies a previous history of breast problems in her family history is negative for breast cancer. She underwent a mammogram and ultrasound on 04/02/2025 which revealed some cutaneous thickening but no suspicious mass in either breast. [facility] Medical History Uterine fibroid Acute eczema GERD (gastroesophageal reflux disease) Migraines Hypovitaminosis D Physical exam AMAN (generalized anxiety disorder) Polyarthralgia New daily persistent headache Dyslipidemia Migraine with aura Anemia Surgical History H/O cosmetic surgery History of sleeve gastrectomy Hx of tubal ligation Hx of section Family History Father Diabetes mellitus ESRD on hemodialysis Mother Acute depression Anxiety Asthma Hypertension Osteoporosis Hypercholesteremia Hyperlipemia Mental health disorder Son No problems noted. Daughter No problems noted. Brother No problems noted. Sister Cervical cancer Maternal Grandmother Lung cancer Maternal Grandfather Throat cancer Social History Household Members: Significant Other and Family Housing: House Alcohol intake: never Patient Tobacco Use Status: Never used Tobacco e-Cigarette/Vaping Use: Never Used Second Hand Smoke Exposure: No service: No Current occupational status: employed Current occupational exposures/hazards: No Gender identity: Female Cognitive needs: No Hearing needs: No Vision needs: No Female Reproductive History Menstrual Age of Menarche: 9 Date of last menstrual period: 03/30/25 Total pregnancies: 4 Number of Living Children: 2 Review of Systems Const All systems reviewed & are unremarkable except as noted in HPI and below Physical Exam Vital Signs: Last Vital Signs BP 120/80 04/16/25 13:03 BMI result Body Mass Index 33.2 Const General: cooperative and no acute distress Nutritional Appearance: well nourished Orientation/consciousness: patient oriented x3 Limitations: no limitations HEENT Head: Yes normocephalic and Yes atraumatic Ears: hearing grossly normal bilaterally Chest Other: Bilateral breast reduction incision with a thickened scar noted in the right breast especially circumareolar. Left breast: No skin change, no nipple retraction, no nipple discharge, no palpable mass, no enlarged lymph nodes. Right breast: No skin change, no nipple retraction, no nipple discharge, no palpable mass, no enlarged lymph nodes. No palpable cyst noted my examination. Chest/axillae images:  1. Site of previous infection right breast. Normal examination today except for the large scar from the breast lift. Resp Effort & Inspection: normal respiratory effort, no audible wheezes, no cough and no respiratory distress Cardio Jugular venous distension: no JVD GI Inspection: Yes normal to inspection Skin Other: Warm, dry, no rash Neuro General: patient oriented x3 Extrem General: Yes no clubbing, cyanosis or edema Assessment & Plan Assessment & Plan (1) Breast lump: Code(s): N63.0 - Unspecified lump in unspecified breast Category: Medical (2) Breast inflammation: Comment: 2 cm from nipple at 12 resolving Code(s): N61.0 - Mastitis without abscess Category: Medical Plan 45-year-old female patient with a recent right breast infection located in the 12 o'clock position. Mammogram and ultrasound revealed only minimal changes in the skin but no suspicious findings. Examination today reveals no suspicious findings in either breast. The infection appears to be related to her prior breast surgery possibly an infected suture. No surgical intervention is required at this time. She should follow up as needed for changes. Coding Level of Care Code New Pt Level 4 (32530) Diagnoses Breast lump N63.0 Breast inflammation N61.0
[2025-04-16 13:03] VITALS: BP 120/80; BMI 33.2
--- OUTSIDE RECORDS SUMMARY | 2025-04-16 13:30 | XMS_ITS | Clinical Summary ---
Author Organization [facility] ity Address [address] [place] [address] Care Team Providers Care Bus Repair Supervisor Name Role Phone Darion Mohan MD Primary Care Provider [phone] Social History Tobacco Use Types Packs/Day Years [...] age to complete this topic Care Teams Bus Repair Supervisor Relationship Specialty Start Date End Date Darion Mohan MD [address] [place] [address] Drive [address] [place] [address] PCP - General Internal Medicine 06/12/21
--- OUTSIDE RECORDS SUMMARY | 2025-04-16 13:30 | XMS_ITS | Patient Health Record ---
Author Organization [facility] enter Address [address] [place] [address] Support Name Relationship Address Phone Jenna Dias Guarantor Unknown Reason For Referral No Information Medications Medication [...] Oral (Yosef-) 01/09/2014 Active Vitamin D (Ergocalciferol) 23118 UNIT take 1 capsule by oral route every week Oral (Yosef-) 07/18/2013 Active Zofran ODT 8 MG take 1 tab PO q 8 h [address] on top of the tongue, let dissolve, then swallow. 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
--- OUTSIDE RECORDS SUMMARY | 2025-04-16 13:31 | XMS_ITS | Clinical Summary ---
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 Not on file Not [...] 03/01/2016 Lipid Screening 10/11/2023 10/11/2018, 01/2017, 07/11/2015 [id number] ( season) 2024 022, 01/29/2021 Alcohol and [...] / Unknown 01/08/2019 1:18 PM EDT Impressions [facility] - 01/08/2019 1:18 PM EDT Thinprep pap: Negative for squamous intraepithelial lesion and malignancy HPV: negative us [facility] - PATHOLOGY AND CYTOLOGY AMB ULATORY Final Result [facility] [address] [place] [address], [place] [phone] * (ABNORMAL) LIPID PANEL (10/11/2018 4:05 PM EST) CHOLESTEROL 182 0 - 200 mg/dL [facility] TRIGLYCERIDES 149 0 - 150 mg/dL [facility] HDL CHOLESTEROL 48 >40 mg/dL [facility] LDL CALCULATED 105(H) 0 - 100 mg/dL [facility] TC-HDLC RATIO 3.8 0 - 4.4 mg/dL [facility] Blood specimen (specimen) Blood / Unknown 10/11/2018 4:05 PM EST 10/11/2018 4:[address] [facility] - 10/11/2018 8:14 PM EST [facility], [place] [address] Classification And Treatment Director - Tory Acosta MD PT ID [id number] ORD# [id number] [facility] - BLOOD DRAW Edited Result - Final [address] [address], * COMPRE METAB PANEL (CMP) (10/11/2018 4:05 PM EST) GLUCOSE 83 70 - 100 mg/dL [facility] Comment:Reference range appl icable to fasting specimens only BUN 13 5 - 25 mg/dL [facility] CREAT 0.78 0.5 - 1.1 mg/dL [facility] GLOMERULAR FILTRATION RATE > 60 [facility] Comment: If patient is -Nigerien, multiply result by 1.21 Chronic Kidney Disease: < 60 ml/min/1.73 square meters Kidney Failure: < 15 ml/min/1.73 square meters SODIUM 140 133 - 145 mmol/L [facility] POTASSIUM 3.8 3.5 - 5.5 mmol/L [facility] CHLORIDE 106 96 - 110 mmol/L [facility] CO2 27 21 - 32 mmol/L [facility] ANION GAP 7 3 - 11 [facility] CALCIUM 9.0 8.5 - 10.5 mg/dL [facility] ALBUMIN 3.5 3.2 - 5.0 G/dL [facility] SGPT 41 10 - 60 U/L [facility] TOTAL PROTEIN 7.3 6.0 - 8.0 G/dL [facility] BILI, TOTAL 0.3 0.0 - 1.4 mg/dL [facility] SGOT 26 10 - 42 U/L [facility] ALK PHOS 87 42 - 121 U/L [facility] Blood specimen (specimen) Blood / Unknown 10/11/2018 4:05 PM EST 10/11/2018 4:[address] [facility] - 10/11/2018 8:14 PM EST [facility], [place] [address] Classification And Treatment Director - Tory Acosta MD PT ID [id number] ORD# [id number] [facility] - BLOOD DRAW Edited Result - Final Performing Organization Address City/State/[facility] [place] [address], * HIV-1 & HIV-2 ANTIBODIES (07/27/2017 4:25 PM EST) [facility] HIV 1 AND 2 ANTIBODY SCREEN NEGATIVE NEGATIVE [facility] Comment: This assay is a 4th generation [...] PM EST 07/27/2017 6:[address] [facility] - 07/27/2017 7:58 PM EST [facility] [address] [place] [address] PT ID [id number] ORD# [id number] us [facility] - BLOOD DRAW Final Result [facility] [address] [place] [address], from Last 3 Months or Most Recently Relevant to Health Maintenance Insurance [facility] 5by PLAN Member Subscriber Plan / Payer (Ef fective 2021-Present) Name:Jenna Ortiz Relation to Subscriber:Self Name:Jenna Ortiz Payer ID:[id number] Group ID:[id number] Type:Medicaid Address: [facility] [address] [place] [address] Care Teams Keypunch Operators Supervisor Relationship Specialty Start Date End Date Shelly Cadet FNP [address] [place] [address] PCP - General 03/05/19
== END 2025-04-16 13:28 | disposition home or self-care (01) ==
LOC: HO.HGS 12:49
PROVIDERS: PCP Internal Medicine; Visit Provider Surgery
DX: N63.0 Unspecified lump in unspecified breast (principal); N61.0 Mastitis without abscess
CPT/HCPCS: 99204

== ENCOUNTER 2025-05-24 11:41 | Outpatient (AMB) | payer OTHER, SELFPAY ==
--- OUTSIDE RECORDS SUMMARY | 2012-07-07 20:00 | XMS_ITS | Continuity of Care Document ---
Author Organization 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, [address] [place] [address], [facility], tel:[phone] Conversion TENDONITIS ACHILLESPAIN IN LIMB 2 No Information [facility], [address] [place] [address], [facility], tel:[phone] Conversion UNSPECIFIED DISORDERS OF MENSTRUATION AND OTHER ABNORMAL BLEEDING FROM FEMALE GENITAL TRACTBV 2 No Information [facility], [address] [place] [address], [facility], [place] tel:[phone] Conversion No Information 2 No Information [facility], [address] [place] [address], [facility], tel:[phone] Conversion No Information 1 No Information [facility], [address] [place] [address], [facility], [place] tel:[phone] Conversion DYSURIA [address] [facility], [address] [place], [address], [place] tel:[phone] Conversion PELVIC PAINNEPHROLIT HIASIS [address] [facility], [address] [place], [address], [place] tel:[phone] Conversion HEMATURIA, UNSPECIFIEDPR EGNANCY TEST - NEGATIVE RESULT [address] [facility], [address] [place] [address], [address], [place] tel:[phone] Conversion No Information 1 No Information [facility], [address] [place] [address], [address], [place] tel:[phone] Historic Immunization Location No Information [address] [facility], [address] [place] [address], [address], [place] tel:[phone] Conversion OTHER GENERAL COUNSELING AND ADVICE ON CONTRACEPTIVE 0 No Information FOCUSED OUT/PT [facility], [address] [place] [address], [address], [place] tel:[phone] [facility] No Information [address] [facility], [address] [place] [address], [address], [place] tel:[phone] Conversion HEPATIITIS A- VACCINE NEEDED [address] [facility], [address] [place] [address], [address], [place] tel:[phone] Conversion NEED FOR PROPHYLACTIC VACCINATION AND INOCULATION AGAINST UNSPECIFIED SINGLE BACTERIAL DISEASE 0 No Information MINIMAL OUT/PT [facility], [address] [place] [address], [address], [place] tel:[phone] [facility] Womens Health No Information 0 No Information OFFICE/OUTPATI ENT VISIT, EST [facility], [address] [place] [address], [address], [place] tel:[phone] [facility] Adult Medicine No Information [address] [facility], [address] [place] [address], [address], [place] tel:[phone] Conversion CONTACT DERMATITIS Nov-1 4-[address] [facility], [address] [place] [address], [address], [place] tel:[phone] Conversion SCREENING EXAMINATION FOR VENEREAL DISEASEANEMIA Apr-0 8-[address] [facility], [address] [place] [address], [address], [place] tel:[phone] Conversion ANEMIA, IRON DEFICIENCYHEA DACHE, UNSPECIFIED Mar-3 0-200 9 No Information EXPANDED OUT/PT [facility], [address] [place] [address], [address], [place] tel:[phone] [facility] Adult Medicine No Information Oct-3 0-[address] [facility], [address] [place] [address], [address], [place] tel:[phone] Conversion ACUTE UPPER RESPIRATORY INFECTIONS OF UNSPECIFIED SITEOTHER SPECIFIED COUNSELING Oct-1 6200 9 No Information DETAILED OUT/PT [facility], [address] [place] [address], [address], [place] tel:[phone] [facility] Adult Medicine No Information Oct- [address] [facility], [address] [place] [address], [address], [place] tel:[phone] Conversion ROUTINE GYNECOLOGICAL EXAMINATION May-0 9200 8 No Information EXPANDED OUT/PT [facility], [address] [place] [address], [address], [place] tel:[phone] [facility] W[facility]ens [facility] No Information May-[address] [facility], [address] [place] [address], [address], [place] tel:[phone] Conversion ACUTE FRONTAL SINUSITIS Jan-2 6200 8 No Information EXPANDED OUT/PT [facility], [address] [place] [address], [address], [place] tel:[phone] [facility] Adult Medicine No Information [address] [facility], [address] [place] [address], [address], [place] tel:[phone] Conversion ENCOUNTERS FOR UNSPECIFIED ADMINISTRATIV E PURPOSE Oct- 2-200 8 No Information EXPANDED OUT/PT [facility], [address] [place], [address], [place] tel:[phone] [facility] Adult Medicine No Information [address] [facility], [address] [place], [address], [place] tel:[phone] Conversion FATIGUE/MALAI SEROUTINE GENERAL MEDICAL EXAMINATION 7 No Information COMPREHENSIVE OUT/PT [facility], [address] [place], [address], [place] tel:[phone] [facility] Adult Medicine No Information 7 No Information EXPANDED OUT/PT [facility], [address] [place], [address], [place] tel:[phone] [facility] Adult Medicine No Information [address] [facility], [address] [place] [address], [address], [place] tel:[phone] Conversion CYSTITIS, ACUTE 7 No Information EXPANDED OUT/PT [facility], [address] [place] [address], [address], [place] tel:[phone] [facility] Adult Medicine No Information [address] [facility], [address] [place] [address], [address], [place] tel:[phone] Conversion LUMBAGOURINAR Y TRACT INFECTION SITE NOT SPECIFIED 7 No Information NEW EXPANDED CONSULT [facility], [address] [place] [address], [address], [place] tel:[phone] [facility] Adult Medicine No Information [address] [facility], [address] [place] [address], [address], [place] tel:[phone] Conversion BACK PAIN W/ RADIATION, UNSPECIFIED 7 [...]
--- OUTSIDE RECORDS SUMMARY | 2012-08-06 20:00 | XMS_ITS | Continuity of Care Document ---
Author Organization [facility] vices Address [address] [place] [address] Phone Care Team Providers Care Glass Cut Off Tender Name Role Phone Unavailable Unavailable Unavailable Procedures Procedure Date EXPANDED OUT/PT EXPANDED OUT/PT Advance Directives Directive Yes / No Effective Date File Name No Information Encounters Encounter Description Practice Location Reason(s) For Visit Diagnoses Date Provider Providers Copied on Encounter [facility], [address] [place] [address], [address], tel:[phone] Conversion No Information 2 No Information [facility], [address] [place] [address], tel:[phone] Conversion ENCOUNTERS FOR UNSPECIFIED ADMINISTRATIVE PURPOSE 7 No Information EXPANDED OUT/PT [facility], [address] [place] [address], [address], [place] tel:[phone] [facility] Adult Medicine No Information No Information [facility], [address] [place] [address], [address], tel:[phone] Conversion ROUTINE GYNECOLOGICAL EXAMINATION No Information EXPANDED OUT/PT [facility], [address] [place] [address], [place] tel:[phone] [facility] No Information 7 No [...]
--- NOTE | 2025-05-24 11:41 | MHC.OFFWIV ---
Intake Vital Signs 05/24/25 11:42 Height 5 ft 7 in Weight 214 lb BMI 33.5 BP 126/80 Blood Pressure Location Rt brachial Position Sitting Pulse 81 Pulse Source Pulse Oximeter Temp 98.3 F Temp Source Oral Pulse Oximetry (%) 100 Oxygen Delivery Method Room Air Intake Visit Reasons: EP-rt knee pain & swollen Intake Note: pt presents with right knee pain & swelling for a week Patient Tobacco Use Status: Never used Tobacco Allergies No Known Allergies Allergy (Verified 05/24/25 11:43) Do you need a note to return to daycare/school/sports/work: No HPI HPI Comments History of Present Illness Details This is a 45-year-old female with a past medical history of gastroesophageal reflux disease presenting for evaluation of right knee pain that she has had intermittently over the past 1 week. Patient denies any injury or trauma preceding the onset of her symptoms and has no pain at rest. 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 Patient has not taken any medication for treatment of her discomfort. She denies having any right thigh pain, right calf pain and denies any recent travel. [facility] Medical History Uterine fibroid Acute eczema GERD (gastroesophageal reflux disease) Migraines Hypovitaminosis D Physical exam AMAN (generalized anxiety disorder) Polyarthralgia New daily persistent headache Dyslipidemia Migraine with aura Anemia Surgical History H/O cosmetic surgery History of sleeve gastrectomy Hx of tubal ligation Hx of section Family History Father Diabetes mellitus ESRD on hemodialysis Mother Acute depression Anxiety Asthma Hypertension Osteoporosis Hypercholesteremia Hyperlipemia Mental health disorder Son No problems noted. Daughter No problems noted. Brother No problems noted. Sister Cervical cancer Maternal Grandmother Lung cancer Maternal Grandfather Throat cancer Social History Household Members: Significant Other and Family Housing: House Alcohol intake: never Patient Tobacco Use Status: Never used Tobacco e-Cigarette/Vaping Use: Never Used Second Hand Smoke Exposure: No service: No Current occupational status: employed Current occupational exposures/hazards: No Gender identity: Female Cognitive needs: No Hearing needs: No Vision needs: No Female Reproductive History Menstrual Age of Menarche: 9 Review of Systems Const All systems reviewed & are unremarkable except as noted in HPI and below Reports no additional complaints Musc Reports no additional complaints, Reports arthralgias (right knee), Reports joint swelling, Denies limited range of motion and Denies muscle weakness Skin/Breast Reports system reviewed and no additional complaints, except as documented Neuro Reports no additional complaints Psych Reports no additional complaints Physical Exam Vital Signs: BMI result Body Mass Index 33.5 Const General: cooperative, healthy appearing, comfortable, no acute distress, well developed, alert, awake and Physically active; No acute distress or lethargic Nutritional Appearance: overweight Orientation/consciousness: patient oriented x3 and No lethargic Limitations: no limitations Skin Other: No erythema, abrasions, warmth to touch upon examination of the right anterior and posterior knee joint General skin exam: no rashes or lesions noted Neuro General: patient oriented x3 Extrem General: Yes normal to inspection, Yes full ROM and Yes no joint enlargement Right lower extremity: normal to inspection, full ROM, no joint enlargement, knee Details: normal to inspection, normal ROM and knee ligament exam normal; no tenderness, no swelling, no crepitus, no deformity and no unusual warmth and lower leg Details: no tenderness (no right calf tenderness, no pain to palpation posterior fossa); no edema Psych Appearance: grossly normal Mental Status: mental status grossly normal Insight: Good insight present (Psych) Judgement: Good judgement present (Psych) Assessment & Plan Assessment & Plan (1) Strain of right knee: Comment: There is no pain elicited upon examination and patient is ambulating well without assistance. Patient has not taken any fcqv-ppn-hjurpyd medication for treatment of her discomfort. Patient will be treated empirically for a right knee strain with enteric-coated Naprosyn. Imaging is deferred at this time. Code(s): S86.911A - Strain of unspecified muscle(s) and tendon(s) at lower leg level, right leg, initial encounter Qualifiers: Encounter type: initial encounter Qualified Code(s): S86.911A - Strain of unspecified muscle(s) and tendon(s) at lower leg level, right leg, initial encounter Plan: EC Naprosyn 500 mg b.i.d. times 7-10 days. Medications: New naproxen (EC-Naprosyn) 500 mg PO BID 20 tabs 0RF Coding Level of Care Code Est Pt Level 3 (25066) Diagnoses Strain of right knee, initial encounter S86.911A Encounter type: initial encounter Time Spent (min) 20
[2025-05-24 11:42] VITALS: BP 126/80; PULSE 81; TEMP 36.8; O2SAT 100; BMI 33.5
--- OUTSIDE RECORDS SUMMARY | 2025-05-24 12:48 | XMS_ITS | Patient Health Record ---
Author Organization [facility] Address [address] [place] [address] Support Name Relationship Address Phone Jenna Dias Guarantor Unknown [phone] Reason For Referral No Information Medications Medication [...] Oral (Yosef-) 01/09/2014 Active Vitamin D (Ergocalciferol) 06644 UNIT take 1 capsule by oral route every week Oral (Yosef-) 07/18/2013 Active Zofran ODT 8 MG take 1 tab PO q [address] on top of the tongue, let dissolve, then swallow. 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
== END 2025-05-24 12:24 | disposition home or self-care (01) ==
PROVIDERS: PCP Internal Medicine; Visit Provider Physician Assistant
DX: S86.911A Strain of unspecified muscle(s) and tendon(s) at lower leg level, right leg, initial encounter (principal)

== ENCOUNTER → 2025-05-24 11:41 | Outpatient (BNVA) | payer OTHER, SELFPAY | PROVIDERS: PCP Internal Medicine; Visit Provider Physician Assistant | DX: S86.911A Strain of unspecified muscle(s) and tendon(s) at lower leg level, right leg, initial encounter (principal); X58.XXXA Exposure to other specified factors, initial encounter; Y93.9 Activity, unspecified; Y92.9 Unspecified place or not applicable; Y99.9 Unspecified external cause status | CPT/HCPCS: 99212 ==

== ENCOUNTER 2025-06-12 16:12 | Outpatient (REF) | payer OTHER, SELFPAY ==
--- OUTSIDE RECORDS SUMMARY | 2012-07-07 20:00 | XMS_ITS | Continuity of Care Document ---
Author Organization [facility] vices Address [address] [place] [address] Phone Care Team Providers Care Bariatric Program Coordinator Name Role Phone Unavailable Unavailable Unavailable Medications [...] Date Provider Providers Copied on Encounter [facility], [address] [place] [address], [facility], tel:[phone] [facility] Podiatry No Information 2 No Information [facility], [address] [place] [address], [facility], tel:[phone] Conversion No Information 2 No Information [facility], [address] [place] [address], [facility], tel:[phone] Conversion TENDONITIS ACHILLESPAIN IN LIMB 2 No Information [facility], [address] [place] [address], [facility], tel:[phone] Conversion UNSPECIFIED DISORDERS OF MENSTRUATION AND OTHER ABNORMAL BLEEDING FROM FEMALE GENITAL TRACTBV 2 No Information [facility], [address] [place] [address], [facility], [place] tel:[phone] Conversion No Information 2 No Information [facility], [address] [place] [address], [facility], tel:[phone] Conversion No Information 1 No Information [facility], [address] [place] [address], [facility], [place] tel:[phone] Conversion DYSURIA 1 No Information [facility], [address] [place], [address], [place] tel:[phone] Conversion PELVIC PAINNEPHROLIT HIASIS 1 No Information [facility], [address] [place], [address], [place] tel:[phone] Conversion HEMATURIA, UNSPECIFIEDPR EGNANCY TEST - NEGATIVE RESULT 1 No Information [facility], [address] [place] [address], [address], [place] tel:[phone] Conversion No Information 1 No Information [facility], [address] [place] [address], [address], [place] tel:[phone] Historic Immunization Location No Information 0 No Information [facility], [address] [place] [address], [address], [place] tel:[phone] Conversion OTHER GENERAL COUNSELING AND ADVICE ON CONTRACEPTIVE 0 No Information FOCUSED OUT/PT [facility], [address] [place] [address], [address], [place] tel:[phone] [facility] No Information 0 No Information [facility], [address] [place] [address], [address], [place] tel:[phone] Conversion HEPATIITIS A- VACCINE NEEDED 0 No Information [facility], [address] [place] [address], [address], [place] tel:[phone] Conversion NEED FOR PROPHYLACTIC VACCINATION AND INOCULATION AGAINST UNSPECIFIED SINGLE BACTERIAL DISEASE 0 No Information MINIMAL OUT/PT [facility], [address] [place] [address], [address], [place] tel:[phone] [facility] No Information 0 No Information OFFICE/OUTPATI ENT VISIT, EST [facility], [address] [place] [address], [address], [place] tel:[phone] [facility] Adult Medicine No Information 0 No Information [facility], [address] [place] [address], [address], [place] tel:[phone] Conversion CONTACT DERMATITIS Nov-1 4-201 0 No Information [facility], [address] [place] [address], [address], [place] tel:[phone] Conversion SCREENING EXAMINATION FOR VENEREAL DISEASEANEMIA Apr-0 8-201 0 No Information [facility], [address] [place] [address], [address], [place] tel:[phone] Conversion ANEMIA, IRON DEFICIENCYHEA DACHE, UNSPECIFIED Mar-3 0-200 9 No Information EXPANDED OUT/PT [facility], [address] [place] [address], [address], [place] tel:[phone] [facility] Adult Medicine No Information Oct-3 0-200 9 No Information [facility], [address] [place] [address], [address], [place] tel:[phone] Conversion ACUTE UPPER RESPIRATORY INFECTIONS OF UNSPECIFIED SITEOTHER SPECIFIED COUNSELING Oct-1 6200 9 No Information DETAILED OUT/PT [facility], [address] [place] [address], [address], [place] tel:[phone] [facility] Adult Medicine No Information Oct- 6200 9 No Information [facility], [address] [place] [address], [address], [place] tel:[phone] Conversion ROUTINE GYNECOLOGICAL EXAMINATION May-0 9200 8 No Information EXPANDED OUT/PT [facility], [address] [place] [address], [address], [place] tel:[phone] [facility] No Information May-0 9200 8 No Information [facility], [address] [place] [address], [address], [place] tel:[phone] Conversion ACUTE FRONTAL SINUSITIS Jan-2 6200 8 No Information EXPANDED OUT/PT [facility], [address] [place] [address], [address], [place] tel:[phone] [facility] Adult Medicine No Information 2 6200 8 No Information [facility], [address] [place] [address], [address], [place] tel:[phone] Conversion ENCOUNTERS FOR UNSPECIFIED ADMINISTRATIV E PURPOSE Oct- 2-200 8 No Information EXPANDED OUT/PT [facility], [address] [place], [address], [place] tel:[phone] [facility] Adult Medicine No Information 8 No Information [facility], [address] [place], [address], [place] tel:[phone] Conversion FATIGUE/MALAI SEROUTINE GENERAL MEDICAL EXAMINATION 7 No Information COMPREHENSIVE OUT/PT [facility], [address] [place], [address], [place] tel:[phone] [facility] Adult Medicine No Information 7 No Information EXPANDED OUT/PT [facility], [address] [place], [address], [place] tel:[phone] [facility] Adult Medicine No Information 7 No Information [facility], [address] [place] [address], [address], [place] tel:[phone] Conversion CYSTITIS, ACUTE 7 No Information EXPANDED OUT/PT [facility], [address] [place] [address], [address], [place] tel:[phone] [facility] Adult Medicine No Information 7 No Information [facility], [address] [place] [address], [address], [place] tel:[phone] Conversion LUMBAGOURINAR Y TRACT INFECTION SITE NOT SPECIFIED 7 No Information NEW EXPANDED CONSULT [facility], [address] [place] [address], [address], [place] tel:[phone] [facility] Adult Medicine No Information 7 No Information [facility], [address] [place] [address], [address], [place] tel:[phone] Conversion BACK PAIN W/ RADIATION, UNSPECIFIED 7 [...]
--- OUTSIDE RECORDS SUMMARY | 2012-08-06 20:00 | XMS_ITS | Continuity of Care Document ---
Author Organization [facility] vices Address [address] [place] [address] Phone Care Team Providers Care Swatch Maker Name Role Phone Unavailable Unavailable Unavailable Procedures Procedure Date EXPANDED OUT/PT EXPANDED OUT/PT Advance Directives Directive Yes / No Effective Date File Name No Information Encounters Encounter Description Practice Location Reason(s) For Visit Diagnoses Date Provider Providers Copied on Encounter [facility], [address] [place] [address], [address], tel:[phone] Conversion No Information [address] [facility], [address] [place] [address], tel:[phone] Conversion ENCOUNTERS FOR UNSPECIFIED ADMINISTRATIVE PURPOSE 7 No Information EXPANDED OUT/PT [facility], [address] [place] [address], [address], [place] tel:[phone] [facility] Adult Medicine No Information No Information [facility], [address] [place] [address], [address], tel:[phone] Conversion ROUTINE GYNECOLOGICAL EXAMINATION No Information EXPANDED OUT/PT [facility], [address] [place] [address], [place] tel:[phone] [facility] No Information 7 No [...]
--- NOTE | ~2025-06-12 | US_ITS ---
EXAMINATION: US PELVIS CLINICAL INFORMATION: N93.9 - Abnormal uterine and vaginal bleeding, unspecified COMPARISON: November 26, 2024 TECHNIQUE: Ultrasound of the pelvis is performed using both transabdominal and transvaginal transducers along with Doppler. Transvaginal imaging is performed due to inadequate visualization transabdominally. FINDINGS: Uterus: The uterus is anteverted and measures 10 x 4.5 x 4.7 cm. The double wall endometrial thickness is 4 mm. IUD is demonstrated in the upper uterine canal. The uterus is smooth in contour and has normal myometrial echogenicity. Fundal leiomyoma demonstrated on the prior examination is not demonstrated today. Adnexa: Both ovaries are visualized. There is normal color flow to the adnexa. There is no ovarian torsion. There is no pelvic ascites or fluid collection. Right ovary measures 2.5 x 1.5 x 1.8 cm. Left ovary measures 2.5 x 1.3 x 1.7 cm. 11 Millimeter follicle is incidentally noted. US/US pelvic and transvaginal IMPRESSION: Unremarkable pelvic ultrasound. Electronically signed by: Zach Manriquez MD 06/12/2025 05:20 PM EDT
--- OUTSIDE RECORDS SUMMARY | 2025-06-12 22:03 | XMS_ITS | Patient Health Record ---
Author Organization [facility] Address [address] [place] [address] Support Name Relationship Address Phone Jenna Dias Guarantor Unknown [phone] Reason For Referral No Information Medications Medication [...] Oral (Yosef-) 01/09/2014 Active Vitamin D (Ergocalciferol) 12914 UNIT take 1 capsule by oral route every week Oral (Yosef-) 07/18/2013 Active Zofran ODT 8 MG take 1 tab PO q [address] on top of the tongue, let dissolve, then swallow. 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
== END 2025-06-12 16:13 | disposition home or self-care (01) ==
LOC: HO.US 16:12
PROVIDERS: PCP Internal Medicine; Visit Provider Obstetrics & Gynecology
DX: N93.9 Abnormal uterine and vaginal bleeding, unspecified (principal)
CPT/HCPCS: 76830; 76856

== ENCOUNTER → 2025-06-12 16:16 | Outpatient (BNV) | payer OTHER, SELFPAY | PROVIDERS: PCP Internal Medicine; Visit Provider Radiology Diagnostic Radiology | DX: N93.9 Abnormal uterine and vaginal bleeding, unspecified (principal) | CPT/HCPCS: 76830; 76856 ==

== ENCOUNTER 2025-06-17 14:52 | Outpatient (AMB) | payer OTHER, SELFPAY ==
--- OUTSIDE RECORDS SUMMARY | 2012-07-07 20:00 | XMS_ITS | Continuity of Care Document ---
Author Organization [facility] [employer] [facility] vices Address [address] [place] [address] Phone Care Team Providers Care Trouble Operator Name Role Phone Unavailable Unavailable Unavailable Medications [...] Diagnoses Date Provider Providers Copied on Encounter [facility], [address] [place] [address], [facility], tel:[phone] [facility] Podiatry No Information 2 No Information [facility], [address] [place] [address], [facility], tel:[phone] Conversion No Information 2 No Information [facility], [address] [place] [address], [facility], tel:[phone] Conversion TENDONITIS ACHILLESPAIN IN LIMB 2 No Information [facility], [address] [place] [address], [facility], tel:[phone] Conversion UNSPECIFIED DISORDERS OF MENSTRUATION AND OTHER ABNORMAL BLEEDING FROM FEMALE GENITAL TRACTBV 2 No Information [facility], [address] [place] [address], [facility], [place] tel:[phone] Conversion No Information 2 No Information [facility], [address] [place] [address], [facility], tel:[phone] Conversion No Information 1 No Information [facility], [address] [place] [address], [facility], [place] tel:[phone] Conversion DYSURIA 1 No Information [facility], [address] [place], [address], [place] tel:[phone] Conversion PELVIC PAINNEPHROLIT HIASIS 1 No Information [facility], [address] [place], [address], [place] tel:[phone] Conversion HEMATURIA, UNSPECIFIEDPR EGNANCY TEST - NEGATIVE RESULT 1 No Information [facility], [address] [place] [address], [address], [place] tel:[phone] Conversion No Information 1 No Information [facility], [address] [place] [address], [address], [place] tel:[phone] Historic Immunization Location No Information 0 No Information [facility], [address] [place] [address], [address], [place] tel:[phone] Conversion OTHER GENERAL COUNSELING AND ADVICE ON CONTRACEPTIVE 0 No Information FOCUSED OUT/PT [facility], [address] [place] [address], [address], [place] tel:[phone] [facility] No Information 0 No Information [facility], [address] [place] [address], [address], [place] tel:[phone] Conversion HEPATIITIS A- VACCINE NEEDED 0 No Information [facility], [address] [place] [address], [address], [place] tel:[phone] Conversion NEED FOR PROPHYLACTIC VACCINATION AND INOCULATION AGAINST UNSPECIFIED SINGLE BACTERIAL DISEASE 0 No Information MINIMAL OUT/PT [facility], [address] [place] [address], [address], [place] tel:[phone] [facility] No Information 0 No Information OFFICE/OUTPATI ENT VISIT, EST [facility], [address] [place] [address], [address], [place] tel:[phone] [facility] Adult Medicine No Information 0 No Information [facility], [address] [place] [address], [address], [place] tel:[phone] Conversion CONTACT DERMATITIS Nov-1 4-201 0 No Information [facility], [address] [place] [address], [address], [place] tel:[phone] Conversion SCREENING EXAMINATION FOR VENEREAL DISEASEANEMIA Apr-0 8-201 0 No Information [facility], [address] [place] [address], [address], [place] tel:[phone] Conversion ANEMIA, IRON DEFICIENCYHEA DACHE, UNSPECIFIED Mar-3 0-200 9 No Information EXPANDED OUT/PT [facility], [address] [place] [address], [address], [place] tel:[phone] [facility] Adult Medicine No Information Oct-3 0-200 9 No Information [facility], [address] [place] [address], [address], [place] tel:[phone] Conversion ACUTE UPPER RESPIRATORY INFECTIONS OF UNSPECIFIED SITEOTHER SPECIFIED COUNSELING Oct-1 6200 9 No Information DETAILED OUT/PT [facility], [address] [place] [address], [address], [place] tel:[phone] [facility] Adult Medicine No Information Oct- 6200 9 No Information [facility], [address] [place] [address], [address], [place] tel:[phone] Conversion ROUTINE GYNECOLOGICAL EXAMINATION May-0 9200 8 No Information EXPANDED OUT/PT [facility], [address] [place] [address], [address], [place] tel:[phone] [facility] No Information May-0 9200 8 No Information [facility], [address] [place] [address], [address], [place] tel:[phone] Conversion ACUTE FRONTAL SINUSITIS Jan-2 6200 8 No Information EXPANDED OUT/PT [facility], [address] [place] [address], [address], [place] tel:[phone] [facility] Adult Medicine No Information 2 6200 8 No Information [facility], [address] [place] [address], [address], [place] tel:[phone] Conversion ENCOUNTERS FOR UNSPECIFIED ADMINISTRATIV E PURPOSE Oct- 2-200 8 No Information EXPANDED OUT/PT [facility], [address] [place], [address], [place] tel:[phone] [facility] Adult Medicine No Information 8 No Information [facility], [address] [place], [address], [place] tel:[phone] Conversion FATIGUE/MALAI SEROUTINE GENERAL MEDICAL EXAMINATION 7 No Information COMPREHENSIVE OUT/PT [facility], [address] [place], [address], [place] tel:[phone] [facility] Adult Medicine No Information 7 No Information EXPANDED OUT/PT [facility], [address] [place], [address], [place] tel:[phone] [facility] Adult Medicine No Information 7 No Information [facility], [address] [place] [address], [address], [place] tel:[phone] Conversion CYSTITIS, ACUTE 7 No Information EXPANDED OUT/PT [facility], [address] [place] [address], [address], [place] tel:[phone] [facility] Adult Medicine No Information 7 No Information [facility], [address] [place] [address], [address], [place] tel:[phone] Conversion LUMBAGOURINAR Y TRACT INFECTION SITE NOT SPECIFIED 7 No Information NEW EXPANDED CONSULT [facility], [address] [place] [address], [address], [place] tel:[phone] [facility] Adult Medicine No Information 7 No Information [facility], [address] [place] [address], [address], [place] tel:[phone] Conversion BACK PAIN W/ RADIATION, UNSPECIFIED 7 [...] Record Payers Payer name Insurance type Covered democrat ID Authoriza tion(s) No Information Social History [...]
--- OUTSIDE RECORDS SUMMARY | 2012-08-06 20:00 | XMS_ITS | Continuity of Care Document ---
Author Organization [facility] vices Address [address] [place] [address] Phone Care Team Providers Care Composite Boat Builder Name Role Phone Unavailable Unavailable Unavailable Procedures Procedure Date EXPANDED OUT/PT EXPANDED OUT/PT Advance Directives Directive Yes / No Effective Date File Name No Information Encounters Encounter Description Practice Location Reason(s) For Visit Diagnoses Date Provider Providers Copied on Encounter [facility], [address] [place] [address], [address], tel:[phone] Conversion No Information 2 No Information [facility], [address] [place] [address], tel:[phone] Conversion ENCOUNTERS FOR UNSPECIFIED ADMINISTRATIVE PURPOSE 7 No Information EXPANDED OUT/PT [facility], [address] [place] [address], [address], [place] tel:[phone] [facility] Adult Medicine No Information No Information [facility], [address] [place] [address], [address], tel:[phone] Conversion ROUTINE GYNECOLOGICAL EXAMINATION No Information EXPANDED OUT/PT [facility], [address] [place] [address], [place] tel:[phone] [facility] No Information 7 No [...]
[2025-06-17 14:57] VITALS: BP 120/90; PULSE 82; O2SAT 97; BMI 33.5
--- NOTE | 2025-06-17 14:57 | MHC.PC.OV ---
Vital Signs 06/17/25 14:57 Height 5 ft 7 in Weight 214 lb 2 oz BMI 33.5 BP 120/90 H Blood Pressure Location Lt brachial Position Sitting Pulse 82 Pulse Source Pulse Oximeter Pulse Oximetry (%) 97 Oxygen Delivery Method Room Air Intake Visit Reasons: follow up Lay Out Technician Required: No Accompanied by: Self / Same As Patient Allergies No Known Allergies Allergy (Verified 06/17/25 15:08) Medication List - Last Reconciled 06/17/25 by Jillian Kaminski MD albuterol sulfate 90 mcg/actuation (Ventolin HFA) 2 puffs inhalation Q4-6H PRN levonorgestrel (Mirena) intrauterine naproxen (EC-Naprosyn) 500 mg PO BID omeprazole 20 mg PO DAILY 90 days trazodone 50 mg PO BEDTIME PRN 90 days Tobacco use date assessed: 06/17/25 Dental Screening Dental Screen Date: 06/17/25 Did you have a dental visit in the last 12 months?: Yes Did you have a dental problem in the last 6 months where you did not have access to dental care?: No Was dental information given to patient?: Patient has dentist HPI HPI Comments History of Present Illness Details The patient is a 45-year-old female presenting for evaluation of multiple complaints including right knee pain, right shoulder pain, gastroesophageal reflux, and hearing loss. She has no known drug allergies. The patient reports discomfort in her knee, which is exacerbated by keeping the leg bent and by standing, requiring her to rest the leg. She experiences pain upon palpation of a bony prominence on the knee. A previous provider did not order an X-ray, stating that ligaments are not visible on radiographs. The patient also complains of right shoulder pain, which began after a fall in December of last year. This has resulted in a limited range of motion, and she has not undergone physical therapy for the condition. Regarding her gastrointestinal symptoms, the patient takes omeprazole for acid reflux with inconsistent efficacy. She experiences severe nocturnal reflux with regurgitation up to her nose, which causes her to wake up vomiting. She avoids eating for three hours before bedtime and has tried an nraq-szz-ahyzeev antacid, which provides some relief but does not resolve the issue. The patient also reports subjective hearing loss, noting difficulty hearing soft speech, and has not had a prior hearing test. Her current medications include an albuterol inhaler and a Mirena IUD. She has a prescription for trazodone for sleep but is not currently taking it. She had a sonogram last week. [facility], [facility] Medical History (Updated 06/17/25 @ 15:18 by Jillian Kaminski MD) Uterine fibroid Acute eczema GERD (gastroesophageal reflux disease) Migraines Hypovitaminosis D Physical exam AMAN (generalized anxiety disorder) Polyarthralgia New daily persistent headache Dyslipidemia Migraine with aura Anemia Surgical History H/O cosmetic surgery History of sleeve gastrectomy Hx of tubal ligation Hx of section Family History Father Diabetes mellitus ESRD on hemodialysis Mother Acute depression Anxiety Asthma Hypertension Osteoporosis Hypercholesteremia Hyperlipemia Mental health disorder Son No problems noted. Daughter No problems noted. Brother No problems noted. Sister Cervical cancer Maternal Grandmother Lung cancer Maternal Grandfather Throat cancer Social History Household Members: Significant Other and Family Housing: House Alcohol intake: never Patient Tobacco Use Status: Never used Tobacco e-Cigarette/Vaping Use: Never Used Second Hand Smoke Exposure: No service: No Current occupational status: employed Current occupational exposures/hazards: No Gender identity: Female Cognitive needs: No Hearing needs: No Vision needs: No Female Reproductive History Menstrual Age of Menarche: 9 Questionnaire PHQ-9 Over the last 2 weeks, how often have you been bothered by any of the following problems? 1. Little interest or pleasure in doing things: not at all 2. Feeling down, depressed, or hopeless: not at all 3. Trouble falling or staying asleep, or sleeping too much: not at all 4. Feeling tired or having little energy: not at all 5. Poor appetite or overeating: not at all 6. Feeling bad about yourself - or that you are a failure or have let yourself or your family down: not at all 7. Trouble concentrating on things, such as reading the newspaper or watching television: not at all 8. Moving or speaking so slowly that other people could have noticed. Or the opposite - being so fidgety or restless that you have been moving around a lot more than usual: not at all 9. Thoughts that you would be better off or of hurting yourself in some way: not at all Total score: 0 Depression Screening Interpretation: Negative Depression Screening Done: Yes 39092 - PHQ-9 Billing: Yes Source: Developed by Drs. Yonis Bradshaw, Lily Willett, Fransisco Godoy and colleagues, with an educational dylon from [employer]. Thrive Questionnaire Date Thrive assessed: 12/25/24 I am a: Patient What is your living situation today?: I have a steady place to live Within the past 12 months, did the food you bought not last and you didn't have the money to get more?: Sometimes True Within the past 12 months, did you worry whether your food would run out before you got money to buy more?: Sometimes True Do you have trouble paying for medicines?: No Do you have trouble getting transportation to medical appointments?: No Do you have trouble paying your heating and electricity bill?: Yes Do you have trouble taking care of your child, family member or friend?: No Do you have trouble with day-to-day activities such as bathing, preparing meals, shopping, managing finances, etc.?: No Are you currently unemployed and looking for a job?: No Are you interested in more education?: No Please select the resources that you would like help with: None Currently or been in a relationship where the following occur: No concerns reported THRIVE Score: 3 AUDIT C Alcohol Use Questionnaire (AUDIT-C) 1. How often do you have a drink containing alcohol?: Never 3. How often do you have six or more drinks on one occasion?: Never Total Score: 0 Score Reviewed/Action Taken: No AMAN-7 AMB Questionnaire AMAN-7 Date AMAN - 7 assessed: 09/19/24 Source: Developed by Drs. Yonis Bradshaw, Lily Willett, Fransisco Godoy and colleagues, with an educational dylon from [employer]. Review of Systems Const All systems reviewed & are unremarkable except as noted in HPI and below Card Denies chest pain at rest, Denies chest pain with activity, Denies edema, Denies irregular heart rhythm, Denies claudication, Denies dyspnea, Denies dyspnea on exertion, Denies orthopnea, Denies paroxysmal nocturnal dyspnea and Denies slow heart rate Resp Denies cough, Denies dyspnea and Denies dyspnea on exertion Physical exam (Primary Care) Vital Signs: Last Vital Signs Pulse 82 06/17/25 14:57 BP 120/90 H 06/17/25 14:57 Pulse Ox 97 06/17/25 14:57 Oxygen Delivery Method Room Air 06/17/25 14:57 BMI result Body Mass Index 33.5 BMI Assessment/Plan discussion: High BMI High, discussed plan: lifestyle, weight reduction, dietary and physical activity Tobacco/Smoking Status: Tobacco use Status Tobacco use date assessed 06/17/25 06/17/25 15:04 Patient Tobacco Use Status Never used Tobacco 06/17/25 15:04 e-Cigarette/Vaping Use Never Used 06/17/25 15:04 PHQ-9: PHQ-9 Score PHQ-9: Total score 0 06/17/25 15:04 Depression Screening Interpretation: Negative Thrive Assessment: Date of Thrive Assessment Date Thrive assessed 12/25/24 06/17/25 15:04 Currently or been in a relationship where the following occur: No concerns reported Resp Effort & Inspection: normal respiratory effort Auscultation: clear to auscultation bilaterally Cardio Jugular venous distension: no JVD Rate: regular rate Rhythm: regular rhythm Heart sounds: S1 normal heart sound present and S2 normal heart sound present Extrem General: Yes full ROM Coding Level of Care Code Est Pt Level 4 (30698) Diagnoses Chronic GERD K21.9 Acute pain of right shoulder M25.511 Chronicity: acute Right knee pain M25.561 Hearing loss H91.90 Additional Codes PHQ-9 - 20265 - PHQ-9 Billing: Yes ([id number]) Time Spent (min) 22 Assessment & Plan Assessment & Plan (1) Chronic GERD: Code(s): K21.9 - Gastro-esophageal reflux disease without esophagitis Category: Medical (2) Right shoulder pain: Comment: Will obtain right shoulder x-ray. Will also obtain cervical spine x-ray. Patient will be given meloxicam. Patient has been educated on signs of worsening symptoms and when to report back to the walk-in or when to present to the ED. Code(s): M25.511 - Pain in right shoulder Category: Medical Qualifiers: Chronicity: acute Qualified Code(s): M25.511 - Pain in right shoulder (3) Right knee pain: Code(s): M25.561 - Pain in right knee Category: Medical (4) Hearing loss: Code(s): H91.90 - Unspecified hearing loss, unspecified ear Category: Medical Plan Plan 1. Pain in right knee M25.561 An X-ray of the right knee and a referral for physical therapy will be ordered. 2. Pain in right shoulder M25.511 An X-ray of the right shoulder and a referral for physical therapy will be ordered to address the chronic pain and limited range of motion following a fall. 3. Gastro-esophageal reflux disease without esophagitis K21.9 Due to uncontrolled nocturnal symptoms despite omeprazole use, a different medication will be prescribed for nighttime relief. 4. Conductive hearing loss, unspecified H90.2 A referral will be made for an audiology study to evaluate the patient's subjective hearing loss. Orders: Orders XR knee RT 2V Today M25.561 - Pain in right knee XR shoulder RT min 2V Today M25.511 - Pain in right shoulder FL upper GI series Today K21.9 - Gastro-esophageal reflux disease without esophagitis Referrals Speech and Hearing Referral H91.90 - Unspecified hearing loss, unspecified ear Medications: New famotidine 40 mg PO BEDTIME 90 tabs 1RF 90 days Discontinued trazodone Discontinued Reason: Order 50 mg PO BEDTIME 90 days PRN 90 tabs 0RF sleep
--- OUTSIDE RECORDS SUMMARY | 2025-06-17 18:18 | XMS_ITS | Patient Health Record ---
Author Organization [facility] Address [address] [place] [address] Support Name Relationship Address Phone Jenna Dias Guarantor Unknown [phone] Reason For Referral No Information Medications Medication [...] Oral (Yosef-) 01/09/2014 Active Vitamin D (Ergocalciferol) 21636 UNIT take 1 capsule by oral route every week Oral (Yosef-) 07/18/2013 Active Zofran ODT 8 MG take 1 tab PO q [address] h [address] on top of the tongue, let dissolve, then swallow. 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
--- OUTSIDE RECORDS SUMMARY | 2025-06-17 18:18 | XMS_ITS | Clinical Summary ---
Author Organization [facility] ity Address [address] [place] [address] Care Team Providers Care Holiday Detector Operator Name Role Phone Darion Mohan MD Primary Care Provider [phone] Social History Tobacco Use Types Packs/Day Years [...] Cervical Cancer Screening: P ap Smear 12/31/2000 HPV Vaccines (1 - 3-dose SCD M series) 12/31/2006 Depression Screening 08/22/2024 COVID-19 Vaccine (1 - 2023-2 5 season) 2025 Influenza Vaccine (#1) 2025 RSV Immunization Adult Patie nts (1 - 1-dose 75+ series) 12/31/2054 HIB Vaccines Aged Out No longer eligi [...] age to complete this topic Care Teams Holiday Detector Operator Relationship Specialty Start Date End Date Darion Mohan MD [address] [place] [address] Drive [address] [place] [address] PCP - General Internal Medicine 06/12/21
--- OUTSIDE RECORDS SUMMARY | 2025-06-17 18:18 | XMS_ITS | Clinical Summary ---
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 Not on file [...] Done Comments Anxiety Screening 1980 HPV Screening (self-collect) 1980 HPV Screening 1980 Hepatitis C Screening 1980 Imm-HPV (1 - 3-dose SCDM series) 12/31/2006 Tobacco Screening 07/27/2018 07/27/2017 Relationship Safety Screening/Counseling 10/11/2019 10/11/2018, 07/27/2017, 07/27/2017 Breast Cancer Screening (Mammogram) 2020 Hypertension Screening (#1) 01/08/2020 Annual Wellness (Adult): Indicated (All Coverage) 01/09/2020 01/08/2019, 10/11/2018, 07/27/2017, Additional history exists Diabetes Screening 10/11/2021 10/11/2018, 1 09/27/2016, 05/12/2015, Additional history exists Cervical Cancer Screening 01/08/2022 Pap + HPV 01/08/2022 Pap Smear 01/08/2022 01/08/2019, 03/01/2016 Lipid Screening 10/11/2023 10/11/2018, 01/2017, 07/11/2015 Alcohol and Drug Screen 08/22/2024 10/11/19 19, 07/27/2017, 07/27/2017, Additional history exists Depression Annual Screen 08/22/2024 06/24/2016, 08/2014 CT Colonography 12/31/2024 Colonoscopy 12/31/2024 Colorectal Cancer Screening 12/31/2024 FIT/gFOBT 12/31/2024 Fecal DNA 12/31/2024 Flexible Sigmoidoscopy 12/31/2024 [id number]-28 ( season) 2025 022, 01/29/2021 Imm-DTaP/Tdap/Td (2 - Td or Tdap) 05/22/2025 015 Imm-Hepatitis B Completed 05/27/2015, 01/2015, 06/24/2010, Additional history exists HIV Screening Completed 07/27/2017 Imm-Influenza Discontinued 10/31/2019, 01/2017, 06/24/2016, Additional history exists Cervical Ablation/Cold-Knife Conization Discontinued Cervical Cryotherapy Discontinued Colposcopy Discontinued Excision/Leep Discontinued HPV Genotyping Discontinued Vaginal [...] / Unknown 01/08/2019 1:18 PM EDT Impressions [facility] - 01/08/2019 1:18 PM EDT Thinprep pap: Negative for squamous intraepithelial lesion and malignancy HPV: negative us [facility] - PATHOLOGY AND CYTOLOGY AMB ULATORY Final Result [facility] [address] [place] [address], [place] [phone] * (ABNORMAL) LIPID PANEL (10/11/2018 4:05 PM EST) CHOLESTEROL 182 0 - 200 mg/dL [facility] TRIGLYCERIDES 149 0 - 150 mg/dL [facility] HDL CHOLESTEROL 48 >40 mg/dL [facility] LDL CALCULATED 105(H) 0 - 100 mg/dL [facility] TC-HDLC RATIO 3.8 0 - 4.4 mg/dL [facility] Blood specimen (specimen) Blood / Unknown 10/11/2018 4:05 PM EST 10/11/2018 4:15 PM EST Narrative [facility] - 10/11/2018 8:14 PM EST [facility] [employer], [place] [address] Diagnostics Sales Developer - Tory Acosta MD PT ID [id number] ORD# [id number] [facility] - BLOOD DRAW Edited Result - Final Performing Organization Address [facility] Co de Phone Number [facility] [address] [place] [address], * COMPRE METAB PANEL (CMP) (10/11/2018 4:05 PM EST) GLUCOSE 83 70 - 100 mg/dL [facility] Comment:Reference range appl icable to fasting specimens only BUN 13 5 - 25 mg/dL [facility] CREAT 0.78 0.5 - 1.1 mg/dL [facility] GLOMERULAR FILTRATION RATE > 60 [facility] Comment: If patient is -Nauruan, multiply result by 1.21 Chronic Kidney Disease: < 60 ml/min/1.73 square meters Kidney Failure: < 15 ml/min/1.73 square meters SODIUM 140 133 - 145 mmol/L [facility] POTASSIUM 3.8 3.5 - 5.5 mmol/L [facility] CHLORIDE 106 96 - 110 mmol/L [facility] CO2 27 21 - 32 mmol/L [facility] ANION GAP 7 3 - 11 [facility] CALCIUM 9.0 8.5 - 10.5 mg/dL [facility] ALBUMIN 3.5 3.2 - 5.0 G/dL [facility] SGPT 41 10 - 60 U/L [facility] TOTAL PROTEIN 7.3 6.0 - 8.0 G/dL [facility] BILI, TOTAL 0.3 0.0 - 1.4 mg/dL [facility] SGOT 26 10 - 42 U/L [facility] ALK PHOS 87 42 - 121 U/L [facility] Blood specimen (specimen) Blood / Unknown 10/11/2018 4:05 PM EST 10/11/2018 4:15 PM EST Narrative [facility] - 10/11/2018 8:14 PM EST [facility], [place] [address] Diagnostics Sales Developer - Tory Acosta MD PT ID [id number] ORD# [id number] [facility] - BLOOD DRAW Edited Result - Final Performing Organization Address City/State/[facility] [place] [place] [address], * HIV-1 & HIV-2 ANTIBODIES (07/27/2017 4:25 PM EST) [facility] HIV 1 AND 2 ANTIBODY SCREEN NEGATIVE NEGATIVE [facility] Comment: This assay is a 4th [...] PM EST 07/27/2017 6:21 PM EST Narrative [facility] - 07/27/2017 7:58 PM EST [facility] [address] [place] [address] PT ID [id number] ORD# [id number] us [facility] - BLOOD DRAW Final Result [facility] [address] [place] [address], from Last 3 Months or Most Recently Relevant to Health Maintenance Insurance [facility] [employer] Member Subscriber Plan / Payer (Ef fective 2021-Present) Name:Jenna Ortiz Relation to Subscriber:Self Name:Jenna Ortiz Payer ID:[id number] Group ID:[id number] Type:Medicaid Address: [facility] [address] [place] [address] Care Teams Hog Pusher Relationship Specialty Start Date End Date Shelly Cadet FNP [address] [place] [id number] PCP - General 03/05/19
== END 2025-06-17 15:21 | disposition home or self-care (01) ==
LOC: HO.HMCH 14:52
PROVIDERS: PCP Internal Medicine; Visit Provider Internal Medicine
DX: K21.9 Gastro-esophageal reflux disease without esophagitis (principal); M25.511 Pain in right shoulder; M25.561 Pain in right knee; H91.90 Unspecified hearing loss, unspecified ear

== ENCOUNTER 2025-06-17 15:30 | Outpatient (REF) | payer OTHER, SELFPAY ==
--- NOTE | ~2025-06-17 | US_ITS ---
EXAMINATION: US RETROPERITONEAL LIMITED, LEFT(RENAL ONLY) CLINICAL INFORMATION: Calculus of kidney. COMPARISON: Ultrasound bladder 09/19/2024. TECHNIQUE: Retrograde ultrasound imaging of kidneys was performed. FINDINGS: The right kidney is absent. LEFT KIDNEY: 12.7 x 6.6 x 5.6 cm. cm (SAG x AP x TRV). The kidney is normal in size, contour, and echogenicity. Renal cortical thickness is normal. There are multiple anechoic intrapelvic cyst. Largest cyst lower pole measures 1.8 x 2.0 x 1.9 cm. There are no echogenic stones or hydronephrosis. US/US renal LT IMPRESSION: Multiple left peripelvic renal cyst. Right kidney is absent. Electronically signed by: Honorio Stephenson MD 06/18/2025 07:08 AM EDT
--- NOTE | ~2025-06-17 | XR_ITS ---
EXAMINATION: XR KNEE, RIGHT CLINICAL INFORMATION: M25.561 - Pain in right knee COMPARISON: March 27, 2021 TECHNIQUE: AP and lateral views of the right knee. FINDINGS: Joint space narrowing involving mostly the lateral compartment with sclerosis along the articular surface of the lateral tibial plateau. No acute cortical disruption. No gross malalignment. No lytic or blastic lesions. No suprapatellar bursa joint effusion. No subcutaneous emphysema. No gross calcifications in the soft tissues. XR/XR knee RT 2V IMPRESSION: Lateral compartment osteoarthrosis/osteoarthritis, mild. EXAMINATION: XR SHOULDER, RIGHT CLINICAL INFORMATION: M25.561 - Pain in right knee COMPARISON: January 17, 2024. TECHNIQUE: AP external rotation, Grashey, scapular Y, and axillary views of the right shoulder. FINDINGS: Status post osteotomy distal clavicle resulting in 16 mm gap from the acromioclavicular joint. No acute cortical disruption or malalignment. No lytic or blastic lesions. Old traumatic deformities with callus formation in the posterior lateral aspect of the ribs right upper hemithorax. IMPRESSION: Status post osteotomy, distal clavicle. Old healed rib fractures, right upper hemithorax. Electronically signed by: Reji Morgan MD 06/17/2025 03:53 PM EDT
--- NOTE | ~2025-06-17 | XR_ITS ---
EXAMINATION: XR KNEE, RIGHT CLINICAL INFORMATION: M25.561 - Pain in right knee COMPARISON: March 27, 2021 TECHNIQUE: AP and lateral views of the right knee. FINDINGS: Joint space narrowing involving mostly the lateral compartment with sclerosis along the articular surface of the lateral tibial plateau. No acute cortical disruption. No gross malalignment. No lytic or blastic lesions. No suprapatellar bursa joint effusion. No subcutaneous emphysema. No gross calcifications in the soft tissues. XR/XR shoulder RT min 2V IMPRESSION: Lateral compartment osteoarthrosis/osteoarthritis, mild. EXAMINATION: XR SHOULDER, RIGHT CLINICAL INFORMATION: M25.561 - Pain in right knee COMPARISON: January 17, 2024. TECHNIQUE: AP external rotation, Grashey, scapular Y, and axillary views of the right shoulder. FINDINGS: Status post osteotomy distal clavicle resulting in 16 mm gap from the acromioclavicular joint. No acute cortical disruption or malalignment. No lytic or blastic lesions. Old traumatic deformities with callus formation in the posterior lateral aspect of the ribs right upper hemithorax. IMPRESSION: Status post osteotomy, distal clavicle. Old healed rib fractures, right upper hemithorax. Electronically signed by: Reji Morgan MD 06/17/2025 03:53 PM EDT
== END 2025-06-17 15:31 | disposition home or self-care (01) ==
LOC: HO.US 15:30
PROVIDERS: Absent Provider Internal Medicine; PCP Internal Medicine; Visit Provider Nurse Practitioner Family
DX: M25.561 Pain in right knee (principal); M25.511 Pain in right shoulder; N20.0 Calculus of kidney; K21.9 Gastro-esophageal reflux disease without esophagitis; H91.90 Unspecified hearing loss, unspecified ear; Z79.899 Other long term (current) drug therapy
CPT/HCPCS: 73030; 73560; 76775; 96127; 99212

== ENCOUNTER → 2025-06-17 15:35 | Outpatient (BNV) | payer OTHER, SELFPAY | PROVIDERS: Absent Provider Internal Medicine; PCP Internal Medicine; Visit Provider Radiology Diagnostic Radiology | DX: M25.511 Pain in right shoulder (principal); M25.561 Pain in right knee | CPT/HCPCS: 73030; 73560; 76775 ==

== ENCOUNTER 2025-06-24 15:38 | Outpatient (REF) | payer OTHER, SELFPAY | END 2025-06-24 15:39 | disposition home or self-care (01) | LOC: HO.LAB 15:38 | PROVIDERS: PCP Internal Medicine; Visit Provider Nurse Practitioner Family | DX: Q60.0 Renal agenesis, unilateral (principal); N20.0 Calculus of kidney; N28.1 Cyst of kidney, acquired; R82.90 Unspecified abnormal findings in urine; N39.0 Urinary tract infection, site not specified; Z13.89 Encounter for screening for other disorder | CPT/HCPCS: 51798; 81003; 87086; 87088; 87186; 88112; 99212 ==

== ENCOUNTER 2025-06-24 15:38 | Outpatient (AMB) | payer OTHER, SELFPAY ==
--- OUTSIDE RECORDS SUMMARY | 2012-07-07 19:00 | XMS_ITS | Continuity of Care Document ---
Author Organization [facility] [employer] [facility] vices Address [address] [place] [address] Phone Care Team Providers Care Flow Manager Name Role Phone Unavailable Unavailable Unavailable Medications [...] EXPANDED OUT/PT PREVENTIVE COUNSELING, INDIV EXPANDED OUT/PT EYE EXAM ESTABLISHED PAT URINALYSIS, NON-AUTOMATE COMPREHENSIVE OUT/PT EXPANDED OUT/PT EXPANDED OUT/PT NEW [...] Diagnoses Date Provider Providers Copied on Encounter [facility], [address] [place] [address], [facility], tel:[phone] [facility] Podiatry No Information 2 No Information [facility], [address] [place] [address], [facility], tel:[phone] Conversion No Information 2 No Information [facility], [address] [place] [address], [facility], tel:[phone] Conversion TENDONITIS ACHILLESPAIN IN LIMB 2 No Information [facility], [address] [place] [address], [facility], tel:[phone] Conversion UNSPECIFIED DISORDERS OF MENSTRUATION AND OTHER ABNORMAL BLEEDING FROM FEMALE GENITAL TRACTBV 2 No Information [facility], [address] [place] [address], [facility], tel:[phone] Conversion No Information 2 No Information [facility], [address] [place] [address], [facility], tel:[phone] Conversion No Information 1 No Information [facility], [address] [place] [address], [facility], [place] tel:[phone] Conversion DYSURIA 1 No Information [facility], [address] [place], [address], [place] tel:[phone] Conversion PELVIC PAINNEPHROLIT HIASIS 1 No Information [facility], [address] [place], [address], [place] tel:[phone] Conversion HEMATURIA, UNSPECIFIEDPR EGNANCY TEST - NEGATIVE RESULT 1 No Information [facility], [address] [place] [address], [address], [place] tel:[phone] Conversion No Information 1 No Information Replaced By [facility], [address] [place] [address], [address], [place] tel:[phone] Historic Immunization Location No Information 0 No Information [facility], [address] [place] [address], [address], [place] tel:[phone] Conversion OTHER GENERAL COUNSELING AND ADVICE ON CONTRACEPTIVE 0 No Information FOCUSED OUT/PT [facility], [address] [place] [address], [address], [place] tel:[phone] [facility] No Information 0 No Information [facility], [address] [place] [address], [address], [place] tel:[phone] Conversion HEPATIITIS A- VACCINE NEEDED 0 No Information [facility], [address] [place] [address], [address], [place] tel:[phone] Conversion NEED FOR PROPHYLACTIC VACCINATION AND INOCULATION AGAINST UNSPECIFIED SINGLE BACTERIAL DISEASE 0 No Information MINIMAL OUT/PT [facility], [address] [place] [address], [address], [place] tel:[phone] [facility] No Information 0 No Information OFFICE/OUTPATI ENT VISIT, EST [facility], [address] [place] [address], [address], [place] tel:[phone] [facility] Adult Medicine No Information 0 No Information [facility], [address] [place] [address], [address], [place] tel:[phone] Conversion CONTACT DERMATITIS Nov-1 4-201 0 No Information [facility], [address] [place] [address], [address], [place] tel:[phone] Conversion SCREENING EXAMINATION FOR VENEREAL DISEASEANEMIA Apr-0 8-201 0 No Information [facility], [address] [place] [address], [address], [place] tel:[phone] Conversion ANEMIA, IRON DEFICIENCYHEA DACHE, UNSPECIFIED Mar-3 0-200 9 No Information EXPANDED OUT/PT [facility], [address] [place] [address], [address], [place] tel:[phone] [facility] Adult Medicine No Information Oct-3 0-200 9 No Information [facility], [address] [place] [address], [address], [place] tel:[phone] Conversion ACUTE UPPER RESPIRATORY INFECTIONS OF UNSPECIFIED SITEOTHER SPECIFIED COUNSELING Oct- 6200 9 No Information DETAILED OUT/PT [facility], [address] [place] [address], [address], [place] tel:[phone] [facility] Adult Medicine No Information Oct- 6-200 9 No Information [facility], [address] [place] [address], [address], [place] tel:[phone] Conversion ROUTINE GYNECOLOGICAL EXAMINATION May-0 9-200 8 No Information EXPANDED OUT/PT [facility], [address] [place] [address], [address], [place] tel:[phone] [facility] No Information May-0 9200 8 No Information [facility], [address] [place] [address], [address], [place] tel:[phone] Conversion ACUTE FRONTAL SINUSITIS Jan-2 6200 8 No Information EXPANDED OUT/PT [facility], [address] [place] [address], [address], [place] tel:[phone] [facility] Adult Medicine No Information 2 6200 8 No Information [facility], [address] [place] [address], [address], [place] tel:[phone] Conversion ENCOUNTERS FOR UNSPECIFIED ADMINISTRATIV E PURPOSE Oct- 2-200 8 No Information PREVENTIVE COUNSELING, INDIV [facility], [address] [place], [address], [place] tel:[phone] [facility] Adult Medicine No Information 8 No Information [facility], [address] [place], [address], [place] tel:[phone] Conversion FATIGUE/MALAI SEROUTINE GENERAL MEDICAL EXAMINATION 7 No Information COMPREHENSIVE OUT/PT [facility], [address] [place], [address], [place] tel:[phone] [facility] Adult Medicine No Information 7 No Information EXPANDED OUT/PT Replaced By [facility], [address] [place], [address], [place] tel:[phone] [facility] Adult Medicine No Information 7 No Information [facility], [address] [place] [address], [address], [place] tel:[phone] Conversion CYSTITIS, ACUTE 7 No Information EXPANDED OUT/PT [facility], [address] [place] [address], [address], [place] tel:[phone] [facility] Adult Medicine No Information 7 No Information [facility], [address] [place] [address], [address], [place] tel:[phone] Conversion LUMBAGOURINAR Y TRACT INFECTION SITE NOT SPECIFIED 7 No Information NEW EXPANDED CONSULT [facility], [address] [place] [address], [address], [place] tel:[phone] [facility] Adult Medicine No Information 7 No Information [facility], [address] [place] [address], [address], [place] tel:[phone] Conversion BACK PAIN W/ RADIATION, UNSPECIFIED 7 [...]
--- OUTSIDE RECORDS SUMMARY | 2012-08-06 19:00 | XMS_ITS | Continuity of Care Document ---
Author Organization [facility] vices Address [address] [place] [address] Phone Care Team Providers Care Editor Producer Name Role Phone Unavailable Unavailable Unavailable Procedures Procedure Date EXPANDED OUT/PT EXPANDED OUT/PT Advance Directives Directive Yes / No Effective Date File Name No Information Encounters Encounter Description Practice Location Reason(s) For Visit Diagnoses Date Provider Providers Copied on Encounter [facility], [address] [place] [address], [address], tel:[phone] Conversion No Information 2 No Information [facility], [address] [place] [address], tel:[phone] Conversion ENCOUNTERS FOR UNSPECIFIED ADMINISTRATIVE PURPOSE 7 No Information EXPANDED OUT/PT [facility], [address] [place] [address], [address], [place] tel:[phone] [facility] Adult Medicine No Information No Information [facility], [address] [place] [address], [address], tel:[phone] Conversion ROUTINE GYNECOLOGICAL EXAMINATION No Information EXPANDED OUT/PT [facility], [address] [place] [address], [place] tel:[phone] [facility] No Information 7 No Information Family History Family Member Type Diagnosis Age At Onset No Information Payers Payer name Insurance type Covered libertarian [...]
--- NOTE | 2025-06-24 16:02 | A.OFFVIS_ITS ---
Intake Visit Reasons: 6m/PVR Intake Note: Patient is present for PVR/Ultrasound Urology Med: Antibiotic Allergy: None Blood Thinner: None PVR: 67ml Venetian Blind Mechanic Required: Yes Venetian Blind Mechanic Language: Hebrew Accompanied by: Self / Same As Patient Allergies No Known Allergies Allergy (Verified 06/24/25 20:59) Medication List - Last Reconciled 06/24/25 by TAYLOR Farr-INDU albuterol sulfate 90 mcg/actuation (Ventolin HFA) 2 puffs inhalation Q4-6H PRN famotidine 40 mg PO BEDTIME 90 days levonorgestrel (Mirena) intrauterine naproxen (EC-Naprosyn) 500 mg PO BID omeprazole 20 mg PO DAILY 90 days sulfamethoxazole-trimethoprim 800-160 mg (Bactrim DS) 1 tab PO BID 10 days HPI Comments Details: Jenna is a very pleasant 45-year-old /Hebrew-speaking female patient of Dr. Jesus. She has a past medical history of uterine fibroid, eczema, GERD, migraines, anxiety, polyarthralgia, dyslipidemia, and anemia. She presents to the office today for follow-up of her solitary kidney, nephrolithiasis, renal cysts, and lower urinary tract symptoms. In discussion with the patient today she reports noting approximately 1 week ago she started experiencing foul-smelling urine. In office urinalysis results reviewed with the patient today 2+ leukocytes positive nitrates. We did discuss urinary tract infection given patient's symptoms and in office urinalysis results today. She denies urinary urgency, urinary frequency, incontinence, nocturia, hematuria, dysuria, changes to urinary stream, flank pain, fever, and or chills. Most recent renal imaging results reviewed with the patient today. 06/15 the right kidney is absent. Left kidney is normal in size, contour, and echogenicity. Renal cortical thickness is normal. There are multiple echogenic intrapelvic cysts. Largest measuring 2.0 cm. There is no echogenic stones or hydronephrosis noted. Previous workup has included Microgen 10/16 E coli, Enterobacter asburiae, Enterobacter hormaechei, prevotella bivia, sneathia vaginalis, mobiluncus curtisii, and gardnerella vaginalis. She has a previous history of nephrolithiasis to include ureteroscopy as well as ESWL. She reports a longstanding history of nephrolithiasis since 1997. 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 She reports to be drinking plenty of water daily and adding 1 oz of lemon juice to water daily. 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 She does report being sexually active and does not feel symptoms originate after sexual activity. We did discuss solitary kidney in relation to urinary tract infections. She does discuss her upcoming follow-up with Dr. Olimpia swanson for her ongoing menorrhagia despite current treatment with Mirena in place. All questions were answered. She otherwise offers no other issues or concerns at this time. Urine Culture: 05/15 & 06/14 E coli [facility] Medical History Uterine fibroid Acute eczema GERD (gastroesophageal reflux disease) Migraines Hypovitaminosis D Physical exam AMAN (generalized anxiety disorder) Polyarthralgia New daily persistent headache Dyslipidemia Migraine with aura Anemia Surgical History H/O cosmetic surgery History of sleeve gastrectomy Hx of tubal ligation Hx of section Family History Father Diabetes mellitus ESRD on hemodialysis Mother Acute depression Anxiety Asthma Hypertension Osteoporosis Hypercholesteremia Hyperlipemia Mental health disorder Son No problems noted. Daughter No problems noted. Brother No problems noted. Sister Cervical cancer Maternal Grandmother Lung cancer Maternal Grandfather Throat cancer Social History Household Members: Significant Other and Family Housing: House Alcohol intake: never Patient Tobacco Use Status: Never used Tobacco e-Cigarette/Vaping Use: Never Used Second Hand Smoke Exposure: No service: No Current occupational status: employed Current occupational exposures/hazards: No Gender identity: Female Cognitive needs: No Hearing needs: No Vision needs: No Female Reproductive History Menstrual Age of Menarche: 9 Review of Systems Const All systems reviewed & are unremarkable except as noted in HPI and below Physical Exam Const General: cooperative, healthy appearing, comfortable, no acute distress, well developed, alert and awake Orientation/consciousness: patient oriented x3 Limitations: no limitations HEENT Head: Yes normal to inspection, Yes normocephalic and Yes atraumatic Ears: hearing grossly normal bilaterally Eyes General: appearance normal, both eyes and all related structures Neck Neck: Yes normal visual inspection and Yes trachea midline Chest Chest palpation & inspection: normal inspection of the chest Resp Effort & Inspection: normal respiratory effort and able to speak in complete sen tences Cardio Rate: regular rate GI Inspection: Yes normal to inspection General: Yes no CVA tenderness Back/Spine/Pelvis Back: no CVA tenderness Skin General skin exam: no rashes or lesions noted Neuro General: patient oriented x3 Extrem General: Yes normal to inspection Psych Appearance: grossly normal and well kempt Mental Status: mental status grossly normal Speech and movement: Normal speech and movement present and Clear speech present Affect: normal affect Attitude: cooperative Thought process: Normal thought process present Thought content: Normal thought content present Insight: Fair insight present (Psych) Judgement: Fair judgement present (Psych) Office Procedures Post Void Residual Post Residual Void Post Void Residual (PVR): 67 29111-Gpta Void Residual by ultrasound Results AMB Urinalysis, Automated UA Leukoctes 125 Travis/uL Last Edit by Sara Panda [facility] on 06/24/25 16:14 UA Nitrite Positive Last Edit by Sara Panda [facility] on 06/24/25 16:14 UA Urobilinogen 0.2 mg/dL Last Edit by Sara Panda [facility] on 06/24/25 16:1 4 UA Protein 15 mg/dL Last Edit by Sara Panda [facility] on 06/24/25 16:14 UA pH 6.0 Last Edit by Sara Panda [facility] on 06/24/25 16:14 UA Blood 200 Rufino/uL Last Edit by Sara Panda [facility] on 06/24/25 16:14 UA Specific Oden 1.015 Last Edit by Sara Panda [facility] on 06/24/25 16: 14 UA Ketone Negative Last Edit by Sara Panda [facility] on 06/24/25 16:14 UA Bilirubin 0 mg/dL Last Edit by Sara Panda [facility] on 06/24/25 16:14 UA Glucose 0 mg/dL Last Edit by Sara Panda [facility] on 06/24/25 16:14 Results Reviewed Results Reviewed: Laboratory Last Values Urine pH (Auto) 6.0 06/24/25 16:03 Specific Oden (Auto) 1.015 06/24/25 16:03 Urine Protein (Auto) 15 mg/dL 06/24/25 16:03 Glucose (UA)(Auto) 0 mg/dL 06/24/25 16:03 Urine Ketones (Auto) Negative 06/24/25 16:03 Urine Blood (Auto) 200 Rufino/uL 06/24/25 16:03 Urine Nitrite (Auto) Positive 06/24/25 16:03 Urine Bilirubin (Auto) 0 mg/dL 06/24/25 16:03 Urine Urobilinogen (Auto) 0.2 mg/dL 06/24/25 16:03 Leukocyte Esterase (Auto) 125 Travis/uL 06/24/25 16:03 Assessment & Plan Assessment & Plan (1) Solitary kidney, congenital: Code(s): Q60.0 - Renal agenesis, unilateral Category: Medical (2) Nephrolithiasis: Code(s): N20.0 - Calculus of kidney Category: Medical (3) Renal cyst: Code(s): N28.1 - Cyst of kidney, acquired Category: Medical (4) Foul smelling urine: Code(s): R82.90 - Unspecified abnormal findings in urine Category: Medical (5) UTI (urinary tract infection): Code(s): N39.0 - Urinary tract infection, site not specified Category: Medical Plan In office urinalysis results reviewed with the patient today; as noted above; will send for urine culture as well as urine cytology PVR 67 mL. Start Bactrim as discussed and prescribed Most recent renal imaging results reviewed with the patient today; as noted above. We did discuss correlation of solitary kidney and urinary tract infections. We did discuss further treatment options of recurrent urinary tract infections. Discussed UTI prevention with D mannose supplement, vitamin-C, increasing fluid intake, behavioral therapy with timed voiding, perineal hygiene and postcoital voiding, and management of constipation with stool softeners and increased fiber intake. All questions were answered. We did discussed potential near future in office cystoscopy for further assessment evaluation. Follow-up in 1-3 months with PVR; or sooner with any issues, concerns, and or questions. Orders: Orders AMB Urinalysis Automated Today Z13.9 - Encounter for screening, unspecified AMB Post Void Residual by ultrasound Today N39.0 - Urinary tract infection, site not specified Urine Culture Today N39.0 - Urinary tract infection, site not specified Urine Cytology Today N39.0 - Urinary tract infection, site not specified Medications: New sulfamethoxazole-trimethoprim 800-160 mg (Bactrim DS) 1 tab PO BID 20 tabs 0RF 10 days N39.0 - Urinary tract infection, site not specified Patient Instructions: The patient had an opportunity to ask questions regarding the treatment plan. All questions were answered. Physical exam, labs, and imaging were discussed and reviewed in detail. As well as risks, benefits, and discussion of treatment choices. No major barriers to understanding were identified. The patient expressed understanding and agreement with the above treatment plan. The patient was made aware they should contact our office by phone for worsening of their current condition, the appearance of new symptoms, or with any questions or concerns. Compliance is encouraged with any medications and follow up testing that is ordered. It is a privilege to be allowed the opportunity to participate in? your urological care.? Again, if you have any questions or concerns If you have any questions or concerns please do not hesitate to contact me. The office is [phone]. This note is constructed using voice recognition software. While every effort has been made to ensure accuracy curing machine operator errors may have been included. Yours sincerely, BONITA Farr Coding Level of Care Code Est Pt Level 4 (14215) Diagnoses Solitary kidney, congenital Q60.0 Nephrolithiasis N20.0 Renal cyst N28.1 Foul smelling urine R82.90 UTI (urinary tract infection) N39.0 CPT Codes Post Residual Void - PVR CPT Code: 93449-Zezs Void Residual by ultrasound ([id number])
--- OUTSIDE RECORDS SUMMARY | 2025-06-24 16:49 | XMS_ITS | Clinical Summary ---
Author Organization [facility] Address [address] [place] [address] Care Team Providers Care Video Game Animator Name Role Phone Darion Mohan MD Primary Care Provider [phone] Social History Tobacco Use Types Packs/Day Years [...] age to complete this topic Care Teams Video Game Animator Relationship Specialty Start Date End Date Darion Mohan MD [address] [place] [address] Drive [address] [place] [address] PCP - General Internal Medicine 06/12/21
--- OUTSIDE RECORDS SUMMARY | 2025-06-24 16:49 | XMS_ITS | Patient Health Record ---
Author Organization [facility] Address [address] [place] [address] Support Name Relationship Address Phone Jenna Dias [...] Oral (Yosef-) 01/09/2014 Active Vitamin D (Ergocalciferol) 38517 UNIT take 1 capsule by oral route every week Oral (Yosef-) 07/18/2013 Active Zofran ODT 8 MG take 1 tab PO q [address] h [address] on top of the tongue, let dissolve, then swallow. 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
== END 2025-06-24 16:34 | disposition home or self-care (01) ==
LOC: HO.HUSH 15:39
PROVIDERS: PCP Internal Medicine; Visit Provider Nurse Practitioner Family
DX: Q60.0 Renal agenesis, unilateral (principal); N20.0 Calculus of kidney; N28.1 Cyst of kidney, acquired; R82.90 Unspecified abnormal findings in urine; N39.0 Urinary tract infection, site not specified; Z13.9 Encounter for screening, unspecified
CPT/HCPCS: 99214

== ENCOUNTER 2025-07-10 14:57 | Outpatient (AMB) | payer OTHER, SELFPAY ==
--- OUTSIDE RECORDS SUMMARY | 2012-07-07 19:00 | XMS_ITS | Continuity of Care Document ---
Author Organization [facility] vices Address [address] [place] [address] Phone Care Team Providers Care Internal Recruiter Name Role Phone Unavailable Unavailable Unavailable Medications [...] Diagnoses Date Provider Providers Copied on Encounter [facility], [address] [place] [address], [facility], tel:[phone] [facility] Podiatry No Information 2 No Information [facility], [address] [place] [address], [facility], tel:[phone] Conversion No Information 2 No Information [facility], [address] [place] [address], [facility], tel:[phone] Conversion TENDONITIS ACHILLESPAIN IN LIMB 2 No Information [facility], [address] [place] [address], [facility], tel:[phone] Conversion UNSPECIFIED DISORDERS OF MENSTRUATION AND OTHER ABNORMAL BLEEDING FROM FEMALE GENITAL TRACTBV 2 No Information [facility], [address] [place] [address], [facility], [place] tel:[phone] Conversion No Information 2 No Information [facility], [address] [place] [address], [facility], tel:[phone] Conversion No Information 1 No Information [facility], [address] [place] [address], [facility], [place] tel:[phone] Conversion DYSURIA 1 No Information [facility] Services, [address] [place], [address], [place] tel:[phone] Conversion PELVIC PAINNEPHROLIT HIASIS 1 No Information [facility], [address] [place], [address], [place] tel:[phone] Conversion HEMATURIA, UNSPECIFIEDPR EGNANCY TEST - NEGATIVE RESULT 1 No Information [facility] Services, [address] [place] [address], [address], [place] tel:[phone] Conversion No Information 1 No Information [facility], [address] [place] [address], [address], [place] tel:[phone] Historic Immunization Location No Information 0 No Information [facility] Services, [address] [place] [address], [address], [place] tel:[phone] Conversion OTHER GENERAL COUNSELING AND ADVICE ON CONTRACEPTIVE 0 No Information FOCUSED OUT/PT [facility] Services, [address] [place] [address], [address], [place] tel:[phone] [facility] No Information 0 No Information [facility], [address] [place] [address], [address], [place] tel:[phone] Conversion HEPATIITIS A- VACCINE NEEDED 0 No Information [facility], [address] [place] [address], [address], [place] tel:[phone] Conversion NEED FOR PROPHYLACTIC VACCINATION AND INOCULATION AGAINST UNSPECIFIED SINGLE BACTERIAL DISEASE 0 No Information MINIMAL OUT/PT [facility] Services, [address] [place] [address], [address], [place] tel:[phone] [facility] No Information 0 No Information OFFICE/OUTPATI ENT VISIT, EST [facility] Services, [address] [place] [address], [address], [place] tel:[phone] [facility] Adult Medicine No Information 0 No Information [facility], [address] [place] [address], [address], [place] tel:[phone] Conversion CONTACT DERMATITIS Nov-1 4-201 0 No Information [facility], [address] [place] [address], [address], [place] tel:[phone] Conversion SCREENING EXAMINATION FOR VENEREAL DISEASEANEMIA Apr-0 8-201 0 No Information [facility], [address] [place] [address], [address], [place] tel:[phone] Conversion ANEMIA, IRON DEFICIENCYHEA DACHE, UNSPECIFIED Mar-3 0-200 9 No Information EXPANDED OUT/PT [facility] Services, [address] [place] [address], [address], [place] tel:[phone] [facility] Adult Medicine No Information Oct-3 0-200 9 No Information [facility], [address] [place] [address], [address], [place] tel:[phone] Conversion ACUTE UPPER RESPIRATORY INFECTIONS OF UNSPECIFIED SITEOTHER SPECIFIED COUNSELING Oct-1 6200 9 No Information DETAILED OUT/PT [facility] Services, [address] [place] [address], [address], [place] tel:[phone] [facility] Adult Medicine No Information Oct- 6200 9 No Information [facility], [address] [place] [address], [address], [place] tel:[phone] Conversion ROUTINE GYNECOLOGICAL EXAMINATION May-0 9200 8 No Information EXPANDED OUT/PT [facility], [address] [place] [address], [address], [place] tel:[phone] [facility] W[facility]ens [facility] No Information May-0 9200 8 No Information [facility], [address] [place] [address], [address], [place] tel:[phone] Conversion ACUTE FRONTAL SINUSITIS Jan-2 6200 8 No Information EXPANDED OUT/PT [facility], [address] [place] [address], [address], [place] tel:[phone] [facility] Adult Medicine No Information 2 6200 8 No Information [facility], [address] [place] [address], [address], [place] tel:[phone] Conversion ENCOUNTERS FOR UNSPECIFIED ADMINISTRATIV E PURPOSE Oct- 2-200 8 No Information EXPANDED OUT/PT [facility] Services, [address] [place], [address], [place] tel:[phone] [facility] Adult Medicine No Information 8 No Information [facility], [address] [place], [address], [place] tel:[phone] Conversion FATIGUE/MALAI SEROUTINE GENERAL MEDICAL EXAMINATION 7 No Information COMPREHENSIVE OUT/PT [facility], [address] [place], [address], [place] tel:[phone] [facility] Adult Medicine No Information 7 No Information EXPANDED OUT/PT [facility], [address] [place], [address], [place] tel:[phone] [facility] Adult Medicine No Information 7 No Information [facility] Services, [address] [place] [address], [address], [place] tel:[phone] Conversion CYSTITIS, ACUTE 7 No Information EXPANDED OUT/PT [facility] Services, [address] [place] [address], [address], [place] tel:[phone] [facility] Adult Medicine No Information 7 No Information [facility], [address] [place] [address], [address], [place] tel:[phone] Conversion LUMBAGOURINAR Y TRACT INFECTION SITE NOT SPECIFIED 7 No Information NEW EXPANDED CONSULT [facility], [address] [place] [address], [address], [place] tel:[phone] [facility] Adult Medicine No Information 7 No Information [facility], [address] [place] [address], [address], [place] tel:[phone] Conversion BACK PAIN W/ RADIATION, UNSPECIFIED 7 [...] Record Payers Payer name Insurance type Covered alliance party ID Authoriza tion(s) No Information Social [...]
--- OUTSIDE RECORDS SUMMARY | 2012-07-07 19:00 | XMS_ITS | Continuity of Care Document ---
Author Organization [facility] What the Trend [facility] vices Address [address] [place] [address] Phone Care Team Providers Care Civil Engineering Professor Name Role Phone Unavailable Unavailable Unavailable Medications [...] Diagnoses Date Provider Providers Copied on Encounter [facility], [address] [place] [address], [facility], tel:[phone] [facility] Podiatry No Information 2 No Information [facility], [address] [place] [address], [facility], tel:[phone] Conversion No Information 2 No Information [facility], [address] [place] [address], [facility], tel:[phone] Conversion TENDONITIS ACHILLESPAIN IN LIMB 2 No Information [facility], [address] [place] [address], [facility], tel:[phone] Conversion UNSPECIFIED DISORDERS OF MENSTRUATION AND OTHER ABNORMAL BLEEDING FROM FEMALE GENITAL TRACTBV 2 No Information [facility], [address] [place] [address], [facility], [place] tel:[phone] Conversion No Information 2 No Information [facility], [address] [place] [address], [facility], tel:[phone] Conversion No Information 1 No Information [facility], [address] [place] [address], [facility], [place] tel:[phone] Conversion DYSURIA 1 No Information [facility], [address] [place], [address], [place] tel:[phone] Conversion PELVIC PAINNEPHROLIT HIASIS 1 No Information [facility], [address] [place], [address], [place] tel:[phone] Conversion HEMATURIA, UNSPECIFIEDPR EGNANCY TEST - NEGATIVE RESULT 1 No Information [facility], [address] [place] [address], [address], [place] tel:[phone] Conversion No Information 1 No Information [facility], [address] [place] [address], [address], [place] tel:[phone] Historic Immunization Location No Information 0 No Information [facility], [address] [place] [address], [address], [place] tel:[phone] Conversion OTHER GENERAL COUNSELING AND ADVICE ON CONTRACEPTIVE 0 No Information FOCUSED OUT/PT [facility], [address] [place] [address], [address], [place] tel:[phone] [facility] No Information 0 No Information [facility], [address] [place] [address], [address], [place] tel:[phone] Conversion HEPATIITIS A- VACCINE NEEDED 0 No Information [facility], [address] [place] [address], [address], [place] tel:[phone] Conversion NEED FOR PROPHYLACTIC VACCINATION AND INOCULATION AGAINST UNSPECIFIED SINGLE BACTERIAL DISEASE 0 No Information MINIMAL OUT/PT [facility], [address] [place] [address], [address], [place] tel:[phone] [facility] No Information 0 No Information OFFICE/OUTPATI ENT VISIT, EST [facility], [address] [place] [address], [address], [place] tel:[phone] [facility] Adult Medicine No Information 0 No Information [facility], [address] [place] [address], [address], [place] tel:[phone] Conversion CONTACT DERMATITIS Nov-1 4-201 0 No Information [facility], [address] [place] [address], [address], [place] tel:[phone] Conversion SCREENING EXAMINATION FOR VENEREAL DISEASEANEMIA Apr-0 8-201 0 No Information [facility], [address] [place] [address], [address], [place] tel:[phone] Conversion ANEMIA, IRON DEFICIENCYHEA DACHE, UNSPECIFIED Mar-3 0-200 9 No Information EXPANDED OUT/PT [facility], [address] [place] [address], [address], [place] tel:[phone] [facility] Adult Medicine No Information Oct-3 0-200 9 No Information [facility], [address] [place] [address], [address], [place] tel:[phone] Conversion ACUTE UPPER RESPIRATORY INFECTIONS OF UNSPECIFIED SITEOTHER SPECIFIED COUNSELING Oct-1 6200 9 No Information DETAILED OUT/PT [facility], [address] [place] [address], [address], [place] tel:[phone] [facility] Adult Medicine No Information Oct- 6200 9 No Information [facility], [address] [place] [address], [address], [place] tel:[phone] Conversion ROUTINE GYNECOLOGICAL EXAMINATION May-0 9200 8 No Information EXPANDED OUT/PT [facility], [address] [place] [address], [address], [place] tel:[phone] [facility] No Information May-0 9200 8 No Information [facility], [address] [place] [address], [address], [place] tel:[phone] Conversion ACUTE FRONTAL SINUSITIS Jan-2 6200 8 No Information EXPANDED OUT/PT [facility], [address] [place] [address], [address], [place] tel:[phone] [facility] Adult Medicine No Information 2 6200 8 No Information [facility], [address] [place] [address], [address], [place] tel:[phone] Conversion ENCOUNTERS FOR UNSPECIFIED ADMINISTRATIV E PURPOSE Oct- 2-200 8 No Information EXPANDED OUT/PT [facility], [address] [place], [address], [place] tel:[phone] [facility] Adult Medicine No Information 8 No Information [facility], [address] [place], [address], [place] tel:[phone] Conversion FATIGUE/MALAI SEROUTINE GENERAL MEDICAL EXAMINATION 7 No Information COMPREHENSIVE OUT/PT [facility], [address] [place], [address], [place] tel:[phone] [facility] Adult Medicine No Information 7 No Information EXPANDED OUT/PT [facility], [address] [place], [address], [place] tel:[phone] [facility] Adult Medicine No Information 7 No Information [facility], [address] [place] [address], [address], [place] tel:[phone] Conversion CYSTITIS, ACUTE 7 No Information EXPANDED OUT/PT [facility], [address] [place] [address], [address], [place] tel:[phone] [facility] Adult Medicine No Information 7 No Information [facility], [address] [place] [address], [address], [place] tel:[phone] Conversion LUMBAGOURINAR Y TRACT INFECTION SITE NOT SPECIFIED 7 No Information NEW EXPANDED CONSULT [facility], [address] [place] [address], [address], [place] tel:[phone] [facility] Adult Medicine No Information 7 No Information [facility], [address] [place] [address], [address], [place] tel:[phone] Conversion BACK PAIN W/ RADIATION, UNSPECIFIED 7 [...] Record Payers Payer name Insurance type Covered republican ID Authoriza tion(s) No Information Social History [...]
--- OUTSIDE RECORDS SUMMARY | 2012-07-07 19:00 | XMS_ITS | Continuity of Care Document ---
Author Organization [facility] vices Address [address] [place] [address] Phone Care Team Providers Care Side Panel Hanger Name Role Phone Unavailable Unavailable Unavailable Medications [...] 7 day(s) - Active Procedures Procedure Date IMMUNIZATION ADMIN HEP B VACCINE, ADULT, IM FOCUSED OUT/PT IMMUNIZATION ADMIN MINIMAL OUT/PT HEP B VACCINE, ADULT, IM GLUCOSE, RANDOM (IH) OFFICE/OUTPATIENT VISIT, EST EXPANDED OUT/PT BLOOD, GLUCOSE DETAILED OUT/PT WET SMEAR AMINES VAGINAL FLUID QU EXPANDED OUT/PT EXPANDED OUT/PT PREVENTIVE COUNSELING, INDIV EXPANDED OUT/PT COMPREHENSIVE OUT/PT EYE EXAM ESTABLISHED PAT URINALYSIS, NON-AUTOMATE EXPANDED OUT/PT EXPANDED OUT/PT NEW EXPANDED CONSULT [...] Diagnoses Date Provider Providers Copied on Encounter [facility], [address] [place] [address], Former[facility], tel:[phone] [facility] Podiatry No Information 2 No Information [facility], [address] [place] [address], [facility], tel:[phone] Conversion No Information 2 No Information [facility], [address] [place] [address], [facility], tel:[phone] Conversion TENDONITIS ACHILLESPAIN IN LIMB 2 No Information [facility], [address] [place] [address], [facility], tel:[phone] Conversion UNSPECIFIED DISORDERS OF MENSTRUATION AND OTHER ABNORMAL BLEEDING FROM FEMALE GENITAL TRACTBV 2 No Information [facility], [address] [place] [address], [facility], tel:[phone] Conversion No Information 2 No Information [facility], [address] [place] [address], [facility], tel:[phone] Conversion No Information 1 No Information [facility], [address] [place] [address], [facility], [place] tel:[phone] Conversion DYSURIA 1 No Information [facility], [address] [place], [address], [place] tel:[phone] Conversion PELVIC PAINNEPHROLIT HIASIS 1 No Information [facility], [address] [place], [address], [place] tel:[phone] Conversion HEMATURIA, UNSPECIFIEDPR EGNANCY TEST - NEGATIVE RESULT 1 No Information [facility], [address] [place] [address], [address], [place] tel:[phone] Conversion No Information 1 No Information [facility], [address] [place] [address], [address], [place] tel:[phone] Historic Immunization Location No Information 0 No Information [facility], [address] [place] [address], [address], [place] tel:[phone] Conversion OTHER GENERAL COUNSELING AND ADVICE ON CONTRACEPTIVE 0 No Information FOCUSED OUT/PT [facility], [address] [place] [address], [address], [place] tel:[phone] [facility] No Information 0 No Information [facility], [address] [place] [address], [address], [place] tel:[phone] Conversion HEPATIITIS A- VACCINE NEEDED 0 No Information [facility], [address] [place] [address], [address], [place] tel:[phone] Conversion NEED FOR PROPHYLACTIC VACCINATION AND INOCULATION AGAINST UNSPECIFIED SINGLE BACTERIAL DISEASE 0 No Information MINIMAL OUT/PT [facility], [address] [place] [address], [address], [place] tel:[phone] [facility] No Information 0 No Information OFFICE/OUTPATI ENT VISIT, EST [facility], [address] [place] [address], [address], [place] tel:[phone] [facility] Adult Medicine No Information 0 No Information [facility], [address] [place] [address], [address], [place] tel:[phone] Conversion CONTACT DERMATITIS Nov-1 4-201 0 No Information [facility], [address] [place] [address], [address], [place] tel:[phone] Conversion SCREENING EXAMINATION FOR VENEREAL DISEASEANEMIA Apr-0 8-201 0 No Information [facility], [address] [place] [address], [address], [place] tel:[phone] Conversion ANEMIA, IRON DEFICIENCYHEA DACHE, UNSPECIFIED Mar-3 0-200 9 No Information EXPANDED OUT/PT [facility], [address] [place] [address], [address], [place] tel:[phone] [facility] Adult Medicine No Information Oct-3 0-200 9 No Information [facility], [address] [place] [address], [address], [place] tel:[phone] Conversion ACUTE UPPER RESPIRATORY INFECTIONS OF UNSPECIFIED SITEOTHER SPECIFIED COUNSELING Oct- 6200 9 No Information DETAILED OUT/PT [facility], [address] [place] [address], [address], [place] tel:[phone] [facility] Adult Medicine No Information Oct- 6-200 9 No Information [facility], [address] [place] [address], [address], [place] tel:[phone] Conversion ROUTINE GYNECOLOGICAL EXAMINATION May-0 9-200 8 No Information EXPANDED OUT/PT [facility], [address] [place] [address], [address], [place] tel:[phone] [facility] No Information May-0 9200 8 No Information [facility], [address] [place] [address], [address], [place] tel:[phone] Conversion ACUTE FRONTAL SINUSITIS Jan-2 6200 8 No Information EXPANDED OUT/PT [facility], [address] [place] [address], [address], [place] tel:[phone] [facility] Adult Medicine No Information 2 6200 8 No Information [facility], [address] [place] [address], [address], [place] tel:[phone] Conversion ENCOUNTERS FOR UNSPECIFIED ADMINISTRATIV E PURPOSE Oct- 2-200 8 No Information PREVENTIVE COUNSELING, INDIV [facility], [address] [place], [address], [place] tel:[phone] [facility] Adult Medicine No Information 8 No Information [facility], [address] [place], [address], [place] tel:[phone] Conversion FATIGUE/MALAI SEROUTINE GENERAL MEDICAL EXAMINATION 7 No Information COMPREHENSIVE OUT/PT [facility], [address] [place], [address], [place] tel:[phone] [facility] Adult Medicine No Information 7 No Information EXPANDED OUT/PT [facility], [address] [place], [address], [place] tel:[phone] [facility] Adult Medicine No Information 7 No Information [facility], [address] [place] [address], [address], [place] tel:[phone] Conversion CYSTITIS, ACUTE 7 No Information EXPANDED OUT/PT [facility], [address] [place] [address], [address], [place] tel:[phone] [facility] Adult Medicine No Information 7 No Information [facility], [address] [place] [address], [address], [place] tel:[phone] Conversion LUMBAGOURINAR Y TRACT INFECTION SITE NOT SPECIFIED 7 No Information NEW EXPANDED CONSULT [facility], [address] [place] [address], [address], [place] tel:[phone] [facility] Adult Medicine No Information 7 No Information [facility], [address] [place] [address], [address], [place] tel:[phone] Conversion BACK PAIN W/ RADIATION, UNSPECIFIED 7 [...] Record Payers Payer name Insurance type Covered constitution party ID Authoriza tion(s) No Information Social [...]
--- OUTSIDE RECORDS SUMMARY | 2012-08-06 19:00 | XMS_ITS | Continuity of Care Document ---
Author Organization [facility] vices Address [address] [place] [address] Phone Care Team Providers Care Model Builder Display Name Role Phone Unavailable Unavailable Unavailable Procedures Procedure Date EXPANDED OUT/PT EXPANDED OUT/PT Advance Directives Directive Yes / No Effective Date File Name No Information Encounters Encounter Description Practice Location Reason(s) For Visit Diagnoses Date Provider Providers Copied on Encounter [facility], [address] [place] [address], [address], tel:[phone] Conversion No Information [address] [facility], [address] [place] [address], tel:[phone] Conversion ENCOUNTERS FOR UNSPECIFIED ADMINISTRATIVE PURPOSE 7 No Information EXPANDED OUT/PT [facility], [address] [place] [address], [address], [place] tel:[phone] [facility] Adult Medicine No Information No Information [facility], [address] [place] [address], [address], tel:[phone] Conversion ROUTINE GYNECOLOGICAL EXAMINATION No Information EXPANDED OUT/PT [facility], [address] [place] [address], [place] tel:[phone] [facility] No Information 7 No Information [...]
--- OUTSIDE RECORDS SUMMARY | 2012-08-06 19:00 | XMS_ITS | Continuity of Care Document ---
Author Organization [facility] vices Address [address] [place] [address] Phone Care Team Providers Care Riffler Tender Name Role Phone Unavailable Unavailable Unavailable Procedures Procedure Date EXPANDED OUT/PT EXPANDED OUT/PT Advance Directives Directive Yes / No Effective Date File Name No Information Encounters Encounter Description Practice Location Reason(s) For Visit Diagnoses Date Provider Providers Copied on Encounter [facility], [address] [place] [address], [address], tel:[phone] Conversion No Information 2 No Information [facility], [address] [place] [address], tel:[phone] Conversion ENCOUNTERS FOR UNSPECIFIED ADMINISTRATIVE PURPOSE 7 No Information EXPANDED OUT/PT [facility], [address] [place] [address], [address], [place] tel:[phone] [facility] Adult Medicine No Information No Information [facility], [address] [place] [address], [address], tel:[phone] Conversion ROUTINE GYNECOLOGICAL EXAMINATION No Information EXPANDED OUT/PT [facility], [address] [place] [address], [place] tel:[phone] [facility] No Information 7 No Information Family History Family Member Type Diagnosis Age At Onset No Information Payers Payer name Insurance type Covered alliance [...]
--- OUTSIDE RECORDS SUMMARY | 2012-08-06 19:00 | XMS_ITS | Continuity of Care Document ---
Author Organization [facility] vices Address [address] [place] [address] Phone Care Team Providers Care Professor Of German Name Role Phone Unavailable Unavailable Unavailable Procedures Procedure Date EXPANDED OUT/PT EXPANDED OUT/PT Advance Directives Directive Yes / No Effective Date File Name No Information Encounters Encounter Description Practice Location Reason(s) For Visit Diagnoses Date Provider Providers Copied on Encounter [facility], [address] [place] [address], [address], tel:[phone] Conversion No Information 2 No Information [facility], [address] [place] [address], tel:[phone] Conversion ENCOUNTERS FOR UNSPECIFIED ADMINISTRATIVE PURPOSE 7 No Information EXPANDED OUT/PT [facility], [address] [place] [address], [address], [place] tel:[phone] [facility] Adult Medicine No Information No Information [facility], [address] [place] [address], [address], tel:[phone] Conversion ROUTINE GYNECOLOGICAL EXAMINATION No Information EXPANDED OUT/PT [facility], [address] [place] [address], [place] tel:[phone] [facility] No Information 7 No Information Family History Family Member Type Diagnosis Age At Onset No Information Payers Payer name Insurance type Covered republican [...]
--- NOTE | 2025-07-10 15:03 | MHC.OFFVIS ---
Vital Signs 07/10/25 15:15 Height 5 ft 7 in Weight 214 lb BMI 33.5 BP 120/72 Intake Visit Reasons: annual/u/s results Associate Professor Of Radiology Required: Yes Associate Professor Of Radiology Language: Wagon Winder Services: Associate Professor Of Radiology Present (in person) Associate Professor Of Radiology Name: Susie ANAYA Information Interpreted: non-clinical & clinical Railroad Car Checker: Railroad Car Checker Present (Susie ANAYA) Accompanied by: Self / Same As Patient Allergies No Known Allergies Allergy (Verified 06/24/25 20:59) HPI Comments Details: Presenting for annual exam. Complaining of irregular menstrual cycles on Mirena IUD Last Pap/HPV was negative in 10/12 Last Mammogram was BI-RADS 2 in 04/15 Last pelvic ultrasound done in 06/15 to confirm IUD position showed the following: Uterus: The uterus is anteverted and measures 10 x 4.5 x 4.7 cm. The double wall endometrial thickness is 4 mm. IUD is demonstrated in the upper uterine canal. The uterus is smooth in contour and has normal myometrial echogenicity. Fundal leiomyoma demonstrated on the prior examination is not demonstrated today. Adnexa: Both ovaries are visualized. There is normal color flow to the adnexa. There is no ovarian torsion. There is no pelvic ascites or fluid collection. Right ovary measures 2.5 x 1.5 x 1.8 cm. Left ovary measures 2.5 x 1.3 x 1.7 cm. 11 Millimeter follicle is incidentally noted. No previous screening colonoscopy PFSH Medical History Uterine fibroid Acute eczema GERD (gastroesophageal reflux disease) Migraines Hypovitaminosis D Physical exam AMAN (generalized anxiety disorder) Polyarthralgia New daily persistent headache Dyslipidemia Migraine with aura Anemia Surgical History H/O cosmetic surgery History of sleeve gastrectomy Hx of tubal ligation Hx of section Family History Father Diabetes mellitus ESRD on hemodialysis Mother Acute depression Anxiety Asthma Hypertension Osteoporosis Hypercholesteremia Hyperlipemia Mental health disorder Son No problems noted. Daughter No problems noted. Brother No problems noted. Sister Cervical cancer Maternal Grandmother Lung cancer Maternal Grandfather Throat cancer Social History Household Members: Significant Other and Family Housing: House Alcohol intake: never Patient Tobacco Use Status: Never used Tobacco e-Cigarette/Vaping Use: Never Used Second Hand Smoke Exposure: No service: No Current occupational status: employed Current occupational exposures/hazards: No Gender identity: Female Cognitive needs: No Hearing needs: No Vision needs: No Female Reproductive History Menstrual Age of Menarche: 9 Date of last pap smear: 10/10/20 Date of Mammogram: 04/02/25 Review of Systems Const All systems reviewed & are unremarkable except as noted in HPI and below Card Reports as per HPI Resp Reports as per HPI GI Reports as per HPI and Reports no additional complaints Reports as per HPI Physical Exam Vital Signs: Last Vital Signs BP 120/72 07/10/25 15:15 BMI result Body Mass Index 33.5 Const General: cooperative, healthy appearing and comfortable Chest Chest palpation & inspection: normal inspection of the chest and normal palpation of entire chest wall Breast/axilla inspection: normal inspection of the breasts and normal inspection of the axillae Breast/axilla palpation: normal palpation of the breasts, normal palpation of the axillae and no axillary lymphadenopathy Resp Effort & Inspection: normal respiratory effort Auscultation: clear to auscultation bilaterally Percussion: percussion normal Cardio Palpation: normal PMI Rate: regular rate Rhythm: regular rhythm Heart sounds: no murmurs and no rubs Peripheral pulses: Peripheral pulses 2+ throughout GI Inspection: Yes normal to inspection Palpation (GI): Soft to palpation, nontender, no guarding, not rigid and No hepatosplenomegaly present Percussion: Yes normal to percussion Auscultation: normal bowel sounds Rectal Exam - Female: deferred General: Yes bladder normal to palpation External Female Exam: No lesion Speculum Exam - Vagina: normal appearance of the vagina, normal palpation, normal vaginal discharge and not erythematous Speculum Exam - Cervix: normal appearance of the cervix and normal palpation Bimanual exam- vagina & uterus: normal bimanual exam, normal palpation, uterine size normal, bladder normal to palpation, consistency normal and normal palpation Bimanual Exam- Adnexa, other: normal adnexae, no masses and no tenderness Assessment & Plan Assessment & Plan (1) Well woman exam with routine gynecological exam: Code(s): Z01.419 - Encounter for gynecological examination (general) (routine) without abnormal findings Category: Medical Plan: Cotesting done. Instructions given to patient to schedule next screening Mammogram in 04/16. Counseled the patient about the recommended dietary allowance of 1000 mg of Calcium & 600 IU of vitamin D. GI referral placed for screening colonoscopy The patient was instructed to perform monthly self-breast exams and to schedule an annual exam in a year; All questions answered and the patient verbalized understanding. Instructed the patient to schedule annual exam in a year (2) Abnormal uterine bleeding (AUB): Comment: On Mirena IUD Code(s): N93.9 - Abnormal uterine and vaginal bleeding, unspecified Category: Medical Plan: Co testing done, GC and chlamydia taken CBC, TSH, HCG, ordered. Discussed with the patient the different causes of abnormal bleeding including thyroid disorders, uterine and ovarian pathology, endometrial hyperplasia, carcinoma and other potential causes. Discussed with the patient the work up including CBC (to r/o anemia), TSH, endometrial biopsy to r/o endometrial pathology. All questions answered and the patient verbalized understanding. Instructed the patient to schedule an appointment for an endometrial biopsy in 2 weeks. Orders: Orders Complete Blood Count no Diff Today N93.9 - Abnormal uterine and vaginal bleeding, unspecified TSH reflex Free T4 Today N93.9 - Abnormal uterine and vaginal bleeding, unspecified HCG Quantitative Today N93.9 - Abnormal uterine and vaginal bleeding, unspecified Referrals Gastroenterology Referral Z12.11 - Encounter for screening for malignant neoplasm of colon Coding Level of Care Code Est Pt Level 3 (64712) Est Pt Prev Care 40-64y(53122) Diagnoses Well woman exam with routine gynecological exam Z01.419 Abnormal uterine bleeding (AUB) N93.9
[2025-07-10 15:15] VITALS: BP 120/72; BMI 33.5
== END 2025-07-10 16:06 | disposition home or self-care (01) ==
LOC: HO.HWS 14:58
PROVIDERS: PCP Internal Medicine; Visit Provider Obstetrics & Gynecology
DX: Z01.419 Encounter for gynecological examination (general) (routine) without abnormal findings (principal); N93.9 Abnormal uterine and vaginal bleeding, unspecified
CPT/HCPCS: 99213; 99396; 99459

== ENCOUNTER 2025-07-10 14:57 | Outpatient (REF) | payer OTHER, SELFPAY ==
--- OUTSIDE RECORDS SUMMARY | 2012-07-07 19:00 | XMS_ITS | Continuity of Care Document ---
Author Organization [facility] [employer] [facility] vices Address [address] [place] [address] Phone Care Team Providers Care Lime Puller Name Role Phone Unavailable Unavailable Unavailable Medications [...] Diagnoses Date Provider Providers Copied on Encounter [facility], [address] [place] [address], [facility], tel:[phone] [facility] Podiatry No Information 2 No Information [facility], [address] [place] [address], [facility], tel:[phone] Conversion No Information 2 No Information [facility], [address] [place] [address], [facility], tel:[phone] Conversion TENDONITIS ACHILLESPAIN IN LIMB 2 No Information [facility], [address] [place] [address], [facility], tel:[phone] Conversion UNSPECIFIED DISORDERS OF MENSTRUATION AND OTHER ABNORMAL BLEEDING FROM FEMALE GENITAL TRACTBV 2 No Information [facility], [address] [place] [address], [facility], [place] tel:[phone] Conversion No Information 2 No Information [facility], [address] [place] [address], [facility], tel:[phone] Conversion No Information 1 No Information [facility], [address] [place] [address], [facility], [place] tel:[phone] Conversion DYSURIA 1 No Information [facility], [address] [place], [address], [place] tel:[phone] Conversion PELVIC PAINNEPHROLIT HIASIS 1 No Information [facility], [address] [place], [address], [place] tel:[phone] Conversion HEMATURIA, UNSPECIFIEDPR EGNANCY TEST - NEGATIVE RESULT 1 No Information [facility], [address] [place] [address], [address], [place] tel:[phone] Conversion No Information 1 No Information [facility], [address] [place] [address], [address], [place] tel:[phone] Historic Immunization Location No Information 0 No Information [facility], [address] [place] [address], [address], [place] tel:[phone] Conversion OTHER GENERAL COUNSELING AND ADVICE ON CONTRACEPTIVE 0 No Information FOCUSED OUT/PT [facility], [address] [place] [address], [address], [place] tel:[phone] [facility] No Information 0 No Information [facility], [address] [place] [address], [address], [place] tel:[phone] Conversion HEPATIITIS A- VACCINE NEEDED 0 No Information [facility], [address] [place] [address], [address], [place] tel:[phone] Conversion NEED FOR PROPHYLACTIC VACCINATION AND INOCULATION AGAINST UNSPECIFIED SINGLE BACTERIAL DISEASE 0 No Information MINIMAL OUT/PT [facility], [address] [place] [address], [address], [place] tel:[phone] [facility] No Information 0 No Information OFFICE/OUTPATI ENT VISIT, EST [facility], [address] [place] [address], [address], [place] tel:[phone] [facility] Adult Medicine No Information 0 No Information [facility], [address] [place] [address], [address], [place] tel:[phone] Conversion CONTACT DERMATITIS Nov-1 4-201 0 No Information [facility], [address] [place] [address], [address], [place] tel:[phone] Conversion SCREENING EXAMINATION FOR VENEREAL DISEASEANEMIA Apr-0 8-201 0 No Information [facility], [address] [place] [address], [address], [place] tel:[phone] Conversion ANEMIA, IRON DEFICIENCYHEA DACHE, UNSPECIFIED Mar-3 0-200 9 No Information EXPANDED OUT/PT [facility], [address] [place] [address], [address], [place] tel:[phone] [facility] Adult Medicine No Information Oct-3 0-200 9 No Information [facility], [address] [place] [address], [address], [place] tel:[phone] Conversion ACUTE UPPER RESPIRATORY INFECTIONS OF UNSPECIFIED SITEOTHER SPECIFIED COUNSELING Oct-1 6200 9 No Information DETAILED OUT/PT [facility], [address] [place] [address], [address], [place] tel:[phone] [facility] Adult Medicine No Information Oct- 6200 9 No Information [facility], [address] [place] [address], [address], [place] tel:[phone] Conversion ROUTINE GYNECOLOGICAL EXAMINATION May-0 9200 8 No Information EXPANDED OUT/PT [facility], [address] [place] [address], [address], [place] tel:[phone] [facility] No Information May-0 9200 8 No Information [facility], [address] [place] [address], [address], [place] tel:[phone] Conversion ACUTE FRONTAL SINUSITIS Jan-2 6200 8 No Information EXPANDED OUT/PT [facility], [address] [place] [address], [address], [place] tel:[phone] [facility] Adult Medicine No Information 2 6200 8 No Information [facility], [address] [place] [address], [address], [place] tel:[phone] Conversion ENCOUNTERS FOR UNSPECIFIED ADMINISTRATIV E PURPOSE Oct- 2-200 8 No Information EXPANDED OUT/PT [facility], [address] [place], [address], [place] tel:[phone] [facility] Adult Medicine No Information 8 No Information [facility], [address] [place], [address], [place] tel:[phone] Conversion FATIGUE/MALAI SEROUTINE GENERAL MEDICAL EXAMINATION 7 No Information COMPREHENSIVE OUT/PT [facility], [address] [place], [address], [place] tel:[phone] [facility] Adult Medicine No Information 7 No Information EXPANDED OUT/PT [facility], [address] [place], [address], [place] tel:[phone] [facility] Adult Medicine No Information 7 No Information [facility], [address] [place] [address], [address], [place] tel:[phone] Conversion CYSTITIS, ACUTE 7 No Information EXPANDED OUT/PT [facility], [address] [place] [address], [address], [place] tel:[phone] [facility] Adult Medicine No Information 7 No Information [facility], [address] [place] [address], [address], [place] tel:[phone] Conversion LUMBAGOURINAR Y TRACT INFECTION SITE NOT SPECIFIED 7 No Information NEW EXPANDED CONSULT [facility], [address] [place] [address], [address], [place] tel:[phone] [facility] Adult Medicine No Information 7 No Information [facility], [address] [place] [address], [address], [place] tel:[phone] Conversion BACK PAIN W/ RADIATION, UNSPECIFIED 7 [...]
--- OUTSIDE RECORDS SUMMARY | 2012-08-06 19:00 | XMS_ITS | Continuity of Care Document ---
Author Organization [facility] vices Address [address] [place] [address] Phone Care Team Providers Care Clothing Cutter Name Role Phone Unavailable Unavailable Unavailable Procedures Procedure Date EXPANDED OUT/PT EXPANDED OUT/PT Advance Directives Directive Yes / No Effective Date File Name No Information Encounters Encounter Description Practice Location Reason(s) For Visit Diagnoses Date Provider Providers Copied on Encounter [facility], [address] [place] [address], [address], tel:[phone] Conversion No Information 2 No Information [facility], [address] [place] [address], tel:[phone] Conversion ENCOUNTERS FOR UNSPECIFIED ADMINISTRATIVE PURPOSE 7 No Information EXPANDED OUT/PT [facility], [address] [place] [address], [address], [place] tel:[phone] [facility] Adult Medicine No Information No Information [facility], [address] [place] [address], [address], tel:[phone] Conversion ROUTINE GYNECOLOGICAL EXAMINATION No Information EXPANDED OUT/PT [facility], [address] [place] [address], [place] tel:[phone] [facility] No Information 7 No Information Family History Family Member Type Diagnosis Age At Onset No Information Payers Payer name Insurance type Covered democrat [...]
[2025-07-10 16:28] LABS: Hematocrit 39.7 % (37.0-47.0); Hemoglobin 12.4 g/dl (12.0-16.0); Mean Corpuscular HGB Conc 31.2 g/dl (31.0-35.0); Mean Corpuscular Hemoglobin 27.9 pg (27.0-33.0); Mean Corpuscular Volume 89.4 fL (80.0-98.0); NRBC Abs Auto 0.000 X10*3/uL (0.0-0.012); NRBC Pct Auto 0.0 /100WBC (0.0-0.2); Platelet Count 224 X10*3/uL (160-400); Red Blood Count 4.44 X10*6/uL (4.20-5.50); White Blood Count 8.9 X10*3/uL (4.8-10.8)
[2025-07-11 12:34] LABS: CT PCR NOT DETECTED (Not Detect.); NG PCR NOT DETECTED (Not Detect.)
== END 2025-07-10 14:58 | disposition home or self-care (01) ==
LOC: HO.LAB 14:57
PROVIDERS: PCP Internal Medicine; Visit Provider Obstetrics & Gynecology
DX: Z01.419 Encounter for gynecological examination (general) (routine) without abnormal findings (principal); Z12.11 Encounter for screening for malignant neoplasm of colon; N93.9 Abnormal uterine and vaginal bleeding, unspecified; Z98.51 Tubal ligation status; Z32.00 Encounter for pregnancy test, result unknown
CPT/HCPCS: 36415; 84443; 84702; 85027; 87491; 87591; 99212; 99396

== ENCOUNTER 2025-07-10 16:00 | Outpatient (REF) | payer OTHER, SELFPAY ==
--- OUTSIDE RECORDS SUMMARY | 2025-07-11 10:59 | XMS_ITS | Patient Health Record ---
Author Organization [facility] enter Address [address] [place] [address] Support Name Relationship Address Phone Jenna Dias [...] Oral (Yosef-) 01/09/2014 Active Vitamin D (Ergocalciferol) 51384 UNIT take 1 capsule by oral route every week Oral (Yosef-) 07/18/2013 Active Zofran ODT 8 MG take 1 tab PO q [address] h [address] on top of the tongue, let dissolve, then swallow. 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
== END 2025-07-10 16:01 | disposition home or self-care (01) ==
LOC: HO.LNP 16:00
PROVIDERS: Visit Provider Obstetrics & Gynecology
DX: Z01.419 Encounter for gynecological examination (general) (routine) without abnormal findings (principal); Z11.4 Encounter for screening for human immunodeficiency virus [HIV]; N93.9 Abnormal uterine and vaginal bleeding, unspecified
CPT/HCPCS: 87626; 88175

== ENCOUNTER 2025-07-11 08:32 | Outpatient (REF) | payer OTHER, SELFPAY | END 2025-07-11 08:33 | disposition home or self-care (01) | LOC: HO.LNP 08:32 | PROVIDERS: Visit Provider Obstetrics & Gynecology | DX: Z13.89 Encounter for screening for other disorder (principal) ==

== ENCOUNTER 2025-07-13 08:22 | Outpatient (REF) | payer OTHER, SELFPAY ==
--- OUTSIDE RECORDS SUMMARY | 2012-07-07 19:00 | XMS_ITS | Continuity of Care Document ---
Author Organization [facility] vices Address [address] [place] [address] Phone Care Team Providers Care Tailor Fitter Name Role Phone Unavailable Unavailable Unavailable Medications Medication Instructions Dosage Effective Dates (start - stop) Status Comments hydrocortisone 2.5 % Lotion by Topical route 2 times per day for 30 day(s) - Active Celebrex 200 mg capsule take 1 capsule ( 200 mg) by oral route once daily - Active Metrogel Vaginal 0.75 % SI appful intravaginally once a day (at bedtime) for 5 day(s) - Active Bactrim DS 800 mg-160 mg tablet SI tab(s) orally 2 times a day for 7 day(s) - Active Bactrim DS 800 mg-160 mg tablet SI tab(s) orally 2 times a day for 3 day(s) - Active Bactrim DS 800 mg-160 mg tablet SI tab(s) orally 2 times a day for 3 day(s) - Active Hydrocortisone with Aloe topical 2.5% SI vianey applied topically 3 times a day for 7 day(s) - Active Procedures Procedure Date FOCUSED OUT/PT HEP B VACCINE, ADULT, IM IMMUNIZATION ADMIN HEP B VACCINE, ADULT, IM MINIMAL OUT/PT IMMUNIZATION ADMIN OFFICE/OUTPATIENT VISIT, EST GLUCOSE, RANDOM (IH) EXPANDED OUT/PT DETAILED OUT/PT BLOOD, GLUCOSE EXPANDED OUT/PT AMINES VAGINAL FLUID QU WET SMEAR EXPANDED OUT/PT EXPANDED OUT/PT PREVENTIVE COUNSELING, INDIV URINALYSIS, NON-AUTOMATE EYE EXAM ESTABLISHED PAT COMPREHENSIVE OUT/PT EXPANDED OUT/PT EXPANDED OUT/PT NEW EXPANDED CONSULT Results Test Name Date and Time Measure Units Reference Range Abnormal Flag Status Comments Panel Description: APPLY SHORT LEG CAST Unknown Document 0 00:00:00 See [facility] Archive Unknown [facility] Conversion NoResultDesc 0 00:00:00 Unknown Advance Directives Directive Yes / No Effective Date File Name No Information Encounters Encounter Description Practice Location Reason(s) For Visit Diagnoses Date Provider Providers Copied on Encounter Services, [address] [place] [address], [facility], tel:[phone] [facility] Podiatry No Information 2 No Information Services, [address] [place] [address], [facility], tel:[phone] Conversion No Information 2 No Information [facility], [address] [place] [address], [facility], tel:[phone] Conversion TENDONITIS ACHILLESPAIN IN LIMB 2 No Information [facility], [address] [place] [address], [facility], tel:[phone] Conversion UNSPECIFIED DISORDERS OF MENSTRUATION AND OTHER ABNORMAL BLEEDING FROM FEMALE GENITAL TRACTBV 2 No Information [facility], [address] [place] [address], [facility], [place] tel:[phone] Conversion No Information 2 No Information [facility], [address] [place] [address], [facility], tel:[phone] Conversion No Information 1 No Information [facility], [address] [place] [address], [facility], [place] tel:[phone] Conversion DYSURIA 1 No Information [facility], [address] [place], [address], [place] tel:[phone] Conversion PELVIC PAINNEPHROLIT HIASIS 1 No Information [facility], [address] [place], [address], [place] tel:[phone] Conversion HEMATURIA, UNSPECIFIEDPR EGNANCY TEST - NEGATIVE RESULT 1 No Information [facility], [address] [place] [address], [address], [place] tel:[phone] Conversion No Information 1 No Information Services, [address] [place] [address], [address], [place] tel:[phone] Historic Immunization Location No Information 0 No Information [facility], [address] [place] [address], [address], [place] tel:[phone] Conversion OTHER GENERAL COUNSELING AND ADVICE ON CONTRACEPTIVE 0 No Information FOCUSED OUT/PT [facility], [address] [place] [address], [address], [place] tel:[phone] [facility] No Information 0 No Information [facility], [address] [place] [address], [address], [place] tel:[phone] Conversion HEPATIITIS A- VACCINE NEEDED 0 No Information [facility], [address] [place] [address], [address], [place] tel:[phone] Conversion NEED FOR PROPHYLACTIC VACCINATION AND INOCULATION AGAINST UNSPECIFIED SINGLE BACTERIAL DISEASE 0 No Information MINIMAL OUT/PT [facility], [address] [place] [address], [address], [place] tel:[phone] [facility] W[facility] No Information 0 No Information OFFICE/OUTPATI ENT VISIT, EST [facility], [address] [place] [address], [address], [place] tel:[phone] [facility] Adult Medicine No Information 0 No Information [facility], [address] [place] [address], [address], [place] tel:[phone] Conversion CONTACT DERMATITIS Nov-1 4-201 0 No Information [facility], [address] [place] [address], [address], [place] tel:[phone] Conversion SCREENING EXAMINATION FOR VENEREAL DISEASEANEMIA Apr-0 8-201 0 No Information [facility], [address] [place] [address], [address], [place] tel:[phone] Conversion ANEMIA, IRON DEFICIENCYHEA DACHE, UNSPECIFIED Mar-3 0-200 9 No Information EXPANDED OUT/PT [facility], [address] [place] [address], [address], [place] tel:[phone] [facility] Adult Medicine No Information Oct-3 0-200 9 No Information [facility], [address] [place] [address], [address], [place] tel:[phone] Conversion ACUTE UPPER RESPIRATORY INFECTIONS OF UNSPECIFIED SITEOTHER SPECIFIED COUNSELING Oct-1 6200 9 No Information DETAILED OUT/PT [facility], [address] [place] [address], [address], [place] tel:[phone] [facility] Adult Medicine No Information Oct- 6200 9 No Information [facility], [address] [place] [address], [address], [place] tel:[phone] Conversion ROUTINE GYNECOLOGICAL EXAMINATION May-0 9200 8 No Information EXPANDED OUT/PT Services, [address] [place] [address], [address], [place] tel:[phone] [facility] W[facility]ens [facility] No Information May-0 9200 8 No Information [facility], [address] [place] [address], [address], [place] tel:[phone] Conversion ACUTE FRONTAL SINUSITIS Jan-2 6200 8 No Information EXPANDED OUT/PT [facility], [address] [place] [address], [address], [place] tel:[phone] [facility] Adult Medicine No Information 2 6200 8 No Information [facility], [address] [place] [address], [address], [place] tel:[phone] Conversion ENCOUNTERS FOR UNSPECIFIED ADMINISTRATIV E PURPOSE Oct- 2-200 8 No Information EXPANDED OUT/PT [facility], [address] [place], [address], [place] tel:[phone] [facility] Adult Medicine No Information 8 No Information [facility], [address] [place], [address], [place] tel:[phone] Conversion FATIGUE/MALAI SEROUTINE GENERAL MEDICAL EXAMINATION 7 No Information COMPREHENSIVE OUT/PT [facility], [address] [place], [address], [place] tel:[phone] [facility] Adult Medicine No Information 7 No Information EXPANDED OUT/PT [facility], [address] [place], [address], [place] tel:[phone] [facility] Adult Medicine No Information 7 No Information [facility], [address] [place] [address], [address], [place] tel:[phone] Conversion CYSTITIS, ACUTE 7 No Information EXPANDED OUT/PT [facility], [address] [place] [address], [address], [place] tel:[phone] [facility] Adult Medicine No Information 7 No Information [facility], [address] [place] [address], [address], [place] tel:[phone] Conversion LUMBAGOURINAR Y TRACT INFECTION SITE NOT SPECIFIED 7 No Information NEW EXPANDED CONSULT [facility], [address] [place] [address], [address], [place] tel:[phone] [facility] Adult Medicine No Information 7 No Information [facility], [address] [place] [address], [address], [place] tel:[phone] Conversion BACK PAIN W/ RADIATION, UNSPECIFIED 7 No Information Family History Family Member Type Diagnosis Age At Onset No Information Immunizations Vaccine Date Status Comments IMMUNIZATION ADMIN administered Source: N ew Immunization Record HEP B VACCINE, ADULT, IM administered Daniela rce: New Immunization Record HEP B VACCINE, ADULT, IM administered Daniela rce: New Immunization Record IMMUNIZATION ADMIN administered Source: N ew Immunization Record HEP B VACCINE, ADULT, IM administered Daniela rce: New Immunization Record IMMUNIZATION ADMIN administered Source: N ew Immunization Record Payers Payer name Insurance type Covered green party ID Authoriza tion(s) No Information Social History Type Description Quantity Date Captured Comments Sex Female Smoking Status No Information Vital Signs Date / Time: Height Weight BMI Pulse Rate Blood Pressure Temperature Respiratory Rate Body Surface Area Head Circumference Head Circ. Percentile Wt./Rajendra. Percentile BMI percentile Pulse Ox Inhaled Ox 66.00 in 77 /min 118/77 mm[Hg] 98.30 F 16 /min Chief Complaint And Reason For Visit No Information Reason For Referral Reason For Referral No Information History Of Present Illness Encounter Date Complaint History Of Prese nt Illness No Information Functional Status Date Functional Assessmen t Pain Score 6 Instructions Date Instruction Additional Infor mation No Information Assessments Type Assessment Date No Information Patient Care Teams Name Effective Dates (start - stop) Status Members No Information
--- OUTSIDE RECORDS SUMMARY | 2012-08-06 19:00 | XMS_ITS | Continuity of Care Document ---
Author Organization [facility] vices Address [address] [place] [address] Phone Care Team Providers Care Gas Compressor Operator Name Role Phone Unavailable Unavailable Unavailable Procedures Procedure Date EXPANDED OUT/PT EXPANDED OUT/PT Advance Directives Directive Yes / No Effective Date File Name No Information Encounters Encounter Description Practice Location Reason(s) For Visit Diagnoses Date Provider Providers Copied on Encounter [facility], [address] [place] [address], [address], tel:[phone] Conversion No Information [address] [facility], [address] [place] [address], tel:[phone] Conversion ENCOUNTERS FOR UNSPECIFIED ADMINISTRATIVE PURPOSE 7 No Information EXPANDED OUT/PT [facility], [address] [place] [address], [address], [place] tel:[phone] [facility] Adult Medicine No Information No Information [facility], [address] [place] [address], [address], tel:[phone] Conversion ROUTINE GYNECOLOGICAL EXAMINATION No Information EXPANDED OUT/PT [facility], [address] [place] [address], [place] tel:[phone] [facility] No Information 7 No Information Family History Family Member Type Diagnosis Age At Onset No Information Payers Payer name Insurance type Covered constitution party ID Authoriza tion(s) No Information Social History Type Description Quantity Date Captured Comments Sex Female Smoking Status No Information Chief Complaint And Reason For Visit No Information Reason For Referral Reason For Referral No Information History Of Present Illness Encounter Date Complaint History Of Prese nt Illness No Information Functional Status Date Functional Assessmen t No Information Instructions Date Instruction Additional Infor mation No Information Assessments Type Assessment Date No Information Patient Care Teams Name Effective Dates (start - stop) Status Members No Information
--- OUTSIDE RECORDS SUMMARY | 2025-07-13 08:24 | XMS_ITS | Clinical Summary ---
Author Organization [facility] ity Address [address] [place] [address] Care Team Providers Care Seafood Service Team Member Name Role Phone Darion Mohan MD Primary Care Provider [phone] Social History Tobacco Use Types Packs/Day Years [...] Depression Screening 08/22/2024 COVID-19 Vaccine (1 - 2024-2 6 season) 2025 Influenza Vaccine (#1) 2025 RSV [...] age to complete this topic Care Teams Seafood Service Team Member Relationship Specialty Start Date End Date Darion Mohan MD [address] [place] [address] Drive [address] [place] [address] PCP - General Internal Medicine 06/12/21
--- OUTSIDE RECORDS SUMMARY | 2025-07-13 08:24 | XMS_ITS | Patient Health Record ---
Author Organization [facility] enter Address [address] [place] [address] Support Name Relationship Address Phone Jenna Dias [...] Oral (Yosef-) 01/09/2014 Active Vitamin D (Ergocalciferol) 38689 UNIT take 1 capsule by oral route every week Oral (Yosef-) 07/18/2013 Active Zofran ODT 8 MG take 1 tab PO q [address] on top of the tongue, let dissolve, then swallow. 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
[2025-07-13 08:47] LABS: MANUAL DIFF FLAG NO
[2025-07-13 09:13] LABS: Hematocrit 38.9 % (37.0-47.0); Hemoglobin 12.4 g/dl (12.0-16.0); Imm Gran Abs Auto 0.04 X10*3/uL (0.00-0.03); Imm Gran Pct Auto 0.5 % (0.0-0.4); Lymphocytes Absolute Auto 1.8 X10*3/uL (1.2-4.9); Mean Corpuscular HGB Conc 31.9 g/dl (31.0-35.0); Mean Corpuscular Hemoglobin 27.9 pg (27.0-33.0); Mean Corpuscular Volume 87.4 fL (80.0-98.0); NRBC Abs Auto 0.000 X10*3/uL (0.0-0.012); NRBC Pct Auto 0.0 /100WBC (0.0-0.2); Platelet Count 197 X10*3/uL (160-400); Red Blood Count 4.45 X10*6/uL (4.20-5.50); White Blood Count 7.9 X10*3/uL (4.8-10.8)
[2025-07-13 10:16] LABS: Alanine Aminotransferase 19 U/L (0-31); Albumin Level 4.0 g/dL (3.5-5.0); Alkaline Phosphatase 74 U/L (39-117); Anion Gap 12 (12-20); Aspartate Amino Transferase 20 U/L (5-31); Blood Urea Nitrogen 18 mg/dL (9-16); Calcium 8.8 mg/dL (8.4-10.2); Carbon Dioxide 24 mmol/L (22-29); Chloride 109 mmol/L (96-108); Cholesterol 185 mg/dL (<200); Estimated Glomerular Filt Rate > 60; HDL Cholesterol 61 mg/dL (>40); Iron 39 mcg/dL (30-160); Percent Iron Saturation 13 % (15-50); Potassium 4.4 mmol/L (3.3-5.1); Sodium 141 mmol/L (135-145); Thyroid Stimulating Hormone 1.58 uIU/mL (0.32-4.0); Total Iron Binding Capacity 298 mcg/dL (228-428); Total Protein 7.2 g/dL (6.5-8.0); Triglycerides 55 mg/dL (<150); Unsaturated Iron Binding 259 ug/dL
[2025-07-13 10:28] LABS: Folate 9.2 ng/mL (> or = 4.0); Vitamin B12 626 pg/mL (200-900)
== END 2025-07-13 08:23 | disposition home or self-care (01) ==
LOC: HO.LAB 08:22
PROVIDERS: PCP Internal Medicine; Visit Provider Internal Medicine
DX: E53.8 Deficiency of other specified B group vitamins (principal); E66.09 Other obesity due to excess calories; E78.5 Hyperlipidemia, unspecified; E55.9 Vitamin D deficiency, unspecified; D64.9 Anemia, unspecified; Z68.35 Body mass index [BMI] 35.0-35.9, adult
CPT/HCPCS: 36415; 80053; 80061; 82306; 82607; 82746; 83540; 84443; 85025

== ENCOUNTER 2025-07-29 12:37 | Outpatient (AMB) | payer OTHER, SELFPAY ==
--- NOTE | 2025-07-29 12:41 | A.OFFPC_ITS ---
Vital Signs 07/29/25 12:43 Height 5 ft 7 in Weight 212 lb 2 oz BMI 33.2 BP 120/78 Blood Pressure Location Lt brachial Position Sitting Pulse 72 Pulse Source Pulse Oximeter Temp 97.1 F Temp Source Temporal Artery Scan Pulse Oximetry (%) 98 Oxygen Delivery Method Room Air Intake Visit Reasons: annual exam Intake Note: Patient is here today for a physical. Caddie Required: No Analytic Programmer: Not Required per policy Accompanied by: Self / Same As Patient Allergies No Known Allergies Allergy (Verified 07/29/25 12:53) Medication List - Last Reconciled 07/29/25 by Jillian Kaminski MD albuterol sulfate 90 mcg/actuation (Ventolin HFA) 2 puffs inhalation Q4-6H PRN famotidine 40 mg PO BEDTIME 90 days levonorgestrel (Mirena) intrauterine naproxen (EC-Naprosyn) 500 mg PO BID omeprazole 20 mg PO DAILY 90 days Tobacco use date assessed: 07/29/25 Dental Screening Dental Screen Date: 06/17/25 HPI HPI Comments History of Present Illness Details The patient is a 45 year old female presenting for an annual physical exam. 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 At that time, she was also found to have kidney stones. The patient denies any problems with urination growing up. Recent testing showed cysts in her left kidney, but her renal function is normal. The patient reports pain consistent with arthritis, noting a family history of rheumatoid arthritis on both sides, particularly from her father's side. She experiences pain in her hands with simple actions like touching them, and also has ongoing pain in her right arm and knee. Recent shoulder X-rays were normal, but knee X-rays showed some arthritis. She also has a history of a rib fracture from an accident last year. She has limited elevation and abduction and will be referred to physical therapy. Will also be referred to rheumatology due to diffuse joint pain. Also has eczema and needs refill on her cream. Past surgical history includes a sleeve gastrectomy in 2019, tubal ligation, a section, and cosmetic procedures including a breast lift, tummy tuck, and Scottish Butt Lift. Her medications include naproxen as needed and omeprazole. Her father had diabetes and end-stage renal disease requiring dialysis. Her mother is alive with a history of depression, anxiety, asthma, hypercholesterolemia, and hypertension. - Mammogram: Completed this year with no rmal results. - Pap smear: Performed two months ago, r esults were normal and HPV negative. - Immunizations: She is due for a Tdap v accine, which is recommended every 10 years. - She declines the influenza vaccine, ci ting past experiences where it made her feel very sick. - Colon Cancer Screening: The patient is 45 years old and has not had a colonoscopy. - The options of a take-home stool test or a colonoscopy were discussed. - If the stool test is abnormal, a colon oscopy is needed; if normal, the next stool test is in 3 years. - Diet: Intermittent fasting was discuss ed as a weight management strategy. [facility] Medical History Uterine fibroid Acute eczema GERD (gastroesophageal reflux disease) Migraines Hypovitaminosis D Physical exam AMAN (generalized anxiety disorder) Polyarthralgia New daily persistent headache Dyslipidemia Migraine with aura Anemia Surgical History H/O cosmetic surgery History of sleeve gastrectomy Hx of tubal ligation Hx of section Family History Father Diabetes mellitus ESRD on hemodialysis Mother Acute depression Anxiety Asthma Hypertension Osteoporosis Hypercholesteremia Hyperlipemia Mental health disorder Son No problems noted. Daughter No problems noted. Brother No problems noted. Sister Cervical cancer Maternal Grandmother Lung cancer Maternal Grandfather Throat cancer Social History Household Members: Significant Other and Family Housing: House Alcohol intake: never Patient Tobacco Use Status: Never used Tobacco e-Cigarette/Vaping Use: Never Used Second Hand Smoke Exposure: No service: No Current occupational status: employed Current occupational exposures/hazards: No Gender identity: Female Cognitive needs: No Hearing needs: No Vision needs: No Female Reproductive History Menstrual Age of Menarche: 9 Questionnaire Thrive Questionnaire Date Thrive assessed: 12/25/24 I am a: Patient What is your living situation today?: I have a steady place to live Within the past 12 months, did the food you bought not last and you didn't have the money to get more?: Sometimes True Within the past 12 months, did you worry whether your food would run out before you got money to buy more?: Sometimes True Do you have trouble paying for medicines?: No Do you have trouble getting transportation to medical appointments?: No Do you have trouble paying your heating and electricity bill?: Yes Do you have trouble taking care of your child, family member or friend?: No Do you have trouble with day-to-day activities such as bathing, preparing meals, shopping, managing finances, etc.?: No Are you currently unemployed and looking for a job?: No Are you interested in more education?: No Please select the resources that you would like help with: None Currently or been in a relationship where the following occur: No concerns reported THRIVE Score: 3 AMAN-7 AMB Questionnaire AMAN-7 Date AMAN - 7 assessed: 09/19/24 Source: Developed by Drs. Yonis Bradshaw, Lily Willett, Fransisco Godoy and colleagues, with an educational dylon from [employer]. Review of Systems Const All systems reviewed & are unremarkable except as noted in HPI and below Card Denies chest pain at rest, Denies chest pain with activity, Denies edema, Denies irregular heart rhythm, Denies claudication, Denies dyspnea, Denies dyspnea on exertion, Denies orthopnea, Denies paroxysmal nocturnal dyspnea and Denies slow heart rate Resp Denies cough, Denies dyspnea and Denies dyspnea on exertion Physical exam (Primary Care) Vital Signs: Last Vital Signs Temp 97.1 F 07/29/25 12:43 Pulse 72 07/29/25 12:43 BP 120/78 07/29/25 12:43 Pulse Ox 98 07/29/25 12:43 Oxygen Delivery Method Room Air 07/29/25 12:43 BMI result Body Mass Index 33.2 BMI Assessment/Plan discussion: High BMI High, discussed plan: lifestyle, weight reduction, dietary and physical activity Tobacco/Smoking Status: Tobacco use Status Tobacco use date assessed 07/29/25 07/29/25 12:47 Patient Tobacco Use Status Never used Tobacco 07/29/25 12:47 e-Cigarette/Vaping Use Never Used 07/29/25 12:47 Thrive Assessment: Date of Thrive Assessment Date Thrive assessed 12/25/24 07/29/25 12:47 Currently or been in a relationship where the following occur: No concerns reported [facility] Head: Yes normal to inspection, Yes normocephalic and Yes atraumatic Ears: external ears normal Eyes General: appearance normal, both eyes and all related structures Eyelids: Yes eyelids normal Conjunctivae: conjunctivae normal Neck Neck: Yes normal visual inspection and Yes supple Resp Effort & Inspection: normal respiratory effort Auscultation: clear to auscultation bilaterally Cardio Jugular venous distension: no JVD Rate: regular rate Rhythm: regular rhythm Heart sounds: S1 normal heart sound present and S2 normal heart sound present GI Inspection: Yes normal to inspection Palpation (GI): Soft to palpation and nontender Auscultation: normal bowel sounds Skin General skin exam: no rashes or lesions noted Neuro General: no focal motor deficits Extrem General: Yes full ROM Psych Appearance: grossly normal Immunizations Boostrix Tdap 2.5 Lf unit-8 mcg-5 Lf/0.5 mL intramuscular syringe Performing Provider: Jillian Kaminski MD [facility] Administered by: Lore Johnson LPN on 07/29/25 13:18 Dose Route Admin Location Dispensed Lot Number Expiration Date [facility] Cardiac Cath Rn 0.5 mL IM Left Deltoid 0.5 mL [id number] 02/05/28 89510-839-44 Equ[employer]am Total Dispensed Waste 0.5 mL 0 % VIS Given Date VIS Provided VIS Publication Date 07/29/25 Single Vaccine 21 Eligibility Eligibility Date Funding Source Not [facility] Eligible 07/29/25 Private Coding Level of Care Code Est Pt Level 3 (80923) Est Pt Prev Care 40-64y(70579) Diagnoses Physical exam Z00.00 Eczema L30.9 Acute pain of right shoulder M25.511 Chronicity: acute Polyarthralgia M25.50 Hypovitaminosis D E55.9 Class 2 obesity due to excess calories without serious comorbidity with body mass index (BMI) of 35.0 to 35.9 in adult E66.09; Z68.35 Obesity type: due to excess calories Obesity classification: adult class 2 (BMI 35 - 39.9) Serious obesity comorbidity presence: without serious comorbidity Body mass index: BMI 35.0-35.9 Time Spent (min) 33 Assessment & Plan Assessment & Plan (1) Physical exam: Code(s): Z00.00 - Encounter for general adult medical examination without abnormal findings Category: Medical (2) Eczema: Code(s): L30.9 - Dermatitis, unspecified Category: Medical (3) Right shoulder pain: Comment: Will obtain right shoulder x-ray. Will also obtain cervical spine x-ray. Patient will be given meloxicam. Patient has been educated on signs of worsening symptoms and when to report back to the walk-in or when to present to the ED. Code(s): M25.511 - Pain in right shoulder Category: Medical Qualifiers: Chronicity: acute Qualified Code(s): M25.511 - Pain in right shoulder (4) Polyarthralgia: Code(s): M25.50 - Pain in unspecified joint Category: Medical (5) Hypovitaminosis D: Code(s): E55.9 - Vitamin D deficiency, unspecified Category: Medical (6) Obesity: Code(s): E66.9 - Obesity, unspecified Category: Medical Qualifiers: Obesity type: due to excess calories Obesity classification: adult class 2 (BMI 35 - 39.9) Serious obesity comorbidity presence: without serious comorbidity Body mass index: BMI 35.0-35.9 Qualified Code(s): E66.09 - Other obesity due to excess calories; Z68.35 - Body mass index [BMI] 35.0-35.9, adult Plan Plan 1. Physical exam The patient is due for her Tdap vaccine, which will be administered during the visit. She was provided with education on options for colon cancer screening, including a take-home stool test kit or a colonoscopy, as she has reached the recommended screening age of 45. The patient will be provided with a stool test kit to complete at home. Weight management strategies, including intermittent fasting, were discussed. 2. Joint pain Given the patient's symptoms of joint pain, family history of rheumatoid arthritis, and X-ray findings of arthritis in the knee, a referral to rheumatology will be made for further evaluation. Physical therapy will also be ordered for the patient. 3. Vitamin D Deficiency The patient's lab results indicate low vitamin D levels. A prescription for vitamin D supplementation will be sent to her pharmacy, [facility] at [address] [place] [address]. 4. Eczema Start betamethasone cream. 5. Hypovitaminosis D Start vitamin-D supplements. 6. Right shoulder pain Start physical therapy. Orders: Orders TDaP Immunization Today Z23 - Encounter for immunization PT Evaluation and Treatment Today M25.511 - Pain in right shoulder Referrals Rheumatology Referral M25.50 - Pain in unspecified joint Cologuard Test Z12.11 - Encounter for screening for malignant neoplasm of colon, Z12.12 - Encounter for screening for malignant neoplasm of rectum Medications: New betamethasone dipropionate 0.05% 1 appl topical DAILY PRN 15 grams 1RF skin irritation 2 weeks L30.9 - Dermatitis, unspecified cholecalciferol (vitamin D3) 50 mcg PO DAILY 90 caps 1RF 90 days
[2025-07-29 12:43] VITALS: BP 120/78; PULSE 72; TEMP 36.2; O2SAT 98; BMI 33.2
== END 2025-07-29 13:20 | disposition home or self-care (01) ==
LOC: HO.HMCH 12:38
PROVIDERS: PCP Internal Medicine; Visit Provider Internal Medicine
DX: Z00.00 Encounter for general adult medical examination without abnormal findings (principal); M25.511 Pain in right shoulder; E66.09 Other obesity due to excess calories; Z68.35 Body mass index [BMI] 35.0-35.9, adult; L30.9 Dermatitis, unspecified; M25.50 Pain in unspecified joint; E55.9 Vitamin D deficiency, unspecified; Z23 Encounter for immunization

== ENCOUNTER → 2025-07-29 12:37 | Outpatient (BNVA) | payer OTHER, SELFPAY | PROVIDERS: PCP Internal Medicine; Visit Provider Internal Medicine | DX: Z00.00 Encounter for general adult medical examination without abnormal findings (principal); Z23 Encounter for immunization; L30.9 Dermatitis, unspecified; M25.511 Pain in right shoulder; M25.50 Pain in unspecified joint; E55.9 Vitamin D deficiency, unspecified; E66.09 Other obesity due to excess calories; Z68.33 Body mass index [BMI] 33.0-33.9, adult | CPT/HCPCS: 90471; 90715; 99212; 99396 ==

== ENCOUNTER 2025-08-14 08:43 | Outpatient (REF) | payer OTHER, SELFPAY | END 2025-08-14 08:44 | disposition home or self-care (01) | LOC: HO.LNP 08:43 | PROVIDERS: PCP Internal Medicine; Visit Provider Obstetrics & Gynecology | DX: N93.9 Abnormal uterine and vaginal bleeding, unspecified (principal); Z98.51 Tubal ligation status; Z97.5 Presence of (intrauterine) contraceptive device | CPT/HCPCS: 58100; 88305 ==

== ENCOUNTER 2025-08-14 08:43 | Outpatient (AMB) | payer OTHER, SELFPAY ==
--- NOTE | 2025-08-14 08:44 | MHC.OFFVIS ---
Vital Signs 08/14/25 09:03 Height 5 ft 7 in Weight 212 lb BMI 33.2 BP 118/72 Intake Visit Reasons: EMB Physical Therapist Aide Required: Yes Physical Therapist Aide Language: Life Insurance Underwriter Services: Physical Therapist Aide Present (in person) Physical Therapist Aide Name: Susie ANAYA Information Interpreted: non-clinical & clinical Cook Roast: Cook Roast Present (Susie ANAYA) Accompanied by: Self / Same As Patient Allergies No Known Allergies Allergy (Verified 08/14/25 09:03) HPI Comments Details: Presenting for EMB [facility] Medical History Uterine fibroid Acute eczema GERD (gastroesophageal reflux disease) Migraines Hypovitaminosis D Physical exam AMAN (generalized anxiety disorder) Polyarthralgia New daily persistent headache Dyslipidemia Migraine with aura Anemia Surgical History H/O cosmetic surgery History of sleeve gastrectomy Hx of tubal ligation Hx of section Family History Father Diabetes mellitus ESRD on hemodialysis Mother Acute depression Anxiety Asthma Hypertension Osteoporosis Hypercholesteremia Hyperlipemia Mental health disorder Son No problems noted. Daughter No problems noted. Brother No problems noted. Sister Cervical cancer Maternal Grandmother Lung cancer Maternal Grandfather Throat cancer Social History Household Members: Significant Other and Family Housing: House Alcohol intake: never Patient Tobacco Use Status: Never used Tobacco e-Cigarette/Vaping Use: Never Used Second Hand Smoke Exposure: No service: No Current occupational status: employed Current occupational exposures/hazards: No Gender identity: Female Cognitive needs: No Hearing needs: No Vision needs: No Female Reproductive History Menstrual Age of Menarche: 9 Review of Systems Const All systems reviewed & are unremarkable except as noted in HPI and below Reports as per HPI and Reports no additional complaints GI Reports no additional complaints Reports no additional complaints Office Procedures Endometrial Biopsy Details: The patient was counseled regarding the indication and benefits of endometrial sampling to rule out endometrial pathology including not limited to endometrial hyperplasia or endometrial cancer and others; The alternatives (Either do nothing vs. hysteroscopy D&C) & the risks were discussed with the patient including but not limited: pain, uterine perforation, bleeding, infection, possible injury to bladder, bowel, ureter, possible need for blood transfusion with all its possible risks. The patient verbalized understanding all questions answered and signed consent. Urine test done in the office was negative The patient was placed into the dorsal lithotomy position; a speculum was inserted in the vagina. Using aseptic technique for the procedure, the cervix was cleansed with Betadine. The anterior lip of the cervix was grasped with a single tooth tenaculum. The uterus was sounded to 7 cm with a 4 mm Pipelle was used. Tissues samples were obtained and placed in formalin, in a patient labeled container and sent to the pathology department. At the end of the procedure, there was minimal bleeding noted The patient tolerated the procedure well and was discharged in good condition with the following instructions: Nothing in the vagina until the bleeding stops. No sex until the bleeding stops, to call if any of the following occurs: fever (>100.4), flu-like symptoms, abdominal pain, heavy bleeding, four smelling vaginal discharge. The patient was instructed to schedule a Follow up appointment in 2 weeks to discuss pathology results of the biopsy and treatment options. This note was generated with a voice recognition program. Some errors may have been overlooked during the review of this note. Sometimes these errors may affect the content or meaning of a given sentence. [id number] Biopsy Assessment & Plan Assessment & Plan (1) Abnormal uterine bleeding (AUB): Comment: On Mirena IUD Code(s): N93.9 - Abnormal uterine and vaginal bleeding, unspecified Category: Medical Plan: EMB done, see procedure note Orders: Orders AMB Endometrial Biopsy Today N93.9 - Abnormal uterine and vaginal bleeding, unspecified Coding Level of Care Code Procedure Only Diagnoses Abnormal uterine bleeding (AUB) N93.9 CPT Codes Endometrial Biopsy - CPT: 73310-Cjspgazzruk Biopsy ([id number])
--- OUTSIDE RECORDS SUMMARY | 2025-08-14 08:48 | XMS_ITS | Clinical Summary ---
Author Organization [facility] it[facility] Address [address] [place] [address] Care Team Providers Care Lockmaker Name Role Phone Darion Mohan MD Primary Care Provider [phone] Social History Tobacco Use Types Packs/Day Years [...] age to complete this topic Care Teams Lockmaker Relationship Specialty Start Date End Date Darion Mohan MD [address] [place] [address] Drive [address] [place] [address] PCP - General Internal Medicine 06/12/21
--- OUTSIDE RECORDS SUMMARY | 2025-08-14 08:48 | XMS_ITS | Patient Health Record ---
Author Organization [facility] Address [address] [place] [address] Support Name Relationship Address Phone Jenna Dias Guarantor Unknown [phone] Reason For Referral No Information Medications Medication [...] Oral (Yosef-) 01/09/2014 Active Vitamin D (Ergocalciferol) 97343 UNIT take 1 capsule by oral route every week Oral (Yosef-) 07/18/2013 Active Zofran ODT 8 MG take 1 tab PO q 8 h [address] on top of the tongue, let dissolve, then swallow. 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
[2025-08-14 09:03] VITALS: BP 118/72; BMI 33.2
== END 2025-08-14 09:04 | disposition home or self-care (01) ==
LOC: HO.HWS 08:43
PROVIDERS: PCP Internal Medicine; Visit Provider Obstetrics & Gynecology
DX: N93.9 Abnormal uterine and vaginal bleeding, unspecified (principal)
CPT/HCPCS: 58100